=== PATIENT | male | born 1975 | race American Indian/Alaskan Native ===

== ENCOUNTER 2019-12-31 02:32 | Emergency (ER) | payer SELFPAY ==
[2019-12-31] MEDS ORDERED: FAMOTIDINE 20 MG/2 ML INJ IV ONE (03:22)
[2019-12-31] MEDS ORDERED: diphenhydrAMINE 50 MG/ML VIAL IV ONE (03:22)
[2019-12-31] MEDS ORDERED: ONDANSETRON 4 MG/2 ML INJ IV ONE (03:22)
--- NOTE | 2019-12-31 03:24 | Event Note ---
Date: 12/31/19 Medical screening examination note: 44-year-old gentleman, reports a history of wound to left lower extremity, "bumps" on his back, seen at [facility] last month, prescribed Bactrim, presenting with complaint of nausea, vomiting, diarrhea, and sensation that wounds on his back are worsening. Check labs, EKG, undressed patient in a gown, treat his symptoms, and reassess. Vital Signs 12/31/19 02:35 Temperature 98.3 F Pulse Rate 120 H Respiratory 16 Rate Blood Pressure 136/92 O2 Sat by Pulse 97 Oximetry
[2019-12-31 03:25] LABS: Basophils # (Auto) 0.1 K/mm3 (0.0-0.1); Basophils % (Auto) 0.7 % (0.0-1.8); Eosinophils # (Auto) 0.1 K/mm3 (0.0-0.4); Eosinophils % (Auto) 0.6 % (0.0-4.3); Hematocrit 47.3 % (35.5-45.6); Lymphocytes % (Auto) 18.1 % (13.4-35.0); Mean Corpuscular HGB Conc 34 % (32-34); Mean Corpuscular Volume 97 fl (84-94); Monocytes # (Auto) 0.6 K/mm3 (0.0-0.8); Monocytes % (Auto) 5.4 % (0.0-7.3); Platelet Count 256 K/mm3 (140-440); Red Blood Count 4.91 M/mm3 (3.65-5.03); Red Cell Distribution Width 13.2 % (13.2-15.2)
[2019-12-31 03:28] LABS: Alanine Aminotransferase 47 units/L (7-56); Albumin 4.6 g/dL (3.9-5); BUN/Creatinine Ratio 10; Blood Urea Nitrogen 9 mg/dL (9-20); Calcium 10.5 mg/dL (8.4-10.2); Hemolysis Index 10
[2019-12-31] MEDS: SODIUM CHLORIDE 0.9% 1000 ML 1,000 ML IV ONE ×2 (03:38→04:21)
[2019-12-31] MEDS ORDERED: SODIUM CHLORIDE 0.9% 1000 ML 1,000 ML IV ONE (03:44)
[2019-12-31] MEDS ORDERED: INSULIN REGULAR, HUMAN 100 UNITS/1 ML IV ONE (03:44)
[2019-12-31] MEDS ORDERED: KETOROLAC 30 MG/1 ML INJ IV ONE (04:03)
[2019-12-31] MEDS ORDERED: MORPHINE 4 MG/1 ML INJ IV ONE (04:13)
[2019-12-31] MEDS ORDERED: METOCLOPRAMIDE 10 MG/2 ML INJ IV ONE (04:13)
--- NOTE | 2019-12-31 04:36 | Emergency Department Report ---
ED General Adult HPI - General Chief complaint: Nausea/Vomiting/Diarrhea Stated complaint: EMESIS/BODY PAIN Time Seen by Provider: 12/31/19 03:56 Source: patient Mode of arrival: Ambulatory Limitations: No Limitations - History of Present Illness Initial comments: Patient is a 44-year-old male presents emergency room with complaints of nausea, vomiting, diarrhea that began this morning. He states he has had several episodes of each. He has associated generalized body aches. He denies any sick contacts or recent travel. He denies any fever, abdominal pain, hematochezia, hematemesis, melena, cough, shortness of breath, chest pain. He has a past medical history of DM and states he uses Humalog twice daily 30 units, CHF, gastroparesis. He states that he was seen at [facility] recently for wounds on his leg and back and was placed on Bactrim. He has not followed up with anyone since then. Severity scale (0 -10): 10 - Related Data Home Medications Medication Instructions Recorded Confirmed Last Taken Insulin NPH/Regular [NovoLIN 70/30] 7 units SQ QPM 03/01/14 08/13/14 08/12/14 19:00 Insulin NPH/Regular [NovoLIN 70/30] 9 units SQ QAM 03/01/14 08/13/14 08/12/14 09:00 Previous Rx's Medication Instructions Recorded Last Taken Type Famotidine [Pepcid] 20 mg PO DAILY #30 tablet 08/14/14 Unknown Rx HYDROcodone/APAP 10-325 [[place] 1 each PO Q8HR PRN #20 tablet 08/14/14 Unknown Rx 10/325] Hyoscyamine Subl [Levsin Sl] 0.125 mg SL Q8HR PRN #30 tablet 08/14/14 Unknown Rx Metoclopramide HCl [Reglan] 10 mg PO TID PRN #30 tablet 08/14/14 Unknown Rx Metoclopramide [Reglan] 10 mg PO TID PRN #20 tab 12/31/19 Unknown Rx Neomycin/Bacitracin/Polymyxinb 1 applicatio TP BID #1 oint...g. 12/31/19 Unknown Rx [Triple Antibiotic Ointment] traMADoL [Ultram 50 MG tab] 50 mg PO Q8HR PRN #10 tablet 12/31/19 Unknown Rx Allergies Allergy/AdvReac Type Severity Reaction Status Date / Time No Known Allergies Allergy Verified 08/13/14 15:57 ED Review of Systems ROS: Stated complaint: EMESIS/BODY PAIN Other details as noted in HPI Comment: All other systems reviewed and negative ED Past Medical Hx - Past Medical History Previous Medical History?: Yes Hx Congestive Heart Failure: Yes Hx Diabetes: Yes Additional medical history: History of DKA. Tetanus status up to date - Surgical History Past Surgical History?: No - Social History Smoking Status: Current Every Day Smoker Substance Use Type: None - Medications Home Medications: Home Medications Medication Instructions Recorded Confirmed Last Taken Type Insulin NPH/Regular [NovoLIN 70/30] 7 units SQ QPM 03/01/14 08/13/14 08/12/14 19:00 History Insulin NPH/Regular [NovoLIN 70/30] 9 units SQ QAM 03/01/14 08/13/14 08/12/14 09:00 History Famotidine [Pepcid] 20 mg PO DAILY #30 tablet 08/14/14 Unknown Rx HYDROcodone/APAP 10-325 [[place] 1 each PO Q8HR PRN #20 tablet 08/14/14 Unknown Rx 10/325] Hyoscyamine Subl [Levsin Sl] 0.125 mg SL Q8HR PRN #30 tablet 08/14/14 Unknown Rx Metoclopramide HCl [Reglan] 10 mg PO TID PRN #30 tablet 08/14/14 Unknown Rx Metoclopramide [Reglan] 10 mg PO TID PRN #20 tab 12/31/19 Unknown Rx Neomycin/Bacitracin/Polymyxinb 1 applicatio TP BID #1 oint...g. 12/31/19 Unknown Rx [Triple Antibiotic Ointment] traMADoL [Ultram 50 MG tab] 50 mg PO Q8HR PRN #10 tablet 12/31/19 Unknown Rx ED Physical Exam - General Limitations: No Limitations General appearance: alert, in no apparent distress - Head Head exam: Present: atraumatic, normocephalic - Eye Eye exam: Present: normal appearance - ENT ENT exam: Present: mucous membranes dry - Respiratory Respiratory exam: Present: normal lung sounds bilaterally. Absent: respiratory distress, wheezes, rales, rhonchi, stridor, chest wall tenderness, accessory muscle use, decreased breath sounds, prolonged expiratory - Cardiovascular Cardiovascular Exam: Present: normal rhythm, tachycardia, normal heart sounds. Absent: systolic murmur, diastolic murmur, rubs, gallop - GI/Abdominal GI/Abdominal exam: Present: soft, normal bowel sounds. Absent: distended, tenderness, guarding, rebound, rigid - Neurological Exam Neurological exam: Present: alert, oriented X3 - Psychiatric Psychiatric exam: Present: normal affect, normal mood - Skin Skin exam: Present: warm, dry, other (healing granulation tissue present to the left anterior woods, there is no drainage, no erythema, no increased warmth, no fluctuance, there are multiple scab like lesions present on the back and scalp, no erythema, no increased warmth, no drainage, no necrosis, no blistering, no skin denuding) ED Course Vital Signs 12/31/19 12/31/19 12/31/19 02:35 03:43 04:24 Temperature 98.3 F Pulse Rate 120 H 94 H Respiratory 16 Rate Blood Pressure 136/92 168/112 168/112 O2 Sat by Pulse 97 Oximetry 12/31/19 12/31/19 12/31/19 04:27 04:31 04:45 Temperature 98.6 F Pulse Rate 95 H 97 H Respiratory 21 16 Rate Blood Pressure 164/100 164/100 O2 Sat by Pulse 100 99 Oximetry 12/31/19 12/31/19 12/31/19 05:00 05:15 05:31 Temperature Pulse Rate 97 H 97 H 94 H Respiratory 15 15 16 Rate Blood Pressure 136/83 136/83 136/83 O2 Sat by Pulse 99 100 99 Oximetry 12/31/19 12/31/19 12/31/19 05:45 06:00 06:04 Temperature 98.6 F Pulse Rate 93 H 90 Respiratory 15 14 Rate Blood Pressure 136/83 143/89 O2 Sat by Pulse 100 100 Oximetry 12/31/19 06:15 Temperature Pulse Rate 86 Respiratory 13 Rate Blood Pressure 143/89 O2 Sat by Pulse 100 Oximetry ED Medical Decision Making - Lab Data Result diagrams: 12/31/19 02:58 12/31/19 02:58 Lab Results 12/31/19 12/31/19 12/31/19 Range/Units 02:58 02:58 03:34 WBC 10.9 (4.5-11.0) K/mm3 RBC 4.91 (3.65-5.03) M/mm3 Hgb 16.0 H (11.8-15.2) gm/dl Hct 47.3 H (35.5-45.6) % MCV 97 H (84-94) fl MCH 33 H (28-32) pg MCHC 34 (32-34) % RDW 13.2 (13.2-15.2) % Plt Count 256 (140-440) K/mm3 Lymph % (Auto) 18.1 (13.4-35.0) % [place] % (Auto) 5.4 (0.0-7.3) % Eos % (Auto) 0.6 (0.0-4.3) % Baso % (Auto) 0.7 (0.0-1.8) % Lymph # 2.0 (1.2-5.4) K/mm3 [place] # 0.6 (0.0-0.8) K/mm3 Eos # 0.1 (0.0-0.4) K/mm3 Baso # 0.1 (0.0-0.1) K/mm3 Seg Neutrophils % 75.2 H (40.0-70.0) % Seg Neutrophils # 8.2 H (1.8-7.7) K/mm3 VBG pH (7.320-7.420) Sodium 133 L (137-145) mmol/L Potassium 4.3 (3.6-5.0) mmol/L Chloride 90.7 L (98-107) mmol/L Carbon Dioxide 26 (22-30) mmol/L Anion Gap 21 mmol/L BUN 9 (9-20) mg/dL Creatinine 0.9 (0.8-1.5) mg/dL Estimated GFR > 60 ml/min BUN/Creatinine Ratio 10 % Glucose 546 H* (75-100) mg/dL POC Glucose (70-105) Calcium 10.5 H (8.4-10.2) mg/dL Magnesium 2.00 (1.7-2.3) mg/dL Total Bilirubin 1.00 (0.1-1.2) mg/dL AST 35 (5-40) units/L ALT 47 (7-56) units/L Alkaline Phosphatase 112 (35-129) units/L Total Creatine Kinase 97 (55-170) units/L Troponin T (0.00-0.029) ng/mL Total Protein 8.6 H (6.3-8.2) g/dL Albumin 4.6 (3.9-5) g/dL Albumin/Globulin Ratio 1.2 % Lipase 18 (13-60) units/L 12/31/19 12/31/19 12/31/19 Range/Units 04:14 04:39 06:08 WBC (4.5-11.0) K/mm3 RBC (3.65-5.03) M/mm3 Hgb (11.8-15.2) gm/dl Hct (35.5-45.6) % MCV (84-94) fl MCH (28-32) pg MCHC (32-34) % RDW (13.2-15.2) % Plt Count (140-440) K/mm3 Lymph % (Auto) (13.4-35.0) % [place] % (Auto) (0.0-7.3) % Eos % (Auto) (0.0-4.3) % Baso % (Auto) (0.0-1.8) % Lymph # (1.2-5.4) K/mm3 [place] # (0.0-0.8) K/mm3 Eos # (0.0-0.4) K/mm3 Baso # (0.0-0.1) K/mm3 Seg Neutrophils % (40.0-70.0) % Seg Neutrophils # (1.8-7.7) K/mm3 VBG pH 7.411 (7.320-7.420) Sodium (137-145) mmol/L Potassium (3.6-5.0) mmol/L Chloride (98-107) mmol/L Carbon Dioxide (22-30) mmol/L Anion Gap mmol/L BUN (9-20) mg/dL Creatinine (0.8-1.5) mg/dL Estimated GFR ml/min BUN/Creatinine Ratio % Glucose (75-100) mg/dL POC Glucose 210 H (70-105) Calcium (8.4-10.2) mg/dL Magnesium (1.7-2.3) mg/dL Total Bilirubin (0.1-1.2) mg/dL AST (5-40) units/L ALT (7-56) units/L Alkaline Phosphatase (35-129) units/L Total Creatine Kinase (55-170) units/L Troponin T 0.015 (0.00-0.029) ng/mL Total Protein (6.3-8.2) g/dL Albumin (3.9-5) g/dL Albumin/Globulin Ratio % Lipase (13-60) units/L Vital Signs 12/31/19 12/31/19 12/31/19 02:35 03:43 04:24 Temperature 98.3 F Pulse Rate 120 H 94 H Respiratory 16 Rate Blood Pressure 136/92 168/112 168/112 O2 Sat by Pulse 97 Oximetry 12/31/19 12/31/19 12/31/19 04:27 04:31 04:45 Temperature 98.6 F Pulse Rate 95 H 97 H Respiratory 21 16 Rate Blood Pressure 164/100 164/100 O2 Sat by Pulse 100 99 Oximetry 12/31/19 12/31/19 12/31/19 05:00 05:15 05:31 Temperature Pulse Rate 97 H 97 H 94 H Respiratory 15 15 16 Rate Blood Pressure 136/83 136/83 136/83 O2 Sat by Pulse 99 100 99 Oximetry 12/31/19 12/31/19 12/31/19 05:45 06:00 06:04 Temperature 98.6 F Pulse Rate 93 H 90 Respiratory 15 14 Rate Blood Pressure 136/83 143/89 O2 Sat by Pulse 100 100 Oximetry 12/31/19 06:15 Temperature Pulse Rate 86 Respiratory 13 Rate Blood Pressure 143/89 O2 Sat by Pulse 100 Oximetry - EKG Data EKG shows normal: sinus rhythm, intervals Rate: tachycardia - EKG Data 12/31/19 04:37 LAD biatrial enlargement LAFB LVH no STEMI - Radiology Data Radiology results: report reviewed ACUTE ABDOMEN SERIES 3 VIEWS 0457 INDICATION: n/v/d, body aches, hx of CHF COMPARISON: None available. FINDINGS: Lung carrington are clear. No pneumoperitoneum is seen. Bowel gas pattern is unremarkable. Signer Name: Lyndon Valiente MD Signed: 12/31/2019 5:46 AM Workstation Name: [id number] Transcribed By: ARVIN Dictated By: Lyndon Valiente MD Electronically Authenticated By: Lyndon Valiente MD Signed Date/Time: 12/31/19545 DD/ 4 TD/TT: - Medical Decision Making Patient is a 44-year-old male presents emergency room with complaints of nausea, vomiting, diarrhea that began this morning. He states he has had several episodes of each. He has associated generalized body aches. He denies any sick contacts or recent travel. He denies any fever, abdominal pain, hematochezia, hematemesis, melena, cough, shortness of breath, chest pain. He has a past medical history of DM and states he uses Humalog twice daily 30 units, CHF, ga stroparesis. He states that he was seen at [facility] recently for wounds on his leg and back and was placed on Bactrim. He has not followed up with anyone since then. Initial vitals with tachycardia which improved upon repeat. Labs significant for glucose of 546, otherwise stable, venous pH is normal. XR abdomen with chest: Lung carrington are clear. No pneumoperitoneum is seen. Bowel gas pattern is unremarkable. EKG with LAD, biatrial enlargement, LAFB LVH, no STEMI. Patient given multiple medications, fluids, insulin. Blood glucose improved to 210. Patient was feeling much better and was asymptomatic. He was p.o. challenged and had no further episodes of nausea vomiting or diarrhea. on skin exam: healing granulation tissue present to the left anterior woods, there is no drainage, no erythema, no increased warmth, no fluctuance, there are multiple scab like lesions present on the back and scalp, no erythema, no increased warmth, no drainage, no necrosis, no blistering, no skin denuding, no signs of abscess, cellulitis or infection, pt given triple antibiotic ointment and will be referred to dermatology. pt given prescription for zofran and tramadol. advised pt Please use medications as prescribed. Do not drive or operate heavy machinery while taking pain medication. Please increase your water intake over the next several days. Please initially start with a liquid diet and slowly advance your diet as tolerated. Avoid anything greasy or sugary. Please take your blood sugar 3 times a day and follow-up with your primary care doctor regarding the elevation in your blood sugar. Please follow- up with a GI doctor regarding the gastroparesis. Please follow-up with a inside sales coordinator regarding your skin. Return to the emergency room for any new or worsening symptoms. - Differential Diagnosis Gastroparesis, gastroenteritis, pancreatitis, cholecystitis, obstruction Critical care attestation.: If time is entered above; I have spent that time in minutes in the direct care of this critically ill patient, excluding procedure time. ED Disposition Clinical Impression: Nausea vomiting and diarrhea, Hyperglycemia Disposition: DC-01 TO HOME OR SELFCARE Is pt being admited?: No Does the pt Need Aspirin: No Condition: Stable Instructions: Acute Nausea and Vomiting (ED) Additional Instructions: Please use medications as prescribed. Do not drive or operate heavy machinery while taking pain medication. Please increase your water intake over the next several days. Please initially start with a liquid diet and slowly advance your diet as tolerated. Avoid anything greasy or sugary. Please take your blood sugar 3 times a day and follow-up with your primary care doctor regarding the elevation in your blood sugar. Please follow-up with a GI doctor regarding the gastroparesis. Please follow-up with a inside sales coordinator regarding your skin. Return to the emergency room for any new or worsening symptoms. Prescriptions: Metoclopramide [Reglan] 10 mg PO TID PRN #20 tab PRN Reason: Nausea And Vomiting Neomycin/Bacitracin/Polymyxinb [Triple Antibiotic Ointment] 1 applicatio TP BID #1 oint...g. traMADoL [Ultram 50 MG tab] 50 mg PO Q8HR PRN #10 tablet PRN Reason: Pain , Severe (7-10) Referrals: [facility] [Provider Group] - 3-5 Days TAHIR MÉNDEZ MD [Staff Physician] - 3-5 Days RUTH GALAVIZ MD [Staff Physician] - 3-5 Days ISRA VILLALOBOS MD [Staff Physician] - 3-5 Days [facility] [Provider Group] - 3-5 Days [facility] [Outside] - 3-5 Days Time of Disposition: 06:15 Print Language: FRENCH
--- NOTE | 2019-12-31 05:50 | XRay Report ---
ACUTE ABDOMEN SERIES 3 VIEWS 0457 INDICATION: n/v/d, body aches, hx of CHF COMPARISON: None available. FINDINGS: Lung carrington are clear. No pneumoperitoneum is seen. Bowel gas pattern is unremarkable. Signer Name: Lyndon Valiente MD Signed: 12/31/2019 5:46 AM Workstation Name: [id number]
[2019-12-31 06:48] VITALS: BP 142/92
== END 2019-12-31 06:48 | disposition home or self-care (01) ==
LOC: ED 02:32
DX: R11.2 Nausea with vomiting, unspecified (principal); R19.7 Diarrhea, unspecified; E11.65 Type 2 diabetes mellitus with hyperglycemia; I50.9 Heart failure, unspecified; F17.200 Nicotine dependence, unspecified, uncomplicated; Z79.899 Other long term (current) drug therapy
CPT/HCPCS: 36415; 74022; 80053; 82550; 82805; 82962; 83690; 83735; 84484; 85025; 93005; 96361; 96374; 96375; 99284; J1200; J1885; J2270; J2405; J2765; J7030; J1815

== ENCOUNTER 2021-08-16 20:35 | Inpatient (IN) | payer SELFPAY ==
[2021-08-16] MEDS ORDERED: SODIUM CHLORIDE 0.9% 1000 ML 1,000 ML IV ONE ×2 (22:38→23:35)
--- NOTE | 2021-08-16 22:41 | Emergency Department Report ---
HPI - General Time Seen by Provider: 08/16/21 21:59 - HPI HPI: 45-year-old -Swiss male presents to the emergency department with a complaint of generalized weakness, 3 episodes of passing out over the past 2 days, and 1 day of nausea with vomiting. The patient says "I do not know what is wrong with me I keep falling out." He says that sometimes it will occur when he is getting up from the laying or seated position, but other times he is just resting and suddenly "I wake up on the floor." With this last syncopal episode the patient says that he fell on his right shoulder and is having right shoulder pain. He has a past medical history of diabetes, hypertension, CHF. The patient was seen here about 2 months ago for transient hypotension, LAN, hyperkalemia. The patient had one of his testicles removed a few months ago due to infectious etiology. He is a tobacco smoker but denies any illicit drug use. ED Past Medical Hx - Past Medical History Hx Congestive Heart Failure: Yes Hx Diabetes: Yes Hx Asthma: Yes Hx COPD: No Additional medical history: History of DKA. Tetanus status up to date - Surgical History Additional Surgical History: removal of testicles - Social History Smoking Status: Current Every Day Smoker - Medications Home Medications: Home Medications Medication Instructions Recorded Confirmed Last Taken Type Insulin NPH/Regular [NovoLIN 70/30] 7 units SQ QPM 03/01/14 08/13/14 08/12/14 19:00 History Insulin NPH/Regular [NovoLIN 70/30] 9 units SQ QAM 03/01/14 08/13/14 08/12/14 09:00 History Famotidine [Pepcid] 20 mg PO DAILY #30 tablet 08/14/14 Unknown Rx Hyoscyamine Subl [Levsin Sl 0.125 0.125 mg SL Q8HR PRN #30 tablet 08/14/14 Unknown Rx TAB] Metoclopramide [Reglan TAB] 10 mg PO TID PRN #20 tab 12/31/19 Unknown Rx Neomycin/Bacitracin/Polymyxinb 1 applicatio TP BID #1 oint...g. 12/31/19 Unknown Rx [Triple Antibiotic Ointment] traMADoL [Ultram 50 MG tab] 50 mg PO Q8HR PRN #10 tablet 12/31/19 Unknown Rx Amoxicillin/Potassium Clav 1 each PO DAILY 2 Days #2 tablet 06/25/21 Unknown Rx [Augmentin 875-125 Tablet] Ondansetron [Zofran Odt] 4 mg PO Q8HR PRN 8 Days #24 06/25/21 Unknown Rx tab.che ED Review of Systems ROS: Stated complaint: SYNCOPE Other details as noted in HPI Comment: All other systems reviewed and negative Constitutional: weakness. denies: chills, fever Eyes: denies: eye pain, vision change ENT: denies: ear pain, throat pain Respiratory: denies: cough, shortness of breath Cardiovascular: syncope. denies: chest pain, palpitations Gastrointestinal: nausea, vomiting. denies: abdominal pain Genitourinary: denies: dysuria, discharge Musculoskeletal: arthralgia. denies: joint swelling Skin: denies: rash, lesions Neurological: denies: headache, numbness Physical Exam - Physical Exam Physical Exam: GENERAL: The patient is well-developed well-nourished. HENT: Normocephalic. Atraumatic. Patient has moist mucous membranes. EYES: Extraocular motions are intact. No nystagmus. NECK: Supple. Trachea is midline. CHEST/LUNGS: Clear to auscultation. There is no respiratory distress noted. HEART/CARDIOVASCULAR: Regular. There is no tachycardia. There is no murmur. ABDOMEN: Abdomen is soft, nontender. Patient has normal bowel sounds. There is no abdominal distention. SKIN: Skin is warm and dry. NEURO: The patient is awake, alert, and cooperative. Normal speech. Cranial nerves II through XII grossly intact. MUSCULOSKELETAL: There is no tenderness or deformity. There is no limitation range of motion. ED Medical Decision Making - Lab Data Result diagrams: 08/17/21 02:40 08/17/21 02:40 Lab Results 08/16/21 08/16/21 08/16/21 Range/Units 22:43 22:43 22:43 WBC 11.1 H (4.5-11.0) K/mm3 RBC 3.80 (3.65-5.03) M/mm3 Hgb 12.0 (11.8-15.2) gm/dl Hct 36.9 (35.5-45.6) % MCV 97 H (84-94) fl MCH 32 (28-32) pg MCHC 33 (32-34) % RDW 14.8 (13.2-15.2) % Plt Count 311 (140-440) K/mm3 Lymph % (Auto) 14.3 (13.4-35.0) % [place] % (Auto) 6.6 (0.0-7.3) % Eos % (Auto) 1.3 (0.0-4.3) % Baso % (Auto) 0.3 (0.0-1.8) % Lymph # (Auto) 1.6 (1.2-5.4) K/mm3 [place] # (Auto) 0.7 (0.0-0.8) K/mm3 Eos # (Auto) 0.1 (0.0-0.4) K/mm3 Baso # (Auto) 0.0 (0.0-0.1) K/mm3 Seg Neutrophils % 77.5 H (40.0-70.0) % Seg Neutrophils # 8.6 H (1.8-7.7) K/mm3 PT 15.3 H (12.2-14.9) Sec. INR 1.09 (0.87-1.13) Sodium 135 L (137-145) mmol/L Potassium 4.1 (3.6-5.0) mmol/L Chloride 97.9 L (98-107) mmol/L Carbon Dioxide 22 (22-30) mmol/L Anion Gap 19 mmol/L BUN 46 H (9-20) mg/dL Creatinine 2.3 H (0.8-1.3) mg/dL Estimated GFR 37 ml/min BUN/Creatinine Ratio 20 % Glucose 241 H (75-100) mg/dL Calcium 9.2 (8.4-10.2) mg/dL Magnesium 1.90 (1.7-2.3) mg/dL Total Bilirubin 0.60 (0.1-1.2) mg/dL AST 32 (5-40) units/L ALT 50 (7-56) units/L Alkaline Phosphatase 164 H (35-129) units/L Troponin T 0.069 H (0.00-0.029) ng/mL Total Protein 8.7 H (6.3-8.2) g/dL Albumin 3.8 L (3.9-5) g/dL Albumin/Globulin Ratio 0.8 % Triglycerides 110 (2-149) mg/dL Cholesterol 94 (50-199) mg/dL LDL Cholesterol Direct 33 L (50-130) mg/dL HDL Cholesterol 44 (40-59) mg/dL Cholesterol/HDL Ratio 2.13 % TSH (0.270-4.200) mlU/mL Plasma/Serum Alcohol (0-0.07) % 08/16/21 08/16/21 Range/Units 22:43 22:43 WBC (4.5-11.0) K/mm3 RBC (3.65-5.03) M/mm3 Hgb (11.8-15.2) gm/dl Hct (35.5-45.6) % MCV (84-94) fl MCH (28-32) pg MCHC (32-34) % RDW (13.2-15.2) % Plt Count (140-440) K/mm3 Lymph % (Auto) (13.4-35.0) % [place] % (Auto) (0.0-7.3) % Eos % (Auto) (0.0-4.3) % Baso % (Auto) (0.0-1.8) % Lymph # (Auto) (1.2-5.4) K/mm3 [place] # (Auto) (0.0-0.8) K/mm3 Eos # (Auto) (0.0-0.4) K/mm3 Baso # (Auto) (0.0-0.1) K/mm3 Seg Neutrophils % (40.0-70.0) % Seg Neutrophils # (1.8-7.7) K/mm3 PT (12.2-14.9) Sec. INR (0.87-1.13) Sodium (137-145) mmol/L Potassium (3.6-5.0) mmol/L Chloride (98-107) mmol/L Carbon Dioxide (22-30) mmol/L Anion Gap mmol/L BUN (9-20) mg/dL Creatinine (0.8-1.3) mg/dL Estimated GFR ml/min BUN/Creatinine Ratio % Glucose (75-100) mg/dL Calcium (8.4-10.2) mg/dL Magnesium (1.7-2.3) mg/dL Total Bilirubin (0.1-1.2) mg/dL AST (5-40) units/L ALT (7-56) units/L Alkaline Phosphatase (35-129) units/L Troponin T (0.00-0.029) ng/mL Total Protein (6.3-8.2) g/dL Albumin (3.9-5) g/dL Albumin/Globulin Ratio % Triglycerides (2-149) mg/dL Cholesterol (50-199) mg/dL LDL Cholesterol Direct (50-130) mg/dL HDL Cholesterol (40-59) mg/dL Cholesterol/HDL Ratio % TSH 2.010 (0.270-4.200) mlU/mL Plasma/Serum Alcohol < 0.01 (0-0.07) % - EKG Data -: EKG Interpreted by Me EKG shows normal: sinus rhythm, axis (Left axis deviation), intervals, QRS complexes (Left anterior fascicular block, LVH), ST-T waves (Anterior tall peaked T waves) Rate: normal - EKG Data When compared to previous EKG there are: no significant change Interpretation: unchanged when compared t (06/23/21) - Radiology Data Radiology results: image reviewed interpreted by me: Chest x-ray does not show any acute process. There are no pleural effusions, obvious pneumonia and there is no pneumothorax. No widened mediastinum. X-ray of the right shoulder does not show any fracture, dislocation, or any acute process. CT HEAD WITHOUT CONTRAST INDICATION / CLINICAL INFORMATION: Syncope. TECHNIQUE: All CT scans at this location are performed using CT dose reduction for ALARA by means of automated exposure control. COMPARISON: None available. FINDINGS: BRAIN PARENCHYMA: No acute intracranial hemorrhage. No evidence of recent infarct. No mass effect or midline shift. VENTRICULAR SYSTEM/EXTRA-AXIAL SPACES: Ventricles are normal for age. No extra-axial fluid collection. ORBITS: Normal as visualized. SKELETAL SYSTEM/SOFT TISSUES: Normal bones and soft tissues. PARANASAL SINUSES/MASTOID AIR CELLS: No significant abnormality. ADDITIONAL FINDINGS: None. IMPRESSION: 1. No acute intracranial abnormality. - Medical Decision Making This patient presents to the emergency department with a complaint of multiple syncopal episodes over the past 2 days, and a 1 day history of some nausea with vomiting. On examination the patient is seen moving all extremities spontaneously. No focal, motor or sensory deficits and his cranial nerves are intact. CT scan of the head without contrast does not show any hemorrhage, large vessel occlusion, or any acute process. EKG does not have any morphology consistent with ST elevation myocardial infarction and is unchanged from previous. Patient's labs shows acute kidney injury with a GFR of about 35, elevated troponin of about 0.069, and some hyperglycemia without evidence of diabetic ketoacidosis. Patient also complained of having right shoulder pain after one of his syncopal episodes and falls. X-ray of the right shoulder does not show any fracture, dislocation, or any acute process. Patient was given some IV fluid resuscitation as he has had some transient hypotension. We attempted to do orthostatics but the patient says that he was too weak to attempt to stand. Patient will be admitted to the hospital for further evaluation and treatment was accepted for admission by the hospitalist, Dr. Hatfield. Critical Care Time: No Critical care attestation.: If time is entered above; I have spent that time in minutes in the direct care of this critically ill patient, excluding procedure time. ED Disposition Clinical Impression: Recurrent syncope, Transient hypotension, LAN (acute kidney injury), Elevated troponin, Dehydration Disposition: ADMITTED INPATIENT Is pt being admited?: Yes Condition: Serious Time of Disposition: 01:20
[2021-08-16] MEDS ORDERED: ONDANSETRON 4 MG/2 ML INJ IV ONE (23:09)
[2021-08-16 23:21] LABS: Albumin 3.8 g/dL (3.9-5); Calcium 9.2 mg/dL (8.4-10.2)
[2021-08-16 23:22] LABS: INR 1.09 (0.87-1.13)
[2021-08-16 23:29] LABS: Basophils % (Auto) 0.3 % (0.0-1.8); Eosinophils # (Auto) 0.1 K/mm3 (0.0-0.4); Eosinophils % (Auto) 1.3 % (0.0-4.3); Hematocrit 36.9 % (35.5-45.6); Lymphocytes # (Auto) 1.6 K/mm3 (1.2-5.4); Lymphocytes % (Auto) 14.3 % (13.4-35.0); Mean Corpuscular HGB Conc 33 % (32-34); Mean Corpuscular Volume 97 fl (84-94); Monocytes # (Auto) 0.7 K/mm3 (0.0-0.8); Monocytes % (Auto) 6.6 % (0.0-7.3); Platelet Count 311 K/mm3 (140-440); Red Cell Distribution Width 14.8 % (13.2-15.2)
--- NOTE | 2021-08-16 23:41 | XRay Report ---
XR chest routine 2V INDICATION / CLINICAL INFORMATION: Syncope. COMPARISON: 05/01/2020. FINDINGS: SUPPORT DEVICES: None. HEART /PULMONARY VASCULATURE: No significant abnormality. LUNGS / PLEURA: No significant pulmonary or pleural abnormality. No pneumothorax. ADDITIONAL FINDINGS: No significant additional findings. IMPRESSION: 1. No acute findings. Signer Name: Hiro Cannon MD Signed: 08/16/2021 11:36 PM Workstation Name: [id number]
--- NOTE | 2021-08-16 23:43 | XRay Report ---
Right shoulder, 5 views HISTORY: Pain after fall COMPARISON: None FINDINGS: No acute fracture or malalignment. Mild right AC and glenohumeral osteoarthritis. Subacromi al space is preserved. No focal soft tissue abnormality. IMPRESSION: No acute process. Signer Name: Hiro Cannon MD Signed: 08/16/2021 11:39 PM Workstation Name: [id number]
[2021-08-17 01:08] LABS: Chol/HDL Ratio 2.13 %
--- NOTE | 2021-08-17 01:17 | Cat Scan Report ---
CT HEAD WITHOUT CONTRAST INDICATION / CLINICAL INFORMATION: Syncope. TECHNIQUE: All CT scans at this location are performed using CT dose reduction for ALARA by means of automated exposure control. COMPARISON: None available. FINDINGS: BRAIN PARENCHYMA: No acute intracranial hemorrhage. No evidence of recent infarct. No mass effect or midline shift. VENTRICULAR SYSTEM/EXTRA-AXIAL SPACES: Ventricles are normal for age. No extra-axial fluid collection . ORBITS: Normal as visualized. SKELETAL SYSTEM/SOFT TISSUES: Normal bones and soft tissues. PARANASAL SINUSES/MASTOID AIR CELLS: No significant abnormality. ADDITIONAL FINDINGS: None. IMPRESSION: 1. No acute intracranial abnormality. Signer Name: Hiro Cannon MD Signed: 08/17/2021 1:13 AM Workstation Name: [id number]
[2021-08-17] MEDS ORDERED: ACETAMINOPHEN 325 MG TAB PO PRN ×2 (01:47)
[2021-08-17] MEDS ORDERED: MORPHINE 2 MG/1 ML INJ IV PRN (01:47)
[2021-08-17] MEDS ORDERED: MAGNESIUM HYDROXIDE (MOM) ORAL LIQD UDC PO PRN (01:47)
[2021-08-17] MEDS ORDERED: DEXTROSE 50% IN WATER (25GM) 50 ML SYRINGE IV PRN (01:47)
--- NOTE | 2021-08-17 02:19 | History and Physical Report ---
History of Present Illness Date of examination: 08/17/21 Date of admission: 08/17/21 01:20 Chief complaint: Generalized weakness Syncope History of present illness: 45-year-old -Israeli male with known history of diabetes mellitus, CHF and asthma presenting to the emergency room today complaining of generalized weakness and syncope. Patient indicates that he has had multiple syncopal episodes prior to reporting to the emergency room. Patient indicates that he passes out when he tries to get up from a sitting position. He also complains of right shoulder pain status post the syncopal episodes today. Review of patient records indicates that he was here a few months ago with a similar complaint during which he had transient hypotension, LAN and hyp erkalemia. He denies any illicit drug use pulse smokes tobacco. Patient denies any sick contacts and no recent travel. Denies any contact with anyone with COVID-19. He also indicates that he had one of his testicles removed secondary to an infection few months ago. Upon arrival in the emergency room, patient was hypotensive with a blood pressure of 88/45 mmHg. Blood pressure improved with administration of IV fluid. Work-up in the emergency room today, significant findings were that of elevated BUN of 46 and creatinine of 2.3., Troponin of 0.069 Chest x-ray and CT scan of the head showed no acute abnormality. X-ray of the right shoulder showed no acute process. Attempts were made to get orthostatic vital signs in the emergency room but patient indicates that he is unable stand on his legs due to weakness.. Patient is being admitted for recurrent syncope, LAN, elevated troponin. Past History Past Medical History: diabetes, other (Asthma, history of DKA) Past Surgical History: Other (History of orchiectomy) Social history: smoking (Current daily smoker) Family history: no significant family history Medications and Allergies Allergies Allergy/AdvReac Type Severity Reaction Status Date / Time No Known Allergies Allergy Verified 08/17/21 00:30 Home Medications Medication Instructions Recorded Confirmed Last Taken Type Insulin NPH/Regular [NovoLIN 70/30] 7 units SQ QPM 03/01/14 08/13/14 08/12/14 19:00 History Insulin NPH/Regular [NovoLIN 70/30] 9 units SQ QAM 03/01/14 08/13/14 08/12/14 09:00 History Famotidine [Pepcid] 20 mg PO DAILY #30 tablet 12/10/14 Unknown Rx Hyoscyamine Subl [Levsin Sl 0.125 0.125 mg SL Q8HR PRN #30 tablet 08/14/14 Unknown Rx TAB] Metoclopramide [Reglan TAB] 10 mg PO TID PRN #20 tab 12/31/19 Unknown Rx Neomycin/Bacitracin/Polymyxinb 1 applicatio TP BID #1 oint...g. 12/31/19 Unknown Rx [Triple Antibiotic Ointment] traMADoL [Ultram 50 MG tab] 50 mg PO Q8HR PRN #10 tablet 12/31/19 Unknown Rx Amoxicillin/Potassium Clav 1 each PO DAILY 2 Days #2 tablet 06/25/21 Unknown Rx [Augmentin 875-125 Tablet] Ondansetron [Zofran Odt] 4 mg PO Q8HR PRN 8 Days #24 06/25/21 Unknown Rx tab.rapdis Active Meds: Active Medications Acetaminophen (Acetaminophen 325 Mg Tab) 650 mg PO Q4H PRN PRN Reason: Pain MILD(1-3)/Fever >100.5/SHARPE Aspirin (Aspirin Ec 325 Mg Tab) 325 mg PO QDAY CHAYA Dextrose (Dextrose 50% In Water (25gm) 50 Ml Syringe) 50 ml IV Q30MIN PRN; Protocol PRN Reason: Hypoglycemia Heparin Sodium (Porcine) (Heparin 5,000 Unit/1 Ml Vial) 5,000 unit SUB-Q Q8HR [facility]A Sodium Chloride (Nacl 0.9% 1000 Ml) 1,000 mls @ 250 mls/hr IV ONCE ONE Stop: 08/17/21 02:37 Sodium Chloride (Nacl 0.9% 1000 Ml) 1,000 mls @ 125 mls/hr IV DIRECT CHAYA Insulin Human Lispro (Insulin Lispro 100 Unit/Ml) 0 unit SUB-Q ACHS CHAYA; Protocol Magnesium Hydroxide (Magnesium Hydroxide (Mom) Oral Liqd Udc) 30 ml PO Q4H PRN PRN Reason: Constipation Morphine Sulfate (Morphine 2 Mg/1 Ml Inj) 2 mg IV Q4H PRN PRN Reason: Pain, Moderate (4-6) Morphine Sulfate (Morphine 4 Mg/1 Ml Inj) 4 mg IV Q4H PRN PRN Reason: Pain , Severe (7-10) Ondansetron HCl (Ondansetron 4 Mg/2 Ml Inj) 4 mg IV Q8H PRN PRN Reason: Nausea And Vomiting Sodium Chloride (Sodium Chloride 0.9% 10 Ml Flush Syringe) 10 ml IV BID CHAYA Sodium Chloride (Sodium Chloride 0.9% 10 Ml Flush Syringe) 10 ml IV PRN PRN PRN Reason: LINE FLUSH Tramadol HCl (Tramadol 50 Mg Tab) 50 mg PO Q6H PRN PRN Reason: Pain, Moderate (4-6) Review of Systems Constitutional: weakness, no fever, no chills Ears, nose, mouth and throat: no nasal congestion, no sore throat Cardiovascular: no chest pain, no palpitations Respiratory: no cough, no shortness of breath Gastrointestinal: nausea, vomiting, no abdominal pain, no diarrhea, no BRBPR, no melena Genitourinary Male: no dysuria, no hematuria, no flank pain Musculoskeletal: no neck pain, no low back pain Integumentary: no rash, no pruritis Neurological: no headaches, no confusion Psychiatric: no anxiety, no depression Endocrine: no polyphagia, no polydipsia, no polyuria, no nocturia Exam - Constitutional Vitals: Temp Pulse Resp BP Pulse Ox 98.0 F 66 15 84/51 100 08/16/21 23:28 08/16/21 23:35 08/16/21 23:31 08/16/21 23:35 08/16/21 23:31 General appearance: Present: no acute distress, well-nourished - EENT Eyes: Present: PERRL, EOM intact. Absent: scleral icterus ENT: hearing intact, clear oral mucosa, dentition normal - Neck Neck: Present: supple, normal ROM - Respiratory Respiratory effort: normal Respiratory: bilateral: CTA - Cardiovascular Rhythm: regular Heart Sounds: Present: S1 & S2. Absent: gallop, systolic murmur, diastolic murmur, rub, click - Extremities Extremities: no ischemia, pulses intact, pulses symmetrical, No edema, normal temperature, normal color, Full ROM Peripheral Pulses: within normal limits - Abdominal General gastrointestinal: Present: soft, non-tender, non-distended, normal bowel sounds. Absent: mass - Integumentary Integumentary: Present: clear, warm, dry, normal turgor. Absent: rash - Musculoskeletal Musculoskeletal: strength equal bilaterally - Psychiatric Psychiatric: appropriate mood/affect, intact judgment & insight, memory intact, cooperative - Neurologic Neurologic: CNII-XII intact, no focal deficits, moves all extremities HEART Score - HEART Score Troponin: Troponin T 0.069 ng/mL (0.00-0.029) H 08/16/21 22:43 Results - Labs CBC & Chem 7: 08/17/21 02:40 08/17/21 02:40 Labs: Abnormal lab results 08/16/21 08/16/21 08/16/21 Range/Units 22:43 22:43 22:43 WBC 11.1 H (4.5-11.0) K/mm3 MCV 97 H (84-94) fl Seg Neutrophils % 77.5 H (40.0-70.0) % Seg Neutrophils # 8.6 H (1.8-7.7) K/mm3 PT 15.3 H (12.2-14.9) Sec. Sodium 135 L (137-145) mmol/L Chloride 97.9 L (98-107) mmol/L BUN 46 H (9-20) mg/dL Creatinine 2.3 H (0.8-1.3) mg/dL Glucose 241 H (75-100) mg/dL Alkaline Phosphatase 164 H (35-129) units/L Troponin T 0.069 H (0.00-0.029) ng/mL Total Protein 8.7 H (6.3-8.2) g/dL Albumin 3.8 L (3.9-5) g/dL LDL Cholesterol Direct 33 L (50-130) mg/dL Assessment and Plan - Patient Problems (1) Recurrent syncope Current Visit: Yes Status: Acute Plan to address problem: Possibly secondary to hypotension. We will schedule patient for echocardiogram and carotid Doppler. We will also monitor orthostatic vital signs. (2) LAN (acute kidney injury) Current Visit: Yes Status: Acute Plan to address problem: Possibly prerenal Patient placed on IV fluid. Will monitor BUN and creatinine. (3) Dehydration Current Visit: Yes Status: Acute Plan to address problem: Possibly secondary to the nausea and vomiting. We will continue on IV fluid hydration and monitor chemistry. (4) Elevated troponin Current Visit: Yes Status: Acute Plan to address problem: Patient had denied any chest pain. We will trend cardiac enzymes in the setting of acute renal failure. (5) Diabetes mellitus Current Visit: Yes Status: Acute Plan to address problem: We will place patient on sliding scale insulin. We will monitor Accu-Cheks closely. (6) DVT prophylaxis Current Visit: No Status: Acute Plan to address problem: Patient placed on subcutaneous heparin. (7) Full code status Current Visit: Yes Status: Acute Plan to address problem: Patient is full code.
[2021-08-17] MEDS: MORPHINE 4 MG/1 ML INJ IV PRN ×4 (02:52→22:51)
[2021-08-17 03:02] LABS: Basophils # (Auto) 0.1 K/mm3 (0.0-0.1); Basophils % (Auto) 0.5 % (0.0-1.8); Eosinophils # (Auto) 0.1 K/mm3 (0.0-0.4); Eosinophils % (Auto) 1.2 % (0.0-4.3); Hematocrit 34.4 % (35.5-45.6); Hemoglobin 11.1 gm/dl (11.8-15.2); Lymphocytes # (Auto) 1.5 K/mm3 (1.2-5.4); Lymphocytes % (Auto) 14.2 % (13.4-35.0); Mean Corpuscular HGB Conc 32 % (32-34); Mean Corpuscular Volume 96 fl (84-94); Monocytes # (Auto) 0.8 K/mm3 (0.0-0.8); Monocytes % (Auto) 7.1 % (0.0-7.3); Platelet Count 284 K/mm3 (140-440); Red Cell Distribution Width 14.9 % (13.2-15.2)
[2021-08-17 03:22] LABS: Calcium 8.4 mg/dL (8.4-10.2)
[2021-08-17] MEDS: HEPARIN 5,000 UNIT/1 ML VIAL SUB-Q SCH ×3 (05:48→22:00)
[2021-08-17] MEDS: traMADol 50 MG TAB PO PRN (05:54)
[2021-08-17] MEDS: INSULIN LISPRO 100 UNIT/ML SUB-Q SCH ×2 (07:39→13:44)
--- NOTE | 2021-08-17 08:51 | Vascular Lab Report ---
DUPLEX DOPPLER ULTRASOUND CAROTID, BILATERAL INDICATION / CLINICAL INFORMATION: SYNCOPE. COMPARISON: None available. FINDINGS: RIGHT CAROTID: Minimal noncalcified plaques are noted in the ICA - PLAQUE ESTIMATE (%): < 50% - CCA velocity: 89 cm/sec. - ICA peak systolic velocity: 78 cm/sec. - ICA/CCA PSV Ratio: Less than 2 Right Vertebral Artery: Antegrade flow. LEFT CAROTID: Minimal partially calcified smooth plaque is identified in the carotid bulb - PLAQUE ESTIMATE (%): < 50% - CCA velocity: 85 cm/sec. - ICA peak systolic velocity: 81 cm/sec. - ICA/CCA PSV Ratio: Less than 2 Left Vertebral Artery: Antegrade flow. IMPRESSION: 1. Right Internal Carotid Artery: Less than 50% diameter stenosis. 2. Left Internal Carotid Artery: Less than 50% diameter stenosis. Velocity criteria are extrapolated from diameter data as defined by the Society of Radiologists in Ul trasound Consensus Conference, Radiology 2003; 229;340-346. NO STENOSIS (NORMAL) - Plaque = none; ICA PSV < 125 cm/sec; ICA/CCA PSV Ratio < 2.0 <50% STENOSIS - Plaque < 50%; ICA PSV < 125 cm/sec; ICA/CCA PSV Ratio < 2.0 50-69% STENOSIS - Plaque > 50%; ICA PSV = 125-230 cm/sec; ICA/CCA PSV Ratio = 2.0-4.0 >70% BUT <100% STENOSIS - Plaque > 50%; ICA PSV > 230 cm/sec; ICA/CCA PSV Ratio > 4.0 NEAR OCCLUSION - Plaque = visible lumen; ICA PSV = high/low/none; ICA/CCA PSV Ratio = variable TOTAL OCCLUSION - Plaque = no lumen; ICA PSV = none; ICA/CCA PSV Ratio = N/A Signer Name: Dion Osborne Jr, MD Signed: 08/17/2021 8:46 AM Workstation Name: [id number]
--- NOTE | 2021-08-17 09:55 | Event Note ---
Date: 08/17/21 This is a follow-up from an admission earlier this morning. Patient seen and examined. We will continue to plan as outlined in the H&P. Follow-up echocardiogram and carotid Dopplers. Monitor BUN and creatinine. Continue telemetry monitoring and await cardiology and nephrology recommendations. Total visit time equals 35 minutes with greater than 50% spent on coordination of care and counseling.
--- NOTE | 2021-08-17 10:06 | Consultation ---
History of Present Illness - History of Present Illness Thank you for the consultation Patient was evaluated today My assessment and plan are as follows Acute kidney injury in a patient who does have history of chronic kidney disease baseline creatinine appears to be around 1.5 there is an improvement in the kidney function since yesterday with the hydration which should be continued generously, Patient clinically appears to be volume depleted Etiology of renal failure is complex patient needs to make a follow-up appointment office will order for renal workup including ultrasonogram urinalysis etc. There is no acute emergent indication for renal placement therapy #Volume depletion: Mostly resulting from chronic diarrhea nearly of 1 month duration. Patient needs aggressive hydration, monitoring of blood pressure closely, if needed will need a cardiac workup Needs aggressive hydration and close follow-up on electrolytes, he will also needs to be seen by medicare coordinator given the history of Crohn's disease diagnosed a month ago per patient #Hyponatremia: Mild to follow #Mild metabolic acidosis can be treated with sodium bicarbonate tablet but continue to hydrate for now #Mild anemia etiology unclear, #Elevated troponin needs cardiac workup #Malnutrition present upon admission albumin was 3.8, check protein creatinine ratio #Renal prognosis remains guarded avoiding nephrotoxic medication or any exposure to radiocontrast studies for now and continue to follow For now continue to hydrate monitor renal function all renal studies renal ultrasonogram and then follow-up in the office upon discharge Renal prognosis has been guarded patient has been explained to make an appointment office Author: Osvaldo Diallo M.D. [facility], [address] [place] [address] Tel; [phone] Source of information: From patient as well as the current chart History of present illness 45-year-old -Chinese male with been admitted here with generalized weakness, syncopal spell on 3 different occasions over the past 48-72 hours, has also been complaining of nausea and vomiting. patient has been diagnosis with Crohn's disease approximately a month ago according to him he has been having issues with ongoing diarrhea. He does not recall the name of his gastroe nterologist and he has not been given any treatment so far. he came into the hospital after he has hadfrequent syncopal spells and fell and hurt on the right side. For which workup is in progress patient states that he has been diagnosed with Crohn's disease approximately a month ago and ever since then he has been having issues with ongoing diarrhea and volume depletion. He does not even know the name of his medicare coordinator Review of the old record shows that patient's creatinine was 0.13 December 2019 and then it was 2.8 in June 2021 and then subsequently came down to 1.5 which appears to be his baseline Past medical history: Congestive heart failure Diabetes Diabetic ketoacidosis Tobacco abuse Current allergies: Reviewed from the current chart Social history: Reviewed from the current chart Family history: Reviewed from the current chart Review of system: Positive for All other review of systems negative Physical examination Vitals: Reviewed General: No acute distress HEENT: Oral mucosa moist no pallor or icterus Neck: Supple without any JVD thyromegaly or nodular mass Chest: Clear to auscultation Heart: Regular rate and rhythm S1-S2 heard no S3-S4 Abdomen: Soft nontender, bowel sounds present no renal bruit no suprapubic masses no CVA tenderness noted Extremity: Minimal edema dry skin no peripheral cyanosis Endocrine: Thyroid not enlarged Psychiatric: No agitation and aggression noted Musculoskeletal: No joint effusion noted Labs and x-rays: Reviewed from this admission Past History Past Medical History: diabetes, other (Asthma, history of DKA) Past Surgical History: Other (History of orchiectomy) Social history: smoking (Current daily smoker) Family history: no significant family history Medications and Allergies Allergies Allergy/AdvReac Type Severity Reaction Status Date / Time No Known Allergies Allergy Verified 08/17/21 00:30 Home Medications Medication Instructions Recorded Confirmed Last Taken Type AtorvaSTATin [Lipitor] 40 mg PO QHS 08/17/21 08/17/21 1 Day Ago History ~08/16/21 Folic Acid [Folvite] 1 mg PO QDAY 08/17/21 08/17/21 1 Day Ago History ~08/16/21 Gabapentin [Neurontin] 600 mg PO QPM 08/17/21 08/17/21 1 Day Ago History ~08/16/21 Insulin Glargine,Hum.rec.anlog 5 unit SQ QHS 08/17/21 08/17/21 1 Day Ago History [Lantus Solostar] ~08/16/21 amLODIPine [Norvasc] 5 mg PO DAILY 08/17/21 08/17/21 1 Day Ago History ~08/16/21 carvediloL [Coreg] 25 mg PO Q12H 08/17/21 08/17/21 1 Day Ago History ~08/16/21 hydroCHLOROthiazide [HCTZ] 25 mg PO QDAY 08/17/21 08/17/21 1 Day Ago History ~08/16/21 lisinopriL [Zestril TAB] 40 mg PO QDAY 08/17/21 08/17/21 1 Day Ago History ~08/16/21 Active Meds: Active Medications Acetaminophen (Acetaminophen 325 Mg Tab) 650 mg PO Q4H PRN PRN Reason: Pain MILD(1-3)/Fever >100.5/SHARPE Aspirin (Aspirin Ec 325 Mg Tab) 325 mg PO QDAY [facility] Dextrose (Dextrose 50% In Water (25gm) 50 Ml Syringe) 50 ml IV Q30MIN PRN; Protocol PRN Reason: Hypoglycemia Heparin Sodium (Porcine) (Heparin 5,000 Unit/1 Ml Vial) 5,000 unit SUB-Q Q8HR [facility] Last Admin: 08/17/21 05:48 Dose: 5,000 unit Documented by: Sodium Chloride (Nacl 0.9% 1000 Ml) 1,000 mls @ 125 mls/hr IV DIRECT CHAYA Insulin Human Lispro (Insulin Lispro 100 Unit/Ml) 0 unit SUB-Q ACHS [facility]; Protocol Last Admin: 08/17/21 07:39 Dose: Not Given Documented by: Magnesium Hydroxide (Magnesium Hydroxide (Mom) Oral Liqd Udc) 30 ml PO Q4H PRN PRN Reason: Constipation Morphine Sulfate (Morphine 2 Mg/1 Ml Inj) 2 mg IV Q4H PRN PRN Reason: Pain, Moderate (4-6) Morphine Sulfate (Morphine 4 Mg/1 Ml Inj) 4 mg IV Q4H PRN PRN Reason: Pain , Severe (7-10) Last Admin: 08/17/21 08:43 Dose: 4 mg Documented by: Ondansetron HCl (Ondansetron 4 Mg/2 Ml Inj) 4 mg IV Q8H PRN PRN Reason: Nausea And Vomiting Sodium Chloride (Sodium Chloride 0.9% 10 Ml Flush Syringe) 10 ml IV BID CHAYA Sodium Chloride (Sodium Chloride 0.9% 10 Ml Flush Syringe) 10 ml IV PRN PRN PRN Reason: LINE FLUSH Tramadol HCl (Tramadol 50 Mg Tab) 50 mg PO Q6H PRN PRN Reason: Pain, Moderate (4-6) Last Admin: 08/17/21 05:54 Dose: 50 mg Documented by: Exam - Vital Signs Vital signs: Vital Signs Pulse Resp 70 14 08/16/21 23:22 08/16/21 23:22 Results - Lab Results 08/17/21 19:08 08/17/21 02:40 Most recent lab results Calcium 8.4 mg/dL (8.4-10.2) 08/17/21 02:40 Magnesium 1.90 mg/dL (1.7-2.3) 08/16/21 22:43
--- NOTE | 2021-08-17 12:48 | Ultrasound Report ---
ULTRASOUND RENAL INDICATION / CLINICAL INFORMATION: renal failure. COMPARISON: CT abdomen/pelvis 08/13/2014. FINDINGS: RIGHT KIDNEY: Length = 11.7 cm. - Echogenicity: Normal. - Cortical Thickness: Normal. - Hydronephrosis: None. - Cyst / Mass: None. - Stones: None seen. LEFT KIDNEY: Length = 11.3 cm. - Echogenicity: Normal. - Cortical Thickness: Normal. - Hydronephrosis: None. - Cyst / Mass: None. - Stones: None seen. URINARY BLADDER: Layering debris versus sessile mass or wall thickening measuring 7.6 cm in length is noted within the dependent portion of the bladder. FREE FLUID: None. ADDITIONAL FINDINGS: None. IMPRESSION: 1. No sonographic abnormality of the kidneys. 2. A small amount of layering debris versus a sessile mass/wall thickening is noted within the depend ent portion of the bladder. Scribed by: Syl Bennett RDMS, RVT Scribed: 08/17/2021 11:06 AM I have reviewed the images, agree with this report, and edited this report as needed. Signer Name: Shemar Soriano MD Signed: 08/17/2021 12:43 PM Workstation Name: [id number]
[2021-08-17 12:51] LABS: Uric Acid 6.4 mg/dL (3.5-7.6)
--- NOTE | 2021-08-17 14:28 | Consultation ---
History of Present Illness Consult date: 08/17/21 Consult reason: syncope History of present illness: Patient is a 45-year-old man who presents to the hospital with syncope. He stat es that over the last 2 days, they have been at least 5 syncopal episodes. Episodes have occurred after he gets up, and tries to walk a few feet he feels lightheadedness and falls to the floor. He describes no chest pain, no shortness of breath, no palpitations. His other predominant symptom is p ersistent nausea and vomiting. There has been no diarrhea. On his presentation to the emergency room, his creatinine was elevated at 1.8-2.0. He reports that he gets his usual care at [facility], and states that he has been told by his doctors at [facility] that he has congestive heart failure. He is however unable to relate any significant cardiac work-up either with a stress test or a cardiac catheterization. He is also unable to relate details of any left ventricular function assessment. He states that he is on multiple medications from [facility] for his "congestive heart failure". ECG in the emergency room is normal sinus rhythm, left axis deviation, otherwise normal ECG. There is a borderline troponin measurement, in the setting of elevated creatinine levels. Past History Past Medical History: diabetes, heart failure, other (Asthma, history of DKA) Past Surgical History: Other (History of orchiectomy) Social history: smoking (Current daily smoker) Family history: no significant family history Medications and Allergies Allergies Allergy/AdvReac Type Severity Reaction Status Date / Time No Known Allergies Allergy Verified 08/17/21 00:30 Home Medications Medication Instructions Recorded Confirmed Last Taken Type AtorvaSTATin [Lipitor] 40 mg PO QHS 08/17/21 08/17/21 1 Day Ago History ~08/16/21 Folic Acid [Folvite] 1 mg PO QDAY 08/17/21 08/17/21 1 Day Ago History ~08/16/21 Gabapentin [Neurontin] 600 mg PO QPM 08/17/21 08/17/21 1 Day Ago History ~08/16/21 Insulin Glargine,Hum.rec.anlog 5 unit SQ QHS 08/17/21 08/17/21 1 Day Ago History [Lantus Solostar] ~08/16/21 amLODIPine [Norvasc] 5 mg PO DAILY 08/17/21 08/17/21 1 Day Ago History ~08/16/21 carvediloL [Coreg] 25 mg PO Q12H 08/17/21 08/17/21 1 Day Ago History ~08/16/21 hydroCHLOROthiazide [HCTZ] 25 mg PO QDAY 08/17/21 08/17/21 1 Day Ago History ~08/16/21 lisinopriL [Zestril TAB] 40 mg PO QDAY 08/17/21 08/17/21 1 Day Ago History ~08/16/21 Active Meds: Active Medications Acetaminophen (Acetaminophen 325 Mg Tab) 650 mg PO Q4H PRN PRN Reason: Pain MILD(1-3)/Fever >100.5/SHARPE Aspirin (Aspirin Ec 325 Mg Tab) 325 mg PO QDAY [facility] Dextrose (Dextrose 50% In Water (25gm) 50 Ml Syringe) 50 ml IV Q30MIN PRN; Protocol PRN Reason: Hypoglycemia Heparin Sodium (Porcine) (Heparin 5,000 Unit/1 Ml Vial) 5,000 unit SUB-Q Q8HR [facility] Last Admin: 08/17/21 05:48 Dose: 5,000 unit Documented by: Sodium Chloride (Nacl 0.9% 1000 Ml) 1,000 mls @ 125 mls/hr IV DIRECT [facility] Insulin Human Lispro (Insulin Lispro 100 Unit/Ml) 0 unit SUB-Q ACHS [facility]; Protocol Last Admin: 08/17/21 13:44 Dose: 0.01 unit Documented by: Magnesium Hydroxide (Magnesium Hydroxide (Mom) Oral Liqd Udc) 30 ml PO Q4H PRN PRN Reason: Constipation Morphine Sulfate (Morphine 2 Mg/1 Ml Inj) 2 mg IV Q4H PRN PRN Reason: Pain, Moderate (4-6) Morphine Sulfate (Morphine 4 Mg/1 Ml Inj) 4 mg IV Q4H PRN PRN Reason: Pain , Severe (7-10) Last Admin: 08/17/21 08:43 Dose: 4 mg Documented by: Ondansetron HCl (Ondansetron 4 Mg/2 Ml Inj) 4 mg IV Q8H PRN PRN Reason: Nausea And Vomiting Sodium Chloride (Sodium Chloride 0.9% 10 Ml Flush Syringe) 10 ml IV BID [facility] Last Admin: 08/17/21 10:30 Dose: 10 ml Documented by: Sodium Chloride (Sodium Chloride 0.9% 10 Ml Flush Syringe) 10 ml IV PRN PRN PRN Reason: LINE FLUSH Tramadol HCl (Tramadol 50 Mg Tab) 50 mg PO Q6H PRN PRN Reason: Pain, Moderate (4-6) Last Admin: 08/17/21 05:54 Dose: 50 mg Documented by: Review of Systems Cardiovascular: syncope, no chest pain, no orthopnea, no palpitations, no rapid/irregular heart beat, no edema, no lightheadedness, no shortness of breath Physical Examination Vital Signs Pulse Resp 70 14 08/16/21 23:22 08/16/21 23:22 General appearance: no acute distress HEENT: Positive: PERRL Neck: Positive: neck supple Cardiac: Positive: Reg Rate and Rhythm Lungs: Positive: Decreased Breath Sounds Neuro: Positive: Grossly Intact Abdomen: Positive: Soft Male genitourinary: Positive: deferred Skin: Positive: Clear Extremities: Absent: edema Results 08/17/21 02:40 08/17/21 02:40 Cardiac Enzymes 08/16/21 Range/Units 22:43 AST 32 (5-40) units/L Coagulation 08/16/21 Range/Units 22:43 PT 15.3 H (12.2-14.9) Sec. INR 1.09 (0.87-1.13) Lipids 08/16/21 Range/Units 22:43 Triglycerides 110 (2-149) mg/dL Cholesterol 94 (50-199) mg/dL HDL Cholesterol 44 (40-59) mg/dL Cholesterol/HDL Ratio 2.13 % CBC 08/16/21 08/17/21 Range/Units 22:43 02:40 WBC 11.1 H 10.8 (4.5-11.0) K/mm3 RBC 3.80 3.60 L (3.65-5.03) M/mm3 Hgb 12.0 11.1 L (11.8-15.2) gm/dl Hct 36.9 34.4 L (35.5-45.6) % Plt Count 311 284 (140-440) K/mm3 Lymph # (Auto) 1.6 1.5 (1.2-5.4) K/mm3 [place] # (Auto) 0.7 0.8 (0.0-0.8) K/mm3 Eos # (Auto) 0.1 0.1 (0.0-0.4) K/mm3 Baso # (Auto) 0.0 0.1 (0.0-0.1) K/mm3 Comprehensive Metabolic Panel 08/16/21 08/17/21 Range/Units 22:43 02:40 Sodium 135 L 134 L (137-145) mmol/L Potassium 4.1 3.9 (3.6-5.0) mmol/L Chloride 97.9 L 102.1 (98-107) mmol/L Carbon Dioxide 22 21 L (22-30) mmol/L BUN 46 H 47 H (9-20) mg/dL Creatinine 2.3 H 1.8 H (0.8-1.3) mg/dL Glucose 241 H 192 H (75-100) mg/dL Calcium 9.2 8.4 (8.4-10.2) mg/dL AST 32 (5-40) units/L ALT 50 (7-56) units/L Alkaline Phosphatase 164 H (35-129) units/L Total Protein 8.7 H (6.3-8.2) g/dL Albumin 3.8 L (3.9-5) g/dL EKG interpretations - Telemetry EKG Rhythm: Sinus Rhythm Assessment and Plan - Patient Problems (1) Recurrent syncope Current Visit: Yes Status: Acute Plan to address problem: Patient who presents with recurrent syncopal spells associated with nausea and vomiting, questionable vasovagal syncope versus orthostasis due to dehydration. I would recommend orthostatic blood pressure measurements for further assessment. Patient should also be optimally hydrated, and electrolyte abnormalities corrected. We will obtain an echocardiogram for left ventricular function assessment, and request [facility] records for further review of the professed history of congestive heart failure. Further cardiac evaluation and management will depend on clinical course.
--- NOTE | 2021-08-17 18:40 | Event Note ---
Date: 08/17/21 ED nurse Ms. Joyce asked me to evaluate the patient for scrotal bleeding and diarrhea. Patient is admitted for recurrent syncope. On exam Patient has a bare right testicle hanging without scrotum with active bleeding. Bleeding controlled Patient also has diarrhea Impression Syncope secondary to volume depletion Monitor hemoglobin and hematocrit Urology consult IV fluids Imodium every 4 hours as needed Informed Dr. Valiente who is the primary physician Time spent 20 minutes in the care and coordination
[2021-08-17] MEDS: HYDROmorphone 1 MG/1 ML INJ IV PRN (18:48)
[2021-08-17] MEDS: LOPERAMIDE 2 MG CAP PO PRN (18:49)
[2021-08-17] MEDS: ONDANSETRON 4 MG/2 ML INJ IV PRN (18:50)
[2021-08-17 19:35] LABS: Hematocrit 33.5 % (35.5-45.6); Hemoglobin 10.8 gm/dl (11.8-15.2)
[2021-08-17] MEDS ORDERED: SODIUM CHLORIDE 0.9% 1000 ML 1,000 ML IV ONE (21:40)
[2021-08-17] MEDS ORDERED: ONDANSETRON 4 MG/2 ML INJ IV ONE (21:40)
[2021-08-18 04:43] LABS: Basophils % (Auto) 0.5 % (0.0-1.8); Eosinophils # (Auto) 0.2 K/mm3 (0.0-0.4); Eosinophils % (Auto) 1.9 % (0.0-4.3); Hematocrit 30.9 % (35.5-45.6); Lymphocytes # (Auto) 1.6 K/mm3 (1.2-5.4); Lymphocytes % (Auto) 18.8 % (13.4-35.0); Mean Corpuscular HGB Conc 32 % (32-34); Mean Corpuscular Volume 95 fl (84-94); Monocytes # (Auto) 0.7 K/mm3 (0.0-0.8); Monocytes % (Auto) 8.4 % (0.0-7.3); Platelet Count 258 K/mm3 (140-440); Red Blood Count 3.27 M/mm3 (3.65-5.03); Red Cell Distribution Width 15.1 % (13.2-15.2)
[2021-08-18 05:06] LABS: BUN/Creatinine Ratio 35; Blood Urea Nitrogen 45 mg/dL (9-20); Calcium 8.4 mg/dL (8.4-10.2); Hemolysis Index 6
[2021-08-18] MEDS: HEPARIN 5,000 UNIT/1 ML VIAL SUB-Q SCH ×3 (06:41→22:20)
[2021-08-18] MEDS: MORPHINE 4 MG/1 ML INJ IV PRN ×4 (06:46→22:20)
[2021-08-18] MEDS: INSULIN LISPRO 100 UNIT/ML SUB-Q SCH ×5 (09:37→21:19)
[2021-08-18] MEDS: SODIUM CHLORIDE 0.9% 1000 ML 1,000 ML IV SCH ×2 (09:37→18:35)
[2021-08-18] MEDS: traMADol 50 MG TAB PO PRN (09:38)
[2021-08-18] MEDS: LOPERAMIDE 2 MG CAP PO PRN (09:38)
[2021-08-18] MEDS: ASPIRIN EC 325 MG TAB PO SCH (09:38)
--- NOTE | 2021-08-18 10:14 | Electrocardiograph Report ---
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
[2021-08-18] MEDS: ONDANSETRON 4 MG/2 ML INJ IV PRN ×2 (10:55→20:35)
--- NOTE | 2021-08-18 10:55 | Progress Note ---
Subjective Interval history: Patient was seen today for follow-up of multiple renal related issues No complaints of any chest pain pressure or shortness of breath Interdisciplinary notes that also reviewed Events of 24 hours vitals labs intake output medications were reviewed Past medical history: Reviewed Family history: Reviewed Social history: Reviewed Allergies: Reviewed Physical examination: Vitals: Reviewed HEENT: No pallor or icterus oral mucosa moist Neck: Supple no JVD no thyromegaly Chest: Bilateral clear to auscultation anteriorly Heart: Regular rate and rhythm S1-S2 heard no S3-S4 Abdomen: Soft nontender no voluntary guarding rigidity rebound Extremity: Dry skin less than 1+ peripheral edema Psychiatric: No evidence of agitation and aggression noted Dermatology: No petechial rashes Labs and x-rays: Reviewed from today Assessment and plan As of today patient is doing much better from renal standpoint creatinine is currently 1.3 potassium normal at 4.0 maintain generous hydration also has mild anemia with history of Crohn's disease, He will need to follow-up with gastroenterology service Upon discharge will need to make follow-up of in the office Overall doing much better from renal standpoint patient mostly appeared to be prerenal Patient was adequately counseled and educated regarding all the renal related issues Laboratory studies, have been explained to the patient All questions were answered and simple Indonesian We'll continue to follow and make recommendation for renal standpoint Objective - Vital Signs Vital signs: Vital Signs - 12hr 08/17/21 08/18/21 08/18/21 23:21 05:34 05:36 Temperature 98.4 F Pulse Rate 64 Pulse Rate [ From Monitor] Respiratory 17 15 15 Rate Blood Pressure 88/57 [Left] O2 Sat by Pulse 100 100 Oximetry 08/18/21 08/18/21 08/18/21 06:46 08:41 08:42 Temperature 97.2 F L Pulse Rate 72 Pulse Rate [ 70 From Monitor] Respiratory 17 16 15 Rate Blood Pressure 165/96 [Left] O2 Sat by Pulse 98 100 Oximetry 08/18/21 09:38 Temperature Pulse Rate Pulse Rate [ From Monitor] Respiratory 21 Rate Blood Pressure [Left] O2 Sat by Pulse Oximetry - Lab 08/18/21 03:24 08/18/21 03:24 Most recent lab results Calcium 8.4 mg/dL (8.4-10.2) 08/18/21 03:24 Magnesium 1.90 mg/dL (1.7-2.3) 08/16/21 22:43 Medications & Allergies - Medications Allergies/Adverse Reactions: Allergies No Known Allergies Allergy (Verified 08/17/21 00:30) Home Medications: Home Medications Medication Instructions Recorded Confirmed Last Taken Type AtorvaSTATin [Lipitor] 40 mg PO QHS 08/17/21 08/17/21 1 Day Ago History ~08/16/21 Folic Acid [Folvite] 1 mg PO QDAY 08/17/21 08/17/21 1 Day Ago History ~08/16/21 Gabapentin [Neurontin] 600 mg PO QPM 08/17/21 08/17/21 1 Day Ago History ~08/16/21 Insulin Glargine,Hum.rec.anlog 5 unit SQ QHS 08/17/21 08/17/21 1 Day Ago History [Lantus Solostar] ~08/16/21 amLODIPine [Norvasc] 5 mg PO DAILY 08/17/21 08/17/21 1 Day Ago History ~08/16/21 carvediloL [Coreg] 25 mg PO Q12H 08/17/21 08/17/21 1 Day Ago History ~08/16/21 hydroCHLOROthiazide [HCTZ] 25 mg PO QDAY 08/17/21 08/17/21 1 Day Ago History ~08/16/21 lisinopriL [Zestril TAB] 40 mg PO QDAY 08/17/21 08/17/21 1 Day Ago History ~08/16/21 Active Medications: Generic Name Dose Route Start Last Admin Trade Name Freq PRN Reason Stop Dose Admin Acetaminophen 650 mg 08/17/21 01:47 Acetaminophen 325 Mg Tab PO Q4H PRN Pain MILD(1-3)/Fever >100.5/SHARPE Aspirin 325 mg 08/18/21 10:00 08/18/21 09:38 Aspirin Ec 325 Mg Tab PO 325 mg QDAY [facility] Administration Dextrose 50 ml 08/17/21 01:47 Dextrose 50% In Water (25gm) 50 Ml Syringe IV Q30MIN PRN Hypoglycemia Protocol Heparin Sodium (Porcine) 5,000 unit 08/17/21 06:00 08/18/21 06:41 Heparin 5,000 Unit/1 Ml Vial SUB-Q 5,000 unit Q8HR [facility] Administration Hydromorphone HCl 1 mg 08/17/21 18:35 08/17/21 18:48 Hydromorphone 1 Mg/1 Ml Inj IV 1 mg Q3H PRN Administration Pain , Severe (7-10) Sodium Chloride 1,000 mls @ 125 mls/hr 08/17/21 02:00 08/18/21 09:37 Nacl 0.9% 1000 Ml IV 125 mls/hr DIRECT [facility] Administration Insulin Human Lispro 0 unit 08/17/21 07:30 08/18/21 09:37 Insulin Lispro 100 Unit/Ml SUB-Q Not Given ACHS [facility] Protocol Loperamide HCl 2 mg 08/17/21 18:34 08/18/21 09:38 Loperamide 2 Mg Cap PO 2 mg Q4H PRN Administration Diarrhea Magnesium Hydroxide 30 ml 08/17/21 01:47 Magnesium Hydroxide (Mom) Oral Liqd Udc PO Q4H PRN Constipation Morphine Sulfate 2 mg 08/17/21 01:47 Morphine 2 Mg/1 Ml Inj IV Q4H PRN Pain, Moderate (4-6) Morphine Sulfate 4 mg 08/17/21 01:47 08/18/21 06:46 Morphine 4 Mg/1 Ml Inj IV 4 mg Q4H PRN Administration Pain , Severe (7-10) Ondansetron HCl 4 mg 08/17/21 01:47 08/17/21 18:50 Ondansetron 4 Mg/2 Ml Inj IV 4 mg Q8H PRN Administration Nausea And Vomiting Sodium Chloride 10 ml 08/17/21 10:00 08/18/21 09:37 Sodium Chloride 0.9% 10 Ml Flush Syringe IV 10 ml BID [facility] Administration Sodium Chloride 10 ml 08/17/21 01:47 Sodium Chloride 0.9% 10 Ml Flush Syringe IV PRN PRN LINE FLUSH Tramadol HCl 50 mg 08/17/21 01:47 08/18/21 09:38 Tramadol 50 Mg Tab PO 50 mg Q6H PRN Administration Pain, Moderate (4-6)
--- NOTE | 2021-08-18 12:11 | Progress Note ---
Assessment and Plan - Patient Problems (1) Recurrent syncope Current Visit: Yes Status: Acute Plan to address problem: Recurrent syncopal associated with nausea and vomiting, questionable vasovagal syncope versus orthostasis due to dehydration. echocardiogram reports a normal LV function, ejection fraction 50-55%. Obtain [facility] records for further review. Obtain orthostatic blood pressure measurements. Further cardiac evaluation and management will depend on clinical course. Subjective Date of service: 08/18/21 Interval history: Complains of weakness. Denies chest pain, shortness of breath, and palpitations. Objective Vital Signs Temp Pulse Pulse Resp BP Pulse Ox 08/18/21 10:59 18 08/18/21 09:38 21 08/18/21 08:42 70 15 100 08/18/21 08:41 97.2 F L 72 16 165/96 98 08/18/21 06:46 17 08/18/21 05:36 98.4 F 64 15 88/57 100 08/18/21 05:34 15 100 08/17/21 23:21 17 08/17/21 16:11 107/73 - Physical Examination HEENT: Positive: PERRL Neck: Positive: neck supple Neuro: Positive: Grossly Intact Abdomen: Positive: Soft Skin: Positive: Clear Extremities: Absent: edema - Labs and Meds Coagulation 08/18/21 Range/Units 03:24 PT 14.3 (12.2-14.9) Sec. INR 1.00 (0.87-1.13) CBC 08/17/21 08/18/21 Range/Units 19:08 03:24 WBC 8.5 (4.5-11.0) K/mm3 RBC 3.27 L (3.65-5.03) M/mm3 Hgb 10.8 L 10.0 L (11.8-15.2) gm/dl Hct 33.5 L 30.9 L (35.5-45.6) % Plt Count 258 (140-440) K/mm3 Lymph # (Auto) 1.6 (1.2-5.4) K/mm3 [place] # (Auto) 0.7 (0.0-0.8) K/mm3 Eos # (Auto) 0.2 (0.0-0.4) K/mm3 Baso # (Auto) 0.0 (0.0-0.1) K/mm3 Comprehensive Metabolic Panel 08/18/21 Range/Units 03:24 Sodium 137 (137-145) mmol/L Potassium 4.0 (3.6-5.0) mmol/L Chloride 103.6 (98-107) mmol/L Carbon Dioxide 25 (22-30) mmol/L BUN 45 H (9-20) mg/dL Creatinine 1.3 (0.8-1.3) mg/dL Glucose 201 H (75-100) mg/dL Calcium 8.4 (8.4-10.2) mg/dL
[2021-08-18] MEDS: HYDROmorphone 1 MG/1 ML INJ IV PRN ×2 (13:48→20:07)
--- NOTE | 2021-08-18 17:08 | Progress Note ---
Assessment and Plan Assessment and plan: History of present illness: 45-year-old -Italian male with known history of diabetes mellitus, CHF and asthma presenting to the emergency room today complaining of generalized weakness and syncope. Patient indicates that he has had multiple syncopal episodes prior to reporting to the emergency room. Patient indicates that he passes out when he tries to get up from a sitting position. He also complains of right shoulder pain status post the syncopal episodes today. Review of patient records indicates that he was here a few months ago with a similar complaint during which he had transient hypotension, LAN and hyperkalemia. He denies any illicit drug use pulse smokes tobacco. Patient denies any sick contacts and no recent travel. Denies any contact with anyone with COVID-19. He also indicates that he had one of his testicles removed secondary to an infection few months ago. Upon arrival in the emergency room, patient was hypotensive with a blood pressure of 88/45 mmHg. Blood pressure improved with administration of IV fluid. Work-up in the emergency room today, significant findings were that of elevated BUN of 46 and creatinine of 2.3., Troponin of 0.069 Chest x-ray and CT scan of the head showed no acute abnormality. X-ray of the right shoulder showed no acute process. Attempts were made to get orthostatic vital signs in the emergency room but patient indicates that he is unable stand on his legs due to weakness.. Patient is being admitted for recurrent syncope, LAN, elevated troponin. Hospital Course: 08/18: Awaiting urology evaluation. Dressing appeared clean, not saturated. Hgb stable 10.0. Hemodynamically stable at this time. Anticipate d/c soon. Assessment and Plan: (1) Recurrent syncope Current Visit: Yes Status: Acute Plan to address problem: Possibly secondary to hypotension. 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 Was scheduled to go for skin graft at [facility] Had bleeding from testicular site on encounter yesterday. Hgb: 10.0, VSS currently Was seen by Dr. Dougherty at [facility] in may 2021, was told to follow up for graft. Counseled, will need follow up as outpatient. Will get urology consultation for evaluation. (2) LAN (acute kidney injury) due to vasomotor nephropathy Current Visit: Yes Status: Acute Plan to address problem: Possibly prerenal Patient placed on IV fluid. Will monitor BUN and creatinine. nephrology following (3) Dehydration Current Visit: Yes Status: Acute Plan to address problem: Possibly secondary to the nausea and vomiting. We will continue on IV fluid hydration and monitor chemistry. (4) Elevated troponin Current Visit: Yes Status: Acute Plan to address problem: Patient had denied any chest pain. elevated in the setting of renal failure Doubt type 1 DE. Cardiology is following (5) Type 2 Diabetes mellitus with hyperglycemia Current Visit: Yes Status: Acute Plan to address problem: We will place patient on sliding scale insulin. We will monitor Accu-Cheks closely. (6) DVT prophylaxis Current Visit: No Status: Acute Plan to address problem: Patient placed on subcutaneous heparin. (7) Full code status Current Visit: Yes Status: Acute Plan to address problem: Patient is full code. History Interval history: No overnight events, no acute complaints. No bleeding noted on dressing. Hospitalist Physical - Physical exam Narrative exam: Physical Exam: VITAL SIGNS: Reviewed. GENERAL: The patient appears normally developed, Vital signs as documented. HEAD: No signs of head trauma. EYES: Pupils are equal. Extraocular motions intact. EARS: Hearing grossly intact. MOUTH: Oropharynx is normal. NECK: No adenopathy, no JVD. CHEST: Chest with clear breath sounds bilaterally. No wheezes, rales, or rhonchi. CARDIAC: Regular rate and rhythm. S1 and S2, without murmurs, gallops, or rubs. VASCULAR: No Edema. Peripheral pulses normal and equal in all extremities. ABDOMEN: Soft, non tender and non distended. No rebound or guarding, and no masses palpated. Bowel Sounds normal. MUSCULOSKELETAL: Good range of motion of all major joints. Extremities without clubbing, cyanosis or edema. NEUROLOGIC EXAM: Alert and oriented x 4. no focal sensory or strength deficits. PSYCHIATRIC: Mood normal. SKIN: exposed testicle under dressing. no signficant bleeding or discharge noted. wound site clean. detail exam as documented in skin assessment - Constitutional Vitals: Temp Pulse Resp BP Pulse Ox 96.7 F L 70 20 164/94 100 08/18/21 11:17 08/18/21 13:00 08/18/21 13:48 08/18/21 11:17 08/18/21 11:17 General appearance: Present: no acute distress HEART Score - HEART Score Troponin: Troponin T 0.044 ng/mL (0.00-0.029) H D 08/17/21 07:38 Results - Labs CBC & Chem 7: 08/18/21 03:24 08/18/21 03:24 Labs: Laboratory Last Values WBC 8.5 K/mm3 (4.5-11.0) 08/18/21 03:24 RBC 3.27 M/mm3 (3.65-5.03) L 08/18/21 03:24 Hgb 10.0 gm/dl (11.8-15.2) L 08/18/21 03:24 Hct 30.9 % (35.5-45.6) L 08/18/21 03:24 MCV 95 fl (84-94) H 08/18/21 03:24 MCH 31 pg (28-32) 08/18/21 03:24 MCHC 32 % (32-34) 08/18/21 03:24 RDW 15.1 % (13.2-15.2) 08/18/21 03:24 Plt Count 258 K/mm3 (140-440) 08/18/21 03:24 Lymph % (Auto) 18.8 % (13.4-35.0) 08/18/21 03:24 [place] % (Auto) 8.4 % (0.0-7.3) H 08/18/21 03:24 Eos % (Auto) 1.9 % (0.0-4.3) 08/18/21 03:24 Baso % (Auto) 0.5 % (0.0-1.8) 08/18/21 03:24 Lymph # (Auto) 1.6 K/mm3 (1.2-5.4) 08/18/21 03:24 [place] # (Auto) 0.7 K/mm3 (0.0-0.8) 08/18/21 03:24 Eos # (Auto) 0.2 K/mm3 (0.0-0.4) 08/18/21 03:24 Baso # (Auto) 0.0 K/mm3 (0.0-0.1) 08/18/21 03:24 Seg Neutrophils % 70.4 % (40.0-70.0) H 08/18/21 03:24 Seg Neutrophils # 6.0 K/mm3 (1.8-7.7) 08/18/21 03:24 PT 14.3 Sec. (12.2-14.9) 08/18/21 03:24 INR 1.00 (0.87-1.13) 08/18/21 03:24 Sodium 137 mmol/L (137-145) 08/18/21 03:24 Potassium 4.0 mmol/L (3.6-5.0) 08/18/21 03:24 Chloride 103.6 mmol/L (98-107) 08/18/21 03:24 Carbon Dioxide 25 mmol/L (22-30) 08/18/21 03:24 Anion Gap 12 mmol/L 08/18/21 03:24 BUN 45 mg/dL (9-20) H 08/18/21 03:24 Creatinine 1.3 mg/dL (0.8-1.3) 08/18/21 03:24 Estimated GFR > 60 ml/min 08/18/21 03:24 BUN/Creatinine Ratio 35 % 08/18/21 03:24 Glucose 201 mg/dL (75-100) H 08/18/21 03:24 POC Glucose 249 mg/dL (70-105) H 08/18/21 16:41 Osmolality 298 Mosm/kg 08/17/21 12:02 Uric Acid 6.4 mg/dL (3.5-7.6) 08/17/21 12:02 Calcium 8.4 mg/dL (8.4-10.2) 08/18/21 03:24 Magnesium 1.90 mg/dL (1.7-2.3) 08/16/21 22:43 Total Bilirubin 0.60 mg/dL (0.1-1.2) 08/16/21 22:43 AST 32 units/L (5-40) 08/16/21 22:43 ALT 50 units/L (7-56) 08/16/21 22:43 Alkaline Phosphatase 164 units/L (35-129) H 08/16/21 22:43 Total Creatine Kinase 102 units/L (55-170) 08/17/21 12:02 Troponin T 0.044 ng/mL (0.00-0.029) H D 08/17/21 07:38 Total Protein 8.7 g/dL (6.3-8.2) H 08/16/21 22:43 Albumin 3.8 g/dL (3.9-5) L 08/16/21 22:43 Albumin/Globulin Ratio 0.8 % 08/16/21 22:43 Triglycerides 110 mg/dL (2-149) 08/16/21 22:43 Cholesterol 94 mg/dL (50-199) 08/16/21 22:43 LDL Cholesterol Direct 33 mg/dL (50-130) L 08/16/21 22:43 HDL Cholesterol 44 mg/dL (40-59) 08/16/21 22:43 Cholesterol/HDL Ratio 2.13 % 08/16/21 22:43 TSH 2.010 mlU/mL (0.270-4.200) 08/16/21 22:43 Plasma/Serum Alcohol < 0.01 % (0-0.07) 08/16/21 22:43 Active Medications - Current Medications Current Medications: Generic Name Dose Route Start Last Admin Trade Name Freq PRN Reason Stop Dose Admin Acetaminophen 650 mg 08/17/21 01:47 Acetaminophen 325 Mg Tab PO Q4H PRN Pain MILD(1-3)/Fever >100.5/SHARPE Aspirin 325 mg 08/18/21 10:00 08/18/21 09:38 Aspirin Ec 325 Mg Tab PO 325 mg QDAY CHAYA Administration Dextrose 50 ml 08/17/21 01:47 Dextrose 50% In Water (25gm) 50 Ml Syringe IV Q30MIN PRN Hypoglycemia Protocol Heparin Sodium (Porcine) 5,000 unit 08/17/21 06:00 08/18/21 13:50 Heparin 5,000 Unit/1 Ml Vial SUB-Q 5,000 unit Q8HR CHAYA Administration Hydromorphone HCl 1 mg 08/17/21 18:35 08/18/21 13:48 Hydromorphone 1 Mg/1 Ml Inj IV 1 mg Q3H PRN Administration Pain , Severe (7-10) Sodium Chloride 1,000 mls @ 125 mls/hr 08/17/21 02:00 08/18/21 09:37 Nacl 0.9% 1000 Ml IV 125 mls/hr DIRECT CHAYA Administration Insulin Human Lispro 0 unit 08/17/21 07:30 08/18/21 13:29 Insulin Lispro 100 Unit/Ml SUB-Q Not Given ACHS [facility] Protocol Loperamide HCl 2 mg 08/17/21 18:34 08/18/21 09:38 Loperamide 2 Mg Cap PO 2 mg Q4H PRN Administration Diarrhea Magnesium Hydroxide 30 ml 08/17/21 01:47 Magnesium Hydroxide (Mom) Oral Liqd Udc PO Q4H PRN Constipation Morphine Sulfate 2 mg 08/17/21 01:47 Morphine 2 Mg/1 Ml Inj IV Q4H PRN Pain, Moderate (4-6) Morphine Sulfate 4 mg 08/17/21 01:47 08/18/21 10:59 Morphine 4 Mg/1 Ml Inj IV 4 mg Q4H PRN Administration Pain , Severe (7-10) Ondansetron HCl 4 mg 08/17/21 01:47 08/18/21 10:55 Ondansetron 4 Mg/2 Ml Inj IV 4 mg Q8H PRN Administration Nausea And Vomiting Sodium Chloride 10 ml 08/17/21 10:00 08/18/21 09:37 Sodium Chloride 0.9% 10 Ml Flush Syringe IV 10 ml BID CHAYA Administration Sodium Chloride 10 ml 08/17/21 01:47 Sodium Chloride 0.9% 10 Ml Flush Syringe IV PRN PRN LINE FLUSH Tramadol HCl 50 mg 08/17/21 01:47 08/18/21 09:38 Tramadol 50 Mg Tab PO 50 mg Q6H PRN Administration Pain, Moderate (4-6)
[2021-08-19] MEDS: SODIUM CHLORIDE 0.9% 1000 ML 1,000 ML IV SCH (02:40)
[2021-08-19] MEDS: MORPHINE 4 MG/1 ML INJ IV PRN (03:30)
[2021-08-19] MEDS: HEPARIN 5,000 UNIT/1 ML VIAL SUB-Q SCH ×2 (05:37→13:31)
--- NOTE | 2021-08-19 09:25 | Progress Note ---
Subjective Interval history: Patient was seen today for follow-up of multiple renal related issues he feels much better today Events of 24 hours vitals labs intake output medications were reviewed Past medical history: Reviewed Family history: Reviewed Social history: Reviewed Allergies: Reviewed Physical examination: Vitals: Reviewed HEENT: No pallor or icterus oral mucosa moist Neck: Supple no JVD no thyromegaly Chest: Bilateral clear to auscultation anteriorly Heart: Regular rate and rhythm S1-S2 heard no S3-S4 Abdomen: Soft nontender no voluntary guarding rigidity rebound Extremity: Dry skin less than 1+ peripheral edema Psychiatric: No evidence of agitation and aggression noted Dermatology: No petechial rashes Labs and x-rays: Reviewed from today Assessment and plan Patient is doing well from renal standpoint renal function has stabilized, Renal ultrasonogram: Shows possible bladder mass or debris's: Please consider urology evaluation Findings have been explained to the patient Renal echogenicity is preserved Will sign off the case please call if needed He will need to make a follow-up appointment office upon discharge in 2-3 weeks Objective - Vital Signs Vital signs: Vital Signs - 12hr 08/18/21 08/19/21 22:01 05:14 Temperature 98.7 F 97.7 F Pulse Rate 78 74 Respiratory 16 16 Rate Blood Pressure 162/99 155/94 O2 Sat by Pulse 100 100 Oximetry - Lab 08/18/21 03:24 08/18/21 03:24 Most recent lab results Calcium 8.4 mg/dL (8.4-10.2) 08/18/21 03:24 Magnesium 1.90 mg/dL (1.7-2.3) 08/16/21 22:43 Medications & Allergies - Medications Allergies/Adverse Reactions: Allergies No Known Allergies Allergy (Verified 08/17/21 00:30) Home Medications: Home Medications Medication Instructions Recorded Confirmed Last Taken Type AtorvaSTATin [Lipitor] 40 mg PO QHS 08/17/21 08/17/21 1 Day Ago History ~08/16/21 Folic Acid [Folvite] 1 mg PO QDAY 08/17/21 08/17/21 1 Day Ago History ~08/16/21 Gabapentin [Neurontin] 600 mg PO QPM 08/17/21 08/17/21 1 Day Ago History ~08/16/21 Insulin Glargine,Hum.rec.anlog 5 unit SQ QHS 08/17/21 08/17/21 1 Day Ago History [Lantus Solostar] ~08/16/21 amLODIPine [Norvasc] 5 mg PO DAILY 08/17/21 08/17/21 1 Day Ago History ~08/16/21 carvediloL [Coreg] 25 mg PO Q12H 08/17/21 08/17/21 1 Day Ago History ~08/16/21 hydroCHLOROthiazide [HCTZ] 25 mg PO QDAY 08/17/21 08/17/21 1 Day Ago History ~08/16/21 lisinopriL [Zestril TAB] 40 mg PO QDAY 08/17/21 08/17/21 1 Day Ago History ~08/16/21 Active Medications: Generic Name Dose Route Start Last Admin Trade Name Freq PRN Reason Stop Dose Admin Acetaminophen 650 mg 08/17/21 01:47 Acetaminophen 325 Mg Tab PO Q4H PRN Pain MILD(1-3)/Fever >100.5/SHARPE Aspirin 325 mg 08/18/21 10:00 08/18/21 09:38 Aspirin Ec 325 Mg Tab PO 325 mg QDAY CHAYA Administration Dextrose 50 ml 08/17/21 01:47 Dextrose 50% In Water (25gm) 50 Ml Syringe IV Q30MIN PRN Hypoglycemia Protocol Heparin Sodium (Porcine) 5,000 unit 08/17/21 06:00 08/19/21 05:37 Heparin 5,000 Unit/1 Ml Vial SUB-Q 5,000 unit Q8HR CHAYA Administration Hydromorphone HCl 1 mg 08/17/21 18:35 08/18/21 20:07 Hydromorphone 1 Mg/1 Ml Inj IV 1 mg Q3H PRN Administration Pain , Severe (7-10) Sodium Chloride 1,000 mls @ 125 mls/hr 08/17/21 02:00 08/19/21 02:40 Nacl 0.9% 1000 Ml IV 125 mls/hr DIRECT CHAYA Administration Insulin Human Lispro 0 unit 08/17/21 07:30 08/18/21 21:19 Insulin Lispro 100 Unit/Ml SUB-Q Not Given ACHS CHAYA Protocol Loperamide HCl 2 mg 08/17/21 18:34 08/18/21 09:38 Loperamide 2 Mg Cap PO 2 mg Q4H PRN Administration Diarrhea Magnesium Hydroxide 30 ml 08/17/21 01:47 Magnesium Hydroxide (Mom) Oral Liqd Udc PO Q4H PRN Constipation Morphine Sulfate 2 mg 08/17/21 01:47 Morphine 2 Mg/1 Ml Inj IV Q4H PRN Pain, Moderate (4-6) Morphine Sulfate 4 mg 08/17/21 01:47 08/19/21 03:30 Morphine 4 Mg/1 Ml Inj IV 4 mg Q4H PRN Administration Pain , Severe (7-10) Ondansetron HCl 4 mg 08/17/21 01:47 08/18/21 20:35 Ondansetron 4 Mg/2 Ml Inj IV 4 mg Q8H PRN Administration Nausea And Vomiting Sodium Chloride 10 ml 08/17/21 10:00 08/18/21 22:27 Sodium Chloride 0.9% 10 Ml Flush Syringe IV 10 ml BID CHAYA Administration Sodium Chloride 10 ml 08/17/21 01:47 Sodium Chloride 0.9% 10 Ml Flush Syringe IV PRN PRN LINE FLUSH Tramadol HCl 50 mg 08/17/21 01:47 08/18/21 09:38 Tramadol 50 Mg Tab PO 50 mg Q6H PRN Administration Pain, Moderate (4-6)
--- NOTE | 2021-08-19 09:34 | Consultation ---
History of Present Illness - Reason for Consult Consult date: 08/19/21 - History of Present Illness new to our service 45-year-old -Nepalese male with known history of diabetes mellitus, CHF and asthma presenting to the emergency room complaining of generalized weakness and syncope. Patient indicates that he has had multiple syncopal episodes prior to reporting to the emergency room. Patient indicates that he passes out when he tries to get up from a sitting position. He also complains of right shoulder pain status post the syncopal episodes today. Review of patient records ind icates that he was here a few months ago with a similar complaint during which he had transient hypotension, LAN and hyperkalemia. He denies any illicit drug use pulse smokes tobacco. Patient denies any sick contacts and no recent travel. Denies any contact with anyone with COVID-19. He also indicates that he had one of his testicles removed secondary to an infection few months ago at [facility]. Pt is scheduled for skin grafting at [facility]. Developed bleeding from scrotal wound this admission. Renal us--normal kidneys, debris in bladder exam--circ, rt testes absent, left testes healing well---pink tissue A/P Scrotal bleeding---stable, continue mummy wrap healing well ok for dc home from gu standpoint f/u with [facility] Renal us--normal kidneys, debris in bladder---not acute--can be addressed at [facility] Past History Past Medical History: diabetes, other (Asthma, history of DKA) Past Surgical History: Other (History of orchiectomy) Social history: smoking (Current daily smoker) Family history: no significant family history Medications and Allergies Allergies Allergy/AdvReac Type Severity Reaction Status Date / Time No Known Allergies Allergy Verified 08/17/21 00:30 Home Medications Medication Instructions Recorded Confirmed Last Taken Type AtorvaSTATin [Lipitor] 40 mg PO QHS 08/17/21 08/17/21 1 Day Ago History ~08/16/21 Folic Acid [Folvite] 1 mg PO QDAY 08/17/21 08/17/21 1 Day Ago History ~08/16/21 Gabapentin [Neurontin] 600 mg PO QPM 08/17/21 08/17/21 1 Day Ago History ~08/16/21 Insulin Glargine,Hum.rec.anlog 5 unit SQ QHS 08/17/21 08/17/21 1 Day Ago History [Lantus Solostar] ~08/16/21 amLODIPine [Norvasc] 5 mg PO DAILY 08/17/21 08/17/21 1 Day Ago History ~08/16/21 carvediloL [Coreg] 25 mg PO Q12H 08/17/21 08/17/21 1 Day Ago History ~08/16/21 hydroCHLOROthiazide [HCTZ] 25 mg PO QDAY 08/17/21 08/17/21 1 Day Ago History ~08/16/21 lisinopriL [Zestril TAB] 40 mg PO QDAY 08/17/21 08/17/21 1 Day Ago History ~08/16/21 Active Meds: Active Medications Acetaminophen (Acetaminophen 325 Mg Tab) 650 mg PO Q4H PRN PRN Reason: Pain MILD(1-3)/Fever >100.5/SHARPE Aspirin (Aspirin Ec 325 Mg Tab) 325 mg PO QDAY CHAYA Last Admin: 08/18/21 09:38 Dose: 325 mg Documented by: Dextrose (Dextrose 50% In Water (25gm) 50 Ml Syringe) 50 ml IV Q30MIN PRN; Protocol PRN Reason: Hypoglycemia Heparin Sodium (Porcine) (Heparin 5,000 Unit/1 Ml Vial) 5,000 unit SUB-Q Q8HR CHAYA Last Admin: 08/19/21 05:37 Dose: 5,000 unit Documented by: Hydromorphone HCl (Hydromorphone 1 Mg/1 Ml Inj) 1 mg IV Q3H PRN PRN Reason: Pain , Severe (7-10) Last Admin: 08/18/21 20:07 Dose: 1 mg Documented by: Sodium Chloride (Nacl 0.9% 1000 Ml) 1,000 mls @ 125 mls/hr IV DIRECT CHAYA Last Admin: 08/19/21 02:40 Dose: 125 mls/hr Documented by: Insulin Human Lispro (Insulin Lispro 100 Unit/Ml) 0 unit SUB-Q ACHS CHAYA; Protocol Last Admin: 08/18/21 21:19 Dose: Not Given Documented by: Loperamide HCl (Loperamide 2 Mg Cap) 2 mg PO Q4H PRN PRN Reason: Diarrhea Last Admin: 08/18/21 09:38 Dose: 2 mg Documented by: Magnesium Hydroxide (Magnesium Hydroxide (Mom) Oral Liqd Udc) 30 ml PO Q4H PRN PRN Reason: Constipation Morphine Sulfate (Morphine 2 Mg/1 Ml Inj) 2 mg IV Q4H PRN PRN Reason: Pain, Moderate (4-6) Morphine Sulfate (Morphine 4 Mg/1 Ml Inj) 4 mg IV Q4H PRN PRN Reason: Pain , Severe (7-10) Last Admin: 08/19/21 03:30 Dose: 4 mg Documented by: Ondansetron HCl (Ondansetron 4 Mg/2 Ml Inj) 4 mg IV Q8H PRN PRN Reason: Nausea And Vomiting Last Admin: 08/18/21 20:35 Dose: 4 mg Documented by: Sodium Chloride (Sodium Chloride 0.9% 10 Ml Flush Syringe) 10 ml IV BID CHAYA Last Admin: 08/18/21 22:27 Dose: 10 ml Documented by: Sodium Chloride (Sodium Chloride 0.9% 10 Ml Flush Syringe) 10 ml IV PRN PRN PRN Reason: LINE FLUSH Tramadol HCl (Tramadol 50 Mg Tab) 50 mg PO Q6H PRN PRN Reason: Pain, Moderate (4-6) Last Admin: 08/18/21 09:38 Dose: 50 mg Documented by: Exam - Constitutional Vitals: Temp Pulse Resp BP Pulse Ox 97.7 F 74 16 155/94 100 08/19/21 05:14 08/19/21 05:14 08/19/21 05:14 08/19/21 05:14 08/19/21 05:14 Results - Labs CBC & Chem 7: 08/18/21 03:24 08/18/21 03:24 Labs: Abnormal lab results 08/18/21 08/18/21 08/18/21 Range/Units 12:13 16:41 20:34 POC Glucose 155 H 249 H 141 H (70-105) mg/dL 08/19/21 Range/Units 08:43 POC Glucose 138 H (70-105) mg/dL
[2021-08-19] MEDS: INSULIN LISPRO 100 UNIT/ML SUB-Q SCH ×2 (10:04→13:00)
[2021-08-19] MEDS: traMADol 50 MG TAB PO PRN (10:17)
[2021-08-19] MEDS: ASPIRIN EC 325 MG TAB PO SCH (10:17)
--- NOTE | 2021-08-19 11:33 | Progress Note ---
Assessment and Plan - Patient Problems (1) Recurrent syncope Current Visit: Yes Status: Acute Plan to address problem: Recurrent syncopal associated with nausea and vomiting, and diarrhea related to Crohns disease and positive orthostasis due to dehydration. echocardiogram reports a normal LV function, ejection fraction 50-55%. Conservative cardiac management. Subjective Date of service: 08/19/21 Interval history: Denies chest pain, shortness of breath, and palpitations. Positive orthostatics done yesterday. Objective Vital Signs Temp Pulse Pulse Pulse Pulse Pulse Resp 08/19/21 05:14 97.7 F 74 16 08/18/21 22:01 98.7 F 78 16 08/18/21 21:00 73 08/18/21 20:07 18 08/18/21 20:01 98.7 F 76 16 08/18/21 20:00 80 18 08/18/21 19:41 67 22 08/18/21 18:00 80 73 76 08/18/21 17:54 18 08/18/21 17:24 22 08/18/21 15:46 98.0 F 79 18 08/18/21 14:18 20 08/18/21 13:48 20 08/18/21 13:00 70 BP BP BP BP Pulse Ox 08/19/21 05:14 155/94 100 08/18/21 22:01 162/99 100 08/18/21 21:00 08/18/21 20:07 08/18/21 20:01 141/75 100 08/18/21 20:00 100 08/18/21 19:41 95 08/18/21 18:00 114/69 137/85 91/54 08/18/21 17:54 08/18/21 17:24 08/18/21 15:46 124/75 98 08/18/21 14:18 08/18/21 13:48 08/18/21 13:00 - Physical Examination General: No Apparent Distress HEENT: Positive: PERRL Neck: Positive: neck supple Cardiac: Positive: Reg Rate and Rhythm Lungs: Positive: Decreased Breath Sounds Neuro: Positive: Grossly Intact, Weakness Extremities: Absent: edema
[2021-08-19] MEDS: ONDANSETRON 4 MG/2 ML INJ IV PRN (13:31)
--- NOTE | 2021-08-19 13:31 | Discharge Summary ---
Providers - Providers Date of Admission: 08/17/21 01:20 Date of discharge: 08/19/21 Attending physician: DIANNA FLEMING MD 08/17/21 Consult to Cardiac Rehabilitation [CONS] Routine Reason For Exam: Phase I 08/17/21 01:47 Consult to Physician [CONS] Routine Comment: Consulting Provider: NIXON CORRALES Physician Instructions: Reason For Exam: LAN 08/17/21 01:48 Consult to Cardiology [CONS] Routine Consulting Provider: CHATA BOWSER Reason For Exam: ELEVATED TROPONIN 08/17/21 18:35 Consult to Physician [CONS] Routine Comment: Consulting Provider: FILOMENA ESTEVES Physician Instructions: Reason For Exam: Testicular bleed 08/18/21 08:51 Consult to Wound/ET Nurse [CONS] Urgent Reason For Exam: wound eval Primary care physician: FILM BOOKER Hospitalization Reason for admission: syncope Condition: Serious Hospital course: History of present illness: 45-year-old -Citizen Of [place] male with known history of diabetes mellitus, CHF and asthma presenting to the emergency room today complaining of generalized weakness and syncope. Patient indicates that he has had multiple syncopal episodes prior to reporting to the emergency room. Patient indicates that he passes out when he tries to get up from a sitting position. He also complains of right shoulder pain status post the syncopal episodes today. Review of patient records indicates that he was here a few months ago with a similar complaint during which he had transient hypotension, LAN and hyperkalemia. He denies any illicit drug use pulse smokes tobacco. Patient denies any sick contacts and no recent travel. Denies any contact with anyone with COVID-19. He also indicates that he had one of his testicles removed secondary to an infection few months ago. Upon arrival in the emergency room, patient was hypotensive with a blood pressure of 88/45 mmHg. Blood pressure improved with administration of IV fluid. Work-up in the emergency room today, significant findings were that of elevated BUN of 46 and creatinine of 2.3., Troponin of 0.069 Chest x-ray and CT scan of the head showed no acute abnormality. X-ray of the right shoulder showed no acute process. Attempts were made to get orthostatic vital signs in the emergency room but patient indicates that he is unable stand on his legs due to weakness.. Patient is being admitted for recurrent syncope, LAN, elevated troponin. Hospital Course: 08/18: Awaiting urology evaluation. Dressing appeared clean, not saturated. Hgb stable 10.0. Hemodynamically stable at this time. Anticipate d/c soon. 08/19: Patient was evaluated by urology today. Urology recommended outpatient follow-up with [facility] for skin graft. They assessed the wound today and did not note any significant bleeding. They recommended continued mummy wrapping for scrotum. Patient will be discharged to temporary living facility that was arranged by [facility]. Facility states they will extend patient stay for by an additional 30 days. Patient will require follow-up outpatient with urology and was advised to do so. Regarding syncope, patient was advised to continue hydration. Cardiac work-up was negative. Hemoglobin was stable by time of discharge. Patient is medically clear for discharged today. Assessment and Plan: (1) Recurrent syncope Current Visit: Yes Status: Acute Plan to address problem: Possibly secondary to hypotension. echocardiogram reports a normal LV function, ejection fraction 50-55%. 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 Was scheduled to go for skin graft at [facility] Had bleeding from testicular site on encounter yesterday. Hgb: 10.0, VSS currently Was seen by Dr. Dougherty at [facility] in may 2021, was told to follow up for graft. Counseled, will need follow up as outpatient. Will get urology consultation for evaluation. (2) LAN (acute kidney injury) due to vasomotor nephropathy Current Visit: Yes Status: Acute Plan to address problem: Possibly prerenal Patient placed on IV fluid. Will monitor BUN and creatinine. nephrology following (3) Dehydration Current Visit: Yes Status: Acute Plan to address problem: Possibly secondary to the nausea and vomiting. We will continue on IV fluid hydration and monitor chemistry. (4) Elevated troponin Current Visit: Yes Status: Acute Plan to address problem: Patient had denied any chest pain. elevated in the setting of renal failure Doubt type 1 FL. Cardiology is following (5) Type 2 Diabetes mellitus with hyperglycemia Current Visit: Yes Status: Acute Plan to address problem: We will place patient on sliding scale insulin. We will monitor Accu-Cheks closely. (6) DVT prophylaxis Current Visit: No Status: Acute Plan to address problem: Patient placed on subcutaneous heparin. (7) Full code status Current Visit: Yes Status: Acute Plan to address problem: Patient is full code. Disposition: 30 STILL A PATIENT Final Discharge Diagnosis (Prints w/discharge instructions): syncope Time spent for discharge: 35 Core Measure Documentation - Palliative Care Palliative Care/ Comfort Measures: Not Applicable - Core Measures Any of the following diagnoses?: none Exam - Physical Exam Narrative exam: Physical Exam: VITAL SIGNS: Reviewed. GENERAL: The patient appears normally developed, Vital signs as documented. HEAD: No signs of head trauma. EYES: Pupils are equal. Extraocular motions intact. EARS: Hearing grossly intact. MOUTH: Oropharynx is normal. NECK: No adenopathy, no JVD. CHEST: Chest with clear breath sounds bilaterally. No wheezes, rales, or rhonchi. CARDIAC: Regular rate and rhythm. S1 and S2, without murmurs, gallops, or rubs. VASCULAR: No Edema. Peripheral pulses normal and equal in all extremities. ABDOMEN: Soft, non tender and non distended. No rebound or guarding, and no masses palpated. Bowel Sounds normal. MUSCULOSKELETAL: Good range of motion of all major joints. Extremities without clubbing, cyanosis or edema. NEUROLOGIC EXAM: Alert and oriented x 4. no focal sensory or strength deficits. PSYCHIATRIC: Mood normal. SKIN: exposed testicle under dressing. no signficant bleeding or discharge noted. wound site clean. detail exam as documented in skin assessment - Constitutional Vitals: Temp Pulse Resp BP Pulse Ox 97.7 F 68 16 155/94 100 08/19/21 05:14 08/19/21 13:00 08/19/21 08:00 08/19/21 05:14 08/19/21 08:00 Plan Plan of Treatment: [facility] [place]. You are admitted for syncope believed to be due to dehydration. You had a formal evaluation by your planer setter who completed a echocardiogram. Echocardiogram study was normal. You were also found to have an open wound from left orchiectomy. We had you evaluated by urologist due to concerns for bleeding. Urology did not find any significant source of bleeding. They recommended continued mummy wrap for scrotum. They also recommended wound care as an outpatient and follow-up with [facility] for skin graft that was supposed to be scheduled this month. Follow up with: PRIMARY CARE, [Primary Care Provider] - 7 Days
[2021-08-19 20:10] VITALS: BP 118/66
== END 2021-08-19 16:00 | disposition home or self-care (01) | DRG 312 ==
LOC: ED 20:35 → 4A 08-17 01:20
PROVIDERS: ADMIT Internal Medicine Geriatric Medicine; ATTEND Internal Medicine
DX: R55 Syncope and collapse (principal); N17.0 Acute kidney failure with tubular necrosis; I95.9 Hypotension, unspecified; R77.8 Other specified abnormalities of plasma proteins; F17.200 Nicotine dependence, unspecified, uncomplicated; E86.0 Dehydration; E11.65 Type 2 diabetes mellitus with hyperglycemia; Z20.822 Contact with and (suspected) exposure to COVID-19
CPT/HCPCS: 36415; 70450; 71046; 76770; 80048; 80053; 80061; 80320; 82550; 82962; 83735; 83930; 84443; 84484; 84550; 85014; 85018; 85025; 85610; 93005; 93306; 93880; 99285; G0378; Q0162; Q9967; G0480; J1170; J1644; J1815; J2270; J2405; J7030

== ENCOUNTER 2022-03-25 12:06 | Emergency (ER) | payer SELFPAY ==
[2022-03-25 12:37] VITALS: BP 131/85
--- NOTE | 2022-03-25 14:28 | Emergency Department Report ---
ED Male HPI - General Chief complaint: Urogenital-Male Stated complaint: LEAKING CATH Time Seen by Provider: 03/25/22 12:52 Source: patient, EMS Mode of arrival: Stretcher Limitations: Physical Limitation - History of Present Illness Initial comments: 46 yo black male who uses an indwelling catheter at home presents to ED for leaking catheter. He states that he woke up this am and his bed and clothing was wet. He states that the last time that his catheter was changed was 1.5 months ago. He denies back pain, fever, dysuria, n/v, and abdominal pain. MD Complaint: other (ocampo leaking) -: Sudden Severity scale (0 -10): 0 denies other symptoms - Related Data Home Medications Medication Instructions Recorded Confirmed Last Taken AtorvaSTATin [Lipitor] 40 mg PO QHS 08/17/21 08/17/21 1 Day Ago ~08/16/21 Folic Acid [Folvite] 1 mg PO QDAY 08/17/21 08/17/21 1 Day Ago ~08/16/21 Gabapentin [Neurontin] 600 mg PO QPM 08/17/21 08/17/21 1 Day Ago ~08/16/21 Insulin Glargine,Hum.rec.anlog 5 unit SQ QHS 08/17/21 08/17/21 1 Day Ago [Lantus Solostar] ~08/16/21 amLODIPine [Norvasc] 5 mg PO DAILY 08/17/21 08/17/21 1 Day Ago ~08/16/21 carvediloL [Coreg] 25 mg PO Q12H 08/17/21 08/17/21 1 Day Ago ~08/16/21 hydroCHLOROthiazide [HCTZ] 25 mg PO QDAY 08/17/21 08/17/21 1 Day Ago ~08/16/21 lisinopriL [Zestril TAB] 40 mg PO QDAY 08/17/21 08/17/21 1 Day Ago ~08/16/21 Allergies Allergy/AdvReac Type Severity Reaction Status Date / Time No Known Allergies Allergy Verified 03/25/22 12:39 ED Review of Systems ROS: Stated complaint: LEAKING CATH Other details as noted in HPI Comment: All other systems reviewed and negative Constitutional: denies: chills, fever, malaise, weakness Respiratory: denies: shortness of breath Cardiovascular: denies: chest pain, palpitations Gastrointestinal: denies: abdominal pain, nausea, vomiting Genitourinary: denies: dysuria, discharge, testicular pain Musculoskeletal: denies: back pain ED Past Medical Hx - Past Medical History Hx Congestive Heart Failure: Yes Hx Diabetes: Yes Hx Asthma: Yes Hx COPD: No Additional medical history: History of DKA. Tetanus status up to date - Surgical History Additional Surgical History: removal of testicles - Social History Smoking Status: Current Every Day Smoker - Medications Home Medications: Home Medications Medication Instructions Recorded Confirmed Last Taken Type AtorvaSTATin [Lipitor] 40 mg PO QHS 08/17/21 08/17/21 1 Day Ago History ~08/16/21 Folic Acid [Folvite] 1 mg PO QDAY 08/17/21 08/17/21 1 Day Ago History ~08/16/21 Gabapentin [Neurontin] 600 mg PO QPM 08/17/21 08/17/21 1 Day Ago History ~08/16/21 Insulin Glargine,Hum.rec.anlog 5 unit SQ QHS 08/17/21 08/17/21 1 Day Ago History [Lantus Solostar] ~08/16/21 amLODIPine [Norvasc] 5 mg PO DAILY 08/17/21 08/17/21 1 Day Ago History ~08/16/21 carvediloL [Coreg] 25 mg PO Q12H 08/17/21 08/17/21 1 Day Ago History ~08/16/21 hydroCHLOROthiazide [HCTZ] 25 mg PO QDAY 08/17/21 08/17/21 1 Day Ago History ~08/16/21 lisinopriL [Zestril TAB] 40 mg PO QDAY 08/17/21 08/17/21 1 Day Ago History ~08/16/21 ED Physical Exam - General Limitations: Physical Limitation General appearance: alert, in no apparent distress - Head Head exam: Present: atraumatic, normocephalic - Eye Eye exam: Present: normal appearance. Absent: conjunctival injection - Neck Neck exam: Present: normal inspection - Respiratory Respiratory exam: Present: normal lung sounds bilaterally. Absent: respiratory distress - Cardiovascular Cardiovascular Exam: Present: regular rate, normal heart sounds - GI/Abdominal GI/Abdominal exam: Present: soft, normal bowel sounds. Absent: distended, tenderness, guarding, rebound, rigid - Extremities Exam Extremities exam: Present: normal inspection, normal capillary refill - Back Exam Back exam: Present: normal inspection. Absent: CVA tenderness (R), CVA tenderness (L) - Neurological Exam Neurological exam: Present: alert, oriented X3 - Psychiatric Psychiatric exam: Present: normal affect, normal mood - Skin Skin exam: Present: warm, dry, intact, normal color ED Course Vital Signs 03/25/22 12:06 Temperature 98.7 F Pulse Rate 80 Respiratory 18 Rate Blood Pressure 131/85 [Left] O2 Sat by Pulse 100 Oximetry - Procedure Description Procedures done: Ocampo catheter removed and was replaced per nursing staff. Clear, yellow urine output noted, patient tolerated well. ED Medical Decision Making - Medical Decision Making 46 yo black male who uses an indwelling catheter at home presents to ED for leaking catheter. He states that he woke up this am and his bed and clothing was wet. He states that the last time that his catheter was changed was 1.5 months ago. He denies back pain, fever, dysuria, n/v, and abdominal pain. Physical exam unremarkable. Ocampo catheter replaced per my procedure note. Patient advised to follow up with his pcp and return to ED as needed. He verbalized understanding of and agreement with plan of care. Critical care attestation.: If time is entered above; I have spent that time in minutes in the direct care of this critically ill patient, excluding procedure time. ED Disposition Clinical Impression: Urinary catheter complication Qualifiers: Encounter type: initial encounter Qualified Code(s): T83.9XXA - Unspecified complication of genitourinary prosthetic device, implant and graft, initial encounter Disposition: HOME / SELF CARE / HOMELESS Is pt being admited?: No Does the pt Need Aspirin: No Condition: Stable Instructions: Indwelling Urinary Catheter Insertion, Care After Additional Instructions: Follow-up with your primary care doctor as planned. Return to the emergency department as needed. Referrals: ISRA VILLALOBOS MD [Staff Physician] - 3-5 Days Time of Disposition: 14:28
== END 2022-03-25 16:35 | disposition home or self-care (01) ==
LOC: ED 12:06
DX: T83.091A Other mechanical complication of indwelling urethral catheter, initial encounter (principal); Y92.89 Other specified places as the place of occurrence of the external cause; E11.9 Type 2 diabetes mellitus without complications; J45.909 Unspecified asthma, uncomplicated; F17.200 Nicotine dependence, unspecified, uncomplicated
CPT/HCPCS: 51702; 99283

== ENCOUNTER 2022-04-20 21:50 | Inpatient (IN) | payer SELFPAY ==
[2022-04-21] MEDS ORDERED: SODIUM CHLORIDE 0.9% 1000 ML 1,000 ML IV ONE ×2 (03:06→13:00)
[2022-04-21 03:33] LABS: Basophils # (Auto) 0.1 K/mm3 (0.0-0.1); Basophils % (Auto) 0.5 % (0.0-1.8); Eosinophils # (Auto) 0.2 K/mm3 (0.0-0.4); Eosinophils % (Auto) 1.5 % (0.0-4.3); Hematocrit 27.6 % (35.5-45.6); Hemoglobin 9.1 gm/dl (11.8-15.2); Lymphocytes # (Auto) 1.3 K/mm3 (1.2-5.4); Lymphocytes % (Auto) 11.6 % (13.4-35.0); Mean Corpuscular HGB Conc 33 % (32-34); Mean Corpuscular Volume 100 fl (84-94); Monocytes # (Auto) 0.7 K/mm3 (0.0-0.8); Monocytes % (Auto) 5.7 % (0.0-7.3); Platelet Count 286 K/mm3 (140-440); Red Blood Count 2.76 M/mm3 (3.65-5.03)
[2022-04-21 03:57] LABS: Mucus,Urine FEW /HPF; Triple Phosphate Crystal,Urine FEW
[2022-04-21 04:04] LABS: Color,Urine Colorless (Yellow)
[2022-04-21 04:43] LABS: Albumin 3.9 g/dL (3.9-5); Calcium 9.1 mg/dL (8.4-10.2)
[2022-04-21] MEDS ORDERED: ONDANSETRON 4 MG/2 ML INJ IV ONE (07:01)
[2022-04-21] MEDS ORDERED: MORPHINE 4 MG/1 ML INJ IV ONE (07:01)
--- NOTE | 2022-04-21 07:17 | Emergency Department Report ---
ED Back Pain/Injury HPI - General Chief Complaint: Back Pain/Injury Stated Complaint: BACK PAIN Time Seen by Provider: 04/21/22 06:19 Source: patient Limitations: No Limitations - History of Present Illness Initial Comments: 46-year-old male who presents with mid back pain with swelling in the middle of his back noticed 2 to 3 days ago. He rated the pain as 10/10 and could not go to sleep because of the discomfort. Patient however denies any fever or chills. No trauma or fall reported. No other modifying or associated factors reported. MD Complaint: back pain - Related Data Home Medications Medication Instructions Recorded Confirmed Last Taken AtorvaSTATin [Lipitor] 40 mg PO QHS 08/17/21 08/17/21 1 Day Ago ~08/16/21 Folic Acid [Folvite] 1 mg PO QDAY 08/17/21 08/17/21 1 Day Ago ~08/16/21 Gabapentin [Neurontin] 600 mg PO QPM 08/17/21 08/17/21 1 Day Ago ~08/16/21 Insulin Glargine,Hum.rec.anlog 5 unit SQ QHS 08/17/21 08/17/21 1 Day Ago [Lantus Solostar] ~08/16/21 amLODIPine [Norvasc] 5 mg PO DAILY 08/17/21 08/17/21 1 Day Ago ~08/16/21 carvediloL [Coreg] 25 mg PO Q12H 08/17/21 08/17/21 1 Day Ago ~08/16/21 hydroCHLOROthiazide [HCTZ] 25 mg PO QDAY 08/17/21 08/17/21 1 Day Ago ~08/16/21 lisinopriL [Zestril TAB] 40 mg PO QDAY 08/17/21 08/17/21 1 Day Ago ~08/16/21 Allergies Allergy/AdvReac Type Severity Reaction Status Date / Time No Known Allergies Allergy Verified 04/21/22 08:44 ED Review of Systems ROS: Stated complaint: BACK PAIN Other details as noted in HPI Comment: All other systems reviewed and negative Musculoskeletal: back pain (with painful swelling ) Skin: other (?abscess) ED Past Medical Hx - Past Medical History Hx Congestive Heart Failure: Yes Hx Diabetes: Yes Hx Asthma: Yes Hx COPD: No Additional medical history: History of DKA. Tetanus status up to date - Surgical History Additional Surgical History: removal of testicles - Social History Smoking Status: Current Every Day Smoker - Medications Home Medications: Home Medications Medication Instructions Recorded Confirmed Last Taken Type AtorvaSTATin [Lipitor] 40 mg PO QHS 08/17/21 08/17/21 1 Day Ago History ~08/16/21 Folic Acid [Folvite] 1 mg PO QDAY 08/17/21 08/17/21 1 Day Ago History ~08/16/21 Gabapentin [Neurontin] 600 mg PO QPM 08/17/21 08/17/21 1 Day Ago History ~08/16/21 Insulin Glargine,Hum.rec.anlog 5 unit SQ QHS 08/17/21 08/17/21 1 Day Ago History [Lantus Solostar] ~08/16/21 amLODIPine [Norvasc] 5 mg PO DAILY 08/17/21 08/17/21 1 Day Ago History ~08/16/21 carvediloL [Coreg] 25 mg PO Q12H 08/17/21 08/17/21 1 Day Ago History ~08/16/21 hydroCHLOROthiazide [HCTZ] 25 mg PO QDAY 08/17/21 08/17/21 1 Day Ago History ~08/16/21 lisinopriL [Zestril TAB] 40 mg PO QDAY 08/17/21 08/17/21 1 Day Ago History ~08/16/21 ED Physical Exam - General Limitations: No Limitations General appearance: alert, in no apparent distress - Head Head exam: Present: normal inspection - Neck Neck exam: Present: normal inspection, full ROM. Absent: tenderness, lymphadenopathy - Respiratory Respiratory exam: Present: normal lung sounds bilaterally, chest wall tenderness. Absent: respiratory distress, accessory muscle use - Cardiovascular Cardiovascular Exam: Present: regular rate, normal rhythm, normal heart sounds - GI/Abdominal GI/Abdominal exam: Present: soft, normal bowel sounds. Absent: distended, tenderness - Back Exam Back exam: Present: tenderness, vertebral tenderness, other (noted tenderness with erythema and some induration over the lumbar spine) - Neurological Exam Neurological exam: Present: alert, oriented X3 - Psychiatric Psychiatric exam: Present: normal affect, normal mood - Skin Skin exam: Present: warm, rash (noted tenderness with erythema and some induration over the lumbar spine), erythema ED Course Vital Signs 04/20/22 22:35 Temperature 98 F Pulse Rate 90 Respiratory 18 Rate Blood Pressure 154/90 [Right] O2 Sat by Pulse 98 Oximetry - Consultations Consultation #1: 04/21/22 13:51 Drew Consultation #2: 04/21/22 13:51 [facility] ED Medical Decision Making - Lab Data Result diagrams: 04/21/22 03:07 04/21/22 03:07 - Radiology Data FINDINGS: ACUTE FRACTURE(S) OR SUBLUXATION: None. SPINAL DEGENERATIVE CHANGES: Multiple chronic Schmorl's nodes. No acute findings. PARASPINAL SOFT TISSUES: There is some subcutaneous edema in the posterior paraspinal region without well-defined fluid collection. ADDITIONAL FINDINGS: Right intrarenal stone measuring about 5 mm. IMPRESSION: 1. Subcutaneous edema suggesting cellulitis in the posterior paraspinal recent without appreciable well-defined fluid collection. 2. Nonobstructing right intrarenal stone. - Medical Decision Making here with back pain and noted tenderness with erythema and some induration over the lumbar spine-- this raised concern for vertebral spine abscess-- so will go ahead and order routine labs and get CT lumbar-non contrast looking at the patient GFR-- with BUN/cr 57/4.1--- will consider MRI if CT is none informative--given morphine 4 mg IV x 1 and Zofran 4 mg IV x 1-- for symptomatic relief Labs reviewed and also noted pt with elevated BS at 187 mg/dl with low H&H 9.1/27.6 but looking back on previous visit it seems to be chronic and at baseline for this patient. Even though the CT lumbar does not mention abscess but because of the extent of the cellulitis and the leukocytosis with left shift -- I am concern that IV a ntibiotics might not be enough to help this patient. Dr Russell consulted who wanted surgeon involved. So Dr Dash our general surgeon catalyst concentration operator paged who came to ED and evaluate patient and agreed to take patient to OR as soon as possible. Dr Russell updated and he says he was going to put the admission order in. Critical care attestation.: If time is entered above; I have spent that time in minutes in the direct care of this critically ill patient, excluding procedure time. ED Disposition Clinical Impression: Abscess of lower back, Cellulitis of lower back Disposition: ADMITTED INPATIENT Is pt being admited?: Yes Does the pt Need Aspirin: No Condition: Stable Instructions: Cellulitis, Adult, [id number] Additional Instructions: It is very important that and complete your new antibiotics as prescribed to continue to help your symptoms You are also given pain medication to help your pain Call and follow-up with your primary doctor in the next 3 to 5 days for progress Please do not hesitate to call or return to emergency room if your symptoms worsen Referrals: ISRA VILLALOBOS MD [Primary Care Provider] - 3-5 Days Time of Disposition: 13:49
--- NOTE | 2022-04-21 08:07 | Cat Scan Report ---
CT LUMBAR SPINE WITHOUT CONTRAST INDICATION: abscess depth. TECHNIQUE: Axial CT images of the spine were obtained. Sagittal and coronal reformatted images were produced. Al l CT scans at this location are performed using CT dose reduction for ALARA by means of automated exp osure control. COMPARISON: None available. FINDINGS: ACUTE FRACTURE(S) OR SUBLUXATION: None. SPINAL DEGENERATIVE CHANGES: Multiple chronic Schmorl's nodes. No acute findings. PARASPINAL SOFT TISSUES: There is some subcutaneous edema in the posterior paraspinal region without well-defined fluid collection. ADDITIONAL FINDINGS: Right intrarenal stone measuring about 5 mm. IMPRESSION: 1. Subcutaneous edema suggesting cellulitis in the posterior paraspinal recent without appreciable we ll-defined fluid collection. 2. Nonobstructing right intrarenal stone. Signer Name: Rocky Garcia MD Signed: 04/21/2022 8:02 AM Workstation Name: [employer]
--- NOTE | 2022-04-21 13:33 | History and Physical Report ---
History of Present Illness Chief complaint: My back hurts History of present illness: 46 YO Male with DM, Mild Intermittent Asthma, Nicotine Dependence, Medication Noncompliance presents ED for evaluation. Patient reports "my back hurts". Patient states that he has experienced pain to his right back over the past 4 days with persistent and worsening symptoms over the same timeframe. 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 Patient states the pain is 5/10, constant, worsened with lying on his back, relieved with removal of pressure to back. Patient transported to [facility] via private vehicle for further care and evaluation of the aforementioned symptoms. The patient was seen and evaluated in the emergency department. All lab and imaging studies reviewed. Patient found to have a fluctuant mass to the right paraspinal region with superimposed erythema consistent with cellulitis complicated by right paraspinal abscess, sepsis, as well as urinary tract infection, and hyponatr emia. Patient admitted to medical floor due to increased risk of worsening symptoms after medical stabilization. Surgical team consulted in ED. Patient has fever, chills, chest pain, palpitation, adductive cough, skin rash, recent contact, known exposure to COVID-19. Prior admission on 08/17/2021 reviewed. All medication listed at time of admission has been reconciled. Advanced care planning conducted in ED. Patient is pending surgical intervention at this time. Past History Past Medical History: diabetes, other (See HPI) Past Surgical History: Other (Orchiectomy) Social history: single, smoking Family history: diabetes, hypertension Medications and Allergies Allergies Allergy/AdvReac Type Severity Reaction Status Date / Time No Known Allergies Allergy Verified 04/21/22 08:44 Home Medications Medication Instructions Recorded Confirmed Last Taken Type AtorvaSTATin [Lipitor] 40 mg PO QHS 08/17/21 08/17/21 1 Day Ago History ~08/16/21 Folic Acid [Folvite] 1 mg PO QDAY 08/17/21 08/17/21 1 Day Ago History ~08/16/21 Gabapentin [Neurontin] 600 mg PO QPM 08/17/21 08/17/21 1 Day Ago History ~08/16/21 Insulin Glargine,Hum.rec.anlog 5 unit SQ QHS 08/17/21 08/17/21 1 Day Ago History [Lantus Solostar] ~08/16/21 amLODIPine [Norvasc] 5 mg PO DAILY 08/17/21 08/17/21 1 Day Ago History ~08/16/21 carvediloL [Coreg] 25 mg PO Q12H 08/17/21 08/17/21 1 Day Ago History ~08/16/21 hydroCHLOROthiazide [HCTZ] 25 mg PO QDAY 08/17/21 08/17/21 1 Day Ago History ~08/16/21 lisinopriL [Zestril TAB] 40 mg PO QDAY 08/17/21 08/17/21 1 Day Ago History ~08/16/21 Active Meds: Active Medications Sodium Chloride (Nacl 0.9% 1000 Ml) 1,000 mls @ 999 mls/hr IV BOLUS ONE Stop: 04/21/22 14:00 Review of Systems Constitutional: no weight loss, no weight gain, no fever, no chills Ears, nose, mouth and throat: no ear pain, no decreased hearing, no nose pain, no nasal discharge, no sinus pressure Cardiovascular: no chest pain, no orthopnea, no rapid/irregular heart beat, no edema, no lightheadedness Respiratory: no cough, no excessive sputum, no hemoptysis, no dyspnea on exertion Gastrointestinal: no nausea, no vomiting, no diarrhea, no constipation, no hematemesis Genitourinary Male: no hematuria, no flank pain, no discharge, no urinary freq uency, no urinary hesitancy Rectal: no pain, no incontinence, no bleeding Musculoskeletal: other (Right back pain), no neck stiffness, no neck pain, no shooting arm pain Integumentary: rash, pruritis, redness Neurological: no head injury, no transient paralysis, no parathesias, no numbness, no tingling, no seizures, no syncope Psychiatric: no anxiety, no change in sleep habits, no sleep disturbances, no insomnia, no change in libido, no suicidal ideation Endocrine: no cold intolerance, no polyphagia, no polydipsia, no nocturia, no excessive sweating, no flushing Hematologic/Lymphatic: no easy bruising, no easy bleeding Allergic/Immunologic: no urticaria, no allergic rhinitis, no wheezing Exam - Constitutional Vitals: Temp Pulse Resp BP Pulse Ox 98 F 90 18 154/90 98 04/20/22 22:35 04/20/22 22:35 04/20/22 22:35 04/20/22 22:35 04/20/22 22:35 General appearance: Present: mild distress - EENT Eyes: Present: PERRL ENT: hearing intact, clear oral mucosa - Neck Neck: Present: supple, normal ROM - Respiratory Respiratory effort: normal Respiratory: bilateral: CTA - Cardiovascular Heart Sounds: Present: S1 & S2. Absent: rub, click Peripheral Pulses: abnormal (Capillary refill greater than 3.5 seconds) - Abdominal General gastrointestinal: Present: soft, non-tender, non-distended, normal bowel sounds Male genitourinary: Present: normal - Rectal Rectal Exam: normal exam-external/orifice - Integumentary Integumentary: Present: clear, warm, dry - Musculoskeletal Musculoskeletal: other (Right back fluctuance, erythema, induration, purulent discharge) - Psychiatric Psychiatric: appropriate mood/affect, cooperative - Neurologic Neurologic: CNII-XII intact Results - Labs CBC & Chem 7: 04/21/22 03:07 04/21/22 03:07 Labs: Abnormal lab results 04/21/22 04/21/22 04/21/22 Range/Units 03:07 03:07 03:14 WBC 11.5 H (4.5-11.0) K/mm3 RBC 2.76 L (3.65-5.03) M/mm3 Hgb 9.1 L (11.8-15.2) gm/dl Hct 27.6 L (35.5-45.6) % MCV 100 H (84-94) fl MCH 33 H (28-32) pg Lymph % (Auto) 11.6 L (13.4-35.0) % Seg Neutrophils % 80.7 H (40.0-70.0) % Seg Neutrophils # 9.3 H (1.8-7.7) K/mm3 Sodium 135 L (137-145) mmol/L Carbon Dioxide 17 L (22-30) mmol/L BUN 57 H (9-20) mg/dL Creatinine 4.1 H (0.8-1.3) mg/dL Glucose 142 H (75-100) mg/dL AST 56 H (5-40) units/L Specific Calvert (Man) 1.000 L (1.003-1.030) Urine WBC (Auto) 16.0 H (0.0-6.0) /HPF Assessment and Plan - Patient Problems (1) Paraspinal abscess Current Visit: Yes Status: Acute Plan to address problem: CT scan back, surgery team consulted for urgent I&D of abscess, IV antibiotic therapy, supportive care, (2) Cellulitis Current Visit: Yes Status: Acute Qualifiers: Site of cellulitis of trunk: back Plan to address problem: CBC, IV antibiotic therapy, surgical team consulted, continue medical management, (3) Sepsis Current Visit: Yes Status: Acute Plan to address problem: Sepsis protocol: CBC, urinalysis, CT scan back, IV antibiotic therapy, serial lactic acid level, maintain mean arterial pressure greater than equal 65, blood culture, monitor fluid balance, (4) UTI (urinary tract infection) Current Visit: Yes Status: Acute Qualifiers: Encounter type: initial encounter Plan to address problem: Urinalysis, IV antibiotic therapy, repeat CBC in a.m. (5) Acute kidney injury (LAN) with acute tubular necrosis (ATN) Current Visit: Yes Status: Acute Plan to address problem: IV for resuscitation therapy, urine electrolytes, monitor urine output every shift, monitor fluid balance, nephrology team consulted. (6) Hyponatremia syndrome Current Visit: Yes Status: Acute Plan to address problem: IV fluid resuscitation therapy, BMP, repeat BMP in a.m. (7) DVT prophylaxis Current Visit: Yes Status: Acute Plan to address problem: SCD to bilateral lower extremities while in bed (8) Advance care planning Current Visit: Yes Status: Acute Plan to address problem: Disease education data, care plan discussed, diagnoses discussed, prognosis dis cussed, patient is full code. Patient acknowledges understanding and agreement with care plan, +30 minutes. (9) Preventative health care Current Visit: Yes Status: Acute Plan to address problem: Patient counseled on risk factor reduction, outpatient follow-up with primary care physician for all age and risk factor appropriate screening test, +30 minutes.
[2022-04-21] MEDS ORDERED: ALBUTEROL 2.5 MG/3 ML NEBU IH PRN (13:47)
[2022-04-21] MEDS ORDERED: oxyCODONE /ACETAMINOPHEN 5-325MG TAB PO PRN (13:47)
[2022-04-21] MEDS ORDERED: SODIUM CHLORIDE 0.9% 1000 ML IV SOLN IV SCH (13:47)
[2022-04-21] MEDS ORDERED: ACETAMINOPHEN 325 MG TAB PO PRN (13:47)
[2022-04-21] MEDS ORDERED: VANCOMYCIN PHARMACY TO DOSE IV SCH (14:00)
[2022-04-21] MEDS ORDERED: CEFEPIME/NS 2 GM/100 ML 2 GM/100 ML BAG IV SCH (14:00)
[2022-04-21] MEDS: HYDROmorphone 0.5 MG/0.5 ML INJ IV PRN (14:34)
[2022-04-21] MEDS ORDERED: SODIUM BICARB 8.4% 50 MEQ/50 ML SYRINGE IV NR (15:00)
[2022-04-21] MEDS ORDERED: VANCOMYCIN 1,250 MG in SODIUM CHLORIDE 0.9% 500 ML 250 ML IV ONE (15:00)
[2022-04-21] MEDS: CEFEPIME/NS 1 GM/100 ML 1 GM/100 ML BAG IV SCH (16:44)
[2022-04-21] MEDS: ONDANSETRON 4 MG/2 ML INJ IV PRN (16:52)
[2022-04-21] MEDS ORDERED: GABAPENTIN 300 MG CAP PO SCH (18:00)
[2022-04-21] MEDS ORDERED: NON-FORMULARY EACH (Gabapentin [Neurontin] 600 MG Tablet) PO SCH (18:00)
[2022-04-21] MEDS: MORPHINE 2 MG/1 ML INJ IV PRN ×2 (18:38→22:03)
[2022-04-21 18:47] LABS: Creatinine,Urine 69.3 mg/dL (0.1-20.0)
--- NOTE | 2022-04-21 19:08 | Consultation ---
History of Present Illness - Reason for Consult Consult date: 04/21/22 acute renal failure - History of Present Illness This is a 46-year-old man with diabetes who presented to the emergency dep[facility] with back pain. Workup in the emergency department was concerning for sepsis with paraspinal abscess. He was subsequently admitted for further workup and nephrology was consulted for acute kidney injury. Patient notes recent history of urinary retention and had a Ocampo placed several weeks ago which was last exchanged 3 weeks ago at [place] [facility]. He notes good urine output and denies hematuria and decreased urine output. Past History Past Medical History: diabetes, other (See HPI) Past Surgical History: Other (Orchiectomy) Social history: single, smoking Family history: diabetes, hypertension Medications and Allergies Allergies Allergy/AdvReac Type Severity Reaction Status Date / Time No Known Allergies Allergy Verified 04/21/22 08:44 Home Medications Medication Instructions Recorded Confirmed Last Taken Type AtorvaSTATin [Lipitor] 40 mg PO QHS 08/17/21 08/17/21 1 Day Ago History ~08/16/21 Folic Acid [Folvite] 1 mg PO QDAY 08/17/21 08/17/21 1 Day Ago History ~08/16/21 Gabapentin [Neurontin] 600 mg PO QPM 08/17/21 08/17/21 1 Day Ago History ~08/16/21 Insulin Glargine,Hum.rec.anlog 5 unit SQ QHS 08/17/21 08/17/21 1 Day Ago History [Lantus Solostar] ~08/16/21 amLODIPine [Norvasc] 5 mg PO DAILY 08/17/21 08/17/21 1 Day Ago History ~08/16/21 carvediloL [Coreg] 25 mg PO Q12H 08/17/21 08/17/21 1 Day Ago History ~08/16/21 hydroCHLOROthiazide [HCTZ] 25 mg PO QDAY 08/17/21 08/17/21 1 Day Ago History ~08/16/21 lisinopriL [Zestril TAB] 40 mg PO QDAY 08/17/21 08/17/21 1 Day Ago History ~08/16/21 Active Meds: Active Medications Acetaminophen (Acetaminophen 325 Mg Tab) 650 mg PO Q4H PRN PRN Reason: Pain MILD(1-3)/Fever >100.5/SHARPE Albuterol (Albuterol 2.5 Mg/3 Ml Nebu) 2.5 mg IH Q4HRT PRN PRN Reason: Shortness Of Breath Atorvastatin Calcium (Atorvastatin 40 Mg Tab) 40 mg PO QHS [facility] Folic Acid (Folic Acid 1 Mg Tab) 1 mg PO QDAY [facility] Gabapentin (Gabapentin 300 Mg Cap) 600 mg PO QPM [facility] Last Admin: 04/21/22 18:38 Dose: Not Given Hydrochlorothiazide (Hydrochlorothiazide 25 Mg Tab) 25 mg PO QDAY [facility] Hydromorphone HCl (Hydromorphone 0.5 Mg/0.5 Ml Inj) 0.5 mg IV Q23H PRN PRN Reason: Pain , Severe (7-10) Last Admin: 04/21/22 14:34 Dose: 0.5 mg Sodium Chloride (Nacl 0.9% 1000 Ml) 1,000 mls @ 135 mls/hr IV DIRECT [facility] Cefepime HCl (Cefepime/Ns 1 Gm/100 Ml) 1 gm in 100 mls @ 200 mls/hr IV Q12H [facility]; Protocol Last Admin: 04/21/22 16:44 Dose: 200 mls/hr Lisinopril (Lisinopril 40 Mg Tab) 40 mg PO QDAY [facility] Morphine Sulfate (Morphine 2 Mg/1 Ml Inj) 2 mg IV Q4H PRN PRN Reason: Pain, Moderate (4-6) Last Admin: 04/21/22 18:38 Dose: 2 mg Ondansetron HCl (Ondansetron 4 Mg/2 Ml Inj) 4 mg IV Q8H PRN PRN Reason: Nausea And Vomiting Last Admin: 04/21/22 16:52 Dose: 4 mg Oxycodone/Acetaminophen (Oxycodone /Acetaminophen 5-325mg Tab) 1 tab PO Q16H PRN PRN Reason: Pain, Moderate (4-6) Sodium Chloride (Sodium Chloride 0.9% 10 Ml Flush Syringe) 10 ml IV BID [facility] Sodium Chloride (Sodium Chloride 0.9% 10 Ml Flush Syringe) 10 ml IV PRN PRN PRN Reason: LINE FLUSH Sodium Chloride (Sodium Chloride 0.9% 1000 Ml Iv Soln) 1,770 ml 30 ml/kg (1770 ml) IV ONCE [facility] Stop: 04/21/22 23:00 Review of Systems All systems: negative Constitutional: fever, fatigue Musculoskeletal: low back pain Exam - Vital Signs Vital signs: Vital Signs Temp Pulse Resp BP Pulse Ox 98 F 90 18 154/90 98 04/20/22 22:35 04/20/22 22:35 04/20/22 22:35 04/20/22 22:35 04/20/22 22:35 - Physical Exam Narrative exam: General: No acute distress HEENT: Oral mucosa moist Neck: Supple, no JVD Chest: Clear to auscultation bilaterally Heart: RRR, S1 and S2, no pericardial rub Abdomen: Soft, nontender, no renal bruit Extremity: No peripheral cyanosis, edema Neurological: Alert, awake, no asterixis Dermatology: No skin rash Psych: No agitation Musculoskeletal: No joint effusion Results - Lab Results 04/21/22 03:07 04/21/22 03:07 Most recent lab results Calcium 9.1 mg/dL (8.4-10.2) 04/21/22 03:07 Urine Creatinine 69.3 mg/dL (0.1-20.0) H 04/21/22 17:46 Urine Sodium 77 mmol/L 04/21/22 17:46 Assessment and Plan Acute kidney injury Acidosis Hyponatremia Paraspinal abscess Recommend ocampo change Check UPCR Check serologies Check renal ultrasound Start sodium bicarb tabs Hold lisinopril Recommend reducing gabapentin dose Renally dose medications Avoid nephrotoxins Renal diet No immediate indication for dialysis Surgery plans noted
[2022-04-21] MEDS ORDERED: MIDAZOLAM 2 MG/2 ML INJ ONE (19:46)
[2022-04-21] MEDS ORDERED: fentaNYL 100 MCG/2 ML INJ ONE (19:51)
[2022-04-21] MEDS ORDERED: propofoL 200 MG/20 ML VIAL IV ONE ×2 (19:52→19:58)
--- NOTE | 2022-04-21 20:15 | Consultation ---
History of Present Illness Consult date: 04/21/22 - History of present illness History of present illness: 46-year-old male who presents with mid back pain with swelling in the middle of his back noticed 2 to 3 days ago. He rated the pain as 10/10 and could not go to sleep because of the discomfort. Patient however denies any fever or chills. No trauma or fall reported. No other modifying or associated factors reported. swelling and pain localized to midback. CT of back confirmed an abscess of the back. Past History Past Medical History: diabetes, other (See HPI) Past Surgical History: Other (Orchiectomy) Social history: single, smoking Family history: diabetes, hypertension Medications and Allergies Allergies Allergy/AdvReac Type Severity Reaction Status Date / Time No Known Allergies Allergy Verified 04/21/22 08:44 Home Medications Medication Instructions Recorded Confirmed Last Taken Type AtorvaSTATin [Lipitor] 40 mg PO QHS 08/17/21 08/17/21 1 Day Ago History ~08/16/21 Folic Acid [Folvite] 1 mg PO QDAY 08/17/21 08/17/21 1 Day Ago History ~08/16/21 Gabapentin [Neurontin] 600 mg PO QPM 08/17/21 08/17/21 1 Day Ago History ~08/16/21 Insulin Glargine,Hum.rec.anlog 5 unit SQ QHS 08/17/21 08/17/21 1 Day Ago History [Lantus Solostar] ~08/16/21 amLODIPine [Norvasc] 5 mg PO DAILY 08/17/21 08/17/21 1 Day Ago History ~08/16/21 carvediloL [Coreg] 25 mg PO Q12H 08/17/21 08/17/21 1 Day Ago History ~08/16/21 hydroCHLOROthiazide [HCTZ] 25 mg PO QDAY 08/17/21 08/17/21 1 Day Ago History ~08/16/21 lisinopriL [Zestril TAB] 40 mg PO QDAY 08/17/21 08/17/21 1 Day Ago History ~08/16/21 Active Meds: Active Medications Acetaminophen (Acetaminophen 325 Mg Tab) 650 mg PO Q4H PRN PRN Reason: Pain MILD(1-3)/Fever >100.5/SHARPE Albuterol (Albuterol 2.5 Mg/3 Ml Nebu) 2.5 mg IH Q4HRT PRN PRN Reason: Shortness Of Breath Atorvastatin Calcium (Atorvastatin 40 Mg Tab) 40 mg PO QHS [facility] Folic Acid (Folic Acid 1 Mg Tab) 1 mg PO QDAY [facility] Gabapentin (Gabapentin 300 Mg Cap) 600 mg PO QPM [facility] Last Admin: 04/21/22 18:38 Dose: Not Given Hydrochlorothiazide (Hydrochlorothiazide 25 Mg Tab) 25 mg PO QDAY [facility] Hydromorphone HCl (Hydromorphone 0.5 Mg/0.5 Ml Inj) 0.5 mg IV Q23H PRN PRN Reason: Pain , Severe (7-10) Last Admin: 04/21/22 14:34 Dose: 0.5 mg Sodium Chloride (Nacl 0.9% 1000 Ml) 1,000 mls @ 135 mls/hr IV DIRECT [facility] Cefepime HCl (Cefepime/Ns 1 Gm/100 Ml) 1 gm in 100 mls @ 200 mls/hr IV Q12H [facility]; Protocol Last Admin: 04/21/22 16:44 Dose: 200 mls/hr Morphine Sulfate (Morphine 2 Mg/1 Ml Inj) 2 mg IV Q4H PRN PRN Reason: Pain, Moderate (4-6) Last Admin: 04/21/22 18:38 Dose: 2 mg Ondansetron HCl (Ondansetron 4 Mg/2 Ml Inj) 4 mg IV Q8H PRN PRN Reason: Nausea And Vomiting Last Admin: 04/21/22 16:52 Dose: 4 mg Oxycodone/Acetaminophen (Oxycodone /Acetaminophen 5-325mg Tab) 1 tab PO Q16H PRN PRN Reason: Pain, Moderate (4-6) Sodium Bicarbonate (Sodium Bicarbonate 650 Mg Tab) 1,300 mg PO TID [facility] Sodium Chloride (Sodium Chloride 0.9% 10 Ml Flush Syringe) 10 ml IV BID [facility] Sodium Chloride (Sodium Chloride 0.9% 10 Ml Flush Syringe) 10 ml IV PRN PRN PRN Reason: LINE FLUSH Sodium Chloride (Sodium Chloride 0.9% 1000 Ml Iv Soln) 1,770 ml 30 ml/kg (1770 ml) IV ONCE [facility] Stop: 04/21/22 23:00 Exam Vital Signs Temp Pulse Resp BP Pulse Ox 98 F 90 18 154/90 98 04/20/22 22:35 04/20/22 22:35 04/20/22 22:35 04/20/22 22:35 04/20/22 22:35 - General physical appearance Positive: moderate distress - Neck Positive: no masses, no bruits, trachea midline - Respiratory Positive: normal expansion - Cardiovascular Rhythm: regular - Extremities Extremities: no ischemia, pulses intact - Abdomen Abdomen: Present: soft, bowel sounds normal. Absent: tender - Integumentary other (5 by 10 cm area of swelling to the left of midline cw abscess.) Results - Labs 04/21/22 03:07 04/21/22 03:07 Abnormal lab results 04/21/22 04/21/22 04/21/22 Range/Units 03:07 03:07 03:14 WBC 11.5 H (4.5-11.0) K/mm3 RBC 2.76 L (3.65-5.03) M/mm3 Hgb 9.1 L (11.8-15.2) gm/dl Hct 27.6 L (35.5-45.6) % MCV 100 H (84-94) fl MCH 33 H (28-32) pg Lymph % (Auto) 11.6 L (13.4-35.0) % Seg Neutrophils % 80.7 H (40.0-70.0) % Seg Neutrophils # 9.3 H (1.8-7.7) K/mm3 Sodium 135 L (137-145) mmol/L Carbon Dioxide 17 L (22-30) mmol/L BUN 57 H (9-20) mg/dL Creatinine 4.1 H (0.8-1.3) mg/dL Glucose 142 H (75-100) mg/dL Lactic Acid (0.7-2.0) mmol/L AST 56 H (5-40) units/L Specific [place]ana (Man) 1.000 L (1.003-1.030) Urine WBC (Auto) 16.0 H (0.0-6.0) /HPF Urine Creatinine (0.1-20.0) mg/dL 04/21/22 04/21/22 Range/Units 15:50 17:46 WBC (4.5-11.0) K/mm3 RBC (3.65-5.03) M/mm3 Hgb (11.8-15.2) gm/dl Hct (35.5-45.6) % MCV (84-94) fl MCH (28-32) pg Lymph % (Auto) (13.4-35.0) % Seg Neutrophils % (40.0-70.0) % Seg Neutrophils # (1.8-7.7) K/mm3 Sodium (137-145) mmol/L Carbon Dioxide (22-30) mmol/L BUN (9-20) mg/dL Creatinine (0.8-1.3) mg/dL Glucose (75-100) mg/dL Lactic Acid 0.60 L (0.7-2.0) mmol/L AST (5-40) units/L Specific Chana (Man) (1.003-1.030) Urine WBC (Auto) (0.0-6.0) /HPF Urine Creatinine 69.3 H (0.1-20.0) mg/dL Diabetes panel 04/21/22 Range/Units 03:07 Sodium 135 L (137-145) mmol/L Potassium 4.4 (3.6-5.0) mmol/L Chloride 105.4 (98-107) mmol/L Carbon Dioxide 17 L (22-30) mmol/L BUN 57 H (9-20) mg/dL Creatinine 4.1 H (0.8-1.3) mg/dL Glucose 142 H (75-100) mg/dL Calcium 9.1 (8.4-10.2) mg/dL AST 56 H (5-40) units/L ALT 47 (7-56) units/L Alkaline Phosphatase 111 (35-129) units/L Total Protein 7.8 (6.3-8.2) g/dL Albumin 3.9 (3.9-5) g/dL Calcium panel 04/21/22 Range/Units 03:07 Calcium 9.1 (8.4-10.2) mg/dL Albumin 3.9 (3.9-5) g/dL Pituitary panel 04/21/22 Range/Units 03:07 Sodium 135 L (137-145) mmol/L Potassium 4.4 (3.6-5.0) mmol/L Chloride 105.4 (98-107) mmol/L Carbon Dioxide 17 L (22-30) mmol/L BUN 57 H (9-20) mg/dL Creatinine 4.1 H (0.8-1.3) mg/dL Glucose 142 H (75-100) mg/dL Calcium 9.1 (8.4-10.2) mg/dL Adrenal panel 04/21/22 Range/Units 03:07 Sodium 135 L (137-145) mmol/L Potassium 4.4 (3.6-5.0) mmol/L Chloride 105.4 (98-107) mmol/L Carbon Dioxide 17 L (22-30) mmol/L BUN 57 H (9-20) mg/dL Creatinine 4.1 H (0.8-1.3) mg/dL Glucose 142 H (75-100) mg/dL Calcium 9.1 (8.4-10.2) mg/dL Total Bilirubin 0.30 (0.1-1.2) mg/dL AST 56 H (5-40) units/L ALT 47 (7-56) units/L Alkaline Phosphatase 111 (35-129) units/L Total Protein 7.8 (6.3-8.2) g/dL Albumin 3.9 (3.9-5) g/dL Assessment and Plan Back abscess will go to the or for incision and drainage.
--- NOTE | 2022-04-21 20:17 | Operative Report ---
Operative Report Operative Report: Date of procedure: 04/21/2022 Preop diagnosis: Abscess of XXX Postop diagnosis: Same Procedure: Drainage of abscess Surgeon: Dr. Dash Anesthesia: MAC with IV sedation Estimated blood loss: Minimal Specimen: Gram stain and culture sensitivity Findings: This is a 46-year-old patient with an abscess of the XXX. He was taken to the OR timeouts are completed consents on the chart. He is under general anesthesia. The area of concern is prepped with Betadine draped in a sterile fashion. The area of fluctuance is noted and a 2 cm cruciate incision is made. The wound is probed and the abscess is noted to extend 5 cm away from the initial cruciate incision. A second incision is made 2 cm in length. The Jean is passed from 1 incision to the other and tied to itself. The wound is irrigated with copious amounts of saline. Sterile dressing is placed on this.
--- NOTE | 2022-04-21 20:29 | Anesthesia Day of Surgery ---
Anesthesia Day of Surgery - Day of Surgery Patient Examined: Yes Patient H&P Reviewed: Yes Patient is NPO: Yes
[2022-04-21] MEDS ORDERED: BUPIVACAINE/PF (0.5%) 5 MG/1 ML 30 ML VIAL INFILTRATI ONE (20:31)
[2022-04-21] MEDS ORDERED: LIDOCAINE (2%) 20 MG/1 ML VIAL 20 ML MDV INFILTRATI ONE (20:31)
--- NOTE | 2022-04-21 20:32 | Anesthesia Consultation ---
Anesthesia Consult and Med Hx Date of service: 04/21/22 - Airway Anesthetic Teeth Evaluation: Poor ROM Head & Neck: Adequate Mental/Hyoid Distance: Adequate Mallampati Class: Class II Intubation Access Assessment: Good - Pulmonary Exam CTA: Yes - Cardiac Exam Cardiac Exam: RRR - Pre-Operative Health Status ASA Pre-Surgery Classification: ASA3 Proposed Anesthetic Plan: MAC - Pulmonary Hx Smoking: Yes Hx Asthma: Yes COPD: No Hx Pneumonia: No - Cardiovascular System Hx Hypertension: Yes - Endocrine Hx Renal Disease: Yes Hx End Stage Renal Disease: No - Additional Comments Anesthesia Medical History Comments: CHF
[2022-04-21] MEDS: SODIUM BICARBONATE 650 MG TAB PO SCH (20:58)
[2022-04-22] MEDS: MORPHINE 2 MG/1 ML INJ IV PRN ×4 (02:31→22:05)
[2022-04-22] MEDS: CEFEPIME/NS 1 GM/100 ML 1 GM/100 ML BAG IV SCH ×2 (02:32→17:46)
[2022-04-22 06:07] LABS: Basophils # (Auto) 0.1 K/mm3 (0.0-0.1); Basophils % (Auto) 0.9 % (0.0-1.8); Eosinophils # (Auto) 0.2 K/mm3 (0.0-0.4); Eosinophils % (Auto) 1.7 % (0.0-4.3); Hematocrit 22.7 % (35.5-45.6); Hemoglobin 7.5 gm/dl (11.8-15.2); Lymphocytes # (Auto) 1.5 K/mm3 (1.2-5.4); Lymphocytes % (Auto) 12.6 % (13.4-35.0); Mean Corpuscular HGB Conc 33 % (32-34); Mean Corpuscular Volume 99 fl (84-94); Monocytes # (Auto) 0.7 K/mm3 (0.0-0.8); Platelet Count 271 K/mm3 (140-440); Red Blood Count 2.31 M/mm3 (3.65-5.03); Red Cell Distribution Width 14.8 % (13.2-15.2)
[2022-04-22 06:49] LABS: Calcium 8.3 mg/dL (8.4-10.2)
[2022-04-22] MEDS ORDERED: SODIUM BICARB 8.4% 50 MEQ/50 ML SYRINGE IV SCH (09:00)
[2022-04-22] MEDS: SODIUM BICARBONATE 650 MG TAB PO SCH ×3 (09:57→19:54)
[2022-04-22] MEDS: FOLIC ACID 1 MG TAB PO SCH (09:57)
[2022-04-22] MEDS: hydroCHLOROthiazide 25 MG TAB PO SCH (09:58)
[2022-04-22] MEDS ORDERED: LISINOPRIL 40 MG TAB PO SCH (10:00)
--- NOTE | 2022-04-22 12:05 | Progress Note ---
Assessment and Plan Patient postop day 1 status post incision and drainage of back abscess. He has no complaints related to this procedure. He seems fairly highly upset about having diarrhea which she has had continuously for the last year. There is some history of Crohn's in the background but patient feels this is not Crohn's. We will try to obtain a stool culture for C. difficile toxin assay at this time. Subjective Date of service: 04/22/22 Patient Reports: Positive: feels better Narrative: Patient postop day 1 status post incision and drainage of back abscess. He has no complaints related to this procedure. He seems fairly highly upset about having diarrhea which she has had continuously for the last year. There is some history of Crohn's in the background but patient feels this is not Crohn's. We will try to obtain a stool culture for C. difficile toxin assay at this time. Objective Vital Signs - 12hr 04/22/22 04/22/22 04/22/22 02:28 02:30 08:27 Temperature 98.2 F Pulse Rate 72 Respiratory 18 Rate Blood Pressure 127/68 O2 Sat by Pulse 100 100 Oximetry - Labs 04/22/22 05:11 04/22/22 05:11 Diabetes panel 04/22/22 Range/Units 05:11 Sodium 140 (137-145) mmol/L Potassium 4.5 (3.6-5.0) mmol/L Chloride 114.0 H (98-107) mmol/L Carbon Dioxide 14 L (22-30) mmol/L BUN 54 H (9-20) mg/dL Creatinine 3.5 H (0.8-1.3) mg/dL Glucose 191 H (75-100) mg/dL Calcium 8.3 L (8.4-10.2) mg/dL Calcium panel 04/22/22 Range/Units 05:11 Calcium 8.3 L (8.4-10.2) mg/dL Pituitary panel 04/22/22 Range/Units 05:11 Sodium 140 (137-145) mmol/L Potassium 4.5 (3.6-5.0) mmol/L Chloride 114.0 H (98-107) mmol/L Carbon Dioxide 14 L (22-30) mmol/L BUN 54 H (9-20) mg/dL Creatinine 3.5 H (0.8-1.3) mg/dL Glucose 191 H (75-100) mg/dL Calcium 8.3 L (8.4-10.2) mg/dL Adrenal panel 04/22/22 Range/Units 05:11 Sodium 140 (137-145) mmol/L Potassium 4.5 (3.6-5.0) mmol/L Chloride 114.0 H (98-107) mmol/L Carbon Dioxide 14 L (22-30) mmol/L BUN 54 H (9-20) mg/dL Creatinine 3.5 H (0.8-1.3) mg/dL Glucose 191 H (75-100) mg/dL Calcium 8.3 L (8.4-10.2) mg/dL
--- NOTE | 2022-04-22 13:07 | Progress Note ---
Assessment and Plan Acute kidney injury Acidosis Hyponatremia Back abscess Recommend ocampo change F/u serologies Continue IVF Continue sodium bicarb tabs Hold lisinopril Recommend reducing gabapentin dose Renally dose medications Avoid nephrotoxins Renal diet No immediate indication for dialysis Surgery note reviewed Subjective Date of service: 04/22/22 Principal diagnosis: Back abscess Interval history: S/p drainage of abscess POD 1. Feels better this morning. Good UOP. Objective - Exam Narrative Exam: General: No acute distress HEENT: Oral mucosa moist Neck: Supple, no JVD Chest: Clear to auscultation bilaterally Heart: RRR, S1 and S2, no pericardial rub Abdomen: Soft, nontender, no renal bruit Extremity: No peripheral cyanosis, edema Neurological: Alert, awake, no asterixis Dermatology: No skin rash Psych: No agitation Musculoskeletal: No joint effusion - Vital Signs Vital signs: Vital Signs - 12hr 04/22/22 04/22/22 04/22/22 02:28 02:30 08:27 Temperature 98.2 F Pulse Rate 72 Respiratory 18 Rate Blood Pressure 127/68 O2 Sat by Pulse 100 100 Oximetry - Lab 04/22/22 05:11 04/22/22 05:11 Most recent lab results Calcium 8.3 mg/dL (8.4-10.2) L 04/22/22 05:11 Urine Creatinine 69.3 mg/dL (0.1-20.0) H 04/21/22 17:46 Urine Sodium 77 mmol/L 04/21/22 17:46 Medications & Allergies - Medications Allergies/Adverse Reactions: Allergies No Known Allergies Allergy (Verified 04/21/22 08:44) Home Medications: Home Medications Medication Instructions Recorded Confirmed Last Taken Type AtorvaSTATin [Lipitor] 40 mg PO QHS 08/17/21 08/17/21 1 Day Ago History ~08/16/21 Folic Acid [Folvite] 1 mg PO QDAY 08/17/21 08/17/21 1 Day Ago History ~08/16/21 Gabapentin [Neurontin] 600 mg PO QPM 08/17/21 08/17/21 1 Day Ago History ~08/16/21 Insulin Glargine,Hum.rec.anlog 5 unit SQ QHS 08/17/21 08/17/21 1 Day Ago History [Lantus Solostar] ~08/16/21 amLODIPine [Norvasc] 5 mg PO DAILY 08/17/21 08/17/21 1 Day Ago History ~08/16/21 carvediloL [Coreg] 25 mg PO Q12H 08/17/21 08/17/21 1 Day Ago History ~08/16/21 hydroCHLOROthiazide [HCTZ] 25 mg PO QDAY 08/17/21 08/17/21 1 Day Ago History ~08/16/21 lisinopriL [Zestril TAB] 40 mg PO QDAY 08/17/21 08/17/21 1 Day Ago History ~08/16/21 Active Medications: Generic Name Dose Route Start Last Admin Trade Name Freq PRN Reason Stop Dose Admin Acetaminophen 650 mg 04/21/22 13:47 Acetaminophen 325 Mg Tab PO Q4H PRN Pain MILD(1-3)/Fever >100.5/SHARPE Albuterol 2.5 mg 04/21/22 13:47 Albuterol 2.5 Mg/3 Ml Nebu IH Q4HRT PRN Shortness Of Breath Atorvastatin Calcium 40 mg 04/21/22 22:00 04/21/22 22:02 Atorvastatin 40 Mg Tab PO 40 mg QHS CHAYA Administration Folic Acid 1 mg 04/22/22 10:00 04/22/22 09:57 Folic Acid 1 Mg Tab PO 1 mg QDAY CHAYA Administration Gabapentin 600 mg 04/21/22 18:00 04/21/22 18:38 Gabapentin 300 Mg Cap PO Not Given QPM CHAYA Hydrochlorothiazide 25 mg 04/22/22 10:00 04/22/22 09:58 Hydrochlorothiazide 25 Mg Tab PO 25 mg QDAY CHAYA Administration Hydromorphone HCl 0.5 mg 04/21/22 13:47 04/21/22 14:34 Hydromorphone 0.5 Mg/0.5 Ml Inj IV 0.5 mg Q23H PRN Administration Pain , Severe (7-10) Sodium Chloride 1,000 mls @ 135 mls/hr 04/21/22 14:00 Nacl 0.9% 1000 Ml IV DIRECT CHAYA Cefepime HCl 1 gm in 100 mls @ 200 mls/hr 04/21/22 15:00 04/22/22 02:32 Cefepime/Ns 1 Gm/100 Ml IV 200 mls/hr Q12H CHAYA Administration Protocol Morphine Sulfate 2 mg 04/21/22 18:00 04/22/22 09:58 Morphine 2 Mg/1 Ml Inj IV 2 mg Q4H PRN Administration Pain, Moderate (4-6) Ondansetron HCl 4 mg 04/21/22 13:47 04/21/22 16:52 Ondansetron 4 Mg/2 Ml Inj IV 4 mg Q8H PRN Administration Nausea And Vomiting Oxycodone/Acetaminophen 1 tab 04/21/22 13:47 Oxycodone /Acetaminophen 5-325mg Tab PO Q16H PRN Pain, Moderate (4-6) Sodium Bicarbonate 1,300 mg 04/21/22 20:00 04/22/22 09:57 Sodium Bicarbonate 650 Mg Tab PO 1,300 mg TID CHAYA Administration Sodium Chloride 10 ml 04/21/22 22:00 04/22/22 09:58 Sodium Chloride 0.9% 10 Ml Flush Syringe IV 10 ml BID CHAYA Administration Sodium Chloride 10 ml 04/21/22 13:47 Sodium Chloride 0.9% 10 Ml Flush Syringe IV PRN PRN LINE FLUSH
[2022-04-22] MEDS ORDERED: GABAPENTIN 300 MG CAP PO SCH (13:20)
--- NOTE | 2022-04-22 13:21 | Progress Note ---
Assessment and Plan Assessment and plan: 46 YO Male with DM, Mild Intermittent Asthma, Nicotine Dependence, Medication Noncompliance presents ED for evaluation of pain to his right back over the past 4 days [employer]. 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 Patient found to have a fluctuant mass to the right paraspinal region with superimposed erythema consistent with cellulitis complicated by right paraspinal abscess, sepsis, as well as urinary tract infection, and hyponatremia. Paraspinal abscess Cellulitis Sepsis UTI Acute kidney injury secondary to ATN from sepsis/vasomotor nephropathy Hyponatremia 04/22/2022. Patient underwent I&D of back abscess earlier today. Nephrology recommends Jackson change and follow-up serologies. Continue IV fluid hydration and hold lisinopril. No immediate indication for hemodialysis. Continue to renally dose medications and avoid nephrotoxins. Continue renal diet. Patient also reports having chronic diarrhea and previous work-up at [place] in the past. However, patient now reports approximately 50 pound weight loss in the past 2 months. We will consult GI for further evaluation History Interval history: No new issues overnight Hospitalist Physical - Constitutional Vitals: Temp Pulse Resp BP Pulse Ox 98.2 F 72 18 127/68 100 04/22/22 02:30 04/22/22 02:28 04/22/22 02:30 04/22/22 02:28 04/22/22 08:27 General appearance: Present: no acute distress - EENT Eyes: Present: PERRL, EOM intact ENT: hearing intact, clear oral mucosa, dentition normal - Neck Neck: Present: supple, normal ROM - Respiratory Respiratory effort: normal Respiratory: bilateral: CTA - Cardiovascular Rhythm: regular Heart Sounds: Present: S1 & S2. Absent: gallop, rub - Extremities Extremities: no ischemia, No edema, Full ROM - Abdominal General gastrointestinal: soft, non-tender, non-distended, normal bowel sounds - Integumentary Integumentary: Present: clear, warm, dry - Neurologic Neurologic: CNII-XII intact, moves all extremities Results - Labs CBC & Chem 7: 04/22/22 05:11 04/22/22 05:11 Labs: Laboratory Last Values WBC 11.5 K/mm3 (4.5-11.0) H 04/22/22 05:11 RBC 2.31 M/mm3 (3.65-5.03) L 04/22/22 05:11 Hgb 7.5 gm/dl (11.8-15.2) L 04/22/22 05:11 Hct 22.7 % (35.5-45.6) L 04/22/22 05:11 MCV 99 fl (84-94) H 04/22/22 05:11 MCH 33 pg (28-32) H 04/22/22 05:11 MCHC 33 % (32-34) 04/22/22 05:11 RDW 14.8 % (13.2-15.2) 04/22/22 05:11 Plt Count 271 K/mm3 (140-440) 04/22/22 05:11 Lymph % (Auto) 12.6 % (13.4-35.0) L 04/22/22 05:11 [place] % (Auto) 6.0 % (0.0-7.3) 04/22/22 05:11 Eos % (Auto) 1.7 % (0.0-4.3) 04/22/22 05:11 Baso % (Auto) 0.9 % (0.0-1.8) 04/22/22 05:11 Lymph # (Auto) 1.5 K/mm3 (1.2-5.4) 04/22/22 05:11 [place] # (Auto) 0.7 K/mm3 (0.0-0.8) 04/22/22 05:11 Eos # (Auto) 0.2 K/mm3 (0.0-0.4) 04/22/22 05:11 Baso # (Auto) 0.1 K/mm3 (0.0-0.1) 04/22/22 05:11 Seg Neutrophils % 78.8 % (40.0-70.0) H 04/22/22 05:11 Seg Neutrophils # 9.1 K/mm3 (1.8-7.7) H 04/22/22 05:11 Sodium 140 mmol/L (137-145) 04/22/22 05:11 Potassium 4.5 mmol/L (3.6-5.0) 04/22/22 05:11 Chloride 114.0 mmol/L (98-107) H 04/22/22 05:11 Carbon Dioxide 14 mmol/L (22-30) L 04/22/22 05:11 Anion Gap 17 mmol/L 04/22/22 05:11 BUN 54 mg/dL (9-20) H 04/22/22 05:11 Creatinine 3.5 mg/dL (0.8-1.3) H 04/22/22 05:11 Estimated GFR 23 ml/min 04/22/22 05:11 BUN/Creatinine Ratio 15 % 04/22/22 05:11 Glucose 191 mg/dL (75-100) H 04/22/22 05:11 POC Glucose 88 mg/dL (70-105) 04/21/22 20:27 Lactic Acid 0.50 mmol/L (0.7-2.0) L 04/21/22 21:20 Calcium 8.3 mg/dL (8.4-10.2) L 04/22/22 05:11 Total Bilirubin 0.30 mg/dL (0.1-1.2) 04/21/22 03:07 AST 56 units/L (5-40) H 04/21/22 03:07 ALT 47 units/L (7-56) 04/21/22 03:07 Alkaline Phosphatase 111 units/L (35-129) 04/21/22 03:07 Total Creatine Kinase 94 units/L (55-170) 04/21/22 21:20 Total Protein 7.8 g/dL (6.3-8.2) 04/21/22 03:07 Albumin 3.9 g/dL (3.9-5) 04/21/22 03:07 Albumin/Globulin Ratio 1.0 % 04/21/22 03:07 Lipase 39 units/L (13-60) 04/21/22 03:07 Urine Color Colorless (Yellow) 04/21/22 03:14 Urine Turbidity Slightly cloudy (Clear) 04/21/22 03:14 Specific [place] (Man) 1.000 (1.003-1.030) L 04/21/22 03:14 Ur Protein (Man) 2+ mg/dL (Negative) 04/21/22 03:14 Ur Ketones (Man) Negative (Negative) 04/21/22 03:14 Urine Bilirubin (Man) Negative (Negative) 04/21/22 03:14 Urine WBC (Auto) 16.0 /HPF (0.0-6.0) H 04/21/22 03:14 Urine RBC (Auto) 4.0 /HPF (0.0-6.0) 04/21/22 03:14 Urine RBC (Manual) 5+ (Negative) 04/21/22 03:14 Triple Phos Crystals Few 04/21/22 03:14 Urine Mucus Few /HPF 04/21/22 03:14 Urine Creatinine 69.3 mg/dL (0.1-20.0) H 04/21/22 17:46 Urine Sodium 77 mmol/L 04/21/22 17:46 Hep Bs Antigen Non-reactive (Negative) 04/21/22 21:20 Hepatitis C Antibody Non-reactive (NonReactive) 04/21/22 21:20 Blood Type A POSITIVE 04/21/22 15:30 Antibody Screen Negative 04/21/22 15:30 Microbiology: Microbiology 04/21/22 03:14 Urine,Clean Catch Urine Culture - Preliminary 04/21/22 15:27 Peripheral/Venous Blood Culture - Preliminary Culture in Progress 04/21/22 15:27 Peripheral/Venous Blood Culture - Preliminary Culture in Progress Jackson/IV: Voiding Method Indwelling Catheter Active Medications - Current Medications Current Medications: Generic Name Dose Route Start Last Admin Trade Name Freq PRN Reason Stop Dose Admin Acetaminophen 650 mg 04/21/22 13:47 Acetaminophen 325 Mg Tab PO Q4H PRN Pain MILD(1-3)/Fever >100.5/SHARPE Albuterol 2.5 mg 04/21/22 13:47 Albuterol 2.5 Mg/3 Ml Nebu IH Q4HRT PRN Shortness Of Breath Atorvastatin Calcium 40 mg 04/21/22 22:00 04/21/22 22:02 Atorvastatin 40 Mg Tab PO 40 mg QHS CHAYA Administration Folic Acid 1 mg 04/22/22 10:00 04/22/22 09:57 Folic Acid 1 Mg Tab PO 1 mg QDAY CHAYA Administration Gabapentin 600 mg 04/21/22 18:00 04/21/22 18:38 Gabapentin 300 Mg Cap PO Not Given QPM CHAYA Hydrochlorothiazide 25 mg 04/22/22 10:00 04/22/22 09:58 Hydrochlorothiazide 25 Mg Tab PO 25 mg QDAY CHAYA Administration Hydromorphone HCl 0.5 mg 04/21/22 13:47 04/21/22 14:34 Hydromorphone 0.5 Mg/0.5 Ml Inj IV 0.5 mg Q23H PRN Administration Pain , Severe (7-10) Sodium Chloride 1,000 mls @ 135 mls/hr 04/21/22 14:00 Nacl 0.9% 1000 Ml IV DIRECT CHAYA Cefepime HCl 1 gm in 100 mls @ 200 mls/hr 04/21/22 15:00 04/22/22 02:32 Cefepime/Ns 1 Gm/100 Ml IV 200 mls/hr Q12H CHAYA Administration Protocol Morphine Sulfate 2 mg 04/21/22 18:00 04/22/22 09:58 Morphine 2 Mg/1 Ml Inj IV 2 mg Q4H PRN Administration Pain, Moderate (4-6) Ondansetron HCl 4 mg 04/21/22 13:47 04/21/22 16:52 Ondansetron 4 Mg/2 Ml Inj IV 4 mg Q8H PRN Administration Nausea And Vomiting Oxycodone/Acetaminophen 1 tab 04/21/22 13:47 Oxycodone /Acetaminophen 5-325mg Tab PO Q16H PRN Pain, Moderate (4-6) Sodium Bicarbonate 1,300 mg 04/21/22 20:00 04/22/22 09:57 Sodium Bicarbonate 650 Mg Tab PO 1,300 mg TID CHAYA Administration Sodium Chloride 10 ml 04/21/22 22:00 04/22/22 09:58 Sodium Chloride 0.9% 10 Ml Flush Syringe IV 10 ml BID CHAYA Administration Sodium Chloride 10 ml 04/21/22 13:47 Sodium Chloride 0.9% 10 Ml Flush Syringe IV PRN PRN LINE FLUSH
--- NOTE | 2022-04-22 15:57 | Ultrasound Report ---
ULTRASOUND RENAL INDICATION / CLINICAL INFORMATION: LAN. COMPARISON: Renal ultrasound 08/17/2021. FINDINGS: RIGHT KIDNEY: Length = 11.8 cm. - Echogenicity: Mildly echogenic. - Parenchymal Thickness: Normal. - Hydronephrosis: Minimal pelvocaliectasis. - Cyst / Mass: None. - Stones: None seen. LEFT KIDNEY: Length = 11.2 cm. - Echogenicity: Mildly echogenic. - Parenchymal Thickness: Normal. - Hydronephrosis: Minimal pelvocaliectasis. - Cyst / Mass: None. - Stones: None seen. URINARY BLADDER: Collapsed with Jackson catheter in place. FREE FLUID: None. ADDITIONAL FINDINGS: None. IMPRESSION: 1. There is minimal dilatation of the renal collecting systems bilaterally without evidence of lucas hydronephrosis. 2. 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 Scribed by: Syl Bennett RDMS, CHARLES, VARUN Scribed: 04/22/2022 2:12 PM I have reviewed the images, agree with this report, and edited this report as needed. Signer Name: Bruce Monroe MD Signed: 04/22/2022 3:53 PM Workstation Name: [id number]
[2022-04-22 16:22] LABS: ABG Base Excess -9.2 mmol/L (-2.0-3.0); ABG HCO3 16.4 mmol/L (20.0-26.0); ABG Methemoglobin 0.3 % (0.0-1.5); ABG Oxygen Saturation 96.6 % (95.0-99.0); ABG PCO2 34.1 mm Hg; ABG PH 7.301 pH Units (7.350-7.450); ABG PO2 119.7 mm Hg (80.0-90.0)
[2022-04-22] MEDS: GABAPENTIN 400 MG CAP PO SCH (17:47)
[2022-04-23] MEDS: CEFEPIME/NS 1 GM/100 ML 1 GM/100 ML BAG IV SCH (02:22)
[2022-04-23] MEDS: ONDANSETRON 4 MG/2 ML INJ IV PRN ×3 (03:01→19:15)
[2022-04-23] MEDS: HYDROmorphone 0.5 MG/0.5 ML INJ IV PRN (04:28)
[2022-04-23] MEDS: SODIUM CHLORIDE 0.9% 1000 ML 1,000 ML IV SCH (04:29)
[2022-04-23 06:36] LABS: Basophils % (Auto) 0.5 % (0.0-1.8); Eosinophils # (Auto) 0.2 K/mm3 (0.0-0.4); Eosinophils % (Auto) 2.2 % (0.0-4.3); Hematocrit 20.4 % (35.5-45.6); Hemoglobin 6.7 gm/dl (11.8-15.2); Lymphocytes # (Auto) 1.4 K/mm3 (1.2-5.4); Lymphocytes % (Auto) 16.1 % (13.4-35.0); Mean Corpuscular HGB Conc 33 % (32-34); Mean Corpuscular Volume 100 fl (84-94); Monocytes # (Auto) 0.5 K/mm3 (0.0-0.8); Monocytes % (Auto) 5.7 % (0.0-7.3); Platelet Count 241 K/mm3 (140-440); Red Blood Count 2.03 M/mm3 (3.65-5.03); Red Cell Distribution Width 15.1 % (13.2-15.2)
[2022-04-23 07:21] LABS: Calcium 7.8 mg/dL (8.4-10.2)
[2022-04-23] MEDS ORDERED: SODIUM CHLORIDE 0.9% 500 ML 500 ML IV NR (08:29)
[2022-04-23] MEDS: FOLIC ACID 1 MG TAB PO SCH (09:34)
[2022-04-23] MEDS: SODIUM BICARBONATE 650 MG TAB PO SCH ×3 (09:35→22:06)
[2022-04-23] MEDS: hydroCHLOROthiazide 25 MG TAB PO SCH (09:44)
[2022-04-23] MEDS ORDERED: VANCOMYCIN/NS 1 GM/250 ML 1 GM/250 ML BAG IV ONE (10:00)
--- NOTE | 2022-04-23 10:10 | Progress Note ---
Assessment and Plan Assessment and plan: 46 YO Male with DM, Mild Intermittent Asthma, Nicotine Dependence, Medication Noncompliance presents ED for evaluation of pain to his right back over the past 4 days [employer]PA[employer]. 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 Patient found to have a fluctuant mass to the right paraspinal region with superimposed erythema consistent with cellulitis complicated by right paraspinal abscess, sepsis, as well as urinary tract infection, and hyponatremia. Paraspinal abscess Cellulitis Sepsis UTI Acute kidney injury secondary to ATN from sepsis/vasomotor nephropathy Hyponatremia Anemia 04/22/2022. Patient underwent I&D of back abscess earlier today. Nephrology recommends Jackson change and follow-up serologies. Continue IV fluid hydration and hold lisinopril. No immediate indication for hemodialysis. Continue to renally dose medications and avoid nephrotoxins. Continue renal diet. Patient also reports having chronic diarrhea and previous work-up at [place] in the past. However, patient now reports approximately 50 pound weight loss in the past 2 months. We will consult GI for further evaluation 04/23/2022. Continue wound care of back abscess/I&D. Hemoglobin 6.7 today. We will transfuse 1 unit PRBCs. Patient does report BRBPR approximately 1 week ago. However, no active bleeding or recent history of hematochezia/melena. We will start Protonix daily. Given the history of anemia, weight loss and BRBPR, patient may need colonoscopy. Await GI evaluation. We will follow-up iron studies, B12, folate reticulocyte count and LDH. Check occult stool. Nephrology following for acute kidney injury. History Interval history: No new issues overnight Hospitalist Physical - Constitutional Vitals: Temp Pulse Resp BP Pulse Ox 97.8 F 78 16 194/101 100 04/23/22 09:43 04/23/22 09:43 04/23/22 09:43 04/23/22 09:43 04/23/22 09:43 General appearance: Present: no acute distress - EENT Eyes: Present: PERRL, EOM intact ENT: hearing intact, clear oral mucosa, dentition normal - Neck Neck: Present: supple, normal ROM - Respiratory Respiratory effort: normal Respiratory: bilateral: CTA - Cardiovascular Rhythm: regular Heart Sounds: Present: S1 & S2. Absent: gallop, rub - Extremities Extremities: no ischemia, No edema, Full ROM - Abdominal General gastrointestinal: soft, non-tender, non-distended, normal bowel sounds - Integumentary Integumentary: Present: clear, warm, dry - Neurologic Neurologic: CNII-XII intact, moves all extremities Results - Labs CBC & Chem 7: 04/23/22 06:06 04/23/22 06:06 Labs: Laboratory Last Values WBC 8.5 K/mm3 (4.5-11.0) 04/23/22 06:06 RBC 2.03 M/mm3 (3.65-5.03) L 04/23/22 06:06 Hgb 6.7 gm/dl (11.8-15.2) L 04/23/22 06:06 Hct 20.4 % (35.5-45.6) L 04/23/22 06:06 MCV 100 fl (84-94) H 04/23/22 06:06 MCH 33 pg (28-32) H 04/23/22 06:06 MCHC 33 % (32-34) 04/23/22 06:06 RDW 15.1 % (13.2-15.2) 04/23/22 06:06 Plt Count 241 K/mm3 (140-440) 04/23/22 06:06 Lymph % (Auto) 16.1 % (13.4-35.0) 04/23/22 06:06 [place] % (Auto) 5.7 % (0.0-7.3) 04/23/22 06:06 Eos % (Auto) 2.2 % (0.0-4.3) 04/23/22 06:06 Baso % (Auto) 0.5 % (0.0-1.8) 04/23/22 06:06 Lymph # (Auto) 1.4 K/mm3 (1.2-5.4) 04/23/22 06:06 [place] # (Auto) 0.5 K/mm3 (0.0-0.8) 04/23/22 06:06 Eos # (Auto) 0.2 K/mm3 (0.0-0.4) 04/23/22 06:06 Baso # (Auto) 0.0 K/mm3 (0.0-0.1) 04/23/22 06:06 Seg Neutrophils % 75.5 % (40.0-70.0) H 04/23/22 06:06 Seg Neutrophils # 6.4 K/mm3 (1.8-7.7) 04/23/22 06:06 ABG pH 7.301 pH Units (7.350-7.450) L 04/22/22 16:02 ABG pCO2 34.1 mm Hg 04/22/22 16:02 ABG pO2 119.7 mm Hg (80.0-90.0) H 04/22/22 16:02 ABG HCO3 16.4 mmol/L (20.0-26.0) L 04/22/22 16:02 ABG O2 Saturation 96.6 % (95.0-99.0) 04/22/22 16:02 ABG O2 Content 8.2 (0.0-44) 04/22/22 16:02 ABG Base Excess -9.2 mmol/L (-2.0-3.0) L 04/22/22 16:02 ABG Hemoglobin 5.9 gm/dl (14.0-18.0) L 04/22/22 16:02 ABG Carboxyhemoglobin 0.2 % (0.0-5.0) 04/22/22 16:02 ABG Methemoglobin 0.3 % (0.0-1.5) 04/22/22 16:02 Oxyhemoglobin 96.1 % (95.0-99.0) 04/22/22 16:02 FiO2 21 % 04/22/22 16:02 Sodium 140 mmol/L (137-145) 04/23/22 06:06 Potassium 4.2 mmol/L (3.6-5.0) 04/23/22 06:06 Chloride 111.5 mmol/L (98-107) H 04/23/22 06:06 Carbon Dioxide 17 mmol/L (22-30) L 04/23/22 06:06 Anion Gap 16 mmol/L 04/23/22 06:06 BUN 45 mg/dL (9-20) H 04/23/22 06:06 Creatinine 3.5 mg/dL (0.8-1.3) H 04/23/22 06:06 Estimated GFR 23 ml/min 04/23/22 06:06 BUN/Creatinine Ratio 13 % 04/23/22 06:06 Glucose 112 mg/dL (75-100) H 04/23/22 06:06 POC Glucose 88 mg/dL (70-105) 04/21/22 20:27 Lactic Acid 0.50 mmol/L (0.7-2.0) L 04/21/22 21:20 Calcium 7.8 mg/dL (8.4-10.2) L 04/23/22 06:06 Total Bilirubin 0.30 mg/dL (0.1-1.2) 04/21/22 03:07 AST 56 units/L (5-40) H 04/21/22 03:07 ALT 47 units/L (7-56) 04/21/22 03:07 Alkaline Phosphatase 111 units/L (35-129) 04/21/22 03:07 Total Creatine Kinase 94 units/L (55-170) 04/21/22 21:20 Total Protein 7.8 g/dL (6.3-8.2) 04/21/22 03:07 Albumin 3.9 g/dL (3.9-5) 04/21/22 03:07 Albumin/Globulin Ratio 1.0 % 04/21/22 03:07 Lipase 39 units/L (13-60) 04/21/22 03:07 Urine Color Colorless (Yellow) 04/21/22 03:14 Urine Turbidity Slightly cloudy (Clear) 04/21/22 03:14 Specific [place] (Man) 1.000 (1.003-1.030) L 04/21/22 03:14 Ur Protein (Man) 2+ mg/dL (Negative) 04/21/22 03:14 Ur Ketones (Man) Negative (Negative) 04/21/22 03:14 Urine Bilirubin (Man) Negative (Negative) 04/21/22 03:14 Urine WBC (Auto) 16.0 /HPF (0.0-6.0) H 04/21/22 03:14 Urine RBC (Auto) 4.0 /HPF (0.0-6.0) 04/21/22 03:14 Urine RBC (Manual) 5+ (Negative) 04/21/22 03:14 Triple Phos Crystals Few 04/21/22 03:14 Urine Mucus Few /HPF 04/21/22 03:14 Urine Creatinine 69.3 mg/dL (0.1-20.0) H 04/21/22 17:46 Urine Sodium 77 mmol/L 04/21/22 17:46 Random Vancomycin 11.4 ug/mL (0-40.0) 04/23/22 06:06 Hep Bs Antigen Non-reactive (Negative) 04/21/22 21:20 Hepatitis C Antibody Non-reactive (NonReactive) 04/21/22 21:20 Blood Type A POSITIVE 04/21/22 15:30 Antibody Screen Negative 04/21/22 15:30 Crossmatch See Detail 04/21/22 15:30 Microbiology: Microbiology 04/21/22 03:14 Urine,Clean Catch Urine Culture - Final 04/21/22 Unknown Back Surgical Culture - Preliminary Staphylococcus Aureus 04/21/22 15:27 Peripheral/Venous Blood Culture - Preliminary NO GROWTH AFTER 24 HOURS 04/21/22 15:27 Peripheral/Venous Blood Culture - Preliminary NO GROWTH AFTER 24 HOURS Jackson/IV: Voiding Method Indwelling Catheter Active Medications - Current Medications Current Medications: Generic Name Dose Route Start Last Admin Trade Name Freq PRN Reason Stop Dose Admin Acetaminophen 650 mg 04/21/22 13:47 Acetaminophen 325 Mg Tab PO Q4H PRN Pain MILD(1-3)/Fever >100.5/SHARPE Albuterol 2.5 mg 04/21/22 13:47 Albuterol 2.5 Mg/3 Ml Nebu IH Q4HRT PRN Shortness Of Breath Atorvastatin Calcium 40 mg 04/21/22 22:00 04/22/22 21:58 Atorvastatin 40 Mg Tab PO 40 mg QHS CHAYA Administration Folic Acid 1 mg 04/22/22 10:00 04/23/22 09:34 Folic Acid 1 Mg Tab PO 1 mg QDAY CHAYA Administration Gabapentin 400 mg 04/22/22 18:00 04/22/22 17:47 Gabapentin 400 Mg Cap PO 400 mg QPM CHAYA Administration Hydrochlorothiazide 25 mg 04/22/22 10:00 04/23/22 09:44 Hydrochlorothiazide 25 Mg Tab PO 25 mg QDAY CHAYA Administration Hydromorphone HCl 0.5 mg 04/21/22 13:47 04/23/22 04:28 Hydromorphone 0.5 Mg/0.5 Ml Inj IV 0.5 mg Q23H PRN Administration Pain , Severe (7-10) Sodium Chloride 1,000 mls @ 135 mls/hr 04/21/22 14:00 04/23/22 04:29 Nacl 0.9% 1000 Ml IV 135 mls/hr DIRECT CHAYA Administration Vancomycin HCl 1 gm in 250 mls @ 167.007 mls/hr 04/23/22 10:00 04/23/22 09:35 Vancomycin/Ns 1 Gm/250 Ml IV 04/23/22 11:29 167.007 mls/hr ONCE ONE Administration Cefepime HCl 2 gm in 100 mls @ 200 mls/hr 04/23/22 16:00 Cefepime/Ns 2 Gm/100 Ml IV Q24H CHAYA Sodium Chloride 500 mls @ 0 mls/hr 04/23/22 08:29 Nacl 0.9% 500 Ml IV 04/24/22 08:28 ONCE NR As Directed Morphine Sulfate 2 mg 04/21/22 18:00 04/22/22 22:05 Morphine 2 Mg/1 Ml Inj IV 2 mg Q4H PRN Administration Pain, Moderate (4-6) Ondansetron HCl 4 mg 04/23/22 10:00 04/23/22 09:46 Ondansetron 4 Mg/2 Ml Inj IV 4 mg Q4H PRN Administration Nausea And Vomiting Oxycodone/Acetaminophen 1 tab 04/21/22 13:47 Oxycodone /Acetaminophen 5-325mg Tab PO Q16H PRN Pain, Moderate (4-6) Sodium Bicarbonate 1,300 mg 04/21/22 20:00 04/23/22 09:35 Sodium Bicarbonate 650 Mg Tab PO 1,300 mg TID CHAYA Administration Sodium Chloride 10 ml 04/21/22 22:00 04/23/22 09:35 Sodium Chloride 0.9% 10 Ml Flush Syringe IV 10 ml BID CHAYA Administration Sodium Chloride 10 ml 04/21/22 13:47 Sodium Chloride 0.9% 10 Ml Flush Syringe IV PRN PRN LINE FLUSH
--- NOTE | 2022-04-23 10:46 | Consultation ---
History of Present Illness - Reason for Consult Consult date: 04/23/22 back abscess Requesting physician: KHAI SONG - History of Present Illness The patient is a 46-year-old male with diabetes, asthma, nicotine dependence, chronic diarrhea, Tad's gangrene s/p orchiectomy, indwelling Jackson was admitted to the hospital with back pain. He also reports chronic diarrhea for more than a year, has been evaluated several times at [facility], also at [facility]. He reports testing negative for HIV. Upon evaluation here, CT scan revealed findings concerning for subcutaneous abscess in the lower back, was seen by general surgery, on 04/21/2022, underwent I&D. Cultures so far is growing Staph aureus. No fever. Leukocytosis has resolved. ID consulted for antibiotic management. Review of Systems: Per HPI Past History Past Medical History: diabetes, other (See HPI) Past Surgical History: Other (Orchiectomy) Social history: single, smoking Family history: diabetes, hypertension Medications and Allergies Allergies Allergy/AdvReac Type Severity Reaction Status Date / Time No Known Allergies Allergy Verified 04/21/22 08:44 Home Medications Medication Instructions Recorded Confirmed Last Taken Type Folic Acid [Folvite] 1 mg PO QDAY 08/17/21 04/22/22 04/21/22 History amLODIPine [Norvasc] 5 mg PO DAILY 08/17/21 04/22/22 04/21/22 History carvediloL [Coreg] 25 mg PO Q12H 08/17/21 04/22/22 04/21/22 History hydroCHLOROthiazide [HCTZ] 25 mg PO QDAY 08/17/21 04/22/22 04/21/22 History Loperamide [Imodium] 2 mg PO BID 04/22/22 04/22/22 04/21/22 History Active Meds: Active Medications Acetaminophen (Acetaminophen 325 Mg Tab) 650 mg PO Q4H PRN PRN Reason: Pain MILD(1-3)/Fever >100.5/SHARPE Albuterol (Albuterol 2.5 Mg/3 Ml Nebu) 2.5 mg IH Q4HRT PRN PRN Reason: Shortness Of Breath Atorvastatin Calcium (Atorvastatin 40 Mg Tab) 40 mg PO QHS CHAYA Last Admin: 04/22/22 21:58 Dose: 40 mg Folic Acid (Folic Acid 1 Mg Tab) 1 mg PO QDAY [facility] Last Admin: 04/23/22 09:34 Dose: 1 mg Gabapentin (Gabapentin 400 Mg Cap) 400 mg PO QPM [facility] Last Admin: 04/22/22 17:47 Dose: 400 mg Hydrochlorothiazide (Hydrochlorothiazide 25 Mg Tab) 25 mg PO QDAY [facility] Last Admin: 04/23/22 09:44 Dose: 25 mg Hydromorphone HCl (Hydromorphone 0.5 Mg/0.5 Ml Inj) 0.5 mg IV Q23H PRN PRN Reason: Pain , Severe (7-10) Last Admin: 04/23/22 04:28 Dose: 0.5 mg Sodium Chloride (Nacl 0.9% 1000 Ml) 1,000 mls @ 135 mls/hr IV DIRECT [facility] Last Admin: 04/23/22 04:29 Dose: 135 mls/hr Vancomycin HCl (Vancomycin/Ns 1 Gm/250 Ml) 1 gm in 250 mls @ 167.007 mls/hr IV ONCE ONE Stop: 04/23/22 11:29 Last Admin: 04/23/22 09:35 Dose: 167.007 mls/hr Sodium Chloride (Nacl 0.9% 500 Ml) 500 mls @ 0 mls/hr IV ONCE NR Stop: 04/24/22 08:28 Morphine Sulfate (Morphine 2 Mg/1 Ml Inj) 2 mg IV Q4H PRN PRN Reason: Pain, Moderate (4-6) Last Admin: 04/22/22 22:05 Dose: 2 mg Ondansetron HCl (Ondansetron 4 Mg/2 Ml Inj) 4 mg IV Q4H PRN PRN Reason: Nausea And Vomiting Last Admin: 04/23/22 09:46 Dose: 4 mg Oxycodone/Acetaminophen (Oxycodone /Acetaminophen 5-325mg Tab) 1 tab PO Q16H PRN PRN Reason: Pain, Moderate (4-6) Sodium Bicarbonate (Sodium Bicarbonate 650 Mg Tab) 1,300 mg PO TID [facility] Last Admin: 04/23/22 09:35 Dose: 1,300 mg Sodium Chloride (Sodium Chloride 0.9% 10 Ml Flush Syringe) 10 ml IV BID [facility] Last Admin: 04/23/22 09:35 Dose: 10 ml Sodium Chloride (Sodium Chloride 0.9% 10 Ml Flush Syringe) 10 ml IV PRN PRN PRN Reason: LINE FLUSH Physical Examination - Physical Exam Narrative exam: Physical Exam: Constitutional: Alert, cooperative. No acute distress Head, Ears, Nose: Normocephalic, atraumatic. External ears, nose normal Eyes: Conjunctivae/corneas clear. No icterus. No ptosis. Neck: Supple, no meningeal signs Cardiovascular: S1, S2 + Respiratory: Good air entry, clear to auscultation bilaterally GI: Soft, non-tender; bowel sounds normal. No peritoneal signs Musculoskeletal: Back wound with dressing present Skin: No rash or abscess Hem/Lymphatic: No palpable cervical or supraclavicular nodes. No lymphangitis Psych: Mood ok. Affect normal Neurological: Awake, alert, oriented. No gross abnormality - Constitutional Vitals: Vital Signs Temp Pulse Resp BP Pulse Ox 97.8 F 78 16 194/101 100 04/23/22 09:43 04/23/22 09:43 04/23/22 09:43 04/23/22 09:43 04/23/22 09:43 Temperature -Last 24 Hours Temperature 97.8 F Temperature 97.8 F Temperature 98.9 F Temperature 99.1 F Temperature 97.2 F Results - Labs CBC & Chem 7: 04/23/22 06:06 04/23/22 06:06 Labs: Abnormal lab results 04/21/22 04/22/22 04/23/22 Range/Units 15:30 16:02 06:06 RBC 2.03 L (3.65-5.03) M/mm3 Hgb 6.7 L (11.8-15.2) gm/dl Hct 20.4 L (35.5-45.6) % MCV 100 H (84-94) fl MCH 33 H (28-32) pg Seg Neutrophils % 75.5 H (40.0-70.0) % ABG pH 7.301 L (7.350-7.450) pH Units ABG pO2 119.7 H (80.0-90.0) mm Hg ABG HCO3 16.4 L (20.0-26.0) mmol/L ABG Base Excess -9.2 L (-2.0-3.0) mmol/L ABG Hemoglobin 5.9 L (14.0-18.0) gm/dl Chloride (98-107) mmol/L Carbon Dioxide (22-30) mmol/L BUN (9-20) mg/dL Creatinine (0.8-1.3) mg/dL Glucose (75-100) mg/dL Calcium (8.4-10.2) mg/dL Crossmatch See Detail 04/23/22 Range/Units 06:06 RBC (3.65-5.03) M/mm3 Hgb (11.8-15.2) gm/dl Hct (35.5-45.6) % MCV (84-94) fl MCH (28-32) pg Seg Neutrophils % (40.0-70.0) % ABG pH (7.350-7.450) pH Units ABG pO2 (80.0-90.0) mm Hg ABG HCO3 (20.0-26.0) mmol/L ABG Base Excess (-2.0-3.0) mmol/L ABG Hemoglobin (14.0-18.0) gm/dl Chloride 111.5 H (98-107) mmol/L Carbon Dioxide 17 L (22-30) mmol/L BUN 45 H (9-20) mg/dL Creatinine 3.5 H (0.8-1.3) mg/dL Glucose 112 H (75-100) mg/dL Calcium 7.8 L (8.4-10.2) mg/dL Crossmatch Assessment and Plan Cultures: 04/21/2022 urine culture: Mixed shailesh 04/21/2022 blood culture: No growth 04/21/2022 surgical culture from back: Staph aureus A/P: 46-year-old male with diabetes, asthma, nicotine dependence, chronic diarrhea, Tad's gangrene s/p orchiectomy, indwelling Jackson was admitted to the hospit al with back pain: #Sepsis secondary to subcutaneous abscess of the lower back: S/p I&D on 2. Cultures growing Staph aureus #LAN: Renally adjust antibiotics. Nephrology following. #DM #Chronic diarrhea: Evaluated several times at [facility], he said at one point he was told he has Crohn's disease and was given a dose of Humira, later he was told it is not Crohn's. HIV test negative as per patient. #Patient reported history of Tad's gangrene and has an indwelling Jackson catheter since then Recs: -Cefepime discontinued -Continue IV vancomycin for now, target trough between 10 to 15 mcg/mL, renally adjusted -Follow-up Staph aureus LETICIA, if oxacillin susceptible, switch to IV Ancef. Upon discharge would recommend PO Keflex -Exchange Jackson catheter, as per patient, it was last exchanged about 2 months ago -wound care and glycemic control Benedicto Bolivar MD, FACP, [facility] O: [phone] F: [phone] C: [phone]
[2022-04-23 11:08] LABS: Iron 43 ug/dL (49-181); Total Iron Binding Capacity 164 mcg/dL (250-450)
--- NOTE | 2022-04-23 12:13 | Progress Note ---
Assessment and Plan Patient was complaining of continuous diarrhea yesterday. Stool culture requested. Patient has not been able to have a stool since the order was made for culture of the stool. Nursing continues to irrigate the wound 3 times daily with saline. Subjective Date of service: 04/23/22 Patient Reports: Positive: no new complaints, feels better Narrative: Patient was complaining of continuous diarrhea yesterday. Stool culture requested. Patient has not been able to have a stool since the order was made for culture of the stool. Nursing continues to irrigate the wound 3 times daily with saline. Objective Vital Signs - 12hr 04/23/22 04/23/22 04/23/22 04:47 05:00 08:51 Temperature 97.8 F Pulse Rate 76 Respiratory 18 Rate Blood Pressure 175/87 O2 Sat by Pulse 100 98 100 Oximetry 04/23/22 09:43 Temperature 97.8 F Pulse Rate 78 Respiratory 16 Rate Blood Pressure 194/101 O2 Sat by Pulse 100 Oximetry - Labs 04/23/22 06:06 04/23/22 06:06 Diabetes panel 04/23/22 Range/Units 06:06 Sodium 140 (137-145) mmol/L Potassium 4.2 (3.6-5.0) mmol/L Chloride 111.5 H (98-107) mmol/L Carbon Dioxide 17 L (22-30) mmol/L BUN 45 H (9-20) mg/dL Creatinine 3.5 H (0.8-1.3) mg/dL Glucose 112 H (75-100) mg/dL Calcium 7.8 L (8.4-10.2) mg/dL Calcium panel 04/23/22 Range/Units 06:06 Calcium 7.8 L (8.4-10.2) mg/dL Pituitary panel 04/23/22 Range/Units 06:06 Sodium 140 (137-145) mmol/L Potassium 4.2 (3.6-5.0) mmol/L Chloride 111.5 H (98-107) mmol/L Carbon Dioxide 17 L (22-30) mmol/L BUN 45 H (9-20) mg/dL Creatinine 3.5 H (0.8-1.3) mg/dL Glucose 112 H (75-100) mg/dL Calcium 7.8 L (8.4-10.2) mg/dL Adrenal panel 04/23/22 Range/Units 06:06 Sodium 140 (137-145) mmol/L Potassium 4.2 (3.6-5.0) mmol/L Chloride 111.5 H (98-107) mmol/L Carbon Dioxide 17 L (22-30) mmol/L BUN 45 H (9-20) mg/dL Creatinine 3.5 H (0.8-1.3) mg/dL Glucose 112 H (75-100) mg/dL Calcium 7.8 L (8.4-10.2) mg/dL
[2022-04-23] MEDS: MORPHINE 2 MG/1 ML INJ IV PRN ×2 (15:35→19:46)
[2022-04-23] MEDS ORDERED: CEFEPIME/NS 2 GM/100 ML 2 GM/100 ML BAG IV SCH (16:00)
--- NOTE | 2022-04-23 17:32 | Gastroenterology Consultation ---
History of Present Illness - Reason for Consult Consult date: 04/23/22 Diarrhea/Crohns Requesting physician: KHAI SONG - History of Present Illness The patient is a 46 yo male admitted for cellulitis with an abscess. He has a history of Crohns dx at [facility], but now the [facility] MDs have recanted that dx. He was dx based on perianal fistulas, but 2 colonoscopies have apparently shown normal mucosa. He has had diarrhea since after his recent debridement, but has been unable to produce a stool to send to the labs. He denies blood in the stool. Labs show severe anemia, but HIV testing (-) at [facility] earlier this year. He is homeless, and admits to poor PO intake. Past History Past Medical History: diabetes, other (Possible Crohns dx 2020; treated for TB (postive quantiferon gold) at [facility] 2021) Past Surgical History: Other (Orchiectomy) Social history: single, smoking, alcohol abuse, other (Homeless) Family history: diabetes, hypertension Medications and Allergies Allergies Allergy/AdvReac Type Severity Reaction Status Date / Time No Known Allergies Allergy Verified 04/21/22 08:44 Home Medications Medication Instructions Recorded Confirmed Last Taken Type Folic Acid [Folvite] 1 mg PO QDAY 08/17/21 04/22/22 04/21/22 History amLODIPine [Norvasc] 5 mg PO DAILY 08/17/21 04/22/22 04/21/22 History carvediloL [Coreg] 25 mg PO Q12H 08/17/21 04/22/22 04/21/22 History hydroCHLOROthiazide [HCTZ] 25 mg PO QDAY 08/17/21 04/22/22 04/21/22 History Loperamide [Imodium] 2 mg PO BID 04/22/22 04/22/22 04/21/22 History Active Meds: Active Medications Acetaminophen (Acetaminophen 325 Mg Tab) 650 mg PO Q4H PRN PRN Reason: Pain MILD(1-3)/Fever >100.5/SHARPE Albuterol (Albuterol 2.5 Mg/3 Ml Nebu) 2.5 mg IH Q4HRT PRN PRN Reason: Shortness Of Breath Atorvastatin Calcium (Atorvastatin 40 Mg Tab) 40 mg PO QHS CHAYA Last Admin: 04/22/22 21:58 Dose: 40 mg Gabapentin (Gabapentin 400 Mg Cap) 400 mg PO QPM [facility] Last Admin: 04/22/22 17:47 Dose: 400 mg Hydrochlorothiazide (Hydrochlorothiazide 25 Mg Tab) 25 mg PO QDAY [facility] Last Admin: 04/23/22 09:44 Dose: 25 mg Hydromorphone HCl (Hydromorphone 0.5 Mg/0.5 Ml Inj) 0.5 mg IV Q23H PRN PRN Reason: Pain , Severe (7-10) Last Admin: 04/23/22 04:28 Dose: 0.5 mg Sodium Chloride (Nacl 0.9% 1000 Ml) 1,000 mls @ 135 mls/hr IV DIRECT [facility] Last Admin: 04/23/22 04:29 Dose: 135 mls/hr Sodium Chloride (Nacl 0.9% 500 Ml) 500 mls @ 0 mls/hr IV ONCE NR Stop: 04/24/22 08:28 Morphine Sulfate (Morphine 2 Mg/1 Ml Inj) 2 mg IV Q4H PRN PRN Reason: Pain, Moderate (4-6) Last Admin: 04/23/22 15:35 Dose: 2 mg Multivitamins (Multivitamins ,Therapeutic Tab) 1 each PO QDAY [facility] Ondansetron HCl (Ondansetron 4 Mg/2 Ml Inj) 4 mg IV Q4H PRN PRN Reason: Nausea And Vomiting Last Admin: 04/23/22 09:46 Dose: 4 mg Oxycodone/Acetaminophen (Oxycodone /Acetaminophen 5-325mg Tab) 1 tab PO Q16H PRN PRN Reason: Pain, Moderate (4-6) Sodium Bicarbonate (Sodium Bicarbonate 650 Mg Tab) 1,300 mg PO TID [facility] Last Admin: 04/23/22 14:07 Dose: 1,300 mg Sodium Chloride (Sodium Chloride 0.9% 10 Ml Flush Syringe) 10 ml IV BID [facility] Last Admin: 04/23/22 09:35 Dose: 10 ml Sodium Chloride (Sodium Chloride 0.9% 10 Ml Flush Syringe) 10 ml IV PRN PRN PRN Reason: LINE FLUSH I HAVE REVIEWED AND RECONCILED MEDICATIONS Review of Systems - Review of Systems All systems: negative (as noted in the HPI) Exam - Constitutional Vital Signs: Temp Pulse Resp BP Pulse Ox 97.8 F 78 16 194/101 100 04/23/22 09:43 08/19/22 09:43 04/23/22 09:43 04/23/22 09:43 04/23/22 09:43 General appearance: no acute distress - EENT Eyes: PERRL, EOM intact ENT: hearing intact, poor dentition - Neck Neck: supple, normal ROM - Respiratory Respiratory effort: normal Respiratory: bilateral: CTA - Cardiovascular Rhythm: regular Heart Sounds: Present: S1 & S2 Extremities: no ischemia, No edema Extremity abnormal: other (Back wound dressed) - Gastrointestinal General gastrointestinal: Present: soft, non-tender, non-distended - Integumentary Integumentary: Present: clear, warm, dry - Neurologic Neurological: alert and oriented x3 - Psychiatric Psychiatric: appropriate mood/affect - Labs CBC & Chem 7: 04/23/22 06:06 04/23/22 06:06 Lab Results: Laboratory Results - last 24 hr 04/21/22 04/22/22 04/23/22 15:30 Unknown 06:06 WBC RBC Hgb Hct MCV MCH MCHC RDW Plt Count Lymph % (Auto) [place] % (Auto) Eos % (Auto) Baso % (Auto) Lymph # (Auto) [place] # (Auto) Eos # (Auto) Baso # (Auto) Seg Neutrophils % Seg Neutrophils # Percent Retic Sodium Potassium Chloride Carbon Dioxide Anion Gap BUN Creatinine Estimated GFR BUN/Creatinine Ratio Glucose Calcium Iron TIBC Ferritin Lactate Dehydrogenase Vitamin B12 Folate Nasal Screen MRSA (PCR) Positive Random Vancomycin 11.4 Blood Type A POSITIVE Antibody Screen Negative Crossmatch See Detail 04/23/22 04/23/22 04/23/22 06:06 06:06 10:31 WBC 8.5 RBC 2.03 L Hgb 6.7 L Hct 20.4 L MCV 100 H MCH 33 H MCHC 33 RDW 15.1 Plt Count 241 Lymph % (Auto) 16.1 [place] % (Auto) 5.7 Eos % (Auto) 2.2 Baso % (Auto) 0.5 Lymph # (Auto) 1.4 [place] # (Auto) 0.5 Eos # (Auto) 0.2 Baso # (Auto) 0.0 Seg Neutrophils % 75.5 H Seg Neutrophils # 6.4 Percent Retic 0.97 Sodium 140 Potassium 4.2 Chloride 111.5 H Carbon Dioxide 17 L Anion Gap 16 BUN 45 H Creatinine 3.5 H Estimated GFR 23 BUN/Creatinine Ratio 13 Glucose 112 H Calcium 7.8 L Iron TIBC Ferritin Lactate Dehydrogenase Vitamin B12 Folate Nasal Screen MRSA (PCR) Random Vancomycin Blood Type Antibody Screen Crossmatch 04/23/22 04/23/22 04/23/22 10:31 10:31 10:31 WBC RBC Hgb Hct MCV MCH MCHC RDW Plt Count Lymph % (Auto) [place] % (Auto) Eos % (Auto) Baso % (Auto) Lymph # (Auto) [place] # (Auto) Eos # (Auto) Baso # (Auto) Seg Neutrophils % Seg Neutrophils # Percent Retic Sodium Potassium Chloride Carbon Dioxide Anion Gap BUN Creatinine Estimated GFR BUN/Creatinine Ratio Glucose Calcium Iron 43 L TIBC 164 L Ferritin 190.4 Lactate Dehydrogenase 166 Vitamin B12 1307 H Folate Nasal Screen MRSA (PCR) Random Vancomycin Blood Type Antibody Screen Crossmatch 04/23/22 10:31 WBC RBC Hgb Hct MCV MCH MCHC RDW Plt Count Lymph % (Auto) [place] % (Auto) Eos % (Auto) Baso % (Auto) Lymph # (Auto) [place] # (Auto) Eos # (Auto) Baso # (Auto) Seg Neutrophils % Seg Neutrophils # Percent Retic Sodium Potassium Chloride Carbon Dioxide Anion Gap BUN Creatinine Estimated GFR BUN/Creatinine Ratio Glucose Calcium Iron TIBC Ferritin Lactate Dehydrogenase Vitamin B12 Folate 9.90 Nasal Screen MRSA (PCR) Random Vancomycin Blood Type Antibody Screen Crossmatch Assessment and Plan - Patient Problems (1) Chronic diarrhea Current Visit: Yes Status: Acute Plan to address problem: - This has been noted on multiple previous admits to [facility] and I do not think he has active Crohns disease. - He is malnourished from psychosocial causes, and nutritional support will be continued. - Recent treatment with broad-spectrum abx for positive Quantiferon GOLD at [facility]; would minimize antibiotics here. - Collect stool for C diff if patient able to produce. - Multivitamin daily therapy. - We will sign off; please call if needed.
--- NOTE | 2022-04-23 18:49 | Progress Note ---
Assessment and Plan Acute kidney injury, cr. 4.1-->3.5-->3.5 Acidosis Hyponatremia Back abscess F/u serologies Continue IVF Continue sodium bicarb tabs Hold lisinopril Monitor vanc level Gabapentin dose reduced Renally dose medications Avoid nephrotoxins Renal diet No immediate indication for dialysis Surgery note reviewed Subjective Date of service: 04/23/22 Principal diagnosis: Back abscess Interval history: S/p drainage of abscess POD 2. Good UOP. Nursing, interdisciplinary and consult notes were reviewed Vitals, input and output, medications and labs were reviewed Objective - Exam Narrative Exam: General: No acute distress HEENT: Oral mucosa moist Neck: Supple, no JVD Chest: Clear to auscultation bilaterally Heart: RRR, S1 and S2, no pericardial rub Abdomen: Soft, nontender, no renal bruit Extremity: No peripheral cyanosis, edema Neurological: Alert, awake, no asterixis Dermatology: No skin rash Psych: No agitation Musculoskeletal: No joint effusion - Vital Signs Vital signs: Vital Signs - 12hr 04/23/22 04/23/22 08:51 09:43 Temperature 97.8 F Pulse Rate 78 Respiratory 16 Rate Blood Pressure 194/101 O2 Sat by Pulse 100 100 Oximetry - Lab 04/23/22 06:06 04/23/22 06:06 Most recent lab results ABG pH 7.301 pH Units (7.350-7.450) L 04/22/22 16:02 ABG pCO2 34.1 mm Hg 04/22/22 16:02 ABG pO2 119.7 mm Hg (80.0-90.0) H 04/22/22 16:02 ABG HCO3 16.4 mmol/L (20.0-26.0) L 04/22/22 16:02 ABG O2 Saturation 96.6 % (95.0-99.0) 04/22/22 16:02 Calcium 7.8 mg/dL (8.4-10.2) L 04/23/22 06:06 Urine Creatinine 69.3 mg/dL (0.1-20.0) H 04/21/22 17:46 Urine Sodium 77 mmol/L 04/21/22 17:46 Medications & Allergies - Medications Allergies/Adverse Reactions: Allergies No Known Allergies Allergy (Verified 04/21/22 08:44) Home Medications: Home Medications Medication Instructions Recorded Confirmed Last Taken Type Folic Acid [Folvite] 1 mg PO QDAY 08/17/21 04/22/22 04/21/22 History amLODIPine [Norvasc] 5 mg PO DAILY 08/17/21 04/22/22 04/21/22 History carvediloL [Coreg] 25 mg PO Q12H 08/17/21 04/22/22 04/21/22 History hydroCHLOROthiazide [HCTZ] 25 mg PO QDAY 08/17/21 04/22/22 04/21/22 History Loperamide [Imodium] 2 mg PO BID 04/22/22 04/22/22 04/21/22 History Active Medications: Generic Name Dose Route Start Last Admin Trade Name Freq PRN Reason Stop Dose Admin Acetaminophen 650 mg 04/21/22 13:47 Acetaminophen 325 Mg Tab PO Q4H PRN Pain MILD(1-3)/Fever >100.5/SHARPE Albuterol 2.5 mg 04/21/22 13:47 Albuterol 2.5 Mg/3 Ml Nebu IH Q4HRT PRN Shortness Of Breath Atorvastatin Calcium 40 mg 04/21/22 22:00 04/22/22 21:58 Atorvastatin 40 Mg Tab PO 40 mg QHS CHAYA Administration Gabapentin 400 mg 04/22/22 18:00 04/22/22 17:47 Gabapentin 400 Mg Cap PO 400 mg QPM CHAYA Administration Hydrochlorothiazide 25 mg 04/22/22 10:00 04/23/22 09:44 Hydrochlorothiazide 25 Mg Tab PO 25 mg QDAY CHAYA Administration Hydromorphone HCl 0.5 mg 04/21/22 13:47 04/23/22 04:28 Hydromorphone 0.5 Mg/0.5 Ml Inj IV 0.5 mg Q23H PRN Administration Pain , Severe (7-10) Sodium Chloride 1,000 mls @ 135 mls/hr 04/21/22 14:00 04/23/22 04:29 Nacl 0.9% 1000 Ml IV 135 mls/hr DIRECT CHAYA Administration Sodium Chloride 500 mls @ 0 mls/hr 04/23/22 08:29 Nacl 0.9% 500 Ml IV 04/24/22 08:28 ONCE NR As Directed Morphine Sulfate 2 mg 04/21/22 18:00 04/23/22 15:35 Morphine 2 Mg/1 Ml Inj IV 2 mg Q4H PRN Administration Pain, Moderate (4-6) Multivitamins 1 each 04/24/22 10:00 Multivitamins ,Therapeutic Tab PO QDAY CHAYA Ondansetron HCl 4 mg 04/23/22 10:00 04/23/22 09:46 Ondansetron 4 Mg/2 Ml Inj IV 4 mg Q4H PRN Administration Nausea And Vomiting Oxycodone/Acetaminophen 1 tab 04/21/22 13:47 Oxycodone /Acetaminophen 5-325mg Tab PO Q16H PRN Pain, Moderate (4-6) Sodium Bicarbonate 1,300 mg 04/21/22 20:00 04/23/22 14:07 Sodium Bicarbonate 650 Mg Tab PO 1,300 mg TID CHAYA Administration Sodium Chloride 10 ml 04/21/22 22:00 04/23/22 09:35 Sodium Chloride 0.9% 10 Ml Flush Syringe IV 10 ml BID CHAYA Administration Sodium Chloride 10 ml 04/21/22 13:47 Sodium Chloride 0.9% 10 Ml Flush Syringe IV PRN PRN LINE FLUSH
[2022-04-23] MEDS: GABAPENTIN 400 MG CAP PO SCH (19:15)
[2022-04-24] MEDS: MORPHINE 2 MG/1 ML INJ IV PRN ×5 (00:12→21:32)
[2022-04-24] MEDS: SODIUM CHLORIDE 0.9% 1000 ML 1,000 ML IV SCH ×3 (05:22→21:33)
[2022-04-24 06:00] LABS: Basophils # (Auto) 0.1 K/mm3 (0.0-0.1); Basophils % (Auto) 0.7 % (0.0-1.8); Eosinophils # (Auto) 0.2 K/mm3 (0.0-0.4); Eosinophils % (Auto) 2.1 % (0.0-4.3); Hemoglobin 8.1 gm/dl (11.8-15.2); Lymphocytes # (Auto) 1.5 K/mm3 (1.2-5.4); Lymphocytes % (Auto) 20.4 % (13.4-35.0); Mean Corpuscular HGB Conc 33 % (32-34); Mean Corpuscular Volume 99 fl (84-94); Monocytes # (Auto) 0.4 K/mm3 (0.0-0.8); Monocytes % (Auto) 4.7 % (0.0-7.3); Platelet Count 272 K/mm3 (140-440); Red Blood Count 2.53 M/mm3 (3.65-5.03)
[2022-04-24 06:09] LABS: Calcium 8.1 mg/dL (8.4-10.2)
[2022-04-24] MEDS: SODIUM BICARBONATE 650 MG TAB PO SCH ×3 (08:30→21:31)
--- NOTE | 2022-04-24 09:57 | Progress Note ---
Assessment and Plan Assessment and plan: 46 YO Male with DM, Mild Intermittent Asthma, Nicotine Dependence, Medication Noncompliance presents ED for evaluation of pain to his right back over the past 4 days [employer]. 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 Patient found to have a fluctuant mass to the right paraspinal region with superimposed erythema consistent with cellulitis complicated by right paraspinal abscess, sepsis, as well as urinary tract infection, and hyponatremia. Paraspinal abscess Cellulitis Sepsis UTI Acute kidney injury secondary to ATN from sepsis/vasomotor nephropathy Hyponatremia Anemia Severe protein calorie malnutrition 04/22/2022. Patient underwent I&D of back abscess earlier today. Nephrology recommends Jackson change and follow-up serologies. Continue IV fluid hydration and hold lisinopril. No immediate indication for hemodialysis. Continue to renally dose medications and avoid nephrotoxins. Continue renal diet. Patient also reports having chronic diarrhea and previous work-up at [place] in the past. However, patient now reports approximately 50 pound weight loss in the past 2 months. We will consult GI for further evaluation 04/23/2022. Continue wound care of back abscess/I&D. Hemoglobin 6.7 today. We will transfuse 1 unit PRBCs. Patient does report BRBPR approximately 1 week ago. However, no active bleeding or recent history of hematochezia/melena. We will start Protonix daily. Given the history of anemia, weight loss and BRBPR, patient may need colonoscopy. Await GI evaluation. We will follow-up iron studies, B12, folate reticulocyte count and LDH. Check occult stool. Nephrology following for acute kidney injury. 04/24/2022. Continue IV fluid hydration for acute kidney injury likely secondary to vasomotor nephropathy. Creatinine slightly improved to 3.0 today. Hemoglobin improved to 8.1 s/p PRBCs. Cefepime discontinued and ID recommends IV vancomycin for now. Follow-up culture results for de-escalation of antibiotics. Upon discharge, we will treat with Keflex continue wound care per nursing 3 times a day with saline. Surgery following. Patient continues to complain of intermittent diarrhea. GI evaluated the patient and reports patient has had multiple previous admits to [facility] and likely does not have ac tive Crohn's disease. GI believes that the 50 pound weight loss is secondary to severe protein calorie malnutrition from psychosocial issues. Follow-up stool for C. difficile. History Interval history: No new issues overnight Hospitalist Physical - Constitutional Vitals: Temp Pulse Resp BP Pulse Ox 97.8 F 70 16 156/86 100 04/24/22 00:00 04/24/22 00:00 04/24/22 00:00 04/24/22 00:00 04/24/22 00:00 General appearance: Present: no acute distress - EENT Eyes: Present: PERRL, EOM intact ENT: hearing intact, clear oral mucosa, dentition normal - Neck Neck: Present: supple, normal ROM - Respiratory Respiratory effort: normal Respiratory: bilateral: CTA - Cardiovascular Rhythm: regular Heart Sounds: Present: S1 & S2. Absent: gallop, rub - Extremities Extremities: no ischemia, No edema, Full ROM - Abdominal General gastrointestinal: soft, non-tender, non-distended, normal bowel sounds - Integumentary Integumentary: Present: clear, warm, dry - Neurologic Neurologic: CNII-XII intact, moves all extremities Results - Labs CBC & Chem 7: 04/24/22 05:24 04/24/22 05:24 Labs: Laboratory Last Values WBC 7.5 K/mm3 (4.5-11.0) 04/24/22 05:24 RBC 2.53 M/mm3 (3.65-5.03) L 04/24/22 05:24 Hgb 8.1 gm/dl (11.8-15.2) L 04/24/22 05:24 Hct 25.0 % (35.5-45.6) L 04/24/22 05:24 MCV 99 fl (84-94) H 04/24/22 05:24 MCH 32 pg (28-32) 04/24/22 05:24 MCHC 33 % (32-34) 04/24/22 05:24 RDW 16.0 % (13.2-15.2) H 04/24/22 05:24 Plt Count 272 K/mm3 (140-440) 04/24/22 05:24 Lymph % (Auto) 20.4 % (13.4-35.0) 04/24/22 05:24 Will % (Auto) 4.7 % (0.0-7.3) 04/24/22 05:24 Eos % (Auto) 2.1 % (0.0-4.3) 04/24/22 05:24 Baso % (Auto) 0.7 % (0.0-1.8) 04/24/22 05:24 Lymph # (Auto) 1.5 K/mm3 (1.2-5.4) 04/24/22 05:24 Will # (Auto) 0.4 K/mm3 (0.0-0.8) 04/24/22 05:24 Eos # (Auto) 0.2 K/mm3 (0.0-0.4) 04/24/22 05:24 Baso # (Auto) 0.1 K/mm3 (0.0-0.1) 04/24/22 05:24 Seg Neutrophils % 72.1 % (40.0-70.0) H 04/24/22 05:24 Seg Neutrophils # 5.4 K/mm3 (1.8-7.7) 04/24/22 05:24 Percent Retic 0.97 % (0.78-2.58) 04/23/22 10:31 ABG pH 7.301 pH Units (7.350-7.450) L 04/22/22 16:02 ABG pCO2 34.1 mm Hg 04/22/22 16:02 ABG pO2 119.7 mm Hg (80.0-90.0) H 04/22/22 16:02 ABG HCO3 16.4 mmol/L (20.0-26.0) L 04/22/22 16:02 ABG O2 Saturation 96.6 % (95.0-99.0) 04/22/22 16:02 ABG O2 Content 8.2 (0.0-44) 04/22/22 16:02 ABG Base Excess -9.2 mmol/L (-2.0-3.0) L 04/22/22 16:02 ABG Hemoglobin 5.9 gm/dl (14.0-18.0) L 04/22/22 16:02 ABG Carboxyhemoglobin 0.2 % (0.0-5.0) 04/22/22 16:02 ABG Methemoglobin 0.3 % (0.0-1.5) 04/22/22 16:02 Oxyhemoglobin 96.1 % (95.0-99.0) 04/22/22 16:02 FiO2 21 % 04/22/22 16:02 Sodium 139 mmol/L (137-145) 04/24/22 05:24 Potassium 3.9 mmol/L (3.6-5.0) 04/24/22 05:24 Chloride 109.4 mmol/L (98-107) H 04/24/22 05:24 Carbon Dioxide 20 mmol/L (22-30) L 04/24/22 05:24 Anion Gap 14 mmol/L 04/24/22 05:24 BUN 39 mg/dL (9-20) H 04/24/22 05:24 Creatinine 3.0 mg/dL (0.8-1.3) H 04/24/22 05:24 Estimated GFR 27 ml/min 04/24/22 05:24 BUN/Creatinine Ratio 13 % 04/24/22 05:24 Glucose 139 mg/dL (75-100) H 04/24/22 05:24 POC Glucose 88 mg/dL (70-105) 04/21/22 20:27 Lactic Acid 0.50 mmol/L (0.7-2.0) L 04/21/22 21:20 Calcium 8.1 mg/dL (8.4-10.2) L 04/24/22 05:24 Iron 43 ug/dL (49-181) L 04/23/22 10:31 TIBC 164 mcg/dL (250-450) L 04/23/22 10:31 Ferritin 190.4 ng/mL (30.0-300.0) 04/23/22 10:31 Total Bilirubin 0.30 mg/dL (0.1-1.2) 04/21/22 03:07 AST 56 units/L (5-40) H 04/21/22 03:07 ALT 47 units/L (7-56) 04/21/22 03:07 Alkaline Phosphatase 111 units/L (35-129) 04/21/22 03:07 Lactate Dehydrogenase 166 units/L (91-180) 04/23/22 10:31 Total Creatine Kinase 94 units/L (55-170) 04/21/22 21:20 Total Protein 7.8 g/dL (6.3-8.2) 04/21/22 03:07 Albumin 3.9 g/dL (3.9-5) 04/21/22 03:07 Albumin/Globulin Ratio 1.0 % 04/21/22 03:07 Lipase 39 units/L (13-60) 04/21/22 03:07 Vitamin B12 1307 pg/mL (211-911) H 04/23/22 10:31 Folate 9.90 ng/mL (7.3-26.0) 04/23/22 10:31 Urine Color Colorless (Yellow) 04/21/22 03:14 Urine Turbidity Slightly cloudy (Clear) 04/21/22 03:14 Specific Ragland (Man) 1.000 (1.003-1.030) L 04/21/22 03:14 Ur Protein (Man) 2+ mg/dL (Negative) 04/21/22 03:14 Ur Ketones (Man) Negative (Negative) 04/21/22 03:14 Urine Bilirubin (Man) Negative (Negative) 04/21/22 03:14 Urine WBC (Auto) 16.0 /HPF (0.0-6.0) H 04/21/22 03:14 Urine RBC (Auto) 4.0 /HPF (0.0-6.0) 04/21/22 03:14 Urine RBC (Manual) 5+ (Negative) 04/21/22 03:14 Triple Phos Crystals Few 04/21/22 03:14 Urine Mucus Few /HPF 04/21/22 03:14 Urine Creatinine 69.3 mg/dL (0.1-20.0) H 04/21/22 17:46 Urine Sodium 77 mmol/L 04/21/22 17:46 Nasal Screen MRSA (PCR) Positive (Negative) 04/22/22 Unknown Random Vancomycin 11.4 ug/mL (0-40.0) 04/23/22 06:06 Hep Bs Antigen Non-reactive (Negative) 04/21/22 21:20 Hepatitis C Antibody Non-reactive (NonReactive) 04/21/22 21:20 Blood Type A POSITIVE 04/21/22 15:30 Antibody Screen Negative 04/21/22 15:30 Crossmatch See Detail 04/21/22 15:30 Microbiology: Microbiology 04/21/22 15:27 Peripheral/Venous Blood Culture - Preliminary NO GROWTH AFTER 48 HOURS 04/21/22 15:27 Peripheral/Venous Blood Culture - Preliminary NO GROWTH AFTER 48 HOURS 04/21/22 03:14 Urine,Clean Catch Urine Culture - Final Jackson/IV: Voiding Method Indwelling Catheter Active Medications - Current Medications Current Medications: Generic Name Dose Route Start Last Admin Trade Name Freq PRN Reason Stop Dose Admin Acetaminophen 650 mg 04/21/22 13:47 04/23/22 22:06 Acetaminophen 325 Mg Tab PO 650 mg Q4H PRN Administration Pain MILD(1-3)/Fever >100.5/SHARPE Albuterol 2.5 mg 04/21/22 13:47 Albuterol 2.5 Mg/3 Ml Nebu IH Q4HRT PRN Shortness Of Breath Atorvastatin Calcium 40 mg 04/21/22 22:00 04/23/22 22:06 Atorvastatin 40 Mg Tab PO 40 mg QHS CHAYA Administration Gabapentin 400 mg 04/22/22 18:00 04/23/22 19:15 Gabapentin 400 Mg Cap PO 400 mg QPM CHAYA Administration Hydrochlorothiazide 25 mg 04/22/22 10:00 04/23/22 09:44 Hydrochlorothiazide 25 Mg Tab PO 25 mg QDAY CHAYA Administration Hydromorphone HCl 0.5 mg 04/21/22 13:47 04/23/22 04:28 Hydromorphone 0.5 Mg/0.5 Ml Inj IV 0.5 mg Q23H PRN Administration Pain , Severe (7-10) Sodium Chloride 1,000 mls @ 135 mls/hr 04/21/22 14:00 04/24/22 05:22 Nacl 0.9% 1000 Ml IV 135 mls/hr DIRECT CHAYA Administration Morphine Sulfate 2 mg 04/21/22 18:00 04/24/22 05:22 Morphine 2 Mg/1 Ml Inj IV 2 mg Q4H PRN Administration Pain, Moderate (4-6) Multivitamins 1 each 04/24/22 10:00 Multivitamins ,Therapeutic Tab PO QDAY CHAYA Ondansetron HCl 4 mg 04/23/22 10:00 04/23/22 19:15 Ondansetron 4 Mg/2 Ml Inj IV 4 mg Q4H PRN Administration Nausea And Vomiting Oxycodone/Acetaminophen 1 tab 04/21/22 13:47 Oxycodone /Acetaminophen 5-325mg Tab PO Q16H PRN Pain, Moderate (4-6) Sodium Bicarbonate 1,300 mg 04/21/22 20:00 04/24/22 08:30 Sodium Bicarbonate 650 Mg Tab PO 1,300 mg TID CHAYA Administration Sodium Chloride 10 ml 04/21/22 22:00 04/23/22 22:07 Sodium Chloride 0.9% 10 Ml Flush Syringe IV 10 ml BID CHAYA Administration Sodium Chloride 10 ml 04/21/22 13:47 Sodium Chloride 0.9% 10 Ml Flush Syringe IV PRN PRN LINE FLUSH
[2022-04-24] MEDS: MULTIVITAMINS ,THERAPEUTIC TAB PO SCH (10:28)
[2022-04-24] MEDS: hydroCHLOROthiazide 25 MG TAB PO SCH (10:29)
[2022-04-24] MEDS: ONDANSETRON 4 MG/2 ML INJ IV PRN ×2 (10:48→16:51)
--- NOTE | 2022-04-24 13:18 | Progress Note ---
Assessment and Plan Patient was complaining of continuous diarrhea. Stool culture requested. Patient has not been able to have a stool since the order was made for culture of the stool. Nursing continues to irrigate the wound 3 times daily with saline. Plan to remove drain tomorrow. Patient may be discharged shortly after that. Subjective Date of service: 04/24/22 Patient Reports: Positive: no new complaints, feels better Objective Vital Signs - 12hr 04/24/22 12:22 O2 Sat by Pulse 97 Oximetry - Labs 04/24/22 05:24 04/24/22 05:24 Diabetes panel 04/24/22 Range/Units 05:24 Sodium 139 (137-145) mmol/L Potassium 3.9 (3.6-5.0) mmol/L Chloride 109.4 H (98-107) mmol/L Carbon Dioxide 20 L (22-30) mmol/L BUN 39 H (9-20) mg/dL Creatinine 3.0 H (0.8-1.3) mg/dL Glucose 139 H (75-100) mg/dL Calcium 8.1 L (8.4-10.2) mg/dL Calcium panel 04/24/22 Range/Units 05:24 Calcium 8.1 L (8.4-10.2) mg/dL Pituitary panel 04/24/22 Range/Units 05:24 Sodium 139 (137-145) mmol/L Potassium 3.9 (3.6-5.0) mmol/L Chloride 109.4 H (98-107) mmol/L Carbon Dioxide 20 L (22-30) mmol/L BUN 39 H (9-20) mg/dL Creatinine 3.0 H (0.8-1.3) mg/dL Glucose 139 H (75-100) mg/dL Calcium 8.1 L (8.4-10.2) mg/dL Adrenal panel 04/24/22 Range/Units 05:24 Sodium 139 (137-145) mmol/L Potassium 3.9 (3.6-5.0) mmol/L Chloride 109.4 H (98-107) mmol/L Carbon Dioxide 20 L (22-30) mmol/L BUN 39 H (9-20) mg/dL Creatinine 3.0 H (0.8-1.3) mg/dL Glucose 139 H (75-100) mg/dL Calcium 8.1 L (8.4-10.2) mg/dL
[2022-04-24] MEDS: GABAPENTIN 400 MG CAP PO SCH (17:01)
--- NOTE | 2022-04-24 22:11 | Progress Note ---
Assessment and Plan Acute kidney injury, cr. 4.1-->3.5-->3.5-->3.0 Acidosis Hyponatremia Back abscess Continue IVF Continue sodium bicarb tabs Hold lisinopril Monitor vanc level Gabapentin dose reduced Renally dose medications Avoid nephrotoxins Renal diet No immediate indication for dialysis Surgery note reviewed Subjective Date of service: 04/24/22 Principal diagnosis: Back abscess Interval history: S/p drainage of abscess POD 3. Good UOP. Nursing, interdisciplinary and consult notes were reviewed Vitals, input and output, medications and labs were reviewed Objective - Exam Narrative Exam: General: No acute distress HEENT: Oral mucosa moist Neck: Supple, no JVD Chest: Clear to auscultation bilaterally Heart: RRR, S1 and S2, no pericardial rub Abdomen: Soft, nontender, no renal bruit Extremity: No peripheral cyanosis, edema Neurological: Alert, awake, no asterixis Dermatology: No skin rash Psych: No agitation Musculoskeletal: No joint effusion - Vital Signs Vital signs: Vital Signs - 12hr 04/24/22 04/24/22 04/24/22 10:29 10:30 11:23 Temperature 97.7 F Pulse Rate 72 72 68 Respiratory 20 18 Rate Blood Pressure 162/90 174/83 O2 Sat by Pulse 100 100 100 Oximetry 04/24/22 04/24/22 12:22 16:31 Temperature 97.8 F Pulse Rate 77 Respiratory 18 Rate Blood Pressure 185/108 O2 Sat by Pulse 97 100 Oximetry - Lab 04/24/22 05:24 04/24/22 05:24 Most recent lab results ABG pH 7.301 pH Units (7.350-7.450) L 04/22/22 16:02 ABG pCO2 34.1 mm Hg 04/22/22 16:02 ABG pO2 119.7 mm Hg (80.0-90.0) H 04/22/22 16:02 ABG HCO3 16.4 mmol/L (20.0-26.0) L 04/22/22 16:02 ABG O2 Saturation 96.6 % (95.0-99.0) 04/22/22 16:02 Calcium 8.1 mg/dL (8.4-10.2) L 04/24/22 05:24 Urine Creatinine 69.3 mg/dL (0.1-20.0) H 04/21/22 17:46 Urine Sodium 77 mmol/L 04/21/22 17:46 Medications & Allergies - Medications Allergies/Adverse Reactions: Allergies No Known Allergies Allergy (Verified 04/21/22 08:44) Home Medications: Home Medications Medication Instructions Recorded Confirmed Last Taken Type Folic Acid [Folvite] 1 mg PO QDAY 08/17/21 04/22/22 04/21/22 History amLODIPine [Norvasc] 5 mg PO DAILY 08/17/21 04/22/22 04/21/22 History carvediloL [Coreg] 25 mg PO Q12H 08/17/21 04/22/22 04/21/22 History hydroCHLOROthiazide [HCTZ] 25 mg PO QDAY 08/17/21 04/22/22 04/21/22 History Loperamide [Imodium] 2 mg PO BID 04/22/22 04/22/22 04/21/22 History Active Medications: Generic Name Dose Route Start Last Admin Trade Name Freq PRN Reason Stop Dose Admin Acetaminophen 650 mg 04/21/22 13:47 04/23/22 22:06 Acetaminophen 325 Mg Tab PO 650 mg Q4H PRN Administration Pain MILD(1-3)/Fever >100.5/SHARPE Albuterol 2.5 mg 04/21/22 13:47 Albuterol 2.5 Mg/3 Ml Nebu IH Q4HRT PRN Shortness Of Breath Atorvastatin Calcium 40 mg 04/21/22 22:00 04/24/22 21:37 Atorvastatin 40 Mg Tab PO 40 mg QHS CHAYA Administration Gabapentin 400 mg 04/22/22 18:00 04/24/22 17:01 Gabapentin 400 Mg Cap PO 400 mg QPM CHAYA Administration Hydrochlorothiazide 25 mg 04/22/22 10:00 04/24/22 10:29 Hydrochlorothiazide 25 Mg Tab PO 25 mg QDAY CHAYA Administration Hydromorphone HCl 0.5 mg 04/21/22 13:47 04/23/22 04:28 Hydromorphone 0.5 Mg/0.5 Ml Inj IV 0.5 mg Q23H PRN Administration Pain , Severe (7-10) Sodium Chloride 1,000 mls @ 135 mls/hr 04/21/22 14:00 04/24/22 21:33 Nacl 0.9% 1000 Ml IV 135 mls/hr DIRECT CHAYA Administration Morphine Sulfate 2 mg 04/21/22 18:00 04/24/22 21:32 Morphine 2 Mg/1 Ml Inj IV 2 mg Q4H PRN Administration Pain, Moderate (4-6) Multivitamins 1 each 04/24/22 10:00 04/24/22 10:28 Multivitamins ,Therapeutic Tab PO 1 each QDAY CHAYA Administration Ondansetron HCl 4 mg 04/23/22 10:00 04/24/22 16:51 Ondansetron 4 Mg/2 Ml Inj IV 4 mg Q4H PRN Administration Nausea And Vomiting Oxycodone/Acetaminophen 1 tab 04/21/22 13:47 Oxycodone /Acetaminophen 5-325mg Tab PO Q16H PRN Pain, Moderate (4-6) Sodium Bicarbonate 1,300 mg 04/21/22 20:00 04/24/22 21:31 Sodium Bicarbonate 650 Mg Tab PO 1,300 mg TID CHAYA Administration Sodium Chloride 10 ml 04/21/22 22:00 04/24/22 21:32 Sodium Chloride 0.9% 10 Ml Flush Syringe IV 10 ml BID CHAYA Administration Sodium Chloride 10 ml 04/21/22 13:47 Sodium Chloride 0.9% 10 Ml Flush Syringe IV PRN PRN LINE FLUSH
[2022-04-25] MEDS: MORPHINE 2 MG/1 ML INJ IV PRN ×5 (03:30→21:43)
[2022-04-25] MEDS: SODIUM CHLORIDE 0.9% 1000 ML 1,000 ML IV SCH ×3 (05:39→21:45)
[2022-04-25 06:47] LABS: Basophils % (Auto) 0.5 % (0.0-1.8); Eosinophils # (Auto) 0.1 K/mm3 (0.0-0.4); Eosinophils % (Auto) 1.9 % (0.0-4.3); Hematocrit 24.4 % (35.5-45.6); Lymphocytes # (Auto) 1.2 K/mm3 (1.2-5.4); Lymphocytes % (Auto) 17.6 % (13.4-35.0); Mean Corpuscular HGB Conc 33 % (32-34); Mean Corpuscular Volume 98 fl (84-94); Monocytes # (Auto) 0.3 K/mm3 (0.0-0.8); Monocytes % (Auto) 4.9 % (0.0-7.3); Platelet Count 254 K/mm3 (140-440); Red Blood Count 2.49 M/mm3 (3.65-5.03); Red Cell Distribution Width 16.3 % (13.2-15.2)
[2022-04-25 07:40] LABS: Calcium 7.9 mg/dL (8.4-10.2)
--- NOTE | 2022-04-25 08:20 | Progress Note ---
Assessment and Plan Assessment and plan: 46 YO Male with DM, Mild Intermittent Asthma, Nicotine Dependence, Medication Noncompliance presents ED for evaluation of pain to his right back over the past 4 days [employer]. 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 Patient found to have a fluctuant mass to the right paraspinal region with superimposed erythema consistent with cellulitis complicated by right paraspinal abscess, sepsis, as well as urinary tract infection, and hyponatremia. Paraspinal abscess Cellulitis Sepsis UTI Acute kidney injury secondary to ATN from sepsis/vasomotor nephropathy Hyponatremia Anemia Severe protein calorie malnutrition 04/22/2022. Patient underwent I&D of back abscess earlier today. Nephrology recommends Jackson change and follow-up serologies. Continue IV fluid hydration and hold lisinopril. No immediate indication for hemodialysis. Continue to renally dose medications and avoid nephrotoxins. Continue renal diet. Patient also reports having chronic diarrhea and previous work-up at [facility] in the past. However, patient now reports approximately 50 pound weight loss in the past 2 months. We will consult GI for further evaluation 04/23/2022. Continue wound care of back abscess/I&D. Hemoglobin 6.7 today. We will transfuse 1 unit PRBCs. Patient does report BRBPR approximately 1 week ago. However, no active bleeding or recent history of hematochezia/melena. We will start Protonix daily. Given the history of anemia, weight loss and BRBPR, patient may need colonoscopy. Await GI evaluation. We will follow-up iron studies, B12, folate reticulocyte count and LDH. Check occult stool. Nephrology following for acute kidney injury. 04/24/2022. Continue IV fluid hydration for acute kidney injury likely secondary to vasomotor nephropathy. Creatinine slightly improved to 3.0 today. Hemoglobin improved to 8.1 s/p PRBCs. Cefepime discontinued and ID recommends IV vancomycin for now. Follow-up culture results for de-escalation of antibiotics. Upon discharge, we will treat with Keflex continue wound care per nursing 3 times a day with saline. Surgery following. Patient continues to complain of intermittent diarrhea. GI evaluated the patient and reports patient has had multiple previous admits to [facility] and likely does not have ac tive Crohn's disease. GI believes that the 50 pound weight loss is secondary to severe protein calorie malnutrition from psychosocial issues. Follow-up stool for C. difficile. 04/25/2022. Creatinine only slightly improved to 2.9. Continue IV fluid hydration for acute kidney injury likely secondary to vasomotor nephropathy/dehydration. Continue sodium bicarbonate. Hold lisinopril given the acute kidney injury. Continue to monitor vancomycin level. Gabapentin dose reduced. Avoid nephrotoxins. No indication for hemodialysis per nephrology. Follow-up culture results for de-escalation of antibiotics. Upon discharge, we will treat with Keflex. ID following. History Interval history: No new issues overnight Hospitalist Physical - Constitutional Vitals: Temp Pulse Resp BP Pulse Ox 98.5 F 76 18 180/91 97 04/24/22 21:36 04/24/22 21:36 04/24/22 21:36 04/24/22 21:36 04/24/22 23:43 General appearance: Present: no acute distress - EENT Eyes: Present: PERRL, EOM intact ENT: hearing intact, clear oral mucosa, dentition normal - Neck Neck: Present: supple, normal ROM - Respiratory Respiratory effort: normal Respiratory: bilateral: CTA - Cardiovascular Rhythm: regular Heart Sounds: Present: S1 & S2. Absent: gallop, rub - Extremities Extremities: no ischemia, No edema, Full ROM - Abdominal General gastrointestinal: soft, non-tender, non-distended, normal bowel sounds - Integumentary Integumentary: Present: clear, warm, dry - Neurologic Neurologic: CNII-XII intact, moves all extremities Results - Labs CBC & Chem 7: 04/25/22 05:25 04/25/22 05:25 Labs: Laboratory Last Values WBC 7.1 K/mm3 (4.5-11.0) 04/25/22 05:25 RBC 2.49 M/mm3 (3.65-5.03) L 04/25/22 05:25 Hgb 8.0 gm/dl (11.8-15.2) L 04/25/22 05:25 Hct 24.4 % (35.5-45.6) L 04/25/22 05:25 MCV 98 fl (84-94) H 04/25/22 05:25 MCH 32 pg (28-32) 04/25/22 05:25 MCHC 33 % (32-34) 04/25/22 05:25 RDW 16.3 % (13.2-15.2) H 04/25/22 05:25 Plt Count 254 K/mm3 (140-440) 04/25/22 05:25 Lymph % (Auto) 17.6 % (13.4-35.0) 04/25/22 05:25 [place] % (Auto) 4.9 % (0.0-7.3) 04/25/22 05:25 Eos % (Auto) 1.9 % (0.0-4.3) 04/25/22 05:25 Baso % (Auto) 0.5 % (0.0-1.8) 04/25/22 05:25 Lymph # (Auto) 1.2 K/mm3 (1.2-5.4) 04/25/22 05:25 [place] # (Auto) 0.3 K/mm3 (0.0-0.8) 04/25/22 05:25 Eos # (Auto) 0.1 K/mm3 (0.0-0.4) 04/25/22 05:25 Baso # (Auto) 0.0 K/mm3 (0.0-0.1) 04/25/22 05:25 Seg Neutrophils % 75.1 % (40.0-70.0) H 04/25/22 05:25 Seg Neutrophils # 5.3 K/mm3 (1.8-7.7) 04/25/22 05:25 Percent Retic 0.97 % (0.78-2.58) 04/23/22 10:31 ABG pH 7.301 pH Units (7.350-7.450) L 04/22/22 16:02 ABG pCO2 34.1 mm Hg 04/22/22 16:02 ABG pO2 119.7 mm Hg (80.0-90.0) H 04/22/22 16:02 ABG HCO3 16.4 mmol/L (20.0-26.0) L 04/22/22 16:02 ABG O2 Saturation 96.6 % (95.0-99.0) 04/22/22 16:02 ABG O2 Content 8.2 (0.0-44) 04/22/22 16:02 ABG Base Excess -9.2 mmol/L (-2.0-3.0) L 04/22/22 16:02 ABG Hemoglobin 5.9 gm/dl (14.0-18.0) L 04/22/22 16:02 ABG Carboxyhemoglobin 0.2 % (0.0-5.0) 04/22/22 16:02 ABG Methemoglobin 0.3 % (0.0-1.5) 04/22/22 16:02 Oxyhemoglobin 96.1 % (95.0-99.0) 04/22/22 16:02 FiO2 21 % 04/22/22 16:02 Sodium 137 mmol/L (137-145) 04/25/22 05:25 Potassium 4.0 mmol/L (3.6-5.0) 04/25/22 05:25 Chloride 107.1 mmol/L (98-107) H 04/25/22 05:25 Carbon Dioxide 22 mmol/L (22-30) 04/25/22 05:25 Anion Gap 12 mmol/L 04/25/22 05:25 BUN 35 mg/dL (9-20) H 04/25/22 05:25 Creatinine 2.9 mg/dL (0.8-1.3) H 04/25/22 05:25 Estimated GFR 28 ml/min 04/25/22 05:25 BUN/Creatinine Ratio 12 % 04/25/22 05:25 Glucose 142 mg/dL (75-100) H 04/25/22 05:25 POC Glucose 88 mg/dL (70-105) 04/21/22 20:27 Lactic Acid 0.50 mmol/L (0.7-2.0) L 04/21/22 21:20 Calcium 7.9 mg/dL (8.4-10.2) L 04/25/22 05:25 Iron 43 ug/dL (49-181) L 04/23/22 10:31 TIBC 164 mcg/dL (250-450) L 04/23/22 10:31 Ferritin 190.4 ng/mL (30.0-300.0) 04/23/22 10:31 Total Bilirubin 0.30 mg/dL (0.1-1.2) 04/21/22 03:07 AST 56 units/L (5-40) H 04/21/22 03:07 ALT 47 units/L (7-56) 04/21/22 03:07 Alkaline Phosphatase 111 units/L (35-129) 04/21/22 03:07 Lactate Dehydrogenase 166 units/L (91-180) 04/23/22 10:31 Total Creatine Kinase 94 units/L (55-170) 04/21/22 21:20 Total Protein 7.8 g/dL (6.3-8.2) 04/21/22 03:07 Albumin 3.9 g/dL (3.9-5) 04/21/22 03:07 Albumin/Globulin Ratio 1.0 % 04/21/22 03:07 Lipase 39 units/L (13-60) 04/21/22 03:07 Vitamin B12 1307 pg/mL (211-911) H 04/23/22 10:31 Folate 9.90 ng/mL (7.3-26.0) 04/23/22 10:31 Urine Color Colorless (Yellow) 04/21/22 03:14 Urine Turbidity Slightly cloudy (Clear) 04/21/22 03:14 Specific [place] (Man) 1.000 (1.003-1.030) L 04/21/22 03:14 Ur Protein (Man) 2+ mg/dL (Negative) 04/21/22 03:14 Ur Ketones (Man) Negative (Negative) 04/21/22 03:14 Urine Bilirubin (Man) Negative (Negative) 04/21/22 03:14 Urine WBC (Auto) 16.0 /HPF (0.0-6.0) H 04/21/22 03:14 Urine RBC (Auto) 4.0 /HPF (0.0-6.0) 04/21/22 03:14 Urine RBC (Manual) 5+ (Negative) 04/21/22 03:14 Triple Phos Crystals Few 04/21/22 03:14 Urine Mucus Few /HPF 04/21/22 03:14 Urine Creatinine 69.3 mg/dL (0.1-20.0) H 04/21/22 17:46 Urine Sodium 77 mmol/L 04/21/22 17:46 Nasal Screen MRSA (PCR) Positive (Negative) 04/22/22 Unknown Random Vancomycin 12.4 ug/mL (0-40.0) 04/25/22 05:25 Hep Bs Antigen Non-reactive (Negative) 04/21/22 21:20 Hepatitis C Antibody Non-reactive (NonReactive) 04/21/22 21:20 Blood Type A POSITIVE 04/21/22 15:30 Antibody Screen Negative 04/21/22 15:30 Crossmatch See Detail 04/21/22 15:30 Microbiology: Microbiology 04/21/22 15:27 Peripheral/Venous Blood Culture - Preliminary NO GROWTH AFTER 72 HOURS 04/21/22 15:27 Peripheral/Venous Blood Culture - Preliminary NO GROWTH AFTER 72 HOURS Jackson/IV: Voiding Method Indwelling Catheter Active Medications - Current Medications Current Medications: Generic Name Dose Route Start Last Admin Trade Name Freq PRN Reason Stop Dose Admin Acetaminophen 650 mg 04/21/22 13:47 04/23/22 22:06 Acetaminophen 325 Mg Tab PO 650 mg Q4H PRN Administration Pain MILD(1-3)/Fever >100.5/SHARPE Albuterol 2.5 mg 04/21/22 13:47 Albuterol 2.5 Mg/3 Ml Nebu IH Q4HRT PRN Shortness Of Breath Atorvastatin Calcium 40 mg 04/21/22 22:00 04/24/22 21:37 Atorvastatin 40 Mg Tab PO 40 mg QHS CHAYA Administration Gabapentin 400 mg 04/22/22 18:00 04/24/22 17:01 Gabapentin 400 Mg Cap PO 400 mg QPM CHAYA Administration Hydrochlorothiazide 25 mg 04/22/22 10:00 04/24/22 10:29 Hydrochlorothiazide 25 Mg Tab PO 25 mg QDAY CHAYA Administration Hydromorphone HCl 0.5 mg 04/21/22 13:47 04/23/22 04:28 Hydromorphone 0.5 Mg/0.5 Ml Inj IV 0.5 mg Q23H PRN Administration Pain , Severe (7-10) Sodium Chloride 1,000 mls @ 135 mls/hr 04/21/22 14:00 04/25/22 05:39 Nacl 0.9% 1000 Ml IV 135 mls/hr DIRECT CHAYA Administration Vancomycin HCl 1 gm in 250 mls @ 167.007 mls/hr 04/25/22 16:00 Vancomycin/Ns 1 Gm/250 Ml IV 04/25/22 17:29 ONCE ONE Morphine Sulfate 2 mg 04/21/22 18:00 04/25/22 03:30 Morphine 2 Mg/1 Ml Inj IV 2 mg Q4H PRN Administration Pain, Moderate (4-6) Multivitamins 1 each 04/24/22 10:00 04/24/22 10:28 Multivitamins ,Therapeutic Tab PO 1 each QDAY CHAYA Administration Ondansetron HCl 4 mg 04/23/22 10:00 04/24/22 16:51 Ondansetron 4 Mg/2 Ml Inj IV 4 mg Q4H PRN Administration Nausea And Vomiting Oxycodone/Acetaminophen 1 tab 04/21/22 13:47 Oxycodone /Acetaminophen 5-325mg Tab PO Q16H PRN Pain, Moderate (4-6) Sodium Bicarbonate 1,300 mg 04/21/22 20:00 04/24/22 21:31 Sodium Bicarbonate 650 Mg Tab PO 1,300 mg TID CHAYA Administration Sodium Chloride 10 ml 04/21/22 22:00 04/24/22 21:32 Sodium Chloride 0.9% 10 Ml Flush Syringe IV 10 ml BID CHAYA Administration Sodium Chloride 10 ml 04/21/22 13:47 Sodium Chloride 0.9% 10 Ml Flush Syringe IV PRN PRN LINE FLUSH
[2022-04-25] MEDS: MULTIVITAMINS ,THERAPEUTIC TAB PO SCH (09:22)
[2022-04-25] MEDS: hydroCHLOROthiazide 25 MG TAB PO SCH (09:22)
[2022-04-25] MEDS: SODIUM BICARBONATE 650 MG TAB PO SCH ×3 (09:22→21:43)
--- NOTE | 2022-04-25 13:08 | Progress Note ---
Assessment and Plan Patient was complaining of continuous diarrhea. Stool culture requested. Patient has not been able to have a stool since the order was made for culture of the stool. Nursing continues to irrigate the wound 3 times daily with saline. Pt with back abscess. Cultures positive for MRSA. Cont iv ab and wound irrigations BID. Subjective Date of service: 04/25/22 Patient Reports: Positive: no new complaints Narrative: Pt with back abscess. Cultures positive for MRSA. Cont iv ab and wound irrigations BID. Objective Vital Signs - 12hr 04/25/22 04/25/22 09:23 11:17 O2 Sat by Pulse 99 97 Oximetry - Labs 04/25/22 05:25 04/25/22 05:25 Diabetes panel 04/25/22 Range/Units 05:25 Sodium 137 (137-145) mmol/L Potassium 4.0 (3.6-5.0) mmol/L Chloride 107.1 H (98-107) mmol/L Carbon Dioxide 22 (22-30) mmol/L BUN 35 H (9-20) mg/dL Creatinine 2.9 H (0.8-1.3) mg/dL Glucose 142 H (75-100) mg/dL Calcium 7.9 L (8.4-10.2) mg/dL Calcium panel 04/25/22 Range/Units 05:25 Calcium 7.9 L (8.4-10.2) mg/dL Pituitary panel 04/25/22 Range/Units 05:25 Sodium 137 (137-145) mmol/L Potassium 4.0 (3.6-5.0) mmol/L Chloride 107.1 H (98-107) mmol/L Carbon Dioxide 22 (22-30) mmol/L BUN 35 H (9-20) mg/dL Creatinine 2.9 H (0.8-1.3) mg/dL Glucose 142 H (75-100) mg/dL Calcium 7.9 L (8.4-10.2) mg/dL Adrenal panel 04/25/22 Range/Units 05:25 Sodium 137 (137-145) mmol/L Potassium 4.0 (3.6-5.0) mmol/L Chloride 107.1 H (98-107) mmol/L Carbon Dioxide 22 (22-30) mmol/L BUN 35 H (9-20) mg/dL Creatinine 2.9 H (0.8-1.3) mg/dL Glucose 142 H (75-100) mg/dL Calcium 7.9 L (8.4-10.2) mg/dL
[2022-04-25] MEDS ORDERED: VANCOMYCIN/NS 1 GM/250 ML 1 GM/250 ML BAG IV ONE (16:00)
[2022-04-25] MEDS: GABAPENTIN 400 MG CAP PO SCH (17:26)
--- NOTE | 2022-04-25 18:51 | Progress Note ---
Assessment and Plan Acute kidney injury, cr. 4.1-->3.5-->3.5-->3.0-->2.9 Acidosis Hyponatremia Back abscess Continue IVF Continue sodium bicarb tabs Hold lisinopril Monitor vanc level Gabapentin dose reduced Renally dose medications Avoid nephrotoxins Renal diet Surgery note reviewed Subjective Date of service: 04/25/22 Principal diagnosis: Back abscess Interval history: S/p drainage of abscess POD 4. Jackson bag with clear urine. Nursing, interdisciplinary and consult notes were reviewed Vitals, input and output, medications and labs were reviewed Objective - Exam Narrative Exam: General: No acute distress HEENT: Oral mucosa moist Neck: Supple, no JVD Chest: Clear to auscultation bilaterally Heart: RRR, S1 and S2, no pericardial rub Abdomen: Soft, nontender, no renal bruit Extremity: No peripheral cyanosis, edema Neurological: Alert, awake, no asterixis Dermatology: No skin rash Psych: No agitation Musculoskeletal: No joint effusion - Vital Signs Vital signs: Vital Signs - 12hr 04/25/22 04/25/22 09:23 11:17 O2 Sat by Pulse 99 97 Oximetry - Lab 04/25/22 05:25 04/25/22 05:25 Most recent lab results ABG pH 7.301 pH Units (7.350-7.450) L 04/22/22 16:02 ABG pCO2 34.1 mm Hg 04/22/22 16:02 ABG pO2 119.7 mm Hg (80.0-90.0) H 04/22/22 16:02 ABG HCO3 16.4 mmol/L (20.0-26.0) L 04/22/22 16:02 ABG O2 Saturation 96.6 % (95.0-99.0) 04/22/22 16:02 Calcium 7.9 mg/dL (8.4-10.2) L 04/25/22 05:25 Urine Creatinine 69.3 mg/dL (0.1-20.0) H 04/21/22 17:46 Urine Sodium 77 mmol/L 04/21/22 17:46 Medications & Allergies - Medications Allergies/Adverse Reactions: Allergies No Known Allergies Allergy (Verified 04/21/22 08:44) Home Medications: Home Medications Medication Instructions Recorded Confirmed Last Taken Type Folic Acid [Folvite] 1 mg PO QDAY 08/17/21 04/22/22 04/21/22 History amLODIPine [Norvasc] 5 mg PO DAILY 08/17/21 04/22/22 04/21/22 History carvediloL [Coreg] 25 mg PO Q12H 08/17/21 04/22/22 04/21/22 History hydroCHLOROthiazide [HCTZ] 25 mg PO QDAY 08/17/21 04/22/22 04/21/22 History Loperamide [Imodium] 2 mg PO BID 04/22/22 04/22/22 04/21/22 History Active Medications: Generic Name Dose Route Start Last Admin Trade Name Freq PRN Reason Stop Dose Admin Acetaminophen 650 mg 04/21/22 13:47 04/23/22 22:06 Acetaminophen 325 Mg Tab PO 650 mg Q4H PRN Administration Pain MILD(1-3)/Fever >100.5/SHARPE Albuterol 2.5 mg 04/21/22 13:47 Albuterol 2.5 Mg/3 Ml Nebu IH Q4HRT PRN Shortness Of Breath Atorvastatin Calcium 40 mg 04/21/22 22:00 04/24/22 21:37 Atorvastatin 40 Mg Tab PO 40 mg QHS CHAYA Administration Gabapentin 400 mg 04/22/22 18:00 04/25/22 17:26 Gabapentin 400 Mg Cap PO 400 mg QPM CHAYA Administration Hydrochlorothiazide 25 mg 04/22/22 10:00 04/25/22 09:22 Hydrochlorothiazide 25 Mg Tab PO 25 mg QDAY CHAYA Administration Hydromorphone HCl 0.5 mg 04/21/22 13:47 04/23/22 04:28 Hydromorphone 0.5 Mg/0.5 Ml Inj IV 0.5 mg Q23H PRN Administration Pain , Severe (7-10) Sodium Chloride 1,000 mls @ 135 mls/hr 04/21/22 14:00 04/25/22 13:56 Nacl 0.9% 1000 Ml IV 135 mls/hr DIRECT CHAYA Administration Morphine Sulfate 2 mg 04/21/22 18:00 04/25/22 17:29 Morphine 2 Mg/1 Ml Inj IV 2 mg Q4H PRN Administration Pain, Moderate (4-6) Multivitamins 1 each 04/24/22 10:00 08/21/22 09:22 Multivitamins ,Therapeutic Tab PO 1 each QDAY CHAYA Administration Ondansetron HCl 4 mg 04/23/22 10:00 04/24/22 16:51 Ondansetron 4 Mg/2 Ml Inj IV 4 mg Q4H PRN Administration Nausea And Vomiting Oxycodone/Acetaminophen 1 tab 04/21/22 13:47 Oxycodone /Acetaminophen 5-325mg Tab PO Q16H PRN Pain, Moderate (4-6) Sodium Bicarbonate 1,300 mg 04/21/22 20:00 04/25/22 13:53 Sodium Bicarbonate 650 Mg Tab PO 1,300 mg TID CHAYA Administration Sodium Chloride 10 ml 04/21/22 22:00 04/25/22 09:22 Sodium Chloride 0.9% 10 Ml Flush Syringe IV 10 ml BID CHAYA Administration Sodium Chloride 10 ml 04/21/22 13:47 Sodium Chloride 0.9% 10 Ml Flush Syringe IV PRN PRN LINE FLUSH
[2022-04-25] MEDS: hydrALAZINE 20 MG/1 ML INJ IV PRN (21:43)
[2022-04-25] MEDS: ONDANSETRON 4 MG/2 ML INJ IV PRN (22:22)
[2022-04-26] MEDS: MORPHINE 2 MG/1 ML INJ IV PRN ×5 (01:36→21:31)
[2022-04-26 06:04] LABS: Basophils % (Auto) 0.2 % (0.0-1.8); Eosinophils # (Auto) 0.1 K/mm3 (0.0-0.4); Eosinophils % (Auto) 1.8 % (0.0-4.3); Hematocrit 22.7 % (35.5-45.6); Hemoglobin 7.5 gm/dl (11.8-15.2); Lymphocytes # (Auto) 1.3 K/mm3 (1.2-5.4); Lymphocytes % (Auto) 16.1 % (13.4-35.0); Mean Corpuscular HGB Conc 33 % (32-34); Mean Corpuscular Volume 99 fl (84-94); Monocytes # (Auto) 0.4 K/mm3 (0.0-0.8); Monocytes % (Auto) 4.7 % (0.0-7.3); Platelet Count 239 K/mm3 (140-440)
[2022-04-26 06:13] LABS: Calcium 7.8 mg/dL (8.4-10.2)
[2022-04-26] MEDS: SODIUM CHLORIDE 0.9% 1000 ML 1,000 ML IV SCH ×2 (06:23→17:46)
--- NOTE | 2022-04-26 09:47 | Progress Note ---
Assessment and Plan Assessment and plan: 46 YO Male with DM, Mild Intermittent Asthma, Nicotine Dependence, Medication Noncompliance presents ED for evaluation of pain to his right back over the past 4 days [employer]. 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 Patient found to have a fluctuant mass to the right paraspinal region with superimposed erythema consistent with cellulitis complicated by right paraspinal abscess, sepsis, as well as urinary tract infection, and hyponatremia. Paraspinal abscess Cellulitis Sepsis UTI Acute kidney injury secondary to ATN from sepsis/vasomotor nephropathy Hyponatremia Anemia Severe protein calorie malnutrition 04/22/2022. Patient underwent I&D of back abscess earlier today. Nephrology recommends Jackson change and follow-up serologies. Continue IV fluid hydration and hold lisinopril. No immediate indication for hemodialysis. Continue to renally dose medications and avoid nephrotoxins. Continue renal diet. Patient also reports having chronic diarrhea and previous work-up at [facility] in the past. However, patient now reports approximately 50 pound weight loss in the past 2 months. We will consult GI for further evaluation 04/23/2022. Continue wound care of back abscess/I&D. Hemoglobin 6.7 today. We will transfuse 1 unit PRBCs. Patient does report BRBPR approximately 1 week ago. However, no active bleeding or recent history of hematochezia/melena. We will start Protonix daily. Given the history of anemia, weight loss and BRBPR, patient may need colonoscopy. Await GI evaluation. We will follow-up iron studies, B12, folate reticulocyte count and LDH. Check occult stool. Nephrology following for acute kidney injury. 04/24/2022. Continue IV fluid hydration for acute kidney injury likely secondary to vasomotor nephropathy. Creatinine slightly improved to 3.0 today. Hemoglobin improved to 8.1 s/p PRBCs. Cefepime discontinued and ID recommends IV vancomycin for now. Follow-up culture results for de-escalation of antibiotics. Upon discharge, we will treat with Keflex continue wound care per nursing 3 times a day with saline. Surgery following. Patient continues to complain of intermittent diarrhea. GI evaluated the patient and reports patient has had multiple previous admits to [facility] and likely does not have ac tive Crohn's disease. GI believes that the 50 pound weight loss is secondary to severe protein calorie malnutrition from psychosocial issues. Follow-up stool for C. difficile. 04/25/2022. Creatinine only slightly improved to 2.9. Continue IV fluid hydration for acute kidney injury likely secondary to vasomotor nephropathy/dehydration. Continue sodium bicarbonate. Hold lisinopril given the acute kidney injury. Continue to monitor vancomycin level. Gabapentin dose reduced. Avoid nephrotoxins. No indication for hemodialysis per nephrology. Follow-up culture results for de-escalation of antibiotics. Upon discharge, we will treat with Keflex. ID following 04/26/2022. Patient reports several episodes of diarrhea yesterday. No hematochezia or melena. S/p drainage of abscess POD 5. Creatinine slowly improving. cr. 4.1-->3.5-->3.5-->3.0-->2.9-->2.7. Continue IV fluid hydration for acute kidney injury likely secondary to vasomotor nephropathy/dehydration. Continue sodium bicarbonate. Hold lisinopril given the acute kidney injury. Continue to monitor vancomycin level. Avoid nephrotoxins. No indication for hemodialysis per nephrology. Follow-up culture results for de-escalation of antibiotics. Upon discharge, we will treat with Keflex. ID following History Interval history: No new issues overnight Hospitalist Physical - Constitutional Vitals: Temp Pulse Resp BP Pulse Ox 98.2 F 83 20 179/84 100 04/25/22 23:03 04/25/22 23:03 04/26/22 02:06 04/25/22 23:03 04/25/22 23:03 General appearance: Present: no acute distress - EENT Eyes: Present: PERRL, EOM intact ENT: hearing intact, clear oral mucosa, dentition normal - Neck Neck: Present: supple, normal ROM - Respiratory Respiratory effort: normal Respiratory: bilateral: CTA - Cardiovascular Rhythm: regular Heart Sounds: Present: S1 & S2. Absent: gallop, rub - Extremities Extremities: no ischemia, No edema, Full ROM - Abdominal General gastrointestinal: soft, non-tender, non-distended, normal bowel sounds - Integumentary Integumentary: Present: clear, warm, dry - Neurologic Neurologic: CNII-XII intact, moves all extremities Results - Labs CBC & Chem 7: 04/26/22 05:04 04/26/22 05:04 Labs: Laboratory Last Values WBC 8.2 K/mm3 (4.5-11.0) 04/26/22 05:04 RBC 2.30 M/mm3 (3.65-5.03) L 04/26/22 05:04 Hgb 7.5 gm/dl (11.8-15.2) L 04/26/22 05:04 Hct 22.7 % (35.5-45.6) L 04/26/22 05:04 MCV 99 fl (84-94) H 04/26/22 05:04 MCH 33 pg (28-32) H 04/26/22 05:04 MCHC 33 % (32-34) 04/26/22 05:04 RDW 16.0 % (13.2-15.2) H 04/26/22 05:04 Plt Count 239 K/mm3 (140-440) 04/26/22 05:04 Lymph % (Auto) 16.1 % (13.4-35.0) 04/26/22 05:04 [place] % (Auto) 4.7 % (0.0-7.3) 04/26/22 05:04 Eos % (Auto) 1.8 % (0.0-4.3) 04/26/22 05:04 Baso % (Auto) 0.2 % (0.0-1.8) 04/26/22 05:04 Lymph # (Auto) 1.3 K/mm3 (1.2-5.4) 04/26/22 05:04 [place] # (Auto) 0.4 K/mm3 (0.0-0.8) 04/26/22 05:04 Eos # (Auto) 0.1 K/mm3 (0.0-0.4) 04/26/22 05:04 Baso # (Auto) 0.0 K/mm3 (0.0-0.1) 04/26/22 05:04 Seg Neutrophils % 77.2 % (40.0-70.0) H 04/26/22 05:04 Seg Neutrophils # 6.3 K/mm3 (1.8-7.7) 04/26/22 05:04 Percent Retic 0.97 % (0.78-2.58) 04/23/22 10:31 ABG pH 7.301 pH Units (7.350-7.450) L 04/22/22 16:02 ABG pCO2 34.1 mm Hg 04/22/22 16:02 ABG pO2 119.7 mm Hg (80.0-90.0) H 04/22/22 16:02 ABG HCO3 16.4 mmol/L (20.0-26.0) L 04/22/22 16:02 ABG O2 Saturation 96.6 % (95.0-99.0) 04/22/22 16:02 ABG O2 Content 8.2 (0.0-44) 04/22/22 16:02 ABG Base Excess -9.2 mmol/L (-2.0-3.0) L 04/22/22 16:02 ABG Hemoglobin 5.9 gm/dl (14.0-18.0) L 04/22/22 16:02 ABG Carboxyhemoglobin 0.2 % (0.0-5.0) 04/22/22 16:02 ABG Methemoglobin 0.3 % (0.0-1.5) 04/22/22 16:02 Oxyhemoglobin 96.1 % (95.0-99.0) 04/22/22 16:02 FiO2 21 % 04/22/22 16:02 Sodium 141 mmol/L (137-145) 04/26/22 05:04 Potassium 4.3 mmol/L (3.6-5.0) 04/26/22 05:04 Chloride 113.9 mmol/L (98-107) H 04/26/22 05:04 Carbon Dioxide 20 mmol/L (22-30) L 04/26/22 05:04 Anion Gap 11 mmol/L 04/26/22 05:04 BUN 35 mg/dL (9-20) H 04/26/22 05:04 Creatinine 2.7 mg/dL (0.8-1.3) H 04/26/22 05:04 Estimated GFR 31 ml/min 04/26/22 05:04 BUN/Creatinine Ratio 13 % 04/26/22 05:04 Glucose 123 mg/dL (75-100) H 04/26/22 05:04 POC Glucose 88 mg/dL (70-105) 04/21/22 20:27 Lactic Acid 0.50 mmol/L (0.7-2.0) L 04/21/22 21:20 Calcium 7.8 mg/dL (8.4-10.2) L 04/26/22 05:04 Iron 43 ug/dL (49-181) L 04/23/22 10:31 TIBC 164 mcg/dL (250-450) L 04/23/22 10:31 Ferritin 190.4 ng/mL (30.0-300.0) 04/23/22 10:31 Total Bilirubin 0.30 mg/dL (0.1-1.2) 04/21/22 03:07 AST 56 units/L (5-40) H 04/21/22 03:07 ALT 47 units/L (7-56) 04/21/22 03:07 Alkaline Phosphatase 111 units/L (35-129) 04/21/22 03:07 Lactate Dehydrogenase 166 units/L (91-180) 04/23/22 10:31 Total Creatine Kinase 94 units/L (55-170) 04/21/22 21:20 Total Protein 7.8 g/dL (6.3-8.2) 04/21/22 03:07 Albumin 3.9 g/dL (3.9-5) 04/21/22 03:07 Albumin/Globulin Ratio 1.0 % 04/21/22 03:07 Lipase 39 units/L (13-60) 04/21/22 03:07 Vitamin B12 1307 pg/mL (211-911) H 04/23/22 10:31 Folate 9.90 ng/mL (7.3-26.0) 04/23/22 10:31 Urine Color Colorless (Yellow) 04/21/22 03:14 Urine Turbidity Slightly cloudy (Clear) 04/21/22 03:14 Specific [place] (Man) 1.000 (1.003-1.030) L 04/21/22 03:14 Ur Protein (Man) 2+ mg/dL (Negative) 04/21/22 03:14 Ur Ketones (Man) Negative (Negative) 04/21/22 03:14 Urine Bilirubin (Man) Negative (Negative) 04/21/22 03:14 Urine WBC (Auto) 16.0 /HPF (0.0-6.0) H 04/21/22 03:14 Urine RBC (Auto) 4.0 /HPF (0.0-6.0) 04/21/22 03:14 Urine RBC (Manual) 5+ (Negative) 04/21/22 03:14 Triple Phos Crystals Few 04/21/22 03:14 Urine Mucus Few /HPF 04/21/22 03:14 Urine Creatinine 69.3 mg/dL (0.1-20.0) H 04/21/22 17:46 Urine Sodium 77 mmol/L 04/21/22 17:46 Nasal Screen MRSA (PCR) Positive (Negative) 04/22/22 Unknown Random Vancomycin 12.4 ug/mL (0-40.0) 04/25/22 05:25 Complement C3 129 mg/dL (82-185) 04/21/22 21:20 Complement C4 40 mg/dL (15-53) 04/21/22 21:20 Hep Bs Antigen Non-reactive (Negative) 04/21/22 21:20 Hepatitis C Antibody Non-reactive (NonReactive) 04/21/22 21:20 Blood Type A POSITIVE 04/21/22 15:30 Antibody Screen Negative 04/21/22 15:30 Crossmatch See Detail 04/21/22 15:30 Microbiology: Microbiology 04/21/22 15:27 Peripheral/Venous Blood Culture - Preliminary NO GROWTH AFTER 4 DAYS 04/21/22 15:27 Peripheral/Venous Blood Culture - Preliminary NO GROWTH AFTER 4 DAYS 04/25/22 Unknown Stool Stool Occult Blood (LETICIA) - Final 04/21/22 Unknown Back Surgical Culture - Final Methicillin Resist S. Aureus Jackson/IV: Voiding Method Indwelling Catheter Active Medications - Current Medications Current Medications: Generic Name Dose Route Start Last Admin Trade Name Freq PRN Reason Stop Dose Admin Acetaminophen 650 mg 04/21/22 13:47 04/23/22 22:06 Acetaminophen 325 Mg Tab PO 650 mg Q4H PRN Administration Pain MILD(1-3)/Fever >100.5/SHARPE Albuterol 2.5 mg 04/21/22 13:47 Albuterol 2.5 Mg/3 Ml Nebu IH Q4HRT PRN Shortness Of Breath Atorvastatin Calcium 40 mg 04/21/22 22:00 04/25/22 21:43 Atorvastatin 40 Mg Tab PO 40 mg QHS CHAYA Administration Gabapentin 400 mg 04/22/22 18:00 04/25/22 17:26 Gabapentin 400 Mg Cap PO 400 mg QPM CHAYA Administration Hydralazine HCl 10 mg 04/25/22 19:00 04/25/22 21:43 Hydralazine 20 Mg/1 Ml Inj IV 10 mg Q4HR PRN Administration BP > 150/95 Hydrochlorothiazide 25 mg 04/22/22 10:00 04/25/22 09:22 Hydrochlorothiazide 25 Mg Tab PO 25 mg QDAY CHAYA Administration Hydromorphone HCl 0.5 mg 04/21/22 13:47 04/23/22 04:28 Hydromorphone 0.5 Mg/0.5 Ml Inj IV 0.5 mg Q23H PRN Administration Pain , Severe (7-10) Sodium Chloride 1,000 mls @ 135 mls/hr 04/21/22 14:00 04/26/22 06:23 Nacl 0.9% 1000 Ml IV 135 mls/hr DIRECT CHAYA Administration Morphine Sulfate 2 mg 04/21/22 18:00 04/26/22 06:22 Morphine 2 Mg/1 Ml Inj IV 2 mg Q4H PRN Administration Pain, Moderate (4-6) Multivitamins 1 each 04/24/22 10:00 04/25/22 09:22 Multivitamins ,Therapeutic Tab PO 1 each QDAY CHAYA Administration Ondansetron HCl 4 mg 04/23/22 10:00 04/25/22 22:22 Ondansetron 4 Mg/2 Ml Inj IV 4 mg Q4H PRN Administration Nausea And Vomiting Oxycodone/Acetaminophen 1 tab 04/21/22 13:47 Oxycodone /Acetaminophen 5-325mg Tab PO Q16H PRN Pain, Moderate (4-6) Sodium Bicarbonate 1,300 mg 04/21/22 20:00 04/25/22 21:43 Sodium Bicarbonate 650 Mg Tab PO 1,300 mg TID CHAYA Administration Sodium Chloride 10 ml 04/21/22 22:00 04/25/22 21:44 Sodium Chloride 0.9% 10 Ml Flush Syringe IV 10 ml BID CHAYA Administration Sodium Chloride 10 ml 04/21/22 13:47 Sodium Chloride 0.9% 10 Ml Flush Syringe IV PRN PRN LINE FLUSH
--- NOTE | 2022-04-26 10:19 | Progress Note ---
Assessment and Plan Impression: * Acute kidney injury --SCr 1.3mg/dL in Aug 2021 * Skin abscess --Wound culture: MRSA * Acidosis * Hyponatremia * Hypertension Plan: * Renal function improving - continue to monitor renal function * Continue IVF * Continue sodium bicarb tabs * Start Amlodipine 10mg daily as BP is uncontrolled * Hold ACEi * Transfuse pRBC prn - Hb 7.0 * Monitor Vanco level to avoid nephrotoxicity * Dose medicatons for renal function * Avoid nephrotoxins Subjective Date of service: 04/26/22 Principal diagnosis: Back abscess Interval history: Patient complains of diarrhea. Reports diarrhea is chronic. Objective - Vital Signs Vital signs: Vital Signs - 12hr 04/25/22 04/26/22 23:03 02:06 Temperature 98.2 F Pulse Rate 83 Respiratory 20 20 Rate Blood Pressure 179/84 [Right] O2 Sat by Pulse 100 Oximetry - General Appearance General appearance: well-developed, well-nourished EENT: ATNC Respiratory: Present: Clear to Ascultation Cardiology: regular, S1S2 Gastrointestinal: normal, no tenderness, no distended Neurologic: no focal deficit Psychiatric: cooperative - Lab 04/26/22 05:04 04/26/22 05:04 Most recent lab results ABG pH 7.301 pH Units (7.350-7.450) L 04/22/22 16:02 ABG pCO2 34.1 mm Hg 04/22/22 16:02 ABG pO2 119.7 mm Hg (80.0-90.0) H 04/22/22 16:02 ABG HCO3 16.4 mmol/L (20.0-26.0) L 04/22/22 16:02 ABG O2 Saturation 96.6 % (95.0-99.0) 04/22/22 16:02 Calcium 7.8 mg/dL (8.4-10.2) L 04/26/22 05:04 Urine Creatinine 69.3 mg/dL (0.1-20.0) H 04/21/22 17:46 Urine Sodium 77 mmol/L 04/21/22 17:46 Medications & Allergies - Medications Allergies/Adverse Reactions: Allergies No Known Allergies Allergy (Verified 04/21/22 08:44) Home Medications: Home Medications Medication Instructions Recorded Confirmed Last Taken Type Folic Acid [Folvite] 1 mg PO QDAY 08/17/21 04/22/22 04/21/22 History amLODIPine [Norvasc] 5 mg PO DAILY 08/17/21 04/22/22 04/21/22 History carvediloL [Coreg] 25 mg PO Q12H 08/17/21 04/22/22 04/21/22 History hydroCHLOROthiazide [HCTZ] 25 mg PO QDAY 08/17/21 04/22/22 04/21/22 History Loperamide [Imodium] 2 mg PO BID 04/22/22 04/22/22 04/21/22 History Active Medications: Generic Name Dose Route Start Last Admin Trade Name Freq PRN Reason Stop Dose Admin Acetaminophen 650 mg 04/21/22 13:47 04/23/22 22:06 Acetaminophen 325 Mg Tab PO 650 mg Q4H PRN Administration Pain MILD(1-3)/Fever >100.5/SHARPE Albuterol 2.5 mg 04/21/22 13:47 Albuterol 2.5 Mg/3 Ml Nebu IH Q4HRT PRN Shortness Of Breath Atorvastatin Calcium 40 mg 04/21/22 22:00 04/25/22 21:43 Atorvastatin 40 Mg Tab PO 40 mg QHS CHAYA Administration Gabapentin 400 mg 04/22/22 18:00 04/25/22 17:26 Gabapentin 400 Mg Cap PO 400 mg QPM CHAYA Administration Hydralazine HCl 10 mg 04/25/22 19:00 04/25/22 21:43 Hydralazine 20 Mg/1 Ml Inj IV 10 mg Q4HR PRN Administration BP > 150/95 Hydrochlorothiazide 25 mg 04/22/22 10:00 04/25/22 09:22 Hydrochlorothiazide 25 Mg Tab PO 25 mg QDAY CHAYA Administration Hydromorphone HCl 0.5 mg 04/21/22 13:47 04/23/22 04:28 Hydromorphone 0.5 Mg/0.5 Ml Inj IV 0.5 mg Q23H PRN Administration Pain , Severe (7-10) Sodium Chloride 1,000 mls @ 135 mls/hr 04/21/22 14:00 04/26/22 06:23 Nacl 0.9% 1000 Ml IV 135 mls/hr DIRECT CHAYA Administration Morphine Sulfate 2 mg 04/21/22 18:00 04/26/22 06:22 Morphine 2 Mg/1 Ml Inj IV 2 mg Q4H PRN Administration Pain, Moderate (4-6) Multivitamins 1 each 04/24/22 10:00 04/25/22 09:22 Multivitamins ,Therapeutic Tab PO 1 each QDAY CHAYA Administration Ondansetron HCl 4 mg 04/23/22 10:00 04/25/22 22:22 Ondansetron 4 Mg/2 Ml Inj IV 4 mg Q4H PRN Administration Nausea And Vomiting Oxycodone/Acetaminophen 1 tab 04/21/22 13:47 Oxycodone /Acetaminophen 5-325mg Tab PO Q16H PRN Pain, Moderate (4-6) Sodium Bicarbonate 1,300 mg 04/21/22 20:00 04/25/22 21:43 Sodium Bicarbonate 650 Mg Tab PO 1,300 mg TID CHAYA Administration Sodium Chloride 10 ml 04/21/22 22:00 04/25/22 21:44 Sodium Chloride 0.9% 10 Ml Flush Syringe IV 10 ml BID CHAYA Administration Sodium Chloride 10 ml 04/21/22 13:47 Sodium Chloride 0.9% 10 Ml Flush Syringe IV PRN PRN LINE FLUSH
[2022-04-26] MEDS: hydroCHLOROthiazide 25 MG TAB PO SCH (10:27)
[2022-04-26] MEDS: SODIUM BICARBONATE 650 MG TAB PO SCH ×3 (10:27→20:27)
[2022-04-26] MEDS: MULTIVITAMINS ,THERAPEUTIC TAB PO SCH (10:27)
[2022-04-26] MEDS: ONDANSETRON 4 MG/2 ML INJ IV PRN ×3 (12:07→21:34)
[2022-04-26] MEDS: amLODIPine 10 MG TAB PO SCH (12:46)
[2022-04-26] MEDS: hydrALAZINE 20 MG/1 ML INJ IV PRN (12:48)
[2022-04-26 13:34] LABS: Myeloperoxidase Antibody <1.0 AI (<1.0)
[2022-04-26] MEDS: GABAPENTIN 400 MG CAP PO SCH (17:39)
--- NOTE | 2022-04-26 18:29 | Progress Note ---
Assessment and Plan Patient was complaining of continuous diarrhea. Stool culture requested. Patient has not been able to have a stool since the order was made for culture of the stool. Nursing continues to irrigate the wound 3 times daily with saline. Pt with back abscess. Cultures positive for MRSA. Cont iv ab and wound irrigations BID. Drain removed. Subjective Date of service: 04/26/22 Patient Reports: Positive: diarrhea Narrative: Diarrhea returned. Stool specimen sent to lab. Wound with serous discharge drain removed. Objective Vital Signs - 12hr 04/26/22 04/26/22 04/26/22 11:33 12:41 12:42 Temperature 97.9 F Pulse Rate 82 85 Respiratory 18 Rate Blood Pressure 150/85 177/105 177/105 O2 Sat by Pulse 100 99 Oximetry 04/26/22 04/26/22 04/26/22 12:46 12:48 15:59 Temperature 97.9 F Pulse Rate 85 85 80 Respiratory 16 Rate Blood Pressure 177/105 177/105 121/72 O2 Sat by Pulse 97 Oximetry - Labs 04/26/22 05:04 04/26/22 05:04 Diabetes panel 04/26/22 Range/Units 05:04 Sodium 141 (137-145) mmol/L Potassium 4.3 (3.6-5.0) mmol/L Chloride 113.9 H (98-107) mmol/L Carbon Dioxide 20 L (22-30) mmol/L BUN 35 H (9-20) mg/dL Creatinine 2.7 H (0.8-1.3) mg/dL Glucose 123 H (75-100) mg/dL Calcium 7.8 L (8.4-10.2) mg/dL Calcium panel 04/26/22 Range/Units 05:04 Calcium 7.8 L (8.4-10.2) mg/dL Pituitary panel 04/26/22 Range/Units 05:04 Sodium 141 (137-145) mmol/L Potassium 4.3 (3.6-5.0) mmol/L Chloride 113.9 H (98-107) mmol/L Carbon Dioxide 20 L (22-30) mmol/L BUN 35 H (9-20) mg/dL Creatinine 2.7 H (0.8-1.3) mg/dL Glucose 123 H (75-100) mg/dL Calcium 7.8 L (8.4-10.2) mg/dL Adrenal panel 04/26/22 Range/Units 05:04 Sodium 141 (137-145) mmol/L Potassium 4.3 (3.6-5.0) mmol/L Chloride 113.9 H (98-107) mmol/L Carbon Dioxide 20 L (22-30) mmol/L BUN 35 H (9-20) mg/dL Creatinine 2.7 H (0.8-1.3) mg/dL Glucose 123 H (75-100) mg/dL Calcium 7.8 L (8.4-10.2) mg/dL
[2022-04-27] MEDS: ONDANSETRON 4 MG/2 ML INJ IV PRN ×6 (01:24→21:55)
[2022-04-27] MEDS: MORPHINE 2 MG/1 ML INJ IV PRN ×6 (01:25→21:55)
[2022-04-27] MEDS: SODIUM CHLORIDE 0.9% 1000 ML 1,000 ML IV SCH ×2 (01:38→22:00)
[2022-04-27 05:58] LABS: Calcium 7.6 mg/dL (8.4-10.2)
[2022-04-27 06:03] LABS: Basophils % (Auto) 0.5 % (0.0-1.8); Eosinophils # (Auto) 0.2 K/mm3 (0.0-0.4); Eosinophils % (Auto) 1.9 % (0.0-4.3); Hematocrit 22.4 % (35.5-45.6); Hemoglobin 7.3 gm/dl (11.8-15.2); Lymphocytes # (Auto) 1.1 K/mm3 (1.2-5.4); Lymphocytes % (Auto) 11.9 % (13.4-35.0); Mean Corpuscular HGB Conc 33 % (32-34); Mean Corpuscular Volume 99 fl (84-94); Monocytes # (Auto) 0.4 K/mm3 (0.0-0.8); Monocytes % (Auto) 4.5 % (0.0-7.3); Platelet Count 236 K/mm3 (140-440); Red Blood Count 2.26 M/mm3 (3.65-5.03); Red Cell Distribution Width 16.5 % (13.2-15.2)
--- NOTE | 2022-04-27 08:53 | Progress Note ---
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 Patient found to have a fluctuant mass to the right paraspinal region with superimposed erythema consistent with cellulitis complicated by right paraspinal abscess, sepsis, as well as urinary tract infection, and hyponatremia. --Paraspinal abscess; surgeon evaluated the patient Status post incision drainage, continue wound care, continue IV antibiotics Surgery and ID following --Cellulitis; continue IV antibiotics, follow cultures --Sepsis; due to paraspinal abscess/cellulitis[present on admission] Continue sepsis protocol, IV fluids, IV antibiotics, follow cultures --UTI; urinary tract infection present on admission Continue empiric antibiotics, follow cultures, IV fluids --Acute kidney injury secondary to ATN from sepsis/vasomotor nephropathy; Closely monitor renal function, avoid nephrotoxins, renal dosing of medications Nephrology following --Hyponatremia; present on admission Sodium level significantly improved, closely monitor electrolytes --Anemia; Hb 6.7, received 1 unit PRBC improved to 7.3 Closely monitor H&H, transfuse additional PRBC as needed --Severe protein calorie malnutrition; Nutrition supplements, nutrition consult, supportive care --Ongoing tobacco use/nicotine dependence Smoking cessation counseling done, strongly advised to quit tobacco use Risks and sequelae of chronic tobacco use discussed with the patient He verbalized understanding I also discussed role of nicotine patch and smoking cessation Answered all his questions, total time spent 17 minutes --DVT prophylaxis; Patient is postop state SCDs, no pharmacologic anticoagulation --Advance care planning; I discussed in detail with the patient his condition I discussed his tests and reports, I discussed his treatment plan I discussed the consultants evaluation recommendations, I discussed discharge planning I also discussed smoking cessation, also discussed usage of nicotine patch. Patient has few questions, answered all of them, he verbalized understanding Ordered nicotine patch to his treatment regimen total time 35 minutes 04/22/2022. Patient underwent I&D of back abscess earlier today. Nephrology recommends Jackson change and follow-up serologies. Continue IV fluid hydration and hold lisinopril. No immediate indication for hemodialysis. Continue to josh ally dose medications and avoid nephrotoxins. Continue renal diet. Patient also reports having chronic diarrhea and previous work-up at [facility] in the past. However, patient now reports approximately 50 pound weight loss in the past 2 months. We will consult GI for further evaluation 04/23/2022. Continue wound care of back abscess/I&D. Hemoglobin 6.7 today. We will transfuse 1 unit PRBCs. Patient does report BRBPR approximately 1 week ago. However, no active bleeding or recent history of hematochezia/melena. We will start Protonix daily. Given the history of anemia, weight loss and BRBPR, patient may need colonoscopy. Await GI evaluation. We will follow-up iron studies, B12, folate reticulocyte count and LDH. Check occult stool. Nephrology following for acute kidney injury. 04/24/2022. Continue IV fluid hydration for acute kidney injury likely secondary to vasomotor nephropathy. Creatinine slightly improved to 3.0 today. Hemoglobin improved to 8.1 s/p PRBCs. Cefepime discontinued and ID recommends IV vancomycin for now. Follow-up culture results for de-escalation of antibiotics. Upon discharge, we will treat with Keflex continue wound care per nursing 3 times a day with saline. Surgery following. Patient continues to complain of intermittent diarrhea. GI evaluated the patient and reports patient has had multiple previous admits to [facility] and likely does not have active Crohn's disease. GI believes that the 50 pound weight loss is secondary to severe protein calorie malnutrition from psychosocial issues. Follow-up stool for C. difficile. 04/25/2022. Creatinine only slightly improved to 2.9. Continue IV fluid hydration for acute kidney injury likely secondary to vasomotor nephropathy/dehydration. Continue sodium bicarbonate. Hold lisinopril given the acute kidney injury. Continue to monitor vancomycin level. Gabapentin dose reduced. Avoid nephrotoxins. No indication for hemodialysis per nephrology. Follow-up culture results for de-escalation of antibiotics. Upon discharge, we will treat with Keflex. ID following 04/26/2022. Patient reports several episodes of diarrhea yesterday. No hematochezia or melena. S/p drainage of abscess POD 5. Creatinine slowly improving. cr. 4.1-->3.5-->3.5-->3.0-->2.9-->2.7. Continue IV fluid hydration for acute kidney injury likely secondary to vasomotor nephropathy/dehydration. Continue sodium bicarbonate. Hold lisinopril given the acute kidney injury. Continue to monitor vancomycin level. Avoid nephrotoxins. No indication for hemodialysis per nephrology. Follow-up culture results for de-escalation of antibiotics. Upon discharge, we will treat with Keflex. ID following 04/27/2022; MRSA sepsis, ID managing with IV vancomycin, contact isolation Smoking cessation counseling, status post paraspinal abscess incision drainage, continue wound care Continue supportive, smoking cessation, DC planning, surgeon cleared for discharge DC planning per case management History Interval history: Have seen and examined the patient at the bedside Patient's chart and medications reviewed Patient had paraspinal cellulitis/abscess status post incision drainage MRSA sepsis on IV Vanco, ID following Patient complains of some pain in the back the surgical support Afebrile vital signs noted Hospitalist Physical - Constitutional Vitals: Temp Pulse Resp BP Pulse Ox 98.2 F 84 18 126/70 100 04/26/22 21:28 04/26/22 21:28 04/26/22 23:00 04/26/22 21:28 04/26/22 23:00 General appearance: Present: mild distress, well-nourished - EENT Eyes: Present: PERRL, EOM intact - Neck Neck: Present: supple, normal ROM - Respiratory Respiratory effort: normal Respiratory: bilateral: diminished, negative: rales, rhonchi, wheezing - Cardiovascular Rhythm: regular Heart Sounds: Present: S1 & S2 - Extremities Extremities: no ischemia, No edema - Abdominal General gastrointestinal: soft, non-tender, non-distended, normal bowel sounds - Integumentary Integumentary: Present: clear, warm - Psychiatric Psychiatric: appropriate mood/affect, cooperative - Neurologic Neurologic: CNII-XII intact, moves all extremities Results - Labs CBC & Chem 7: 04/27/22 04:53 04/27/22 04:53 Labs: Laboratory Last Values WBC 9.2 K/mm3 (4.5-11.0) 04/27/22 04:53 RBC 2.26 M/mm3 (3.65-5.03) L 04/27/22 04:53 Hgb 7.3 gm/dl (11.8-15.2) L 04/27/22 04:53 Hct 22.4 % (35.5-45.6) L 04/27/22 04:53 MCV 99 fl (84-94) H 04/27/22 04:53 MCH 32 pg (28-32) 04/27/22 04:53 MCHC 33 % (32-34) 04/27/22 04:53 RDW 16.5 % (13.2-15.2) H 04/27/22 04:53 Plt Count 236 K/mm3 (140-440) 04/27/22 04:53 Lymph % (Auto) 11.9 % (13.4-35.0) L 04/27/22 04:53 [place] % (Auto) 4.5 % (0.0-7.3) 04/27/22 04:53 Eos % (Auto) 1.9 % (0.0-4.3) 04/27/22 04:53 Baso % (Auto) 0.5 % (0.0-1.8) 04/27/22 04:53 Lymph # (Auto) 1.1 K/mm3 (1.2-5.4) L 04/27/22 04:53 [place] # (Auto) 0.4 K/mm3 (0.0-0.8) 04/27/22 04:53 Eos # (Auto) 0.2 K/mm3 (0.0-0.4) 04/27/22 04:53 Baso # (Auto) 0.0 K/mm3 (0.0-0.1) 04/27/22 04:53 Seg Neutrophils % 81.2 % (40.0-70.0) H 04/27/22 04:53 Seg Neutrophils # 7.4 K/mm3 (1.8-7.7) 04/27/22 04:53 Percent Retic 0.97 % (0.78-2.58) 04/23/22 10:31 ABG pH 7.301 pH Units (7.350-7.450) L 04/22/22 16:02 ABG pCO2 34.1 mm Hg 04/22/22 16:02 ABG pO2 119.7 mm Hg (80.0-90.0) H 04/22/22 16:02 ABG HCO3 16.4 mmol/L (20.0-26.0) L 04/22/22 16:02 ABG O2 Saturation 96.6 % (95.0-99.0) 04/22/22 16:02 ABG O2 Content 8.2 (0.0-44) 04/22/22 16:02 ABG Base Excess -9.2 mmol/L (-2.0-3.0) L 04/22/22 16:02 ABG Hemoglobin 5.9 gm/dl (14.0-18.0) L 04/22/22 16:02 ABG Carboxyhemoglobin 0.2 % (0.0-5.0) 04/22/22 16:02 ABG Methemoglobin 0.3 % (0.0-1.5) 04/22/22 16:02 Oxyhemoglobin 96.1 % (95.0-99.0) 04/22/22 16:02 FiO2 21 % 04/22/22 16:02 Sodium 140 mmol/L (137-145) 04/27/22 04:53 Potassium 4.3 mmol/L (3.6-5.0) 04/27/22 04:53 Chloride 113.1 mmol/L (98-107) H 04/27/22 04:53 Carbon Dioxide 18 mmol/L (22-30) L 04/27/22 04:53 Anion Gap 13 mmol/L 04/27/22 04:53 BUN 33 mg/dL (9-20) H 04/27/22 04:53 Creatinine 2.6 mg/dL (0.8-1.3) H 04/27/22 04:53 Estimated GFR 32 ml/min 04/27/22 04:53 BUN/Creatinine Ratio 13 % 04/27/22 04:53 Glucose 80 mg/dL (75-100) 04/27/22 04:53 POC Glucose 88 mg/dL (70-105) 04/21/22 20:27 Lactic Acid 0.50 mmol/L (0.7-2.0) L 04/21/22 21:20 Calcium 7.6 mg/dL (8.4-10.2) L 04/27/22 04:53 Iron 43 ug/dL (49-181) L 04/23/22 10:31 TIBC 164 mcg/dL (250-450) L 04/23/22 10:31 Ferritin 190.4 ng/mL (30.0-300.0) 04/23/22 10:31 Total Bilirubin 0.30 mg/dL (0.1-1.2) 04/21/22 03:07 AST 56 units/L (5-40) H 04/21/22 03:07 ALT 47 units/L (7-56) 04/21/22 03:07 Alkaline Phosphatase 111 units/L (35-129) 04/21/22 03:07 Lactate Dehydrogenase 166 units/L (91-180) 04/23/22 10:31 Total Creatine Kinase 94 units/L (55-170) 04/21/22 21:20 Total Protein 7.8 g/dL (6.3-8.2) 04/21/22 03:07 Albumin 3.9 g/dL (3.9-5) 04/21/22 03:07 Albumin/Globulin Ratio 1.0 % 04/21/22 03:07 Lipase 39 units/L (13-60) 04/21/22 03:07 Vitamin B12 1307 pg/mL (211-911) H 04/23/22 10:31 Folate 9.90 ng/mL (7.3-26.0) 04/23/22 10:31 Urine Color Colorless (Yellow) 04/21/22 03:14 Urine Turbidity Slightly cloudy (Clear) 04/21/22 03:14 Specific [place] (Man) 1.000 (1.003-1.030) L 04/21/22 03:14 Ur Protein (Man) 2+ mg/dL (Negative) 04/21/22 03:14 Ur Ketones (Man) Negative (Negative) 04/21/22 03:14 Urine Bilirubin (Man) Negative (Negative) 04/21/22 03:14 Urine WBC (Auto) 16.0 /HPF (0.0-6.0) H 04/21/22 03:14 Urine RBC (Auto) 4.0 /HPF (0.0-6.0) 04/21/22 03:14 Urine RBC (Manual) 5+ (Negative) 04/21/22 03:14 Triple Phos Crystals Few 04/21/22 03:14 Urine Mucus Few /HPF 04/21/22 03:14 Urine Creatinine 69.3 mg/dL (0.1-20.0) H 04/21/22 17:46 Urine Sodium 77 mmol/L 04/21/22 17:46 Nasal Screen MRSA (PCR) Positive (Negative) 04/22/22 Unknown Random Vancomycin 15.2 ug/mL (0-40.0) 04/27/22 04:53 Proteinase 3 (PR3) Ab <1.0 AI (<1.0) 04/21/22 21:20 Myeloperoxidase Ab <1.0 AI (<1.0) 04/21/22 21:20 Complement C3 129 mg/dL (82-185) 04/21/22 21:20 Complement C4 40 mg/dL (15-53) 04/21/22 21:20 Hep Bs Antigen Non-reactive (Negative) 04/21/22 21:20 Hepatitis C Antibody Non-reactive (NonReactive) 04/21/22 21:20 Blood Type A POSITIVE 04/21/22 15:30 Antibody Screen Negative 04/21/22 15:30 Crossmatch See Detail 04/21/22 15:30 Microbiology: Microbiology 04/21/22 15:27 Peripheral/Venous Blood Culture - Final NO GROWTH AFTER 5 DAYS 04/21/22 15:27 Peripheral/Venous Blood Culture - Final NO GROWTH AFTER 5 DAYS 04/21/22 Unknown Back Anaerobic Culture - Preliminary Jackson/IV: Voiding Method Indwelling Catheter Active Medications - Current Medications Current Medications: Generic Name Dose Route Start Last Admin Trade Name Freq PRN Reason Stop Dose Admin Acetaminophen 650 mg 04/21/22 13:47 04/23/22 22:06 Acetaminophen 325 Mg Tab PO 650 mg Q4H PRN Administration Pain MILD(1-3)/Fever >100.5/SHARPE Albuterol 2.5 mg 04/21/22 13:47 Albuterol 2.5 Mg/3 Ml Nebu IH Q4HRT PRN Shortness Of Breath Amlodipine Besylate 10 mg 04/26/22 11:00 04/26/22 12:46 Amlodipine 10 Mg Tab PO 10 mg QDAY CHAYA Administration Atorvastatin Calcium 40 mg 04/21/22 22:00 04/26/22 21:31 Atorvastatin 40 Mg Tab PO 40 mg QHS CHAYA Administration Gabapentin 400 mg 04/22/22 18:00 04/26/22 17:39 Gabapentin 400 Mg Cap PO 400 mg QPM CHAYA Administration Hydralazine HCl 10 mg 04/25/22 19:00 04/26/22 12:48 Hydralazine 20 Mg/1 Ml Inj IV 10 mg Q4HR PRN Administration BP > 150/95 Hydrochlorothiazide 25 mg 04/22/22 10:00 04/26/22 10:27 Hydrochlorothiazide 25 Mg Tab PO 25 mg QDAY CHAYA Administration Hydromorphone HCl 0.5 mg 04/21/22 13:47 04/23/22 04:28 Hydromorphone 0.5 Mg/0.5 Ml Inj IV 0.5 mg Q23H PRN Administration Pain , Severe (7-10) Sodium Chloride 1,000 mls @ 135 mls/hr 04/21/22 14:00 04/27/22 01:38 Nacl 0.9% 1000 Ml IV 135 mls/hr DIRECT CHAAY Administration Morphine Sulfate 2 mg 04/21/22 18:00 04/27/22 05:38 Morphine 2 Mg/1 Ml Inj IV 2 mg Q4H PRN Administration Pain, Moderate (4-6) Multivitamins 1 each 04/24/22 10:00 04/26/22 10:27 Multivitamins ,Therapeutic Tab PO 1 each QDAY CHAYA Administration Ondansetron HCl 4 mg 04/23/22 10:00 04/27/22 05:38 Ondansetron 4 Mg/2 Ml Inj IV 4 mg Q4H PRN Administration Nausea And Vomiting Oxycodone/Acetaminophen 1 tab 04/21/22 13:47 Oxycodone /Acetaminophen 5-325mg Tab PO Q16H PRN Pain, Moderate (4-6) Sodium Bicarbonate 1,300 mg 04/21/22 20:00 04/26/22 20:27 Sodium Bicarbonate 650 Mg Tab PO 1,300 mg TID CHAYA Administration Sodium Chloride 10 ml 04/21/22 22:00 04/26/22 21:34 Sodium Chloride 0.9% 10 Ml Flush Syringe IV 10 ml BID CHAYA Administration Sodium Chloride 10 ml 04/21/22 13:47 Sodium Chloride 0.9% 10 Ml Flush Syringe IV PRN PRN LINE FLUSH
--- NOTE | 2022-04-27 09:28 | Progress Note ---
Assessment and Plan Impression: * Acute kidney injury --SCr 1.3mg/dL in Aug 2021 * Skin abscess --Wound culture: MRSA * Acidosis * Hyponatremia * Hypertension * Diarrhea Plan: * Renal function gradually improving - continue to monitor renal function * Continue gentle IVF; encourage po hydration * Continue sodium bicarb tabs * Continue Amlodipine 10mg daily * Hold ACEi * Transfuse pRBC prn * Monitor Vanco level to avoid nephrotoxicity * Dose medicatons for renal function * Avoid nephrotoxins Subjective Date of service: 04/27/22 Principal diagnosis: Back abscess Interval history: Reports diarrhea Objective - Vital Signs Vital signs: Vital Signs - 12hr 04/26/22 04/26/22 21:28 23:00 Temperature 98.2 F Pulse Rate 84 Respiratory 12 18 Rate Blood Pressure 126/70 O2 Sat by Pulse 99 100 Oximetry - General Appearance General appearance: well-developed, well-nourished EENT: ATNC Respiratory: Present: Clear to Ascultation Cardiology: regular, S1S2 Gastrointestinal: normal Integumentary: no rash, warm and dry Neurologic: alert and oriented x3 - Lab 04/27/22 04:53 04/27/22 04:53 Most recent lab results ABG pH 7.301 pH Units (7.350-7.450) L 04/22/22 16:02 ABG pCO2 34.1 mm Hg 04/22/22 16:02 ABG pO2 119.7 mm Hg (80.0-90.0) H 04/22/22 16:02 ABG HCO3 16.4 mmol/L (20.0-26.0) L 04/22/22 16:02 ABG O2 Saturation 96.6 % (95.0-99.0) 04/22/22 16:02 Calcium 7.6 mg/dL (8.4-10.2) L 04/27/22 04:53 Urine Creatinine 69.3 mg/dL (0.1-20.0) H 04/21/22 17:46 Urine Sodium 77 mmol/L 04/21/22 17:46 Medications & Allergies - Medications Allergies/Adverse Reactions: Allergies No Known Allergies Allergy (Verified 04/21/22 08:44) Home Medications: Home Medications Medication Instructions Recorded Confirmed Last Taken Type Folic Acid [Folvite] 1 mg PO QDAY 08/17/21 04/22/22 04/21/22 History amLODIPine [Norvasc] 5 mg PO DAILY 08/17/21 04/22/22 04/21/22 History carvediloL [Coreg] 25 mg PO Q12H 08/17/21 04/22/22 04/21/22 History hydroCHLOROthiazide [HCTZ] 25 mg PO QDAY 08/17/21 04/22/22 04/21/22 History Loperamide [Imodium] 2 mg PO BID 04/22/22 04/22/22 04/21/22 History Active Medications: Generic Name Dose Route Start Last Admin Trade Name Freq PRN Reason Stop Dose Admin Acetaminophen 650 mg 04/21/22 13:47 04/23/22 22:06 Acetaminophen 325 Mg Tab PO 650 mg Q4H PRN Administration Pain MILD(1-3)/Fever >100.5/SHARPE Albuterol 2.5 mg 04/21/22 13:47 Albuterol 2.5 Mg/3 Ml Nebu IH Q4HRT PRN Shortness Of Breath Amlodipine Besylate 10 mg 04/26/22 11:00 04/26/22 12:46 Amlodipine 10 Mg Tab PO 10 mg QDAY CHAYA Administration Atorvastatin Calcium 40 mg 04/21/22 22:00 04/26/22 21:31 Atorvastatin 40 Mg Tab PO 40 mg QHS CHAYA Administration Gabapentin 400 mg 04/22/22 18:00 04/26/22 17:39 Gabapentin 400 Mg Cap PO 400 mg QPM CHAYA Administration Hydralazine HCl 10 mg 04/25/22 19:00 04/26/22 12:48 Hydralazine 20 Mg/1 Ml Inj IV 10 mg Q4HR PRN Administration BP > 150/95 Hydrochlorothiazide 25 mg 04/22/22 10:00 04/26/22 10:27 Hydrochlorothiazide 25 Mg Tab PO 25 mg QDAY CHAYA Administration Hydromorphone HCl 0.5 mg 04/21/22 13:47 04/23/22 04:28 Hydromorphone 0.5 Mg/0.5 Ml Inj IV 0.5 mg Q23H PRN Administration Pain , Severe (7-10) Sodium Chloride 1,000 mls @ 135 mls/hr 04/21/22 14:00 04/27/22 01:38 Nacl 0.9% 1000 Ml IV 135 mls/hr DIRECT CHAYA Administration Morphine Sulfate 2 mg 04/21/22 18:00 04/27/22 05:38 Morphine 2 Mg/1 Ml Inj IV 2 mg Q4H PRN Administration Pain, Moderate (4-6) Multivitamins 1 each 04/24/22 10:00 04/26/22 10:27 Multivitamins ,Therapeutic Tab PO 1 each QDAY CHAYA Administration Ondansetron HCl 4 mg 04/23/22 10:00 04/27/22 05:38 Ondansetron 4 Mg/2 Ml Inj IV 4 mg Q4H PRN Administration Nausea And Vomiting Oxycodone/Acetaminophen 1 tab 04/21/22 13:47 Oxycodone /Acetaminophen 5-325mg Tab PO Q16H PRN Pain, Moderate (4-6) Sodium Bicarbonate 1,300 mg 04/21/22 20:00 04/26/22 20:27 Sodium Bicarbonate 650 Mg Tab PO 1,300 mg TID CHAYA Administration Sodium Chloride 10 ml 04/21/22 22:00 04/26/22 21:34 Sodium Chloride 0.9% 10 Ml Flush Syringe IV 10 ml BID CHAYA Administration Sodium Chloride 10 ml 04/21/22 13:47 Sodium Chloride 0.9% 10 Ml Flush Syringe IV PRN PRN LINE FLUSH
[2022-04-27] MEDS: hydroCHLOROthiazide 25 MG TAB PO SCH (09:52)
[2022-04-27] MEDS: SODIUM BICARBONATE 650 MG TAB PO SCH ×3 (09:52→20:55)
[2022-04-27] MEDS: amLODIPine 10 MG TAB PO SCH (09:52)
[2022-04-27] MEDS: MULTIVITAMINS ,THERAPEUTIC TAB PO SCH (09:52)
--- NOTE | 2022-04-27 13:42 | Progress Note ---
Assessment and Plan Cultures: 04/21/2022 urine culture: Mixed shailesh 04/21/2022 blood culture: No growth 04/21/2022 surgical culture from back: MRSA A/P: 46-year-old male with diabetes, asthma, nicotine dependence, chronic diarrhea, Tad's gangrene s/p orchiectomy, indwelling Jackson was admitted to the hospital with back pain: #Sepsis secondary to subcutaneous abscess of the lower back: S/p I&D on 04/21/2022. Cultures growing Staph aureus #LAN: Renally adjust antibiotics. Nephrology following. #DM #Chronic diarrhea: Evaluated several times at [place], he said at one point he was told he has Crohn's disease and was given a dose of Humira, later he was told it is not Crohn's. HIV test negative as per patient. #Patient reported history of Tad's gangrene and has an indwelling Jackson catheter since then Recs: -Continue IV vancomycin for now, target trough between 10 to 15 mcg/mL, renally adjusted -Okay to discharge on doxycycline 100 mg every 12 hours for 7 days -Exchange Jackson catheter, as per patient, it was last exchanged about 2 months ago -wound care and glycemic control ID will sign off. Please call questions. Evonne Nichole MD [facility] ([facility] O: [phone] F: [phone] Subjective Date of service: 04/27/22 Principal diagnosis: Back abscess Interval history: Afebrile, normal white count. No acute change. Objective - Exam Narrative Exam: Physical Exam: Constitutional: Alert, cooperative. No acute distress Head, Ears, Nose: Normocephalic, atraumatic. Eyes: Conjunctivae/corneas clear. No icterus. No ptosis. Neck: Supple, no meningeal signs Cardiovascular: S1, S2 + Respiratory: Good air entry, clear to auscultation bilaterally GI: Soft, non-tender; bowel sounds normal. No peritoneal signs Musculoskeletal: Back wound with dressing present Skin: No rash or abscess Hem/Lymphatic: No palpable cervical or supraclavicular nodes. No lymphangitis Psych: Mood ok. Affect normal Neurological: Awake, alert, oriented. No gross abnormality - Constitutional Vitals: Vital Signs Temp Pulse Resp BP Pulse Ox 97.5 F L 78 16 141/78 97 04/27/22 11:45 04/27/22 11:45 04/27/22 11:45 04/27/22 11:45 04/27/22 11:45 Temperature -Last 24 Hours Temperature 97.5 F Temperature 97.8 F Temperature 98.2 F Temperature 97.9 F - Labs CBC & Chem 7: 04/27/22 04:53 04/27/22 04:53 Labs: Abnormal lab results 04/27/22 04/27/22 Range/Units 04:53 04:53 RBC 2.26 L (3.65-5.03) M/mm3 Hgb 7.3 L (11.8-15.2) gm/dl Hct 22.4 L (35.5-45.6) % MCV 99 H (84-94) fl RDW 16.5 H (13.2-15.2) % Lymph % (Auto) 11.9 L (13.4-35.0) % Lymph # (Auto) 1.1 L (1.2-5.4) K/mm3 Seg Neutrophils % 81.2 H (40.0-70.0) % Chloride 113.1 H (98-107) mmol/L Carbon Dioxide 18 L (22-30) mmol/L BUN 33 H (9-20) mg/dL Creatinine 2.6 H (0.8-1.3) mg/dL Calcium 7.6 L (8.4-10.2) mg/dL
[2022-04-27] MEDS: GABAPENTIN 400 MG CAP PO SCH (18:12)
[2022-04-27 22:23] LABS: Albumin 3.4 g/dL (3.8-4.8); Gamma Globulin 1.4 g/dL (0.8-1.7)
[2022-04-27] MEDS ORDERED: VANCOMYCIN/NS 1 GM/250 ML 1 GM/250 ML BAG IV ONE (23:00)
[2022-04-28] MEDS: SODIUM BICARBONATE 650 MG TAB PO SCH ×3 (08:58→21:41)
[2022-04-28] MEDS: amLODIPine 10 MG TAB PO SCH (09:16)
[2022-04-28] MEDS: DOXYCYCLINE 100 MG CAP PO SCH ×2 (09:16→21:41)
[2022-04-28] MEDS: hydroCHLOROthiazide 25 MG TAB PO SCH (09:16)
[2022-04-28] MEDS: MULTIVITAMINS ,THERAPEUTIC TAB PO SCH (09:16)
--- NOTE | 2022-04-28 09:48 | Progress Note ---
Assessment and Plan Impression: * Acute kidney injury --SCr 1.3mg/dL in Aug 2021 * Skin abscess --Wound culture: MRSA * Acidosis * Hyponatremia * Hypertension * Diarrhea Plan: * AM labs not available at time of visit * Continue gentle IVF; encourage po hydration * Continue sodium bicarb tabs * Continue Amlodipine 10mg daily * Hold ACEi * GI work up per primary team * Transfuse pRBC prn * Monitor Vanco level to avoid nephrotoxicity * Dose medicatons for renal function * Avoid nephrotoxins Subjective Date of service: 04/28/22 Principal diagnosis: Back abscess Interval history: Patient reports diarrhea Objective - Vital Signs Vital signs: Vital Signs - 12hr 04/27/22 04/28/22 23:00 04:14 Temperature 97.9 F Pulse Rate 90 Respiratory 18 16 Rate Blood Pressure 141/75 O2 Sat by Pulse 98 97 Oximetry - General Appearance General appearance: well-developed, well-nourished EENT: ATNC Respiratory: Present: Clear to Ascultation Cardiology: regular, S1S2 Integumentary: warm and dry Neurologic: alert and oriented x3 Psychiatric: cooperative - Lab 04/27/22 04:53 04/29/22 05:42 Most recent lab results ABG pH 7.301 pH Units (7.350-7.450) L 04/22/22 16:02 ABG pCO2 34.1 mm Hg 04/22/22 16:02 ABG pO2 119.7 mm Hg (80.0-90.0) H 04/22/22 16:02 ABG HCO3 16.4 mmol/L (20.0-26.0) L 04/22/22 16:02 ABG O2 Saturation 96.6 % (95.0-99.0) 04/22/22 16:02 Calcium 7.6 mg/dL (8.4-10.2) L 04/27/22 04:53 Urine Creatinine 69.3 mg/dL (0.1-20.0) H 04/21/22 17:46 Urine Sodium 77 mmol/L 04/21/22 17:46 Medications & Allergies - Medications Allergies/Adverse Reactions: Allergies No Known Allergies Allergy (Verified 04/21/22 08:44) Home Medications: Home Medications Medication Instructions Recorded Confirmed Last Taken Type Folic Acid [Folvite] 1 mg PO QDAY 08/17/21 04/22/2222 History amLODIPine [Norvasc] 5 mg PO DAILY 08/17/21 04/22/22 04/21/22 History carvediloL [Coreg] 25 mg PO Q12H 08/17/21 04/22/22 04/21/22 History hydroCHLOROthiazide [HCTZ] 25 mg PO QDAY 08/17/21 04/22/22 04/21/22 History Loperamide [Imodium] 2 mg PO BID 04/22/22 04/22/22 04/21/22 History Active Medications: Generic Name Dose Route Start Last Admin Trade Name Freq PRN Reason Stop Dose Admin Acetaminophen 650 mg 04/21/22 13:47 04/23/22 22:06 Acetaminophen 325 Mg Tab PO 650 mg Q4H PRN Administration Pain MILD(1-3)/Fever >100.5/SHARPE Albuterol 2.5 mg 04/21/22 13:47 Albuterol 2.5 Mg/3 Ml Nebu IH Q4HRT PRN Shortness Of Breath Amlodipine Besylate 10 mg 04/26/22 11:00 04/28/22 09:16 Amlodipine 10 Mg Tab PO 10 mg QDAY CHAYA Administration Atorvastatin Calcium 40 mg 04/21/22 22:00 04/27/22 21:55 Atorvastatin 40 Mg Tab PO 40 mg QHS CHAYA Administration Doxycycline Hyclate 100 mg 04/28/22 10:00 04/28/22 09:16 Doxycycline 100 Mg Cap PO 05/04/22 22:01 100 mg Q12HR CHAYA Administration Gabapentin 400 mg 04/22/22 18:00 04/27/22 18:12 Gabapentin 400 Mg Cap PO 400 mg QPM CHAYA Administration Hydralazine HCl 10 mg 04/25/22 19:00 04/26/22 12:48 Hydralazine 20 Mg/1 Ml Inj IV 10 mg Q4HR PRN Administration BP > 150/95 Hydrochlorothiazide 25 mg 04/22/22 10:00 04/28/22 09:16 Hydrochlorothiazide 25 Mg Tab PO 25 mg QDAY CHAYA Administration Hydromorphone HCl 0.5 mg 04/21/22 13:47 04/23/22 04:28 Hydromorphone 0.5 Mg/0.5 Ml Inj IV 0.5 mg Q23H PRN Administration Pain , Severe (7-10) Sodium Chloride 1,000 mls @ 135 mls/hr 04/21/22 14:00 04/27/22 22:00 Nacl 0.9% 1000 Ml IV 135 mls/hr DIRECT CHAYA Administration Morphine Sulfate 2 mg 04/21/22 18:00 04/27/22 21:55 Morphine 2 Mg/1 Ml Inj IV 2 mg Q4H PRN Administration Pain, Moderate (4-6) Multivitamins 1 each 04/24/22 10:00 04/28/22 09:16 Multivitamins ,Therapeutic Tab PO 1 each QDAY CHAYA Administration Ondansetron HCl 4 mg 04/23/22 10:00 04/27/22 21:55 Ondansetron 4 Mg/2 Ml Inj IV 4 mg Q4H PRN Administration Nausea And Vomiting Oxycodone/Acetaminophen 1 tab 04/21/22 13:47 Oxycodone /Acetaminophen 5-325mg Tab PO Q16H PRN Pain, Moderate (4-6) Sodium Bicarbonate 1,300 mg 04/21/22 20:00 04/28/22 08:58 Sodium Bicarbonate 650 Mg Tab PO 1,300 mg TID CHAYA Administration Sodium Chloride 10 ml 04/21/22 22:00 04/28/22 09:16 Sodium Chloride 0.9% 10 Ml Flush Syringe IV 10 ml BID CHAYA Administration Sodium Chloride 10 ml 04/21/22 13:47 Sodium Chloride 0.9% 10 Ml Flush Syringe IV PRN PRN LINE FLUSH
[2022-04-28] MEDS: MORPHINE 2 MG/1 ML INJ IV PRN ×3 (11:25→21:41)
[2022-04-28 12:25] LABS: ANA Screen, IFA Negative (Negative)
[2022-04-28] MEDS: SODIUM CHLORIDE 0.9% 1000 ML 1,000 ML IV SCH ×2 (15:54→21:43)
[2022-04-28] MEDS: GABAPENTIN 400 MG CAP PO SCH (17:08)
--- NOTE | 2022-04-28 19:25 | Progress Note ---
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 Patient found to have a fluctuant mass to the right paraspinal region with superimposed erythema consistent with cellulitis complicated by right paraspinal abscess, sepsis, as well as urinary tract infection, and hyponatremia. --Paraspinal abscess; surgeon evaluated the patient Status post incision drainage, continue wound care, continue IV antibiotics Surgery and ID following --Cellulitis; continue IV antibiotics, follow cultures --Sepsis; due to paraspinal abscess/cellulitis[present on admission] Continue sepsis protocol, IV fluids, IV antibiotics, follow cultures --UTI; urinary tract infection present on admission Continue empiric antibiotics, follow cultures, IV fluids --Acute kidney injury secondary to ATN from sepsis/vasomotor nephropathy; Closely monitor renal function, avoid nephrotoxins, renal dosing of medications Nephrology following --Hyponatremia; present on admission Sodium level significantly improved, closely monitor electrolytes --Anemia; Hb 6.7, received 1 unit PRBC improved to 7.3 Closely monitor H&H, transfuse additional PRBC as needed --Severe protein calorie malnutrition; Nutrition supplements, nutrition consult, supportive care --Ongoing tobacco use/nicotine dependence Smoking cessation counseling done, strongly advised to quit tobacco use Risks and sequelae of chronic tobacco use discussed with the patient He verbalized understanding I also discussed role of nicotine patch and smoking cessation Answered all his questions, total time spent 17 minutes --DVT prophylaxis; Patient is postop state SCDs, no pharmacologic anticoagulation --Advance care planning; I discussed in detail with the patient his condition I discussed his tests and reports, I discussed his treatment plan I discussed the consultants evaluation recommendations, I discussed discharge planning I also discussed smoking cessation, also discussed usage of nicotine patch. Patient has few questions, answered all of them, he verbalized understanding Ordered nicotine patch to his treatment regimen total time 35 minutes 04/22/2022. Patient underwent I&D of back abscess earlier today. Nephrology recommends Jackson change and follow-up serologies. Continue IV fluid hydration and hold lisinopril. No immediate indication for hemodialysis. Continue to josh ally dose medications and avoid nephrotoxins. Continue renal diet. Patient also reports having chronic diarrhea and previous work-up at [place] in the past. However, patient now reports approximately 50 pound weight loss in the past 2 months. We will consult GI for further evaluation 04/23/2022. Continue wound care of back abscess/I&D. Hemoglobin 6.7 today. We will transfuse 1 unit PRBCs. Patient does report BRBPR approximately 1 week ago. However, no active bleeding or recent history of hematochezia/melena. We will start Protonix daily. Given the history of anemia, weight loss and BRBPR, patient may need colonoscopy. Await GI evaluation. We will follow-up iron studies, B12, folate reticulocyte count and LDH. Check occult stool. Nephrology following for acute kidney injury. 04/24/2022. Continue IV fluid hydration for acute kidney injury likely secondary to vasomotor nephropathy. Creatinine slightly improved to 3.0 today. Hemoglobin improved to 8.1 s/p PRBCs. Cefepime discontinued and ID recommends IV vancomycin for now. Follow-up culture results for de-escalation of antibiotics. Upon discharge, we will treat with Keflex continue wound care per nursing 3 times a day with saline. Surgery following. Patient continues to complain of intermittent diarrhea. GI evaluated the patient and reports patient has had multiple previous admits to [facility] and likely does not have active Crohn's disease. GI believes that the 50 pound weight loss is secondary to severe protein calorie malnutrition from psychosocial issues. Follow-up stool for C. difficile. 04/25/2022. Creatinine only slightly improved to 2.9. Continue IV fluid hydration for acute kidney injury likely secondary to vasomotor nephropathy/dehydration. Continue sodium bicarbonate. Hold lisinopril given the acute kidney injury. Continue to monitor vancomycin level. Gabapentin dose reduced. Avoid nephrotoxins. No indication for hemodialysis per nephrology. Follow-up culture results for de-escalation of antibiotics. Upon discharge, we will treat with Keflex. ID following 04/26/2022. Patient reports several episodes of diarrhea yesterday. No hematochezia or melena. S/p drainage of abscess POD 5. Creatinine slowly improving. cr. 4.1-->3.5-->3.5-->3.0-->2.9-->2.7. Continue IV fluid hydration for acute kidney injury likely secondary to vasomotor nephropathy/dehydration. Continue sodium bicarbonate. Hold lisinopril given the acute kidney injury. Continue to monitor vancomycin level. Avoid nephrotoxins. No indication for hemodialysis per nephrology. Follow-up culture results for de-escalation of antibiotics. Upon discharge, we will treat with Keflex. ID following 04/27/2022; MRSA sepsis, ID managing with IV vancomycin, contact isolation Smoking cessation counseling, status post paraspinal abscess incision drainage, continue wound care Continue supportive, smoking cessation, DC planning, surgeon cleared for discharge DC planning per case management 04/28; continue current management; continue vancomycin per ID May discharge on doxycycline for 7 days [when medically stable] PT/OT evaluate and treat, DC needs Possible discharge in 1 to 2 days if stable DC planning per case management History Interval history: I have seen and examined the patient at the bedside Patient's chart and medications reviewed Patient feels slightly better Complains of mild pain in the back Vital signs noted Hospitalist Physical - Constitutional Vitals: Temp Pulse Resp BP Pulse Ox 98.6 F 87 14 137/79 96 04/28/22 16:19 04/28/22 16:19 04/28/22 16:19 04/28/22 16:19 04/28/22 16:19 General appearance: Present: no acute distress, well-nourished - EENT Eyes: Present: PERRL, EOM intact - Neck Neck: Present: supple, normal ROM - Respiratory Respiratory effort: normal Respiratory: bilateral: diminished, negative: rales, rhonchi, wheezing - Cardiovascular Rhythm: regular Heart Sounds: Present: S1 & S2 - Extremities Extremities: no ischemia, No edema - Abdominal General gastrointestinal: soft, non-tender, non-distended, normal bowel sounds - Integumentary Integumentary: Present: clear, warm - Psychiatric Psychiatric: appropriate mood/affect, cooperative - Neurologic Neurologic: moves all extremities Results - Labs CBC & Chem 7: 04/27/22 04:53 04/27/22 04:53 Labs: Laboratory Last Values WBC 9.2 K/mm3 (4.5-11.0) 04/27/22 04:53 RBC 2.26 M/mm3 (3.65-5.03) L 04/27/22 04:53 Hgb 7.3 gm/dl (11.8-15.2) L 04/27/22 04:53 Hct 22.4 % (35.5-45.6) L 04/27/22 04:53 MCV 99 fl (84-94) H 04/27/22 04:53 MCH 32 pg (28-32) 04/27/22 04:53 MCHC 33 % (32-34) 04/27/22 04:53 RDW 16.5 % (13.2-15.2) H 04/27/22 04:53 Plt Count 236 K/mm3 (140-440) 04/27/22 04:53 Lymph % (Auto) 11.9 % (13.4-35.0) L 04/27/22 04:53 [place] % (Auto) 4.5 % (0.0-7.3) 04/27/22 04:53 Eos % (Auto) 1.9 % (0.0-4.3) 04/27/22 04:53 Baso % (Auto) 0.5 % (0.0-1.8) 04/27/22 04:53 Lymph # (Auto) 1.1 K/mm3 (1.2-5.4) L 04/27/22 04:53 [place] # (Auto) 0.4 K/mm3 (0.0-0.8) 04/27/22 04:53 Eos # (Auto) 0.2 K/mm3 (0.0-0.4) 04/27/22 04:53 Baso # (Auto) 0.0 K/mm3 (0.0-0.1) 04/27/22 04:53 Seg Neutrophils % 81.2 % (40.0-70.0) H 04/27/22 04:53 Seg Neutrophils # 7.4 K/mm3 (1.8-7.7) 04/27/22 04:53 Percent Retic 0.97 % (0.78-2.58) 04/23/22 10:31 ABG pH 7.301 pH Units (7.350-7.450) L 04/22/22 16:02 ABG pCO2 34.1 mm Hg 04/22/22 16:02 ABG pO2 119.7 mm Hg (80.0-90.0) H 04/22/22 16:02 ABG HCO3 16.4 mmol/L (20.0-26.0) L 04/22/22 16:02 ABG O2 Saturation 96.6 % (95.0-99.0) 04/22/22 16:02 ABG O2 Content 8.2 (0.0-44) 04/22/22 16:02 ABG Base Excess -9.2 mmol/L (-2.0-3.0) L 04/22/22 16:02 ABG Hemoglobin 5.9 gm/dl (14.0-18.0) L 04/22/22 16:02 ABG Carboxyhemoglobin 0.2 % (0.0-5.0) 04/22/22 16:02 ABG Methemoglobin 0.3 % (0.0-1.5) 04/22/22 16:02 Oxyhemoglobin 96.1 % (95.0-99.0) 04/22/22 16:02 FiO2 21 % 04/22/22 16:02 Sodium 140 mmol/L (137-145) 04/27/22 04:53 Potassium 4.3 mmol/L (3.6-5.0) 04/27/22 04:53 Chloride 113.1 mmol/L (98-107) H 04/27/22 04:53 Carbon Dioxide 18 mmol/L (22-30) L 04/27/22 04:53 Anion Gap 13 mmol/L 04/27/22 04:53 BUN 33 mg/dL (9-20) H 04/27/22 04:53 Creatinine 2.6 mg/dL (0.8-1.3) H 04/27/22 04:53 Estimated GFR 32 ml/min 04/27/22 04:53 BUN/Creatinine Ratio 13 % 04/27/22 04:53 Glucose 80 mg/dL (75-100) 04/27/22 04:53 POC Glucose 88 mg/dL (70-105) 04/21/22 20:27 Lactic Acid 0.50 mmol/L (0.7-2.0) L 04/21/22 21:20 Calcium 7.6 mg/dL (8.4-10.2) L 04/27/22 04:53 Iron 43 ug/dL (49-181) L 04/23/22 10:31 TIBC 164 mcg/dL (250-450) L 04/23/22 10:31 Ferritin 190.4 ng/mL (30.0-300.0) 04/23/22 10:31 Total Bilirubin 0.30 mg/dL (0.1-1.2) 04/21/22 03:07 AST 56 units/L (5-40) H 04/21/22 03:07 ALT 47 units/L (7-56) 04/21/22 03:07 Alkaline Phosphatase 111 units/L (35-129) 04/21/22 03:07 Lactate Dehydrogenase 166 units/L (91-180) 04/23/22 10:31 Total Creatine Kinase 94 units/L (55-170) 04/21/22 21:20 Serum Total Protein 7.0 g/dL (6.1-8.1) 04/21/22 21:20 Total Protein 7.8 g/dL (6.3-8.2) 04/21/22 03:07 Albumin 3.4 g/dL (3.8-4.8) L 04/21/22 21:20 Albumin/Globulin Ratio 1.0 % 04/21/22 03:07 Mnkxd-7-Hbcexawur 0.4 g/dL (0.2-0.3) H 04/21/22 21:20 Fseft-1-Kuwkoizuh 0.8 g/dL (0.5-0.9) 04/21/22 21:20 Beta Globulins 0.5 g/dL (0.2-0.5) 04/21/22 21:20 Gamma Globulins 1.4 g/dL (0.8-1.7) 04/21/22 21:20 Abnorm Protein Band 1 see below 04/21/22 21:20 PEP Interpretation see below H 04/21/22 21:20 Lipase 39 units/L (13-60) 04/21/22 03:07 Vitamin B12 1307 pg/mL (211-911) H 04/23/22 10:31 Folate 9.90 ng/mL (7.3-26.0) 04/23/22 10:31 Urine Color Colorless (Yellow) 04/21/22 03:14 Urine Turbidity Slightly cloudy (Clear) 04/21/22 03:14 Specific Pierre (Man) 1.000 (1.003-1.030) L 04/21/22 03:14 Ur Protein (Man) 2+ mg/dL (Negative) 04/21/22 03:14 Ur Ketones (Man) Negative (Negative) 04/21/22 03:14 Urine Bilirubin (Man) Negative (Negative) 04/21/22 03:14 Urine WBC (Auto) 16.0 /HPF (0.0-6.0) H 04/21/22 03:14 Urine RBC (Auto) 4.0 /HPF (0.0-6.0) 04/21/22 03:14 Urine RBC (Manual) 5+ (Negative) 04/21/22 03:14 Triple Phos Crystals Few 04/21/22 03:14 Urine Mucus Few /HPF 04/21/22 03:14 Urine Creatinine 69.3 mg/dL (0.1-20.0) H 04/21/22 17:46 Urine Sodium 77 mmol/L 04/21/22 17:46 Nasal Screen MRSA (PCR) Positive (Negative) 04/22/22 Unknown Random Vancomycin 15.2 ug/mL (0-40.0) 04/27/22 04:53 Immunofix Electrophor see below 04/21/22 21:20 KIM Screen Negative (Negative) 04/21/22 21:20 Proteinase 3 (PR3) Ab <1.0 AI (<1.0) 04/21/22 21:20 Myeloperoxidase Ab <1.0 AI (<1.0) 04/21/22 21:20 Complement C3 129 mg/dL (82-185) 04/21/22 21:20 Complement C4 40 mg/dL (15-53) 04/21/22 21:20 Hep Bs Antigen Non-reactive (Negative) 04/21/22 21:20 Hepatitis C Antibody Non-reactive (NonReactive) 04/21/22 21:20 Blood Type A POSITIVE 04/21/22 15:30 Antibody Screen Negative 04/21/22 15:30 Crossmatch See Detail 04/21/22 15:30 Jackson/IV: Voiding Method Indwelling Catheter Active Medications - Current Medications Current Medications: Generic Name Dose Route Start Last Admin Trade Name Freq PRN Reason Stop Dose Admin Acetaminophen 650 mg 04/21/22 13:47 04/23/22 22:06 Acetaminophen 325 Mg Tab PO 650 mg Q4H PRN Administration Pain MILD(1-3)/Fever >100.5/SHARPE Albuterol 2.5 mg 04/21/22 13:47 Albuterol 2.5 Mg/3 Ml Nebu IH Q4HRT PRN Shortness Of Breath Amlodipine Besylate 10 mg 04/26/22 11:00 04/28/22 09:16 Amlodipine 10 Mg Tab PO 10 mg QDAY CHAYA Administration Atorvastatin Calcium 40 mg 04/21/22 22:00 04/27/22 21:55 Atorvastatin 40 Mg Tab PO 40 mg QHS CHAYA Administration Doxycycline Hyclate 100 mg 04/28/22 10:00 04/28/22 09:16 Doxycycline 100 Mg Cap PO 05/04/22 22:01 100 mg Q12HR CHAYA Administration Gabapentin 400 mg 04/22/22 18:00 04/28/22 17:08 Gabapentin 400 Mg Cap PO 400 mg QPM CHAYA Administration Hydralazine HCl 10 mg 04/25/22 19:00 04/26/22 12:48 Hydralazine 20 Mg/1 Ml Inj IV 10 mg Q4HR PRN Administration BP > 150/95 Hydrochlorothiazide 25 mg 04/22/22 10:00 04/28/22 09:16 Hydrochlorothiazide 25 Mg Tab PO 25 mg QDAY CHAYA Administration Hydromorphone HCl 0.5 mg 04/21/22 13:47 04/23/22 04:28 Hydromorphone 0.5 Mg/0.5 Ml Inj IV 0.5 mg Q23H PRN Administration Pain , Severe (7-10) Sodium Chloride 1,000 mls @ 135 mls/hr 04/21/22 14:00 04/28/22 15:54 Nacl 0.9% 1000 Ml IV 135 mls/hr DIRECT CHAYA Administration Morphine Sulfate 2 mg 04/21/22 18:00 04/28/22 15:55 Morphine 2 Mg/1 Ml Inj IV 2 mg Q4H PRN Administration Pain, Moderate (4-6) Multivitamins 1 each 04/24/22 10:00 04/28/22 09:16 Multivitamins ,Therapeutic Tab PO 1 each QDAY CHAYA Administration Ondansetron HCl 4 mg 04/23/22 10:00 04/27/22 21:55 Ondansetron 4 Mg/2 Ml Inj IV 4 mg Q4H PRN Administration Nausea And Vomiting Oxycodone/Acetaminophen 1 tab 04/21/22 13:47 Oxycodone /Acetaminophen 5-325mg Tab PO Q16H PRN Pain, Moderate (4-6) Sodium Bicarbonate 1,300 mg 04/21/22 20:00 04/28/22 13:02 Sodium Bicarbonate 650 Mg Tab PO 1,300 mg TID CHAYA Administration Sodium Chloride 10 ml 04/21/22 22:00 04/28/22 09:16 Sodium Chloride 0.9% 10 Ml Flush Syringe IV 10 ml BID CHAYA Administration Sodium Chloride 10 ml 04/21/22 13:47 Sodium Chloride 0.9% 10 Ml Flush Syringe IV PRN PRN LINE FLUSH Nutrition/Malnutrition Assess - Dietary Evaluation Nutrition/Malnutrition Findings: Nutrition Notes Start: 04/28/22 14:53 Freq: Status: Active Protocol: Document 04/28/22 14:53 JAMES (Rec: 04/28/22 15:06 JAMES [email or web address]) Nutrition Notes Need for Assessment generated from: LOS Initial or Follow up Assessment Current Diagnosis Acute Kidney Injury,Diabetes, Sepsis,Hypertension Other Pertinent Diagnosis R-Paraspinal Abscess/ Cellulitis, Tad's Gangrene, UTI, Asthma. Current Diet Regular -No Dairy- Diet (since B 04/21). Labs/Tests 04/28: Cl 113.1, CO2 18, BUN 33, Crea 2.6, Ca 7.6. Pertinent Medications 04/28: Multivitamins, others nutritionally unremarkable. 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 Weight Status Appropriate Subjective/Other Information RD consult for LOS assessment. Pt's PO intake of meals has been Good (75-100%) and well tolerated, according to ADL notes. Pt is on Room Air, O2 saturation @ 100%, according to Physical Assessment History notes. Pt has missing teeth, according to Physical Assessment History notes. Pt presents Tad's Gangrene & Back Abscess as signs of concern for skin risk at the time, according to Physical Assessment History notes. Pt has chronic diarrhea, according to Progress notes. Percent of energy/protein needs met: Prescribed Regular -No Dairy- Diet provides for energy/ protein needs (2,289 Kcal/89 g ) during LOS. Burn Absent Trauma Absent GI Symptoms None Food Allergy No Skin Integrity/Comment Tad's Gangrene & Back Abscess. Current % PO Good (75-100%) Minimum of two criteria No Fluid Accumulation N/A Reduced Infant Caregiver Strength N/A (non-severe) Protein-Calorie Malnutrition N\A #1 Nutrition Diagnosis No nutrition diagnosis at this time Is patient on ventilator? No Is Patient Ambulatory and/or Out of Bed Yes REE-([facility]-ambulatory/OOB) [ 1820.975 [id number]] Kcal/Kg value to use for calculation 28 Approximate Energy Requirements Using 1632 kcal/Kg Calculation Used for Recommendations Kcal/kg Additional Notes Protein: 0.8-1 g/Kg ABW; 46-58 g/day. Fluids: 1 ml/Kcal, or as per MD. Nutrition Intervention Change Diet Order: Continue Regular -No Dairy- Diet as tolerated. Follow-Up By: 05/05/22 Additional Comments Continue monitoring food tolerance, %PO intake of meals , and BM.
[2022-04-29] MEDS: MORPHINE 2 MG/1 ML INJ IV PRN ×5 (02:06→22:10)
[2022-04-29 06:24] LABS: Calcium 7.5 mg/dL (8.4-10.2)
[2022-04-29] MEDS: SODIUM BICARBONATE 650 MG TAB PO SCH ×3 (08:14→22:15)
[2022-04-29] MEDS: amLODIPine 10 MG TAB PO SCH (09:17)
[2022-04-29] MEDS: MULTIVITAMINS ,THERAPEUTIC TAB PO SCH (09:18)
[2022-04-29] MEDS: DOXYCYCLINE 100 MG CAP PO SCH ×2 (09:18→22:10)
[2022-04-29] MEDS: hydroCHLOROthiazide 25 MG TAB PO SCH (09:18)
[2022-04-29] MEDS: SODIUM CHLORIDE 0.9% 1000 ML 1,000 ML IV SCH (09:32)
--- NOTE | 2022-04-29 09:46 | Progress Note ---
Assessment and Plan Impression: * Acute kidney injury --SCr 1.3mg/dL in Aug 2021 * Skin abscess --Wound culture: MRSA * Acidosis * Hyponatremia * Hypertension * Diarrhea Plan: * Note increase in SCr * Maintain IVF - NS 100ml/hour * Hold HCTZ. Continue to hold ACEi * Continue sodium bicarb tabs * Continue Amlodipine 10mg daily * Monitor Vanco level to avoid nephrotoxicity - now off * GI work up per primary team * Transfuse pRBC prn * Dose medicatons for renal function * Avoid nephrotoxins Subjective Principal diagnosis: Back abscess Interval history: Patient reports continued diarrhea Objective - Vital Signs Vital signs: Vital Signs - 12hr 04/28/22 04/28/22 04/29/22 22:28 23:00 04:54 Temperature 98.2 F 98.5 F Pulse Rate 89 90 Respiratory 20 20 20 Rate Blood Pressure 141/83 138/73 O2 Sat by Pulse 89 100 93 Oximetry 04/29/22 04/29/22 04/29/22 09:07 09:17 09:23 Temperature Pulse Rate 94 H Respiratory 20 20 Rate Blood Pressure 146/86 O2 Sat by Pulse 100 96 Oximetry - General Appearance General appearance: well-developed, well-nourished EENT: ATNC Respiratory: Present: Clear to Ascultation Cardiology: regular, S1S2 Gastrointestinal: no tenderness, no distended - Lab 04/27/22 04:53 04/30/22 04:00 Most recent lab results ABG pH 7.301 pH Units (7.350-7.450) L 04/22/22 16:02 ABG pCO2 34.1 mm Hg 04/22/22 16:02 ABG pO2 119.7 mm Hg (80.0-90.0) H 04/22/22 16:02 ABG HCO3 16.4 mmol/L (20.0-26.0) L 04/22/22 16:02 ABG O2 Saturation 96.6 % (95.0-99.0) 04/22/22 16:02 Calcium 7.5 mg/dL (8.4-10.2) L 04/29/22 05:42 Urine Creatinine 69.3 mg/dL (0.1-20.0) H 04/21/22 17:46 Urine Sodium 77 mmol/L 04/21/22 17:46 Medications & Allergies - Medications Allergies/Adverse Reactions: Allergies No Known Allergies Allergy (Verified 04/21/22 08:44) Home Medications: Home Medications Medication Instructions Recorded Confirmed Last Taken Type Folic Acid [Folvite] 1 mg PO QDAY 08/17/21 04/22/22 04/21/22 History amLODIPine [Norvasc] 5 mg PO DAILY 08/17/21 04/22/22 04/21/22 History carvediloL [Coreg] 25 mg PO Q12H 08/17/21 04/22/22 04/21/22 History hydroCHLOROthiazide [HCTZ] 25 mg PO QDAY 08/17/21 04/22/22 04/21/22 History Loperamide [Imodium] 2 mg PO BID 04/22/22 04/22/22 04/21/22 History Active Medications: Generic Name Dose Route Start Last Admin Trade Name Freq PRN Reason Stop Dose Admin Acetaminophen 650 mg 04/21/22 13:47 04/23/22 22:06 Acetaminophen 325 Mg Tab PO 650 mg Q4H PRN Administration Pain MILD(1-3)/Fever >100.5/SHARPE Albuterol 2.5 mg 04/21/22 13:47 Albuterol 2.5 Mg/3 Ml Nebu IH Q4HRT PRN Shortness Of Breath Amlodipine Besylate 10 mg 04/26/22 11:00 04/29/22 09:17 Amlodipine 10 Mg Tab PO 10 mg QDAY CHAYA Administration Atorvastatin Calcium 40 mg 04/21/22 22:00 04/28/22 21:41 Atorvastatin 40 Mg Tab PO 40 mg QHS CHAYA Administration Doxycycline Hyclate 100 mg 04/28/22 10:00 04/29/22 09:18 Doxycycline 100 Mg Cap PO 05/04/22 22:01 100 mg Q12HR CHAYA Administration Gabapentin 400 mg 04/22/22 18:00 04/28/22 17:08 Gabapentin 400 Mg Cap PO 400 mg QPM CHAYA Administration Hydralazine HCl 10 mg 04/25/22 19:00 04/26/22 12:48 Hydralazine 20 Mg/1 Ml Inj IV 10 mg Q4HR PRN Administration BP > 150/95 Hydrochlorothiazide 25 mg 04/22/22 10:00 04/29/22 09:18 Hydrochlorothiazide 25 Mg Tab PO 25 mg QDAY CHAYA Administration Hydromorphone HCl 0.5 mg 04/21/22 13:47 04/23/22 04:28 Hydromorphone 0.5 Mg/0.5 Ml Inj IV 0.5 mg Q23H PRN Administration Pain , Severe (7-10) Sodium Chloride 1,000 mls @ 135 mls/hr 04/21/22 14:00 04/29/22 09:32 Nacl 0.9% 1000 Ml IV 135 mls/hr DIRECT CHAYA Administration Morphine Sulfate 2 mg 04/21/22 18:00 04/29/22 09:17 Morphine 2 Mg/1 Ml Inj IV 2 mg Q4H PRN Administration Pain, Moderate (4-6) Multivitamins 1 each 04/24/22 10:00 04/29/22 09:18 Multivitamins ,Therapeutic Tab PO 1 each QDAY CHAYA Administration Ondansetron HCl 4 mg 04/23/22 10:00 04/27/22 21:55 Ondansetron 4 Mg/2 Ml Inj IV 4 mg Q4H PRN Administration Nausea And Vomiting Oxycodone/Acetaminophen 1 tab 04/21/22 13:47 Oxycodone /Acetaminophen 5-325mg Tab PO Q16H PRN Pain, Moderate (4-6) Sodium Bicarbonate 1,300 mg 04/21/22 20:00 04/29/22 08:14 Sodium Bicarbonate 650 Mg Tab PO 1,300 mg TID CHAYA Administration Sodium Chloride 10 ml 04/21/22 22:00 04/29/22 09:19 Sodium Chloride 0.9% 10 Ml Flush Syringe IV 10 ml BID CHAYA Administration Sodium Chloride 10 ml 04/21/22 13:47 Sodium Chloride 0.9% 10 Ml Flush Syringe IV PRN PRN LINE FLUSH
--- NOTE | 2022-04-29 15:05 | Progress Note ---
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 Patient found to have a fluctuant mass to the right paraspinal region with superimposed erythema consistent with cellulitis complicated by right paraspinal abscess, sepsis, as well as urinary tract infection, and hyponatremia. --Paraspinal abscess; surgeon evaluated the patient Status post incision drainage, continue wound care, continue IV antibiotics Surgery and ID following --Cellulitis; continue IV antibiotics, follow cultures --Sepsis; due to paraspinal abscess/cellulitis[present on admission] Continue sepsis protocol, IV fluids, IV antibiotics, follow cultures --UTI; urinary tract infection present on admission Continue empiric antibiotics, follow cultures, IV fluids --Acute kidney injury secondary to ATN from sepsis/vasomotor nephropathy; Closely monitor renal function, avoid nephrotoxins, renal dosing of medications Nephrology following --Hyponatremia; present on admission Sodium level significantly improved, closely monitor electrolytes --Anemia; Hb 6.7, received 1 unit PRBC improved to 7.3 Closely monitor H&H, transfuse additional PRBC as needed --Severe protein calorie malnutrition; Nutrition supplements, nutrition consult, supportive care --Ongoing tobacco use/nicotine dependence/cessation counseling 15 to 20 minutes Smoking cessation counseling done, strongly advised to quit tobacco use Risks and sequelae of chronic tobacco use discussed with the patient He verbalized understanding I also discussed role of nicotine patch and smoking cessation Answered all his questions, total time spent 17 minutes --DVT prophylaxis; Patient is postop state SCDs, no pharmacologic anticoagulation --Advance care planning; I discussed in detail with the patient his condition I discussed his tests and reports, I discussed his treatment plan I discussed the consultants evaluation recommendations, I discussed discharge planning I also discussed smoking cessation, also discussed usage of nicotine patch. Patient has few questions, answered all of them, he verbalized understanding Ordered nicotine patch to his treatment regimen total time 35 minutes 04/22/2022. Patient underwent I&D of back abscess earlier today. Nephrology recommends Jackson change and follow-up serologies. Continue IV fluid hydration and hold lisinopril. No immediate indication for hemodialysis. Continue to renally dose medications and avoid nephrotoxins. Continue renal diet. Patient also reports having chronic diarrhea and previous work-up at [facility] in the past. However, patient now reports approximately 50 pound weight loss in the past 2 months. We will consult GI for further evaluation 04/23/2022. Continue wound care of back abscess/I&D. Hemoglobin 6.7 today. We will transfuse 1 unit PRBCs. Patient does report BRBPR approximately 1 week ago. However, no active bleeding or recent history of hematochezia/melena. We will start Protonix daily. Given the history of anemia, weight loss and BRBPR, patient may need colonoscopy. Await GI evaluation. We will follow-up iron studies, B12, folate reticulocyte count and LDH. Check occult stool. Nephrology following for acute kidney injury. 04/24/2022. Continue IV fluid hydration for acute kidney injury likely secondary to vasomotor nephropathy. Creatinine slightly improved to 3.0 today. Hemoglobin improved to 8.1 s/p PRBCs. Cefepime discontinued and ID recommends IV vancomycin for now. Follow-up culture results for de-escalation of antibiotics. Upon discharge, we will treat with Keflex continue wound care per nursing 3 times a day with saline. Surgery following. Patient continues to complain of intermittent diarrhea. GI evaluated the patient and reports patient has had multiple previous admits to [facility] and likely does not have active Crohn's disease. GI believes that the 50 pound weight loss is secondary to severe protein calorie malnutrition from psychosocial issues. Follow-up stool for C. difficile. 04/25/2022. Creatinine only slightly improved to 2.9. Continue IV fluid hydration for acute kidney injury likely secondary to vasomotor nephropathy/dehydration. Continue sodium bicarbonate. Hold lisinopril given the acute kidney injury. Continue to monitor vancomycin level. Gabapentin dose reduced. Avoid nephrotoxins. No indication for hemodialysis per nephrology. Follow-up culture results for de-escalation of antibiotics. Upon discharge, we will treat with Keflex. ID following 04/26/2022. Patient reports several episodes of diarrhea yesterday. No hematochezia or melena. S/p drainage of abscess POD 5. Creatinine slowly improving. cr. 4.1-->3.5-->3.5-->3.0-->2.9-->2.7. Continue IV fluid hydration for acute kidney injury likely secondary to vasomotor nephropathy/dehydration. Continue sodium bicarbonate. Hold lisinopril given the acute kidney injury. Continue to monitor vancomycin level. Avoid nephrotoxins. No indication for hemodialysis per nephrology. Follow-up culture results for de-escalation of antibiotics. Upon discharge, we will treat with Keflex. ID following 04/27/2022; MRSA sepsis, ID managing with IV vancomycin, contact isolation Smoking cessation counseling, status post paraspinal abscess incision drainage, continue wound care Continue supportive, smoking cessation, DC planning, surgeon cleared for discharge DC planning per case management 04/28; continue current management; continue vancomycin per ID May discharge on doxycycline for 7 days [when medically stable] PT/OT evaluate and treat, DC needs Possible discharge in 1 to 2 days if stable DC planning per case management History Interval history: I have seen and examined the patient at the bedside Patient continues to have diarrhea No rectal bleeding or melena Hospitalist Physical - Constitutional Vitals: Temp Pulse Resp BP Pulse Ox 98.5 F 94 H 20 146/86 96 04/29/22 04:54 04/29/22 09:23 04/29/22 13:28 04/29/22 09:23 04/29/22 09:23 General appearance: Present: no acute distress, well-nourished - EENT Eyes: Present: PERRL, EOM intact - Neck Neck: Present: supple, normal ROM - Respiratory Respiratory effort: normal Respiratory: bilateral: diminished, negative: rales, rhonchi, wheezing - Cardiovascular Rhythm: regular Heart Sounds: Present: S1 & S2 - Extremities Extremities: no ischemia, No edema - Abdominal General gastrointestinal: soft, non-tender, non-distended, normal bowel sounds - Integumentary Integumentary: Present: clear, warm - Psychiatric Psychiatric: appropriate mood/affect, cooperative - Neurologic Neurologic: moves all extremities Results - Labs CBC & Chem 7: 04/27/22 04:53 04/29/22 05:42 Labs: Laboratory Last Values WBC 9.2 K/mm3 (4.5-11.0) 04/27/22 04:53 RBC 2.26 M/mm3 (3.65-5.03) L 04/27/22 04:53 Hgb 7.3 gm/dl (11.8-15.2) L 04/27/22 04:53 Hct 22.4 % (35.5-45.6) L 04/27/22 04:53 MCV 99 fl (84-94) H 04/27/22 04:53 MCH 32 pg (28-32) 04/27/22 04:53 MCHC 33 % (32-34) 04/27/22 04:53 RDW 16.5 % (13.2-15.2) H 04/27/22 04:53 Plt Count 236 K/mm3 (140-440) 04/27/22 04:53 Lymph % (Auto) 11.9 % (13.4-35.0) L 04/27/22 04:53 Evans % (Auto) 4.5 % (0.0-7.3) 04/27/22 04:53 Eos % (Auto) 1.9 % (0.0-4.3) 04/27/22 04:53 Baso % (Auto) 0.5 % (0.0-1.8) 04/27/22 04:53 Lymph # (Auto) 1.1 K/mm3 (1.2-5.4) L 04/27/22 04:53 Evans # (Auto) 0.4 K/mm3 (0.0-0.8) 04/27/22 04:53 Eos # (Auto) 0.2 K/mm3 (0.0-0.4) 04/27/22 04:53 Baso # (Auto) 0.0 K/mm3 (0.0-0.1) 04/27/22 04:53 Seg Neutrophils % 81.2 % (40.0-70.0) H 04/27/22 04:53 Seg Neutrophils # 7.4 K/mm3 (1.8-7.7) 04/27/22 04:53 Percent Retic 0.97 % (0.78-2.58) 04/23/22 10:31 ABG pH 7.301 pH Units (7.350-7.450) L 04/22/22 16:02 ABG pCO2 34.1 mm Hg 04/22/22 16:02 ABG pO2 119.7 mm Hg (80.0-90.0) H 04/22/22 16:02 ABG HCO3 16.4 mmol/L (20.0-26.0) L 04/22/22 16:02 ABG O2 Saturation 96.6 % (95.0-99.0) 04/22/22 16:02 ABG O2 Content 8.2 (0.0-44) 04/22/22 16:02 ABG Base Excess -9.2 mmol/L (-2.0-3.0) L 04/22/22 16:02 ABG Hemoglobin 5.9 gm/dl (14.0-18.0) L 04/22/22 16:02 ABG Carboxyhemoglobin 0.2 % (0.0-5.0) 04/22/22 16:02 ABG Methemoglobin 0.3 % (0.0-1.5) 04/22/22 16:02 Oxyhemoglobin 96.1 % (95.0-99.0) 04/22/22 16:02 FiO2 21 % 04/22/22 16:02 Sodium 140 mmol/L (137-145) 04/29/22 05:42 Potassium 4.2 mmol/L (3.6-5.0) 04/29/22 05:42 Chloride 111.6 mmol/L (98-107) H 04/29/22 05:42 Carbon Dioxide 20 mmol/L (22-30) L 04/29/22 05:42 Anion Gap 13 mmol/L 04/29/22 05:42 BUN 35 mg/dL (9-20) H 04/29/22 05:42 Creatinine 2.9 mg/dL (0.8-1.3) H 04/29/22 05:42 Estimated GFR 28 ml/min 04/29/22 05:42 BUN/Creatinine Ratio 12 % 04/29/22 05:42 Glucose 134 mg/dL (75-100) H 04/29/22 05:42 POC Glucose 88 mg/dL (70-105) 04/21/22 20:27 Lactic Acid 0.50 mmol/L (0.7-2.0) L 04/21/22 21:20 Calcium 7.5 mg/dL (8.4-10.2) L 04/29/22 05:42 Iron 43 ug/dL (49-181) L 04/23/22 10:31 TIBC 164 mcg/dL (250-450) L 04/23/22 10:31 Ferritin 190.4 ng/mL (30.0-300.0) 04/23/22 10:31 Total Bilirubin 0.30 mg/dL (0.1-1.2) 04/21/22 03:07 AST 56 units/L (5-40) H 04/21/22 03:07 ALT 47 units/L (7-56) 04/21/22 03:07 Alkaline Phosphatase 111 units/L (35-129) 04/21/22 03:07 Lactate Dehydrogenase 166 units/L (91-180) 04/23/22 10:31 Total Creatine Kinase 94 units/L (55-170) 04/21/22 21:20 Serum Total Protein 7.0 g/dL (6.1-8.1) 04/21/22 21:20 Total Protein 7.8 g/dL (6.3-8.2) 04/21/22 03:07 Albumin 3.4 g/dL (3.8-4.8) L 04/21/22 21:20 Albumin/Globulin Ratio 1.0 % 04/21/22 03:07 Zyqdb-3-Nhdukhoyq 0.4 g/dL (0.2-0.3) H 04/21/22 21:20 Wypch-2-Wsayzkmmw 0.8 g/dL (0.5-0.9) 04/21/22 21:20 Beta Globulins 0.5 g/dL (0.2-0.5) 04/21/22 21:20 Gamma Globulins 1.4 g/dL (0.8-1.7) 04/21/22 21:20 Abnorm Protein Band 1 see below 04/21/22 21:20 PEP Interpretation see below H 04/21/22 21:20 Lipase 39 units/L (13-60) 04/21/22 03:07 Vitamin B12 1307 pg/mL (211-911) H 04/23/22 10:31 Folate 9.90 ng/mL (7.3-26.0) 04/23/22 10:31 Urine Color Colorless (Yellow) 04/21/22 03:14 Urine Turbidity Slightly cloudy (Clear) 04/21/22 03:14 Specific [place] (Man) 1.000 (1.003-1.030) L 04/21/22 03:14 Ur Protein (Man) 2+ mg/dL (Negative) 04/21/22 03:14 Ur Ketones (Man) Negative (Negative) 04/21/22 03:14 Urine Bilirubin (Man) Negative (Negative) 04/21/22 03:14 Urine WBC (Auto) 16.0 /HPF (0.0-6.0) H 04/21/22 03:14 Urine RBC (Auto) 4.0 /HPF (0.0-6.0) 04/21/22 03:14 Urine RBC (Manual) 5+ (Negative) 04/21/22 03:14 Triple Phos Crystals Few 04/21/22 03:14 Urine Mucus Few /HPF 04/21/22 03:14 Urine Creatinine 69.3 mg/dL (0.1-20.0) H 04/21/22 17:46 Urine Sodium 77 mmol/L 04/21/22 17:46 Nasal Screen MRSA (PCR) Positive (Negative) 04/22/22 Unknown Random Vancomycin 15.2 ug/mL (0-40.0) 04/27/22 04:53 Immunofix Electrophor see below 04/21/22 21:20 KIM Screen Negative (Negative) 04/21/22 21:20 Proteinase 3 (PR3) Ab <1.0 AI (<1.0) 04/21/22 21:20 Myeloperoxidase Ab <1.0 AI (<1.0) 04/21/22 21:20 Complement C3 129 mg/dL (82-185) 04/21/22 21:20 Complement C4 40 mg/dL (15-53) 04/21/22 21:20 Hep Bs Antigen Non-reactive (Negative) 04/21/22 21:20 Hepatitis C Antibody Non-reactive (NonReactive) 04/21/22 21:20 Blood Type A POSITIVE 04/21/22 15:30 Antibody Screen Negative 04/21/22 15:30 Crossmatch See Detail 04/21/22 15:30 Jackson/IV: Voiding Method Indwelling Catheter Active Medications - Current Medications Current Medications: Generic Name Dose Route Start Last Admin Trade Name Freq PRN Reason Stop Dose Admin Acetaminophen 650 mg 04/21/22 13:47 04/23/22 22:06 Acetaminophen 325 Mg Tab PO 650 mg Q4H PRN Administration Pain MILD(1-3)/Fever >100.5/SHARPE Albuterol 2.5 mg 04/21/22 13:47 Albuterol 2.5 Mg/3 Ml Nebu IH Q4HRT PRN Shortness Of Breath Amlodipine Besylate 10 mg 04/26/22 11:00 04/29/22 09:17 Amlodipine 10 Mg Tab PO 10 mg QDAY CHAYA Administration Atorvastatin Calcium 40 mg 04/21/22 22:00 04/28/22 21:41 Atorvastatin 40 Mg Tab PO 40 mg QHS CHAYA Administration Doxycycline Hyclate 100 mg 04/28/22 10:00 04/29/22 09:18 Doxycycline 100 Mg Cap PO 05/04/22 22:01 100 mg Q12HR CHAYA Administration Gabapentin 400 mg 04/22/22 18:00 04/28/22 17:08 Gabapentin 400 Mg Cap PO 400 mg QPM CHAYA Administration Hydralazine HCl 10 mg 04/25/22 19:00 04/26/22 12:48 Hydralazine 20 Mg/1 Ml Inj IV 10 mg Q4HR PRN Administration BP > 150/95 Hydromorphone HCl 0.5 mg 04/21/22 13:47 04/23/22 04:28 Hydromorphone 0.5 Mg/0.5 Ml Inj IV 0.5 mg Q23H PRN Administration Pain , Severe (7-10) Sodium Chloride 1,000 mls @ 100 mls/hr 04/29/22 10:00 Nacl 0.9% 1000 Ml IV DIRECT CHAYA Morphine Sulfate 2 mg 04/21/22 18:00 04/29/22 13:28 Morphine 2 Mg/1 Ml Inj IV 2 mg Q4H PRN Administration Pain, Moderate (4-6) Multivitamins 1 each 04/24/22 10:00 04/29/22 09:18 Multivitamins ,Therapeutic Tab PO 1 each QDAY CHAYA Administration Ondansetron HCl 4 mg 04/23/22 10:00 04/27/22 21:55 Ondansetron 4 Mg/2 Ml Inj IV 4 mg Q4H PRN Administration Nausea And Vomiting Oxycodone/Acetaminophen 1 tab 04/21/22 13:47 Oxycodone /Acetaminophen 5-325mg Tab PO Q16H PRN Pain, Moderate (4-6) Sodium Bicarbonate 1,300 mg 04/21/22 20:00 04/29/22 13:29 Sodium Bicarbonate 650 Mg Tab PO 1,300 mg TID CHAYA Administration Sodium Chloride 10 ml 04/21/22 22:00 04/29/22 09:19 Sodium Chloride 0.9% 10 Ml Flush Syringe IV 10 ml BID CHAYA Administration Sodium Chloride 10 ml 04/21/22 13:47 Sodium Chloride 0.9% 10 Ml Flush Syringe IV PRN PRN LINE FLUSH Nutrition/Malnutrition Assess - Dietary Evaluation Nutrition/Malnutrition Findings: Nutrition Notes Start: 04/28/22 14:53 Freq: Status: Active Protocol: Document 04/28/22 14:53 JAMES (Rec: 04/28/22 15:06 JAMES [email or web address]) Nutrition Notes Need for Assessment generated from: LOS Initial or Follow up Assessment Current Diagnosis Acute Kidney Injury,Diabetes, Sepsis,Hypertension Other Pertinent Diagnosis R-Paraspinal Abscess/ Cellulitis, Tad's Gangrene, UTI, Asthma. Current Diet Regular -No Dairy- Diet (since B 04/21). Labs/Tests 04/28: Cl 113.1, CO2 18, BUN 33, Crea 2.6, Ca 7.6. Pertinent Medications 04/28: Multivitamins, others nutritionally unremarkable. 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 Weight Status Appropriate Subjective/Other Information RD consult for LOS assessment. Pt's PO intake of meals has been Good (75-100%) and well tolerated, according to ADL notes. Pt is on Room Air, O2 saturation @ 100%, according to Physical Assessment History notes. Pt has missing teeth, according to Physical Assessment History notes. Pt presents Tad's Gangrene & Back Abscess as signs of concern for skin risk at the time, according to Physical Assessment History notes. Pt has chronic diarrhea, according to Progress notes. Percent of energy/protein needs met: Prescribed Regular -No Dairy- Diet provides for energy/ protein needs (2,289 Kcal/89 g ) during LOS. Burn Absent Trauma Absent GI Symptoms None Food Allergy No Skin Integrity/Comment Tad's Gangrene & Back Abscess. 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 No Is Patient Ambulatory and/or Out of Bed Yes REE-([place]-St. Jeor-ambulatory/OOB) [ 1820.975 [id number]] Kcal/Kg value to use for calculation 28 Approximate Energy Requirements Using 1632 kcal/Kg Calculation Used for Recommendations Kcal/kg Additional Notes Protein: 0.8-1 g/Kg ABW; 46-58 g/day. Fluids: 1 ml/Kcal, or as per MD. Nutrition Intervention Change Diet Order: Continue Regular -No Dairy- Diet as tolerated. Follow-Up By: 05/05/22 Additional Comments Continue monitoring food tolerance, %PO intake of meals , and BM.
--- NOTE | 2022-04-29 16:58 | Gastroenterology Progress Note ---
Assessment and Plan # Chronic diarrhea - h/o Crohns disease. diagnosed at [facility] and was given Humira but last colonoscopy in 07/2021 normal. Unclear diagnosis of Crohns disease. - patient reports multiple stools but per nursing, no stools mentioned. Rec - recommend checking stool studies to rule out C diff. check fecal leukocyte. - recommend cholestyramine bid for diarrhea. - recommend further work up as outpatient. Subjective Date of service: 04/29/22 Principal diagnosis: Back abscess Interval history: GI consulted for diarrhea. Patient reports having multiple loose stools today denies any abdominal pain but has nausea and vomiting. No bleeding symptoms currently. Objective - Constitutional Vitals: Temp Pulse Resp BP Pulse Ox 98.5 F 94 H 20 146/86 96 04/29/22 04:54 04/29/22 09:23 04/29/22 13:28 04/29/22 09:23 04/29/22 09:23 General appearance: no acute distress - EENT ENT: hearing intact - Neck Neck: supple - Respiratory Respiratory effort: normal - Cardiovascular Rhythm: regular Heart Sounds: Present: S1 & S2 - Gastrointestinal General gastrointestinal: Present: soft, non-tender, non-distended - Integumentary Integumentary: Present: clear, warm - Neurologic Neurological: alert and oriented x3 - Labs CBC & Chem 7: 04/27/22 04:53 04/29/22 05:42 Labs: Laboratory Results - last 24 hr 04/29/22 05:42 Sodium 140 Potassium 4.2 Chloride 111.6 H Carbon Dioxide 20 L Anion Gap 13 BUN 35 H Creatinine 2.9 H Estimated GFR 28 BUN/Creatinine Ratio 12 Glucose 134 H Calcium 7.5 L
[2022-04-29] MEDS: GABAPENTIN 400 MG CAP PO SCH (17:29)
[2022-04-29] MEDS: ONDANSETRON 4 MG/2 ML INJ IV PRN (22:10)
[2022-04-29] MEDS: hydrALAZINE 20 MG/1 ML INJ IV PRN (22:15)
[2022-04-30] MEDS: MORPHINE 2 MG/1 ML INJ IV PRN ×5 (02:30→22:12)
[2022-04-30 05:56] LABS: Calcium 8.1 mg/dL (8.4-10.2)
--- NOTE | 2022-04-30 08:52 | Progress Note ---
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 Patient found to have a fluctuant mass to the right paraspinal region with superimposed erythema consistent with cellulitis complicated by right paraspinal abscess, sepsis, as well as urinary tract infection, and hyponatremia. --Paraspinal abscess; surgeon evaluated the patient Status post incision drainage, continue wound care, continue IV antibiotics Surgery and ID following --Cellulitis; continue IV antibiotics, follow cultures --Sepsis; due to paraspinal abscess/cellulitis[present on admission] Continue sepsis protocol, IV fluids, IV antibiotics, follow cultures --UTI; urinary tract infection present on admission Continue empiric antibiotics, follow cultures, IV fluids --Acute kidney injury secondary to ATN from sepsis/vasomotor nephropathy; Closely monitor renal function, avoid nephrotoxins, renal dosing of medications Nephrology following --Hyponatremia; present on admission Sodium level significantly improved, closely monitor electrolytes --Anemia; Hb 6.7, received 1 unit PRBC improved to 7.3 Closely monitor H&H, transfuse additional PRBC as needed --Severe protein calorie malnutrition; Nutrition supplements, nutrition consult, supportive care --Ongoing tobacco use/nicotine dependence/cessation counseling 15 to 20 minutes Smoking cessation counseling done, strongly advised to quit tobacco use Risks and sequelae of chronic tobacco use discussed with the patient He verbalized understanding I also discussed role of nicotine patch and smoking cessation Answered all his questions, total time spent 17 minutes --DVT prophylaxis; Patient is postop state SCDs, no pharmacologic anticoagulation --Advance care planning; I discussed in detail with the patient his condition I discussed his tests and reports, I discussed his treatment plan I discussed the consultants evaluation recommendations, I discussed discharge planning I also discussed smoking cessation, also discussed usage of nicotine patch. Patient has few questions, answered all of them, he verbalized understanding Ordered nicotine patch to his treatment regimen total time 35 minutes 04/22/2022. Patient underwent I&D of back abscess earlier today. Nephrology recommends Jackson change and follow-up serologies. Continue IV fluid hydration and hold lisinopril. No immediate indication for hemodialysis. Continue to renally dose medications and avoid nephrotoxins. Continue renal diet. Patient also reports having chronic diarrhea and previous work-up at [place] [facility] in the past. However, patient now reports approximately 50 pound weight loss in the past 2 months. We will consult GI for further evaluation 04/23/2022. Continue wound care of back abscess/I&D. Hemoglobin 6.7 today. We will transfuse 1 unit PRBCs. Patient does report BRBPR approximately 1 week ago. However, no active bleeding or recent history of hematochezia/melena. We will start Protonix daily. Given the history of anemia, weight loss and BRBPR, patient may need colonoscopy. Await GI evaluation. We will follow-up iron studies, B12, folate reticulocyte count and LDH. Check occult stool. Nephrology following for acute kidney injury. 04/24/2022. Continue IV fluid hydration for acute kidney injury likely secondary to vasomotor nephropathy. Creatinine slightly improved to 3.0 today. Hemoglobin improved to 8.1 s/p PRBCs. Cefepime discontinued and ID recommends IV vancomycin for now. Follow-up culture results for de-escalation of antibiotics. Upon discharge, we will treat with Keflex continue wound care per nursing 3 times a day with saline. Surgery following. Patient continues to complain of intermittent diarrhea. GI evaluated the patient and reports patient has had multiple previous admits to [facility] and likely does not have active Crohn's disease. GI believes that the 50 pound weight loss is secondary to severe protein calorie malnutrition from psychosocial issues. Follow-up stool for C. difficile. 04/25/2022. Creatinine only slightly improved to 2.9. Continue IV fluid hydration for acute kidney injury likely secondary to vasomotor nephropathy/dehydration. Continue sodium bicarbonate. Hold lisinopril given the acute kidney injury. Continue to monitor vancomycin level. Gabapentin dose reduced. Avoid nephrotoxins. No indication for hemodialysis per nephrology. Follow-up culture results for de-escalation of antibiotics. Upon discharge, we will treat with Keflex. ID following 04/26/2022. Patient reports several episodes of diarrhea yesterday. No hematochezia or melena. S/p drainage of abscess POD 5. Creatinine slowly improving. cr. 4.1-->3.5-->3.5-->3.0-->2.9-->2.7. Continue IV fluid hydration for acute kidney injury likely secondary to vasomotor nephropathy/dehydration. Continue sodium bicarbonate. Hold lisinopril given the acute kidney injury. Continue to monitor vancomycin level. Avoid nephrotoxins. No indication for hemodialysis per nephrology. Follow-up culture results for de-escalation of antibiotics. Upon discharge, we will treat with Keflex. ID following 04/27/2022; MRSA sepsis, ID managing with IV vancomycin, contact isolation Smoking cessation counseling, status post paraspinal abscess incision drainage, continue wound care Continue supportive, smoking cessation, DC planning, surgeon cleared for discharge DC planning per case management 04/28; continue current management; continue vancomycin per ID May discharge on doxycycline for 7 days [when medically stable] PT/OT evaluate and treat, DC needs 04/30; continue current management PT OT recommendations noted and appreciated recommend subacute rehab rolling walker Patient is homeless, Possible discharge in 1 to 2 days if stable DC planning per case management History Interval history: Have seen and examined the patient at the bedside Patient's chart and medications reviewed Patient complains of some back pain Vital signs noted Hospitalist Physical - Constitutional Vitals: Temp Pulse Resp BP Pulse Ox 98.3 F 93 H 20 152/86 97 04/30/22 05:18 04/30/22 05:18 04/30/22 05:18 04/30/22 05:18 04/30/22 05:18 General appearance: Present: no acute distress, well-nourished - EENT Eyes: Present: PERRL, EOM intact - Neck Neck: Present: supple, normal ROM - Respiratory Respiratory effort: normal Respiratory: bilateral: diminished, negative: rales, rhonchi, wheezing - Cardiovascular Rhythm: regular Heart Sounds: Present: S1 & S2 - Extremities Extremities: no ischemia, No edema - Abdominal General gastrointestinal: soft, non-tender, non-distended, normal bowel sounds - Integumentary Integumentary: Present: clear, warm - Psychiatric Psychiatric: appropriate mood/affect, cooperative - Neurologic Neurologic: CNII-XII intact, moves all extremities Results - Labs CBC & Chem 7: 04/27/22 04:53 04/30/22 04:00 Labs: Laboratory Last Values WBC 9.2 K/mm3 (4.5-11.0) 04/27/22 04:53 RBC 2.26 M/mm3 (3.65-5.03) L 04/27/22 04:53 Hgb 7.3 gm/dl (11.8-15.2) L 04/27/22 04:53 Hct 22.4 % (35.5-45.6) L 04/27/22 04:53 MCV 99 fl (84-94) H 04/27/22 04:53 MCH 32 pg (28-32) 04/27/22 04:53 MCHC 33 % (32-34) 04/27/22 04:53 RDW 16.5 % (13.2-15.2) H 04/27/22 04:53 Plt Count 236 K/mm3 (140-440) 04/27/22 04:53 Lymph % (Auto) 11.9 % (13.4-35.0) L 04/27/22 04:53 [place] % (Auto) 4.5 % (0.0-7.3) 04/27/22 04:53 Eos % (Auto) 1.9 % (0.0-4.3) 04/27/22 04:53 Baso % (Auto) 0.5 % (0.0-1.8) 04/27/22 04:53 Lymph # (Auto) 1.1 K/mm3 (1.2-5.4) L 04/27/22 04:53 [place] # (Auto) 0.4 K/mm3 (0.0-0.8) 04/27/22 04:53 Eos # (Auto) 0.2 K/mm3 (0.0-0.4) 04/27/22 04:53 Baso # (Auto) 0.0 K/mm3 (0.0-0.1) 04/27/22 04:53 Seg Neutrophils % 81.2 % (40.0-70.0) H 04/27/22 04:53 Seg Neutrophils # 7.4 K/mm3 (1.8-7.7) 04/27/22 04:53 Percent Retic 0.97 % (0.78-2.58) 04/23/22 10:31 ABG pH 7.301 pH Units (7.350-7.450) L 04/22/22 16:02 ABG pCO2 34.1 mm Hg 04/22/22 16:02 ABG pO2 119.7 mm Hg (80.0-90.0) H 04/22/22 16:02 ABG HCO3 16.4 mmol/L (20.0-26.0) L 04/22/22 16:02 ABG O2 Saturation 96.6 % (95.0-99.0) 04/22/22 16:02 ABG O2 Content 8.2 (0.0-44) 04/22/22 16:02 ABG Base Excess -9.2 mmol/L (-2.0-3.0) L 04/22/22 16:02 ABG Hemoglobin 5.9 gm/dl (14.0-18.0) L 04/22/22 16:02 ABG Carboxyhemoglobin 0.2 % (0.0-5.0) 04/22/22 16:02 ABG Methemoglobin 0.3 % (0.0-1.5) 04/22/22 16:02 Oxyhemoglobin 96.1 % (95.0-99.0) 04/22/22 16:02 FiO2 21 % 04/22/22 16:02 Sodium 142 mmol/L (137-145) 04/30/22 04:00 Potassium 4.4 mmol/L (3.6-5.0) 04/30/22 04:00 Chloride 111.6 mmol/L (98-107) H 04/30/22 04:00 Carbon Dioxide 22 mmol/L (22-30) 04/30/22 04:00 Anion Gap 13 mmol/L 04/30/22 04:00 BUN 34 mg/dL (9-20) H 04/30/22 04:00 Creatinine 3.0 mg/dL (0.8-1.3) H 04/30/22 04:00 Estimated GFR 27 ml/min 04/30/22 04:00 BUN/Creatinine Ratio 11 % 04/30/22 04:00 Glucose 95 mg/dL (75-100) 04/30/22 04:00 POC Glucose 88 mg/dL (70-105) 04/21/22 20:27 Lactic Acid 0.50 mmol/L (0.7-2.0) L 04/21/22 21:20 Calcium 8.1 mg/dL (8.4-10.2) L 04/30/22 04:00 Iron 43 ug/dL (49-181) L 04/23/22 10:31 TIBC 164 mcg/dL (250-450) L 04/23/22 10:31 Ferritin 190.4 ng/mL (30.0-300.0) 04/23/22 10:31 Total Bilirubin 0.30 mg/dL (0.1-1.2) 04/21/22 03:07 AST 56 units/L (5-40) H 04/21/22 03:07 ALT 47 units/L (7-56) 04/21/22 03:07 Alkaline Phosphatase 111 units/L (35-129) 04/21/22 03:07 Lactate Dehydrogenase 166 units/L (91-180) 04/23/22 10:31 Total Creatine Kinase 94 units/L (55-170) 04/21/22 21:20 Serum Total Protein 7.0 g/dL (6.1-8.1) 04/21/22 21:20 Total Protein 7.8 g/dL (6.3-8.2) 04/21/22 03:07 Albumin 3.4 g/dL (3.8-4.8) L 04/21/22 21:20 Albumin/Globulin Ratio 1.0 % 04/21/22 03:07 Mnnlw-4-[place] 0.4 g/dL (0.2-0.3) H 04/21/22 21:20 Ztwrn-6-Jihlwmfnw 0.8 g/dL (0.5-0.9) 04/21/22 21:20 Beta Globulins 0.5 g/dL (0.2-0.5) 04/21/22 21:20 Gamma Globulins 1.4 g/dL (0.8-1.7) 04/21/22 21:20 Abnorm Protein Band 1 see below 04/21/22 21:20 PEP Interpretation see below H 04/21/22 21:20 Lipase 39 units/L (13-60) 04/21/22 03:07 Vitamin B12 1307 pg/mL (211-911) H 04/23/22 10:31 Folate 9.90 ng/mL (7.3-26.0) 04/23/22 10:31 Urine Color Colorless (Yellow) 04/21/22 03:14 Urine Turbidity Slightly cloudy (Clear) 04/21/22 03:14 Specific [place] (Man) 1.000 (1.003-1.030) L 04/21/22 03:14 Ur Protein (Man) 2+ mg/dL (Negative) 04/21/22 03:14 Ur Ketones (Man) Negative (Negative) 04/21/22 03:14 Urine Bilirubin (Man) Negative (Negative) 04/21/22 03:14 Urine WBC (Auto) 16.0 /HPF (0.0-6.0) H 04/21/22 03:14 Urine RBC (Auto) 4.0 /HPF (0.0-6.0) 04/21/22 03:14 Urine RBC (Manual) 5+ (Negative) 04/21/22 03:14 Triple Phos Crystals Few 04/21/22 03:14 Urine Mucus Few /HPF 04/21/22 03:14 Urine Creatinine 69.3 mg/dL (0.1-20.0) H 04/21/22 17:46 Urine Sodium 77 mmol/L 04/21/22 17:46 Nasal Screen MRSA (PCR) Positive (Negative) 04/22/22 Unknown Random Vancomycin 15.2 ug/mL (0-40.0) 04/27/22 04:53 Immunofix Electrophor see below 04/21/22 21:20 KIM Screen Negative (Negative) 04/21/22 21:20 Proteinase 3 (PR3) Ab <1.0 AI (<1.0) 04/21/22 21:20 Myeloperoxidase Ab <1.0 AI (<1.0) 04/21/22 21:20 Complement C3 129 mg/dL (82-185) 04/21/22 21:20 Complement C4 40 mg/dL (15-53) 04/21/22 21:20 Hep Bs Antigen Non-reactive (Negative) 04/21/22 21:20 Hepatitis C Antibody Non-reactive (NonReactive) 04/21/22 21:20 Blood Type A POSITIVE 04/21/22 15:30 Antibody Screen Negative 04/21/22 15:30 Crossmatch See Detail 04/21/22 15:30 Microbiology: Microbiology 04/21/22 Unknown Back Anaerobic Culture - Final Jackson/IV: Voiding Method Indwelling Catheter Active Medications - Current Medications Current Medications: Generic Name Dose Route Start Last Admin Trade Name Freq PRN Reason Stop Dose Admin Acetaminophen 650 mg 04/21/22 13:47 04/23/22 22:06 Acetaminophen 325 Mg Tab PO 650 mg Q4H PRN Administration Pain MILD(1-3)/Fever >100.5/SHARPE Albuterol 2.5 mg 04/21/22 13:47 Albuterol 2.5 Mg/3 Ml Nebu IH Q4HRT PRN Shortness Of Breath Amlodipine Besylate 10 mg 04/26/22 11:00 04/29/22 09:17 Amlodipine 10 Mg Tab PO 10 mg QDAY CHAYA Administration Atorvastatin Calcium 40 mg 04/21/22 22:00 04/29/22 22:10 Atorvastatin 40 Mg Tab PO 40 mg QHS CHAYA Administration Doxycycline Hyclate 100 mg 04/28/22 10:00 04/29/22 22:10 Doxycycline 100 Mg Cap PO 05/04/22 22:01 100 mg Q12HR CHAYA Administration Gabapentin 400 mg 04/22/22 18:00 04/29/22 17:29 Gabapentin 400 Mg Cap PO 400 mg QPM CHAYA Administration Hydralazine HCl 10 mg 04/25/22 19:00 04/29/22 22:15 Hydralazine 20 Mg/1 Ml Inj IV 10 mg Q4HR PRN Administration BP > 150/95 Hydromorphone HCl 0.5 mg 04/21/22 13:47 04/23/22 04:28 Hydromorphone 0.5 Mg/0.5 Ml Inj IV 0.5 mg Q23H PRN Administration Pain , Severe (7-10) Sodium Chloride 1,000 mls @ 100 mls/hr 04/29/22 10:00 Nacl 0.9% 1000 Ml IV DIRECT CHAYA Morphine Sulfate 2 mg 04/21/22 18:00 04/30/22 02:30 Morphine 2 Mg/1 Ml Inj IV 2 mg Q4H PRN Administration Pain, Moderate (4-6) Multivitamins 1 each 04/24/22 10:00 04/29/22 09:18 Multivitamins ,Therapeutic Tab PO 1 each QDAY CHAYA Administration Ondansetron HCl 4 mg 04/23/22 10:00 04/29/22 22:10 Ondansetron 4 Mg/2 Ml Inj IV 4 mg Q4H PRN Administration Nausea And Vomiting Oxycodone/Acetaminophen 1 tab 04/21/22 13:47 Oxycodone /Acetaminophen 5-325mg Tab PO Q16H PRN Pain, Moderate (4-6) Sodium Bicarbonate 1,300 mg 04/21/22 20:00 04/29/22 22:15 Sodium Bicarbonate 650 Mg Tab PO 1,300 mg TID CHAYA Administration Sodium Chloride 10 ml 04/21/22 22:00 04/29/22 22:10 Sodium Chloride 0.9% 10 Ml Flush Syringe IV 10 ml BID CHAYA Administration Sodium Chloride 10 ml 04/21/22 13:47 Sodium Chloride 0.9% 10 Ml Flush Syringe IV PRN PRN LINE FLUSH Nutrition/Malnutrition Assess - Dietary Evaluation Nutrition/Malnutrition Findings: Nutrition Notes Start: 04/28/22 14:53 Freq: Status: Active Protocol: Document 04/28/22 14:53 JAMES (Rec: 04/28/22 15:06 JAMES [id number]) Nutrition Notes Need for Assessment generated from: LOS Initial or Follow up Assessment Current Diagnosis Acute Kidney Injury,Diabetes, Sepsis,Hypertension Other Pertinent Diagnosis R-Paraspinal Abscess/ Cellulitis, Tad's Gangrene, UTI, Asthma. Current Diet Regular -No Dairy- Diet (since B 04/21). Labs/Tests 04/28: Cl 113.1, CO2 18, BUN 33, Crea 2.6, Ca 7.6. Pertinent Medications 04/28: Multivitamins, others nutritionally unremarkable. 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 Weight Status Appropriate Subjective/Other Information RD consult for LOS assessment. Pt's PO intake of meals has been Good (75-100%) and well tolerated, according to ADL notes. Pt is on Room Air, O2 saturation @ 100%, according to Physical Assessment History notes. Pt has missing teeth, according to Physical Assessment History notes. Pt presents Tad's Gangrene & Back Abscess as signs of concern for skin risk at the time, according to Physical Assessment History notes. Pt has chronic diarrhea, according to Progress notes. Percent of energy/protein needs met: Prescribed Regular -No Dairy- Diet provides for energy/ protein needs (2,289 Kcal/89 g ) during LOS. Burn Absent Trauma Absent GI Symptoms None Food Allergy No Skin Integrity/Comment Tad's Gangrene & Back Abscess. 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 No Is Patient Ambulatory and/or Out of Bed Yes REE-([facility]-ambulatory/OOB) [ 1820.975 [id number]] Kcal/Kg value to use for calculation 28 Approximate Energy Requirements Using 1632 kcal/Kg Calculation Used for Recommendations Kcal/kg Additional Notes Protein: 0.8-1 g/Kg ABW; 46-58 g/day. Fluids: 1 ml/Kcal, or as per MD. Nutrition Intervention Change Diet Order: Continue Regular -No Dairy- Diet as tolerated. Follow-Up By: 05/05/22 Additional Comments Continue monitoring food tolerance, %PO intake of meals , and BM.
[2022-04-30] MEDS: DOXYCYCLINE 100 MG CAP PO SCH ×2 (09:33→22:04)
[2022-04-30] MEDS: amLODIPine 10 MG TAB PO SCH (09:33)
[2022-04-30] MEDS: MULTIVITAMINS ,THERAPEUTIC TAB PO SCH (09:33)
[2022-04-30] MEDS: SODIUM BICARBONATE 650 MG TAB PO SCH ×3 (09:33→22:04)
--- NOTE | 2022-04-30 16:46 | Gastroenterology Progress Note ---
Assessment and Plan # Chronic diarrhea - h/o Crohns disease. diagnosed at [place] and was given Humira but last colonoscopy in 07/2021 normal. Unclear diagnosis of Crohns disease. - patient reports multiple stools but per nursing, no stools mentioned. -Stool studies with C. difficile collected and results pending. Rec -If C. difficile positive, recommend treatment with p.o. vancomycin course. - recommend cholestyramine bid for diarrhea. - recommend further work up as outpatient. -We we will sign off. Please call back as needed. Subjective Date of service: 04/30/22 Principal diagnosis: Back abscess Interval history: Patient reports having 5 loose stools nonbloody this morning. No abdominal pain. Objective - Constitutional Vitals: Temp Pulse Resp BP Pulse Ox 98.3 F 93 H 20 152/86 97 04/30/22 05:18 04/30/22 05:18 04/30/22 05:18 04/30/22 05:18 04/30/22 05:18 General appearance: no acute distress - EENT Eyes: EOM intact ENT: hearing intact - Neck Neck: supple - Respiratory Respiratory effort: normal - Cardiovascular Rhythm: regular Heart Sounds: Present: S1 & S2 - Gastrointestinal General gastrointestinal: Present: soft, non-tender, non-distended - Neurologic Neurological: alert and oriented x3 - Psychiatric Psychiatric: appropriate mood/affect - Labs CBC & Chem 7: 04/27/22 04:53 04/30/22 04:00 Labs: Laboratory Results - last 24 hr 04/30/22 04:00 Sodium 142 Potassium 4.4 Chloride 111.6 H Carbon Dioxide 22 Anion Gap 13 BUN 34 H Creatinine 3.0 H Estimated GFR 27 BUN/Creatinine Ratio 11 Glucose 95 Calcium 8.1 L
[2022-04-30] MEDS: GABAPENTIN 400 MG CAP PO SCH (18:39)
[2022-04-30] MEDS: CHOLESTYRAMINE (WITH SUGAR) 4 GM PACKET PO SCH (22:04)
[2022-04-30] MEDS: ONDANSETRON 4 MG/2 ML INJ IV PRN (22:12)
[2022-04-30] MEDS: hydrALAZINE 20 MG/1 ML INJ IV PRN (23:52)
[2022-04-30] MEDS: SODIUM CHLORIDE 0.9% 1000 ML 1,000 ML IV SCH (23:59)
[2022-05-01] MEDS: ONDANSETRON 4 MG/2 ML INJ IV PRN ×2 (05:06→22:02)
[2022-05-01] MEDS: MORPHINE 2 MG/1 ML INJ IV PRN ×4 (05:06→22:01)
--- NOTE | 2022-05-01 05:27 | Progress Note ---
Assessment and Plan Impression: * Acute kidney injury --SCr 1.3mg/dL in Aug 2021 * Skin abscess --Wound culture: MRSA * Acidosis * Hyponatremia * Hypertension * Diarrhea Plan: * Note increase in SCr - IVF have been on hold per patient; discussed with RN, states IVF were off at her arrival this AM. Advised to resume * Hold HCTZ. Continue to hold ACEi * Continue sodium bicarb tabs * Continue Amlodipine 10mg daily * Abx per ID * GI work up per primary team * Transfuse pRBC prn * Dose medicatons for renal function * Avoid nephrotoxins Subjective Date of service: 04/30/22 Principal diagnosis: Back abscess Interval history: Patient reports diarrhea. Objective - Vital Signs Vital signs: Vital Signs - 12hr 04/30/22 04/30/22 20:55 22:48 Temperature 98.3 F Pulse Rate 93 H Respiratory 18 Rate Blood Pressure 164/83 O2 Sat by Pulse 100 93 Oximetry - General Appearance General appearance: well-developed, well-nourished EENT: ATNC Respiratory: Present: Clear to Ascultation Cardiology: regular, S1S2 Gastrointestinal: normal, no tenderness, no distended Integumentary: warm and dry Musculoskeletal: other (trace edema) Psychiatric: cooperative - Lab 04/27/22 04:53 04/30/22 04:00 Most recent lab results ABG pH 7.301 pH Units (7.350-7.450) L 04/22/22 16:02 ABG pCO2 34.1 mm Hg 04/22/22 16:02 ABG pO2 119.7 mm Hg (80.0-90.0) H 04/22/22 16:02 ABG HCO3 16.4 mmol/L (20.0-26.0) L 04/22/22 16:02 ABG O2 Saturation 96.6 % (95.0-99.0) 04/22/22 16:02 Calcium 8.1 mg/dL (8.4-10.2) L 04/30/22 04:00 Urine Creatinine 69.3 mg/dL (0.1-20.0) H 04/21/22 17:46 Urine Sodium 77 mmol/L 04/21/22 17:46 Medications & Allergies - Medications Allergies/Adverse Reactions: Allergies No Known Allergies Allergy (Verified 04/21/22 08:44) Home Medications: Home Medications Medication Instructions Recorded Confirmed Last Taken Type Folic Acid [Folvite] 1 mg PO QDAY 08/17/21 04/22/22 04/21/22 History amLODIPine [Norvasc] 5 mg PO DAILY 08/17/21 04/22/22 04/21/22 History carvediloL [Coreg] 25 mg PO Q12H 08/17/21 04/22/22 04/21/22 History hydroCHLOROthiazide [HCTZ] 25 mg PO QDAY 08/17/21 04/22/22 04/21/22 History Loperamide [Imodium] 2 mg PO BID 04/22/22 04/22/22 04/21/22 History Active Medications: Generic Name Dose Route Start Last Admin Trade Name Freq PRN Reason Stop Dose Admin Acetaminophen 650 mg 04/21/22 13:47 04/23/22 22:06 Acetaminophen 325 Mg Tab PO 650 mg Q4H PRN Administration Pain MILD(1-3)/Fever >100.5/SHARPE Albuterol 2.5 mg 04/21/22 13:47 Albuterol 2.5 Mg/3 Ml Nebu IH Q4HRT PRN Shortness Of Breath Amlodipine Besylate 10 mg 04/26/22 11:00 04/30/22 09:33 Amlodipine 10 Mg Tab PO 10 mg QDAY CHAYA Administration Atorvastatin Calcium 40 mg 04/21/22 22:00 04/30/22 22:05 Atorvastatin 40 Mg Tab PO 40 mg QHS CHAYA Administration Cholestyramine Resin 4 gm 04/30/22 22:00 04/30/22 22:04 Cholestyramine (With Sugar) 4 Gm Packet PO 4 gm BID CHAYA Administration Doxycycline Hyclate 100 mg 04/28/22 10:00 04/30/22 22:04 Doxycycline 100 Mg Cap PO 05/04/22 22:01 100 mg Q12HR CHAYA Administration Gabapentin 400 mg 04/22/22 18:00 04/30/22 18:39 Gabapentin 400 Mg Cap PO 400 mg QPM CHAYA Administration Hydralazine HCl 10 mg 04/25/22 19:00 04/30/22 23:52 Hydralazine 20 Mg/1 Ml Inj IV 10 mg Q4HR PRN Administration BP > 150/95 Hydromorphone HCl 0.5 mg 04/21/22 13:47 04/23/22 04:28 Hydromorphone 0.5 Mg/0.5 Ml Inj IV 0.5 mg Q23H PRN Administration Pain , Severe (7-10) Sodium Chloride 1,000 mls @ 100 mls/hr 04/29/22 10:00 04/30/22 23:59 Nacl 0.9% 1000 Ml IV 100 mls/hr DIRECT CHAYA Administration Morphine Sulfate 2 mg 04/21/22 18:00 05/01/22 05:06 Morphine 2 Mg/1 Ml Inj IV 2 mg Q4H PRN Administration Pain, Moderate (4-6) Multivitamins 1 each 04/24/22 10:00 04/30/22 09:33 Multivitamins ,Therapeutic Tab PO 1 each QDAY CHAYA Administration Ondansetron HCl 4 mg 04/23/22 10:00 05/01/22 05:06 Ondansetron 4 Mg/2 Ml Inj IV 4 mg Q4H PRN Administration Nausea And Vomiting Oxycodone/Acetaminophen 1 tab 04/21/22 13:47 Oxycodone /Acetaminophen 5-325mg Tab PO Q16H PRN Pain, Moderate (4-6) Sodium Bicarbonate 1,300 mg 04/21/22 20:00 04/30/22 22:04 Sodium Bicarbonate 650 Mg Tab PO 1,300 mg TID CHAYA Administration Sodium Chloride 10 ml 04/21/22 22:00 04/30/22 22:05 Sodium Chloride 0.9% 10 Ml Flush Syringe IV 10 ml BID CHAYA Administration Sodium Chloride 10 ml 04/21/22 13:47 Sodium Chloride 0.9% 10 Ml Flush Syringe IV PRN PRN LINE FLUSH
[2022-05-01 05:47] LABS: Calcium 7.9 mg/dL (8.4-10.2)
[2022-05-01] MEDS: CHOLESTYRAMINE (WITH SUGAR) 4 GM PACKET PO SCH ×2 (09:13→22:53)
[2022-05-01] MEDS: SODIUM BICARBONATE 650 MG TAB PO SCH ×3 (09:13→22:06)
[2022-05-01] MEDS: DOXYCYCLINE 100 MG CAP PO SCH ×2 (09:13→22:02)
[2022-05-01] MEDS: MULTIVITAMINS ,THERAPEUTIC TAB PO SCH (09:14)
[2022-05-01] MEDS: amLODIPine 10 MG TAB PO SCH (09:14)
--- NOTE | 2022-05-01 10:42 | Progress Note ---
Assessment and Plan Assessment and plan: 46 YO Male with DM, Mild Intermittent Asthma, Nicotine Dependence, Medication Noncompliance presents ED for evaluation of pain to his right back over the past 4 days [employer]. 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 Patient found to have a fluctuant mass to the right paraspinal region with superimposed erythema consistent with cellulitis complicated by right paraspinal abscess, sepsis, as well as urinary tract infection, and hyponatremia. --Paraspinal abscess; surgeon evaluated the patient Status post incision drainage, continue wound care, completed IV antibiotics ID recommended doxycycline 100 mg twice a day for total 7 days stop date 04/07 --Cellulitis; continue IV antibiotics, follow cultures --Sepsis; due to paraspinal abscess/cellulitis[present on admission] Continue sepsis protocol, IV fluids, completed IV antibiotics, on oral Doxy for 10 days stop date 05/04/2022 --UTI; urinary tract infection present on admission Continue empiric antibiotics, follow cultures, IV fluids --Acute kidney injury secondary to ATN from sepsis/vasomotor nephropathy; Closely monitor renal function, avoid nephrotoxins, renal dosing of medications Nephrology following --Hyponatremia; present on admission Sodium level significantly improved, closely monitor electrolytes --Anemia; Hb 6.7, received 1 unit PRBC improved to 7.3 Closely monitor H&H, transfuse additional PRBC as needed --Severe protein calorie malnutrition; Nutrition supplements, nutrition consult, supportive care --Ongoing tobacco use/nicotine dependence/cessation counseling 15 to 20 minutes Smoking cessation counseling done, strongly advised to quit tobacco use Risks and sequelae of chronic tobacco use discussed with the patient He verbalized understanding I also discussed role of nicotine patch and smoking cessation Answered all his questions, total time spent 17 minutes --DVT prophylaxis; Patient is postop state SCDs, no pharmacologic anticoagulation --Advance care planning; I discussed in detail with the patient his condition I discussed his tests and reports, I discussed his treatment plan I discussed the consultants evaluation recommendations, I discussed discharge planning I also discussed smoking cessation, also discussed usage of nicotine patch. Patient has few questions, answered all of them, he verbalized understanding Ordered nicotine patch to his treatment regimen total time 35 minutes 04/22/2022. Patient underwent I&D of back abscess earlier today. Nephrology recommends Jackson change and follow-up serologies. Continue IV fluid hydration and hold lisinopril. No immediate indication for hemodialysis. Continue to renally dose medications and avoid nephrotoxins. Continue renal diet. Patient also reports having chronic diarrhea and previous work-up at [place] in the past. However, patient now reports approximately 50 pound weight loss in the past 2 months. We will consult GI for further evaluation 04/23/2022. Continue wound care of back abscess/I&D. Hemoglobin 6.7 today. We will transfuse 1 unit PRBCs. Patient does report BRBPR approximately 1 week ago. However, no active bleeding or recent history of hematochezia/melena. We will start Protonix daily. Given the history of anemia, weight loss and BRBPR, patient may need colonoscopy. Await GI evaluation. We will follow-up iron studies, B12, folate reticulocyte count and LDH. Check occult stool. Nephrology following for acute kidney injury. 04/24/2022. Continue IV fluid hydration for acute kidney injury likely secondary to vasomotor nephropathy. Creatinine slightly improved to 3.0 today. Hemoglobin improved to 8.1 s/p PRBCs. Cefepime discontinued and ID recommends IV vancomycin for now. Follow-up culture results for de-escalation of antibiotics. Upon discharge, we will treat with Keflex continue wound care per nursing 3 times a day with saline. Surgery following. Patient continues to complain of intermittent diarrhea. GI evaluated the patient and reports patient has had multiple previous admits to [facility] and likely does not have active Crohn's disease. GI believes that the 50 pound weight loss is secondary to severe protein calorie malnutrition from psychosocial issues. Follow-up stool for C. difficile. 04/25/2022. Creatinine only slightly improved to 2.9. Continue IV fluid hydration for acute kidney injury likely secondary to vasomotor nephropathy/dehydration. Continue sodium bicarbonate. Hold lisinopril given the acute kidney injury. Continue to monitor vancomycin level. Gabapentin dose reduced. Avoid nephrotoxins. No indication for hemodialysis per nephrology. Follow-up culture results for de-escalation of antibiotics. Upon discharge, we will treat with Keflex. ID following 04/26/2022. Patient reports several episodes of diarrhea yesterday. No h ematochezia or melena. S/p drainage of abscess POD 5. Creatinine slowly improving. cr. 4.1-->3.5-->3.5-->3.0-->2.9-->2.7. Continue IV fluid hydration for acute kidney injury likely secondary to vasomotor nephropathy/dehydration. Continue sodium bicarbonate. Hold lisinopril given the acute kidney injury. Continue to monitor vancomycin level. Avoid nephrotoxins. No indication for hemodialysis per nephrology. Follow-up culture results for de-escalation of antibiotics. Upon discharge, we will treat with Keflex. ID following 04/27/2022; MRSA sepsis, ID managing with IV vancomycin, contact isolation Smoking cessation counseling, status post paraspinal abscess incision drainage, continue wound care Continue supportive, smoking cessation, DC planning, surgeon cleared for discharge DC planning per case management 04/28; continue current management; continue vancomycin per ID May discharge on doxycycline for 7 days [when medically stable] PT/OT evaluate and treat, DC needs 04/30; continue current management PT OT recommendations noted and appreciated recommend subacute rehab rolling walker Patient is homeless, Possible discharge in 1 to 2 days if stable DC planning per case management 05/01; PT OT recommends subacute rehab Patient has no resources, possible home with home health History Interval history: I have seen and examined the patient at the bedside Patient's chart and medications reviewed Patient feels slightly better still has some back pain Vital signs noted Hospitalist Physical - Constitutional Vitals: Temp Pulse Resp BP Pulse Ox 98.3 F 96 H 22 134/75 97 05/01/22 05:01 05/01/22 05:01 05/01/22 05:01 05/01/22 05:01 05/01/22 05:01 General appearance: Present: no acute distress, well-nourished - EENT Eyes: Present: PERRL, EOM intact - Neck Neck: Present: supple, normal ROM - Respiratory Respiratory effort: normal Respiratory: bilateral: diminished, negative: rales, rhonchi, wheezing - Cardiovascular Rhythm: regular Heart Sounds: Present: S1 & S2 - Extremities Extremities: no ischemia, No edema - Abdominal General gastrointestinal: soft, non-tender, non-distended, normal bowel sounds - Integumentary Integumentary: Present: clear, warm - Psychiatric Psychiatric: appropriate mood/affect, cooperative - Neurologic Neurologic: moves all extremities Results - Labs CBC & Chem 7: 04/27/22 04:53 05/01/22 04:50 Labs: Laboratory Last Values WBC 9.2 K/mm3 (4.5-11.0) 04/27/22 04:53 RBC 2.26 M/mm3 (3.65-5.03) L 04/27/22 04:53 Hgb 7.3 gm/dl (11.8-15.2) L 04/27/22 04:53 Hct 22.4 % (35.5-45.6) L 04/27/22 04:53 MCV 99 fl (84-94) H 04/27/22 04:53 MCH 32 pg (28-32) 04/27/22 04:53 MCHC 33 % (32-34) 04/27/22 04:53 RDW 16.5 % (13.2-15.2) H 04/27/22 04:53 Plt Count 236 K/mm3 (140-440) 04/27/22 04:53 Lymph % (Auto) 11.9 % (13.4-35.0) L 04/27/22 04:53 Blaine % (Auto) 4.5 % (0.0-7.3) 04/27/22 04:53 Eos % (Auto) 1.9 % (0.0-4.3) 04/27/22 04:53 Baso % (Auto) 0.5 % (0.0-1.8) 04/27/22 04:53 Lymph # (Auto) 1.1 K/mm3 (1.2-5.4) L 04/27/22 04:53 Blaine # (Auto) 0.4 K/mm3 (0.0-0.8) 04/27/22 04:53 Eos # (Auto) 0.2 K/mm3 (0.0-0.4) 04/27/22 04:53 Baso # (Auto) 0.0 K/mm3 (0.0-0.1) 04/27/22 04:53 Seg Neutrophils % 81.2 % (40.0-70.0) H 04/27/22 04:53 Seg Neutrophils # 7.4 K/mm3 (1.8-7.7) 04/27/22 04:53 Percent Retic 0.97 % (0.78-2.58) 04/23/22 10:31 ABG pH 7.301 pH Units (7.350-7.450) L 04/22/22 16:02 ABG pCO2 34.1 mm Hg 04/22/22 16:02 ABG pO2 119.7 mm Hg (80.0-90.0) H 04/22/22 16:02 ABG HCO3 16.4 mmol/L (20.0-26.0) L 04/22/22 16:02 ABG O2 Saturation 96.6 % (95.0-99.0) 04/22/22 16:02 ABG O2 Content 8.2 (0.0-44) 04/22/22 16:02 ABG Base Excess -9.2 mmol/L (-2.0-3.0) L 04/22/22 16:02 ABG Hemoglobin 5.9 gm/dl (14.0-18.0) L 04/22/22 16:02 ABG Carboxyhemoglobin 0.2 % (0.0-5.0) 04/22/22 16:02 ABG Methemoglobin 0.3 % (0.0-1.5) 04/22/22 16:02 Oxyhemoglobin 96.1 % (95.0-99.0) 04/22/22 16:02 FiO2 21 % 04/22/22 16:02 Sodium 141 mmol/L (137-145) 05/01/22 04:50 Potassium 4.1 mmol/L (3.6-5.0) 05/01/22 04:50 Chloride 109.9 mmol/L (98-107) H 05/01/22 04:50 Carbon Dioxide 22 mmol/L (22-30) 05/01/22 04:50 Anion Gap 13 mmol/L 05/01/22 04:50 BUN 31 mg/dL (9-20) H 05/01/22 04:50 Creatinine 3.1 mg/dL (0.8-1.3) H 05/01/22 04:50 Estimated GFR 26 ml/min 05/01/22 04:50 BUN/Creatinine Ratio 10 % 05/01/22 04:50 Glucose 157 mg/dL (75-100) H 05/01/22 04:50 POC Glucose 88 mg/dL (70-105) 04/21/22 20:27 Lactic Acid 0.50 mmol/L (0.7-2.0) L 04/21/22 21:20 Calcium 7.9 mg/dL (8.4-10.2) L 05/01/22 04:50 Iron 43 ug/dL (49-181) L 04/23/22 10:31 TIBC 164 mcg/dL (250-450) L 04/23/22 10:31 Ferritin 190.4 ng/mL (30.0-300.0) 04/23/22 10:31 Total Bilirubin 0.30 mg/dL (0.1-1.2) 04/21/22 03:07 AST 56 units/L (5-40) H 04/21/22 03:07 ALT 47 units/L (7-56) 04/21/22 03:07 Alkaline Phosphatase 111 units/L (35-129) 04/21/22 03:07 Lactate Dehydrogenase 166 units/L (91-180) 04/23/22 10:31 Total Creatine Kinase 94 units/L (55-170) 04/21/22 21:20 Serum Total Protein 7.0 g/dL (6.1-8.1) 04/21/22 21:20 Total Protein 7.8 g/dL (6.3-8.2) 04/21/22 03:07 Albumin 3.4 g/dL (3.8-4.8) L 04/21/22 21:20 Albumin/Globulin Ratio 1.0 % 04/21/22 03:07 Mystv-9-Xgomjmpde 0.4 g/dL (0.2-0.3) H 04/21/22 21:20 Gglki-9-Jpipmxlug 0.8 g/dL (0.5-0.9) 04/21/22 21:20 Beta Globulins 0.5 g/dL (0.2-0.5) 04/21/22 21:20 Gamma Globulins 1.4 g/dL (0.8-1.7) 04/21/22 21:20 Abnorm Protein Band 1 see below 04/21/22 21:20 PEP Interpretation see below H 04/21/22 21:20 Lipase 39 units/L (13-60) 04/21/22 03:07 Vitamin B12 1307 pg/mL (211-911) H 04/23/22 10:31 Folate 9.90 ng/mL (7.3-26.0) 04/23/22 10:31 Urine Color Colorless (Yellow) 04/21/22 03:14 Urine Turbidity Slightly cloudy (Clear) 04/21/22 03:14 Specific Burton (Man) 1.000 (1.003-1.030) L 04/21/22 03:14 Ur Protein (Man) 2+ mg/dL (Negative) 04/21/22 03:14 Ur Ketones (Man) Negative (Negative) 04/21/22 03:14 Urine Bilirubin (Man) Negative (Negative) 04/21/22 03:14 Urine WBC (Auto) 16.0 /HPF (0.0-6.0) H 04/21/22 03:14 Urine RBC (Auto) 4.0 /HPF (0.0-6.0) 04/21/22 03:14 Urine RBC (Manual) 5+ (Negative) 04/21/22 03:14 Triple Phos Crystals Few 04/21/22 03:14 Urine Mucus Few /HPF 04/21/22 03:14 Urine Creatinine 69.3 mg/dL (0.1-20.0) H 04/21/22 17:46 Urine Sodium 77 mmol/L 04/21/22 17:46 Nasal Screen MRSA (PCR) Positive (Negative) 04/22/22 Unknown Random Vancomycin 15.2 ug/mL (0-40.0) 04/27/22 04:53 Immunofix Electrophor see below 04/21/22 21:20 KIM Screen Negative (Negative) 04/21/22 21:20 Proteinase 3 (PR3) Ab <1.0 AI (<1.0) 04/21/22 21:20 Myeloperoxidase Ab <1.0 AI (<1.0) 04/21/22 21:20 Complement C3 129 mg/dL (82-185) 04/21/22 21:20 Complement C4 40 mg/dL (15-53) 04/21/22 21:20 Hep Bs Antigen Non-reactive (Negative) 04/21/22 21:20 Hepatitis C Antibody Non-reactive (NonReactive) 04/21/22 21:20 Blood Type A POSITIVE 04/21/22 15:30 Antibody Screen Negative 04/21/22 15:30 Crossmatch See Detail 04/21/22 15:30 Microbiology: Microbiology 04/29/22 03:35 Stool Stool for WBCs - Final NEGATIVE 04/21/22 Unknown Back Anaerobic Culture - Final Jackson/IV: Voiding Method Indwelling Catheter Active Medications - Current Medications Current Medications: Generic Name Dose Route Start Last Admin Trade Name Freq PRN Reason Stop Dose Admin Acetaminophen 650 mg 04/21/22 13:47 04/23/22 22:06 Acetaminophen 325 Mg Tab PO 650 mg Q4H PRN Administration Pain MILD(1-3)/Fever >100.5/SHARPE Albuterol 2.5 mg 04/21/22 13:47 Albuterol 2.5 Mg/3 Ml Nebu IH Q4HRT PRN Shortness Of Breath Amlodipine Besylate 10 mg 04/26/22 11:00 05/01/22 09:14 Amlodipine 10 Mg Tab PO 10 mg QDAY CHAYA Administration Atorvastatin Calcium 40 mg 04/21/22 22:00 04/30/22 22:05 Atorvastatin 40 Mg Tab PO 40 mg QHS CHAYA Administration Cholestyramine Resin 4 gm 04/30/22 22:00 05/01/22 09:13 Cholestyramine (With Sugar) 4 Gm Packet PO 4 gm BID CHAYA Administration Doxycycline Hyclate 100 mg 04/28/22 10:00 05/01/22 09:13 Doxycycline 100 Mg Cap PO 05/04/22 22:01 100 mg Q12HR CHAYA Administration Gabapentin 400 mg 04/22/22 18:00 04/30/22 18:39 Gabapentin 400 Mg Cap PO 400 mg QPM CHAYA Administration Hydralazine HCl 10 mg 04/25/22 19:00 04/30/22 23:52 Hydralazine 20 Mg/1 Ml Inj IV 10 mg Q4HR PRN Administration BP > 150/95 Hydromorphone HCl 0.5 mg 04/21/22 13:47 04/23/22 04:28 Hydromorphone 0.5 Mg/0.5 Ml Inj IV 0.5 mg Q23H PRN Administration Pain , Severe (7-10) Sodium Chloride 1,000 mls @ 100 mls/hr 04/29/22 10:00 04/30/22 23:59 Nacl 0.9% 1000 Ml IV 100 mls/hr DIRECT CHAYA Administration Morphine Sulfate 2 mg 04/21/22 18:00 05/01/22 09:14 Morphine 2 Mg/1 Ml Inj IV 2 mg Q4H PRN Administration Pain, Moderate (4-6) Multivitamins 1 each 04/24/22 10:00 05/01/22 09:14 Multivitamins ,Therapeutic Tab PO 1 each QDAY CHAYA Administration Ondansetron HCl 4 mg 04/23/22 10:00 05/01/22 05:06 Ondansetron 4 Mg/2 Ml Inj IV 4 mg Q4H PRN Administration Nausea And Vomiting Oxycodone/Acetaminophen 1 tab 04/21/22 13:47 Oxycodone /Acetaminophen 5-325mg Tab PO Q16H PRN Pain, Moderate (4-6) Sodium Bicarbonate 1,300 mg 04/21/22 20:00 05/01/22 09:13 Sodium Bicarbonate 650 Mg Tab PO 1,300 mg TID CHAYA Administration Sodium Chloride 10 ml 04/21/22 22:00 05/01/22 09:14 Sodium Chloride 0.9% 10 Ml Flush Syringe IV 10 ml BID CHAYA Administration Sodium Chloride 10 ml 04/21/22 13:47 Sodium Chloride 0.9% 10 Ml Flush Syringe IV PRN PRN LINE FLUSH Nutrition/Malnutrition Assess - Dietary Evaluation Nutrition/Malnutrition Findings: Nutrition Notes Start: 04/28/22 14:53 Freq: Status: Active Protocol: Document 04/28/22 14:53 JAMES (Rec: 04/28/22 15:06 JAMES [id number]) Nutrition Notes Need for Assessment generated from: LOS Initial or Follow up Assessment Current Diagnosis Acute Kidney Injury,Diabetes, Sepsis,Hypertension Other Pertinent Diagnosis R-Paraspinal Abscess/ Cellulitis, Tad's Gangrene, UTI, Asthma. Current Diet Regular -No Dairy- Diet (since B 04/21). Labs/Tests 04/28: Cl 113.1, CO2 18, BUN 33, Crea 2.6, Ca 7.6. Pertinent Medications 04/28: Multivitamins, others nutritionally unremarkable. Height 5 ft 6 in Weight 58.3 kg Hayes Body Weight (kg) 64.54 BMI 20.7 Intake Prior to Admission Good Weight change and time frame Pt denies having loss body weight [employer]. Weight Status Appropriate Subjective/Other Information RD consult for LOS assessment. Pt's PO intake of meals has been Good (75-100%) and well tolerated, according to ADL notes. Pt is on Room Air, O2 saturation @ 100%, according to Physical Assessment History notes. Pt has missing teeth, according to Physical Assessment History notes. Pt presents Tad's Gangrene & Back Abscess as signs of concern for skin risk at the time, according to Physical Assessment History notes. Pt has chronic diarrhea, according to Progress notes. Percent of energy/protein needs met: Prescribed Regular -No Dairy- Diet provides for energy/ protein needs (2,289 Kcal/89 g ) during LOS. Burn Absent Trauma Absent GI Symptoms None Food Allergy No Skin Integrity/Comment Tad's Gangrene & Back Abscess. 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 No Is Patient Ambulatory and/or Out of Bed Yes REE-([facility]-ambulatory/OOB) [ 1820.975 [id number]] Kcal/Kg value to use for calculation 28 Approximate Energy Requirements Using 1632 kcal/Kg Calculation Used for Recommendations Kcal/kg Additional Notes Protein: 0.8-1 g/Kg ABW; 46-58 g/day. Fluids: 1 ml/Kcal, or as per MD. Nutrition Intervention Change Diet Order: Continue Regular -No Dairy- Diet as tolerated. Follow-Up By: 05/05/22 Additional Comments Continue monitoring food tolerance, %PO intake of meals , and BM.
[2022-05-01] MEDS: GABAPENTIN 400 MG CAP PO SCH (17:29)
[2022-05-02] MEDS: SODIUM CHLORIDE 0.9% 1000 ML 1,000 ML IV SCH ×2 (03:11→22:11)
[2022-05-02] MEDS: MORPHINE 2 MG/1 ML INJ IV PRN ×5 (03:11→21:29)
[2022-05-02] MEDS: ONDANSETRON 4 MG/2 ML INJ IV PRN ×4 (03:12→22:11)
[2022-05-02 06:38] LABS: Calcium 7.9 mg/dL (8.4-10.2)
[2022-05-02] MEDS: DOXYCYCLINE 100 MG CAP PO SCH ×2 (09:21→21:29)
[2022-05-02] MEDS: SODIUM BICARBONATE 650 MG TAB PO SCH ×3 (09:21→21:29)
[2022-05-02] MEDS: CHOLESTYRAMINE (WITH SUGAR) 4 GM PACKET PO SCH ×2 (09:22→21:30)
[2022-05-02] MEDS: amLODIPine 10 MG TAB PO SCH (09:22)
[2022-05-02] MEDS: MULTIVITAMINS ,THERAPEUTIC TAB PO SCH (09:22)
--- NOTE | 2022-05-02 13:01 | Progress Note ---
Assessment and Plan Impression: * Acute kidney injury --SCr 1.3mg/dL in Aug 2021 * Skin abscess --Wound culture: MRSA * Metabolic acidosis * Hyponatremia * Hypertension * Diarrhea - Cdiff toxin PCR positive Plan: * Renal function is stable/improved - SCr trending down with IVF * Continue to hold diuretic and ACEi * Continue sodium bicarb tabs * Continue Amlodipine 10mg daily * Vanco po per primary team * GI recommendations noted * Transfuse pRBC prn * Dose medicatons for renal function * Avoid nephrotoxins * Would benefit from another day of IVF as diarrhea now slowing. * Will arrange outpatient nephrology follow-up * Discussed with Dr. Sanders Subjective Date of service: 05/02/22 Principal diagnosis: Back abscess Interval history: Patient reports only 3 episodes of diarrhea today. Objective - Vital Signs Vital signs: Vital Signs - 12hr 05/02/22 05/02/22 05/02/22 04:20 10:00 11:15 Temperature 97.9 F 97.7 F Pulse Rate 89 88 Respiratory 18 18 Rate Blood Pressure 186/97 179/93 O2 Sat by Pulse 96 98 90 Oximetry - General Appearance General appearance: well-developed, well-nourished EENT: ATNC Respiratory: Present: Clear to Ascultation Cardiology: regular, S1S2 Gastrointestinal: normal, no tenderness, no distended Musculoskeletal: other (trace edema) Psychiatric: cooperative - Lab 04/27/22 04:53 05/02/22 05:40 Most recent lab results ABG pH 7.301 pH Units (7.350-7.450) L 04/22/22 16:02 ABG pCO2 34.1 mm Hg 04/22/22 16:02 ABG pO2 119.7 mm Hg (80.0-90.0) H 04/22/22 16:02 ABG HCO3 16.4 mmol/L (20.0-26.0) L 04/22/22 16:02 ABG O2 Saturation 96.6 % (95.0-99.0) 04/22/22 16:02 Calcium 7.9 mg/dL (8.4-10.2) L 05/02/22 05:40 Urine Creatinine 69.3 mg/dL (0.1-20.0) H 04/21/22 17:46 Urine Sodium 77 mmol/L 04/21/22 17:46 Medications & Allergies - Medications Allergies/Adverse Reactions: Allergies No Known Allergies Allergy (Verified 04/21/22 08:44) Home Medications: Home Medications Medication Instructions Recorded Confirmed Last Taken Type Folic Acid [Folvite] 1 mg PO QDAY 08/17/21 04/22/22 04/21/22 History amLODIPine [Norvasc] 5 mg PO DAILY 08/17/21 04/22/22 04/21/22 History carvediloL [Coreg] 25 mg PO Q12H 08/17/21 04/22/22 04/21/22 History hydroCHLOROthiazide [HCTZ] 25 mg PO QDAY 08/17/21 04/22/22 04/21/22 History Loperamide [Imodium] 2 mg PO BID 04/22/22 04/22/22 04/21/22 History Active Medications: Generic Name Dose Route Start Last Admin Trade Name Freq PRN Reason Stop Dose Admin Acetaminophen 650 mg 04/21/22 13:47 04/23/22 22:06 Acetaminophen 325 Mg Tab PO 650 mg Q4H PRN Administration Pain MILD(1-3)/Fever >100.5/SHARPE Albuterol 2.5 mg 04/21/22 13:47 Albuterol 2.5 Mg/3 Ml Nebu IH Q4HRT PRN Shortness Of Breath Amlodipine Besylate 10 mg 04/26/22 11:00 05/02/22 09:22 Amlodipine 10 Mg Tab PO 10 mg QDAY CHAYA Administration Atorvastatin Calcium 40 mg 04/21/22 22:00 05/01/22 22:02 Atorvastatin 40 Mg Tab PO 40 mg QHS CHAYA Administration Cholestyramine Resin 4 gm 04/30/22 22:00 05/02/22 09:22 Cholestyramine (With Sugar) 4 Gm Packet PO Not Given BID CHAYA Doxycycline Hyclate 100 mg 04/28/22 10:00 05/02/22 09:21 Doxycycline 100 Mg Cap PO 05/04/22 22:01 100 mg Q12HR CHAYA Administration Gabapentin 400 mg 04/22/22 18:00 05/01/22 17:29 Gabapentin 400 Mg Cap PO 400 mg QPM CHAYA Administration Hydralazine HCl 10 mg 04/25/22 19:00 04/30/22 23:52 Hydralazine 20 Mg/1 Ml Inj IV 10 mg Q4HR PRN Administration BP > 150/95 Hydromorphone HCl 0.5 mg 04/21/22 13:47 04/23/22 04:28 Hydromorphone 0.5 Mg/0.5 Ml Inj IV 0.5 mg Q23H PRN Administration Pain , Severe (7-10) Sodium Chloride 1,000 mls @ 100 mls/hr 04/29/22 10:00 05/02/22 03:11 Nacl 0.9% 1000 Ml IV 100 mls/hr DIRECT CHAYA Administration Morphine Sulfate 2 mg 04/21/22 18:00 05/02/22 12:54 Morphine 2 Mg/1 Ml Inj IV 2 mg Q4H PRN Administration Pain, Moderate (4-6) Multivitamins 1 each 04/24/22 10:00 05/02/22 09:22 Multivitamins ,Therapeutic Tab PO 1 each QDAY CHAYA Administration Ondansetron HCl 4 mg 04/23/22 10:00 05/02/22 09:27 Ondansetron 4 Mg/2 Ml Inj IV 4 mg Q4H PRN Administration Nausea And Vomiting Oxycodone/Acetaminophen 1 tab 04/21/22 13:47 Oxycodone /Acetaminophen 5-325mg Tab PO Q16H PRN Pain, Moderate (4-6) Sodium Bicarbonate 1,300 mg 04/21/22 20:00 05/02/22 09:21 Sodium Bicarbonate 650 Mg Tab PO 1,300 mg TID CHAYA Administration Sodium Chloride 10 ml 04/21/22 22:00 05/02/22 09:22 Sodium Chloride 0.9% 10 Ml Flush Syringe IV 10 ml BID CHAYA Administration Sodium Chloride 10 ml 04/21/22 13:47 Sodium Chloride 0.9% 10 Ml Flush Syringe IV PRN PRN LINE FLUSH Vancomycin HCl 125 mg 05/02/22 18:00 Vancomycin 250 Mg/10 Ml Oral Liqd PO Q6HR [facility] Protocol
--- NOTE | 2022-05-02 13:06 | Discharge Summary ---
Providers - Providers Date of Admission: 04/21/22 13:47 Date of discharge: 05/02/22 Attending physician: BEBE BOOTH 04/21/22 13:52 Consult to Physician [CONS] Urgent Comment: Consulting Provider: JUVENAL HOLLOWAY Physician Instructions: Reason For Exam: Cellulitis/Abscess needing I&D 04/21/22 14:24 Consult to Physician [CONS] Routine Comment: Consulting Provider: CORBY CORRAL Physician Instructions: Reason For Exam: dennis 04/22/22 13:22 Consult to Physician [CONS] Routine Comment: Consulting Provider: VINICIO BLOOM Physician Instructions: Reason For Exam: diarrhea, 50lb weight loss 04/22/22 13:23 Consult to Physician [CONS] Routine Comment: Consulting Provider: JORDI HAQUE Physician Instructions: Reason For Exam: back abscess 04/28/22 19:42 Occupational Therapy Evaluate and Treat [CONS] Routine Comment: Evaluate and treat/DC needs Reason For Exam: Paraspinal abscess/I&D/General debility Physical Therapy Evaluation and Treat [CONS] Routine Comment: Evaluate and treat ,discharge needs Reason For Exam: Eval ,treat/ paraspinal abscess I&D,gen debility 04/29/22 15:02 Consult to Physician [CONS] Routine Comment: Consulting Provider: ASHLEY MERCADO Physician Instructions: Reason For Exam: History of Crohn's disease/diarrhea 05/03/22 09:00 Consult to Wound/ET Nurse [CONS] Routine Reason For Exam: wound eval Primary care physician: ISRA VILLALOBOS Hospitalization Condition: Stable Disposition: 30 STILL A PATIENT Exam - Constitutional Vitals: Temp Pulse Resp BP Pulse Ox 97.7 F 88 18 179/93 90 05/02/22 11:15 05/02/22 11:15 05/02/22 11:15 05/02/22 11:15 05/02/22 11:15 Plan Follow up with: ISRA VILLALOBOS MD [Primary Care Provider] - 3-5 Days
[2022-05-02] MEDS: VANCOMYCIN 250 MG/10 ML ORAL LIQD PO SCH (17:05)
[2022-05-02] MEDS: GABAPENTIN 400 MG CAP PO SCH (17:05)
--- NOTE | 2022-05-02 20:24 | Progress Note ---
Assessment and Plan Assessment and plan: 46 YO Male with DM, Mild Intermittent Asthma, Nicotine Dependence, Medication Noncompliance presents ED for evaluation of pain to his right back over the past 4 days [employer]. 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 Patient found to have a fluctuant mass to the right paraspinal region with superimposed erythema consistent with cellulitis complicated by right paraspinal abscess, sepsis, as well as urinary tract infection, and hyponatremia. --History of Crohn's disease; GI evaluated, advised stool studies and supportive care Advised follow-up outpatient for further evaluation and management -- C. difficile tox positive; Contact isolation, started oral vancomycin 125 mg every 6 hours for total 10 days -Paraspinal abscess; surgeon evaluated the patient Status post incision drainage, continue wound care, completed IV antibiotics ID recommended doxycycline 100 mg twice a day for total 7 days stop date 05/04/2022 --Cellulitis; continue IV antibiotics, follow cultures --Sepsis; due to paraspinal abscess/cellulitis[present on admission] Continue sepsis protocol, IV fluids, completed IV antibiotics, on oral Doxy for 10 days stop date 05/04/2022 --UTI; urinary tract infection present on admission Continue empiric antibiotics, follow cultures, IV fluids --Acute kidney injury secondary to ATN from sepsis/vasomotor nephropathy; Closely monitor renal function, avoid nephrotoxins, renal dosing of medications Nephrology following --Hyponatremia; present on admission Sodium level significantly improved, closely monitor electrolytes --Anemia; Hb 6.7, received 1 unit PRBC improved to 7.3 Closely monitor H&H, transfuse additional PRBC as needed --Severe protein calorie malnutrition; Nutrition supplements, nutrition consult, supportive care --Ongoing tobacco use/nicotine dependence/cessation counseling 15 to 20 minutes Smoking cessation counseling done, strongly advised to quit tobacco use Risks and sequelae of chronic tobacco use discussed with the patient He verbalized understanding I also discussed role of nicotine patch and smoking cessation Answered all his questions, total time spent 17 minutes --DVT prophylaxis; Patient is postop state SCDs, no pharmacologic anticoagulation --Advance care planning; I discussed in detail with the patient his condition I discussed his tests and reports, I discussed his treatment plan I discussed the consultants evaluation recommendations, I discussed discharge planning I also discussed smoking cessation, also discussed usage of nicotine patch. Patient has few questions, answered all of them, he verbalized understanding Ordered nicotine patch to his treatment regimen total time 35 minutes 04/22/2022. Patient underwent I&D of back abscess earlier today. Nephrology recommends Jackson change and follow-up serologies. Continue IV fluid hydration and hold lisinopril. No immediate indication for hemodialysis. Continue to renally dose medications and avoid nephrotoxins. Continue renal diet. Patient also reports having chronic diarrhea and previous work-up at [facility] in the past. However, patient now reports approximately 50 pound weight loss in the past 2 months. We will consult GI for further evaluation 04/23/2022. Continue wound care of back abscess/I&D. Hemoglobin 6.7 today. We will transfuse 1 unit PRBCs. Patient does report BRBPR approximately 1 week ago . However, no active bleeding or recent history of hematochezia/melena. We will start Protonix daily. Given the history of anemia, weight loss and BRBPR, patient may need colonoscopy. Await GI evaluation. We will follow-up iron studies, B12, folate reticulocyte count and LDH. Check occult stool. Nephrology following for acute kidney injury. 04/24/2022. Continue IV fluid hydration for acute kidney injury likely secondary to vasomotor nephropathy. Creatinine slightly improved to 3.0 today. Hemoglobin improved to 8.1 s/p PRBCs. Cefepime discontinued and ID recommends IV vancomycin for now. Follow-up culture results for de-escalation of antibiotics. Upon discharge, we will treat with Keflex continue wound care per nursing 3 times a day with saline. Surgery following. Patient continues to complain of intermittent diarrhea. GI evaluated the patient and reports patient has had multiple previous admits to [facility] and likely does not have active Crohn's disease. GI believes that the 50 pound weight loss is secondary to severe protein calorie malnutrition from psychosocial issues. Follow-up stool for C. difficile. 04/25/2022. Creatinine only slightly improved to 2.9. Continue IV fluid hydration for acute kidney injury likely secondary to vasomotor nephropathy/deh ydration. Continue sodium bicarbonate. Hold lisinopril given the acute kidney injury. Continue to monitor vancomycin level. Gabapentin dose reduced. Avoid nephrotoxins. No indication for hemodialysis per nephrology. Follow-up culture results for de-escalation of antibiotics. Upon discharge, we will treat with Keflex. ID following 04/26/2022. Patient reports several episodes of diarrhea yesterday. No hematochezia or melena. S/p drainage of abscess POD 5. Creatinine slowly improving. cr. 4.1-->3.5-->3.5-->3.0-->2.9-->2.7. Continue IV fluid hydration for acute kidney injury likely secondary to vasomotor nephropathy/dehydration. Continue sodium bicarbonate. Hold lisinopril given the acute kidney injury. Continue to monitor vancomycin level. Avoid nephrotoxins. No indication for hemodialysis per nephrology. Follow-up culture results for de-escalation of antibiotics. Upon discharge, we will treat with Keflex. ID following 04/27/2022; MRSA sepsis, ID managing with IV vancomycin, contact isolation Smoking cessation counseling, status post paraspinal abscess incision drainage, continue wound care Continue supportive, smoking cessation, DC planning, surgeon cleared for discharge DC planning per case management 04/28; continue current management; continue vancomycin per ID May discharge on doxycycline for 7 days [when medically stable] PT/OT evaluate and treat, DC needs 04/30; continue current management PT OT recommendations noted and appreciated recommend subacute rehab rolling walker Patient is homeless, Possible discharge in 1 to 2 days if stable DC planning per case management 05/01; PT OT recommends subacute rehab Patient has no resources, possible home with home health 05/02; patient was initially planned for discharge today However patient requested that tomorrow his brother would come and pick him up Patient's C. difficile was positive, started on oral vancomycin 125 mg every 6 hours Contact isolation History Interval history: I have seen and examined the patient at the bedside Patient's chart and medications reviewed Initially patient was being discharged home with home health However patient has nowhere to go, and reported that tomorrow his brother would come to pick him up Patient's C. difficile tox positive Vital signs noted Hospitalist Physical - Constitutional Vitals: Temp Pulse Resp BP Pulse Ox 98.0 F 94 H 20 164/91 93 05/02/22 15:42 05/02/22 15:42 05/02/22 15:42 05/02/22 15:42 05/02/22 15:42 General appearance: Present: no acute distress, well-nourished - EENT Eyes: Present: PERRL, EOM intact - Neck Neck: Present: supple, normal ROM - Respiratory Respiratory effort: normal Respiratory: bilateral: diminished, negative: rales, rhonchi, wheezing - Cardiovascular Rhythm: regular Heart Sounds: Present: S1 & S2 - Extremities Extremities: no ischemia, No edema - Abdominal General gastrointestinal: soft, non-tender, non-distended, normal bowel sounds - Integumentary Integumentary: Present: clear, warm - Psychiatric Psychiatric: appropriate mood/affect, cooperative - Neurologic Neurologic: moves all extremities Results - Labs CBC & Chem 7: 04/27/22 04:53 05/02/22 05:40 Labs: Laboratory Last Values WBC 9.2 K/mm3 (4.5-11.0) 04/27/22 04:53 RBC 2.26 M/mm3 (3.65-5.03) L 04/27/22 04:53 Hgb 7.3 gm/dl (11.8-15.2) L 04/27/22 04:53 Hct 22.4 % (35.5-45.6) L 04/27/22 04:53 MCV 99 fl (84-94) H 04/27/22 04:53 MCH 32 pg (28-32) 04/27/22 04:53 MCHC 33 % (32-34) 04/27/22 04:53 RDW 16.5 % (13.2-15.2) H 04/27/22 04:53 Plt Count 236 K/mm3 (140-440) 04/27/22 04:53 Lymph % (Auto) 11.9 % (13.4-35.0) L 04/27/22 04:53 [place] % (Auto) 4.5 % (0.0-7.3) 04/27/22 04:53 Eos % (Auto) 1.9 % (0.0-4.3) 04/27/22 04:53 Baso % (Auto) 0.5 % (0.0-1.8) 04/27/22 04:53 Lymph # (Auto) 1.1 K/mm3 (1.2-5.4) L 04/27/22 04:53 [place] # (Auto) 0.4 K/mm3 (0.0-0.8) 04/27/22 04:53 Eos # (Auto) 0.2 K/mm3 (0.0-0.4) 04/27/22 04:53 Baso # (Auto) 0.0 K/mm3 (0.0-0.1) 04/27/22 04:53 Seg Neutrophils % 81.2 % (40.0-70.0) H 04/27/22 04:53 Seg Neutrophils # 7.4 K/mm3 (1.8-7.7) 04/27/22 04:53 Percent Retic 0.97 % (0.78-2.58) 04/23/22 10:31 ABG pH 7.301 pH Units (7.350-7.450) L 04/22/22 16:02 ABG pCO2 34.1 mm Hg 04/22/22 16:02 ABG pO2 119.7 mm Hg (80.0-90.0) H 04/22/22 16:02 ABG HCO3 16.4 mmol/L (20.0-26.0) L 04/22/22 16:02 ABG O2 Saturation 96.6 % (95.0-99.0) 04/22/22 16:02 ABG O2 Content 8.2 (0.0-44) 04/22/22 16:02 ABG Base Excess -9.2 mmol/L (-2.0-3.0) L 04/22/22 16:02 ABG Hemoglobin 5.9 gm/dl (14.0-18.0) L 04/22/22 16:02 ABG Carboxyhemoglobin 0.2 % (0.0-5.0) 04/22/22 16:02 ABG Methemoglobin 0.3 % (0.0-1.5) 04/22/22 16:02 Oxyhemoglobin 96.1 % (95.0-99.0) 04/22/22 16:02 FiO2 21 % 04/22/22 16:02 Sodium 142 mmol/L (137-145) 05/02/22 05:40 Potassium 4.4 mmol/L (3.6-5.0) 05/02/22 05:40 Chloride 110.3 mmol/L (98-107) H 05/02/22 05:40 Carbon Dioxide 22 mmol/L (22-30) 05/02/22 05:40 Anion Gap 14 mmol/L 05/02/22 05:40 BUN 31 mg/dL (9-20) H 05/02/22 05:40 Creatinine 2.9 mg/dL (0.8-1.3) H 05/02/22 05:40 Estimated GFR 28 ml/min 05/02/22 05:40 BUN/Creatinine Ratio 11 % 05/02/22 05:40 Glucose 99 mg/dL (75-100) 05/02/22 05:40 POC Glucose 88 mg/dL (70-105) 04/21/22 20:27 Lactic Acid 0.50 mmol/L (0.7-2.0) L 04/21/22 21:20 Calcium 7.9 mg/dL (8.4-10.2) L 05/02/22 05:40 Iron 43 ug/dL (49-181) L 04/23/22 10:31 TIBC 164 mcg/dL (250-450) L 04/23/22 10:31 Ferritin 190.4 ng/mL (30.0-300.0) 04/23/22 10:31 Total Bilirubin 0.30 mg/dL (0.1-1.2) 04/21/22 03:07 AST 56 units/L (5-40) H 04/21/22 03:07 ALT 47 units/L (7-56) 04/21/22 03:07 Alkaline Phosphatase 111 units/L (35-129) 04/21/22 03:07 Lactate Dehydrogenase 166 units/L (91-180) 04/23/22 10:31 Total Creatine Kinase 94 units/L (55-170) 04/21/22 21:20 Serum Total Protein 7.0 g/dL (6.1-8.1) 04/21/22 21:20 Total Protein 7.8 g/dL (6.3-8.2) 04/21/22 03:07 Albumin 3.4 g/dL (3.8-4.8) L 04/21/22 21:20 Albumin/Globulin Ratio 1.0 % 04/21/22 03:07 Vdziz-3-Wnnqgudfj 0.4 g/dL (0.2-0.3) H 04/21/22 21:20 Qtaar-9-Hpkhcumef 0.8 g/dL (0.5-0.9) 04/21/22 21:20 Beta Globulins 0.5 g/dL (0.2-0.5) 04/21/22 21:20 Gamma Globulins 1.4 g/dL (0.8-1.7) 04/21/22 21:20 Abnorm Protein Band 1 see below 04/21/22 21:20 PEP Interpretation see below H 04/21/22 21:20 Lipase 39 units/L (13-60) 04/21/22 03:07 Vitamin B12 1307 pg/mL (211-911) H 04/23/22 10:31 Folate 9.90 ng/mL (7.3-26.0) 04/23/22 10:31 Urine Color Colorless (Yellow) 04/21/22 03:14 Urine Turbidity Slightly cloudy (Clear) 04/21/22 03:14 Specific [place] (Man) 1.000 (1.003-1.030) L 04/21/22 03:14 Ur Protein (Man) 2+ mg/dL (Negative) 04/21/22 03:14 Ur Ketones (Man) Negative (Negative) 04/21/22 03:14 Urine Bilirubin (Man) Negative (Negative) 04/21/22 03:14 Urine WBC (Auto) 16.0 /HPF (0.0-6.0) H 04/21/22 03:14 Urine RBC (Auto) 4.0 /HPF (0.0-6.0) 04/21/22 03:14 Urine RBC (Manual) 5+ (Negative) 04/21/22 03:14 Triple Phos Crystals Few 04/21/22 03:14 Urine Mucus Few /HPF 04/21/22 03:14 Urine Creatinine 69.3 mg/dL (0.1-20.0) H 04/21/22 17:46 Urine Sodium 77 mmol/L 04/21/22 17:46 Nasal Screen MRSA (PCR) Positive (Negative) 04/22/22 Unknown Random Vancomycin 15.2 ug/mL (0-40.0) 04/27/22 04:53 Immunofix Electrophor see below 04/21/22 21:20 KIM Screen Negative (Negative) 04/21/22 21:20 Proteinase 3 (PR3) Ab <1.0 AI (<1.0) 04/21/22 21:20 Myeloperoxidase Ab <1.0 AI (<1.0) 04/21/22 21:20 Complement C3 129 mg/dL (82-185) 04/21/22 21:20 Complement C4 40 mg/dL (15-53) 04/21/22 21:20 C. difficile Tox (PCR) Positive (Negative) 04/29/22 03:35 Hep Bs Antigen Non-reactive (Negative) 04/21/22 21:20 Hepatitis C Antibody Non-reactive (NonReactive) 04/21/22 21:20 Blood Type A POSITIVE 04/21/22 15:30 Antibody Screen Negative 04/21/22 15:30 Crossmatch See Detail 04/21/22 15:30 Microbiology: Microbiology 04/29/22 03:35 Stool Stool Culture - Final 04/29/22 03:35 Stool Stool for WBCs - Final NEGATIVE Jackson/IV: Voiding Method Indwelling Catheter Active Medications - Current Medications Current Medications: Generic Name Dose Route Start Last Admin Trade Name Freq PRN Reason Stop Dose Admin Acetaminophen 650 mg 04/21/22 13:47 04/23/22 22:06 Acetaminophen 325 Mg Tab PO 650 mg Q4H PRN Administration Pain MILD(1-3)/Fever >100.5/SHARPE Albuterol 2.5 mg 04/21/22 13:47 Albuterol 2.5 Mg/3 Ml Nebu IH Q4HRT PRN Shortness Of Breath Amlodipine Besylate 10 mg 04/26/22 11:00 05/02/22 09:22 Amlodipine 10 Mg Tab PO 10 mg QDAY CHAYA Administration Atorvastatin Calcium 40 mg 04/21/22 22:00 05/01/22 22:02 Atorvastatin 40 Mg Tab PO 40 mg QHS CHAYA Administration Cholestyramine Resin 4 gm 04/30/22 22:00 05/02/22 09:22 Cholestyramine (With Sugar) 4 Gm Packet PO Not Given BID CHAYA Doxycycline Hyclate 100 mg 04/28/22 10:00 05/02/22 09:21 Doxycycline 100 Mg Cap PO 05/04/22 22:01 100 mg Q12HR CHAYA Administration Gabapentin 400 mg 04/22/22 18:00 05/02/22 17:05 Gabapentin 400 Mg Cap PO 400 mg QPM CHAYA Administration Hydralazine HCl 10 mg 04/25/22 19:00 04/30/22 23:52 Hydralazine 20 Mg/1 Ml Inj IV 10 mg Q4HR PRN Administration BP > 150/95 Hydromorphone HCl 0.5 mg 04/21/22 13:47 04/23/22 04:28 Hydromorphone 0.5 Mg/0.5 Ml Inj IV 0.5 mg Q23H PRN Administration Pain , Severe (7-10) Sodium Chloride 1,000 mls @ 100 mls/hr 04/29/22 10:00 05/02/22 03:11 Nacl 0.9% 1000 Ml IV 100 mls/hr DIRECT CHAYA Administration Morphine Sulfate 2 mg 04/21/22 18:00 05/02/22 17:05 Morphine 2 Mg/1 Ml Inj IV 2 mg Q4H PRN Administration Pain, Moderate (4-6) Multivitamins 1 each 04/24/22 10:00 05/02/22 09:22 Multivitamins ,Therapeutic Tab PO 1 each QDAY CHAYA Administration Ondansetron HCl 4 mg 04/23/22 10:00 05/02/22 17:11 Ondansetron 4 Mg/2 Ml Inj IV 4 mg Q4H PRN Administration Nausea And Vomiting Oxycodone/Acetaminophen 1 tab 04/21/22 13:47 Oxycodone /Acetaminophen 5-325mg Tab PO Q16H PRN Pain, Moderate (4-6) Sodium Bicarbonate 1,300 mg 04/21/22 20:00 05/02/22 16:36 Sodium Bicarbonate 650 Mg Tab PO 1,300 mg TID CHAYA Administration Sodium Chloride 10 ml 04/21/22 22:00 05/02/22 09:22 Sodium Chloride 0.9% 10 Ml Flush Syringe IV 10 ml BID CHAYA Administration Sodium Chloride 10 ml 04/21/22 13:47 Sodium Chloride 0.9% 10 Ml Flush Syringe IV PRN PRN LINE FLUSH Vancomycin HCl 125 mg 05/02/22 18:00 05/02/22 17:05 Vancomycin 250 Mg/10 Ml Oral Liqd PO 125 mg Q6HR CHAYA Administration Protocol Nutrition/Malnutrition Assess - Dietary Evaluation Nutrition/Malnutrition Findings: Nutrition Notes Start: 04/28/22 14:53 Freq: Status: Active Protocol: Document 04/28/22 14:53 JAMES (Rec: 04/28/22 15:06 JAMES [email or web address]) Nutrition Notes Need for Assessment generated from: LOS Initial or Follow up Assessment Current Diagnosis Acute Kidney Injury,Diabetes, Sepsis,Hypertension Other Pertinent Diagnosis R-Paraspinal Abscess/ Cellulitis, Tad's Gangrene, UTI, Asthma. Current Diet Regular -No Dairy- Diet (since B 04/21). Labs/Tests 04/28: Cl 113.1, CO2 18, BUN 33, Crea 2.6, Ca 7.6. Pertinent Medications 04/28: Multivitamins, others nutritionally unremarkable. Height 5 ft 6 in Weight 58.3 kg [place] Body Weight (kg) 64.54 BMI 20.7 Intake Prior to Admission Good Weight change and time frame Pt denies having loss body weight [employer]. Weight Status Appropriate Subjective/Other Information RD consult for LOS assessment. Pt's PO intake of meals has been Good (75-100%) and well tolerated, according to ADL notes. Pt is on Room Air, O2 saturation @ 100%, according to Physical Assessment History notes. Pt has missing teeth, according to Physical Assessment History notes. Pt presents Tad's Gangrene & Back Abscess as signs of concern for skin risk at the time, according to Physical Assessment History notes. Pt has chronic diarrhea, according to Progress notes. Percent of energy/protein needs met: Prescribed Regular -No Dairy- Diet provides for energy/ protein needs (2,289 Kcal/89 g ) during LOS. Burn Absent Trauma Absent GI Symptoms None Food Allergy No Skin Integrity/Comment Tad's Gangrene & Back Abscess. Current % PO Good (75-100%) Minimum of two criteria No Fluid Accumulation N/A [employer] Strength N/A (non-severe) Protein-Calorie Malnutrition N\A #1 Nutrition Diagnosis No nutrition diagnosis at this time Is patient on ventilator? No Is Patient Ambulatory and/or Out of Bed Yes [facility]) [ 1820.975 [id number]] Kcal/Kg value to use for calculation 28 Approximate Energy Requirements Using 1632 kcal/Kg Calculation Used for Recommendations Kcal/kg Additional Notes Protein: 0.8-1 g/Kg ABW; 46-58 g/day. Fluids: 1 ml/Kcal, or as per MD. Nutrition Intervention Change Diet Order: Continue Regular -No Dairy- Diet as tolerated. Follow-Up By: 05/05/22 Additional Comments Continue monitoring food tolerance, %PO intake of meals , and BM.
[2022-05-03] MEDS: VANCOMYCIN 250 MG/10 ML ORAL LIQD PO SCH ×3 (00:44→12:39)
[2022-05-03] MEDS: MORPHINE 2 MG/1 ML INJ IV PRN ×2 (02:23→09:47)
[2022-05-03] MEDS: SODIUM CHLORIDE 0.9% 1000 ML 1,000 ML IV SCH (05:56)
--- NOTE | 2022-05-03 09:13 | Progress Note ---
Subjective Principal diagnosis: Back abscess Interval history: Assessment and plan #Acute kidney injury, renal function appears to be stabilizing, baseline creatinine has been around 1.3 as of August 2021 Vasculitic work-up negative lupus serology negative complements normal vancomycin level 15.2 C. difficile positive hepatitis B negative, No evidence to suggest any paraprotein Admission creatinine was around 4.1 current creatinine around 2.9 patient may have some progression of renal failure over time could be possibly in stage IV chronic kidney disease, underlying limited renal reserve Hypocalcemia: To monitor and follow #Anemia in chronic kidney disease: Give erythropoietin x1 Will need to see hematology in the outpatient setting #Hematuria pyuria, needs follow-up #Metabolic acidosis: To monitor and follow goal bicarbonate eventually should be around 24 #Hyponatremia: To monitor and follow #Diarrhea C. difficile positive currently on oral vancomycin, close intake and output monitoring, Renal ultrasonogram obtained this admission April 21 shows minimal dilatation of renal collecting system increased bilateral echogenicity, 11.8 and 11.2 cm size kidney, Must follow-up in the office upon discharge, please give him an appointment to follow Medication recommendation: Reduce gabapentin to 300 mg at bedtime, reduce sodium bicarbonate to 1300 mg twice a day, consider renal vitamin, erythropoietin today Overall stable from renal standpoint If there are any renal related issues in regards to this patient please feel free to reach out without any hesitation at [phone] We'll continue to follow and make recommendation for renal standpoint. Progress note by: Osvaldo Diallo MD [address] [place] [id number] Tele [phone] [email or web address] Patient was seen today for follow-up of multiple renal related issues Events of 24 hours vitals labs intake output medications were reviewed Past medical history: Reviewed Family history: Reviewed Social history: Reviewed Allergies: Reviewed Physical examination: Vitals: Reviewed HEENT: No pallor or icterus oral mucosa moist Neck: Supple no JVD no thyromegaly Chest: Bilateral clear to auscultation anteriorly Heart: Regular rate and rhythm S1-S2 heard no S3-S4 Abdomen: Soft nontender no voluntary guarding rigidity rebound Extremity: Dry skin less than 1+ peripheral edema Psychiatric: No evidence of agitation and aggression noted Dermatology: No petechial rashes Labs and x-rays: Reviewed from today Medication recommendation: Reduce gabapentin to 300 mg at bedtime, reduce sodium bicarbonate to 1300 mg twice a day, consider renal vitamin, erythropoietin today Objective - Vital Signs Vital signs: Vital Signs - 12hr 05/02/22 05/03/22 22:00 05:13 Temperature 97.5 F L Pulse Rate 90 Respiratory 18 Rate Blood Pressure 160/87 O2 Sat by Pulse 96 92 Oximetry - Lab 04/27/22 04:53 05/02/22 05:40 Most recent lab results ABG pH 7.301 pH Units (7.350-7.450) L 04/22/22 16:02 ABG pCO2 34.1 mm Hg 04/22/22 16:02 ABG pO2 119.7 mm Hg (80.0-90.0) H 04/22/22 16:02 ABG HCO3 16.4 mmol/L (20.0-26.0) L 04/22/22 16:02 ABG O2 Saturation 96.6 % (95.0-99.0) 04/22/22 16:02 Calcium 7.9 mg/dL (8.4-10.2) L 05/02/22 05:40 Urine Creatinine 69.3 mg/dL (0.1-20.0) H 04/21/22 17:46 Urine Sodium 77 mmol/L 04/21/22 17:46 Medications & Allergies - Medications Allergies/Adverse Reactions: Allergies No Known Allergies Allergy (Verified 04/21/22 08:44) Home Medications: Home Medications Medication Instructions Recorded Confirmed Last Taken Type Folic Acid [Folvite] 1 mg PO QDAY 08/17/21 04/22/22 04/21/22 History amLODIPine [Norvasc] 5 mg PO DAILY 08/17/21 04/22/22 04/21/22 History carvediloL [Coreg] 25 mg PO Q12H 08/17/21 04/22/22 04/21/22 History hydroCHLOROthiazide [HCTZ] 25 mg PO QDAY 08/17/21 04/22/22 04/21/22 History Loperamide [Imodium] 2 mg PO BID 04/22/22 04/22/22 04/21/22 History Active Medications: Generic Name Dose Route Start Last Admin Trade Name [place] PRN Reason Stop Dose Admin Acetaminophen 650 mg 04/21/22 13:47 04/23/22 22:06 Acetaminophen 325 Mg Tab PO 650 mg Q4H PRN Administration Pain MILD(1-3)/Fever >100.5/SHARPE Albuterol 2.5 mg 04/21/22 13:47 Albuterol 2.5 Mg/3 Ml Nebu IH Q4HRT PRN Shortness Of Breath Amlodipine Besylate 10 mg 04/26/22 11:00 05/02/22 09:22 Amlodipine 10 Mg Tab PO 10 mg QDAY CHAYA Administration Atorvastatin Calcium 40 mg 04/21/22 22:00 05/02/22 21:29 Atorvastatin 40 Mg Tab PO 40 mg QHS CHAYA Administration Cholestyramine Resin 4 gm 04/30/22 22:00 05/02/22 21:30 Cholestyramine (With Sugar) 4 Gm Packet PO Not Given BID CHAYA Doxycycline Hyclate 100 mg 04/28/22 10:00 05/02/22 21:29 Doxycycline 100 Mg Cap PO 05/04/22 22:01 100 mg Q12HR CHAYA Administration Gabapentin 400 mg 04/22/22 18:00 05/02/22 17:05 Gabapentin 400 Mg Cap PO 400 mg QPM CHAYA Administration Hydralazine HCl 10 mg 04/25/22 19:00 04/30/22 23:52 Hydralazine 20 Mg/1 Ml Inj IV 10 mg Q4HR PRN Administration BP > 150/95 Hydromorphone HCl 0.5 mg 04/21/22 13:47 04/23/22 04:28 Hydromorphone 0.5 Mg/0.5 Ml Inj IV 0.5 mg Q23H PRN Administration Pain , Severe (7-10) Sodium Chloride 1,000 mls @ 100 mls/hr 04/29/22 10:00 05/03/22 05:56 Nacl 0.9% 1000 Ml IV 100 mls/hr DIRECT CHAYA Administration Morphine Sulfate 2 mg 04/21/22 18:00 05/03/22 02:23 Morphine 2 Mg/1 Ml Inj IV 2 mg Q4H PRN Administration Pain, Moderate (4-6) Multivitamins 1 each 04/24/22 10:00 05/02/22 09:22 Multivitamins ,Therapeutic Tab PO 1 each QDAY CHAYA Administration Ondansetron HCl 4 mg 04/23/22 10:00 05/02/22 22:11 Ondansetron 4 Mg/2 Ml Inj IV 4 mg Q4H PRN Administration Nausea And Vomiting Oxycodone/Acetaminophen 1 tab 04/21/22 13:47 Oxycodone /Acetaminophen 5-325mg Tab PO Q16H PRN Pain, Moderate (4-6) Sodium Bicarbonate 1,300 mg 04/21/22 20:00 05/02/22 21:29 Sodium Bicarbonate 650 Mg Tab PO 1,300 mg TID CHAYA Administration Sodium Chloride 10 ml 04/21/22 22:00 05/02/22 21:30 Sodium Chloride 0.9% 10 Ml Flush Syringe IV 10 ml BID CHAYA Administration Sodium Chloride 10 ml 04/21/22 13:47 Sodium Chloride 0.9% 10 Ml Flush Syringe IV PRN PRN LINE FLUSH Vancomycin HCl 125 mg 05/02/22 18:00 05/03/22 05:52 Vancomycin 250 Mg/10 Ml Oral Liqd PO 125 mg Q6HR CHAYA Administration Protocol
[2022-05-03] MEDS: CHOLESTYRAMINE (WITH SUGAR) 4 GM PACKET PO SCH ×2 (09:32→12:39)
[2022-05-03] MEDS: SODIUM BICARBONATE 650 MG TAB PO SCH ×2 (09:46→13:31)
[2022-05-03] MEDS: DOXYCYCLINE 100 MG CAP PO SCH (09:46)
[2022-05-03] MEDS: amLODIPine 10 MG TAB PO SCH (09:46)
[2022-05-03] MEDS: MULTIVITAMINS ,THERAPEUTIC TAB PO SCH (09:46)
[2022-05-03] MEDS: ONDANSETRON 4 MG/2 ML INJ IV PRN (09:46)
[2022-05-03] MEDS ORDERED: FOLIC ACID/VIT B COMP W-C 1 MG (RENAL CAPS) PO SCH (10:00)
--- NOTE | 2022-05-03 11:24 | Discharge Summary ---
Providers - Providers Date of Admission: 04/21/22 13:47 Date of discharge: 05/03/22 Attending physician: BEBE BOOTH 04/21/22 13:52 Consult to Physician [CONS] Urgent Comment: Consulting Provider: JUVENAL HOLLOWAY Physician Instructions: Reason For Exam: Cellulitis/Abscess needing I&D 04/21/22 14:24 Consult to Physician [CONS] Routine Comment: Consulting Provider: CORBY CORRAL Physician Instructions: Reason For Exam: dennis 04/22/22 13:22 Consult to Physician [CONS] Routine Comment: Consulting Provider: VINICIO BLOOM Physician Instructions: Reason For Exam: diarrhea, 50lb weight loss 04/22/22 13:23 Consult to Physician [CONS] Routine Comment: Consulting Provider: JORDI HAQUE Physician Instructions: Reason For Exam: back abscess 04/28/22 19:42 Occupational Therapy Evaluate and Treat [CONS] Routine Comment: Evaluate and treat/DC needs Reason For Exam: Paraspinal abscess/I&D/General debility Physical Therapy Evaluation and Treat [CONS] Routine Comment: Evaluate and treat ,discharge needs Reason For Exam: Eval ,treat/ paraspinal abscess I&D,gen debility 04/29/22 15:02 Consult to Physician [CONS] Routine Comment: Consulting Provider: ASHLEY MERCADO Physician Instructions: Reason For Exam: History of Crohn's disease/diarrhea 05/03/22 09:00 Consult to Wound/ET Nurse [CONS] Routine Reason For Exam: wound eval Primary care physician: ISRA VILLALOBOS Hospitalization Condition: Stable Hospital course: 46 YO Male with DM, Mild Intermittent Asthma, Nicotine Dependence, Medication Noncompliance presents ED for evaluation of pain to his right back over the past 4 days [employer]IST[employer]. 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 Patient found to have a fluctuant mass to the right paraspinal region with superimposed erythema consistent with cellulitis complicated by right paraspinal abscess, sepsis, as well as urinary tract infection, and hyponatremia. --History of Crohn's disease; GI evaluated, advised stool studies and supportive care Advised follow-up outpatient for further evaluation and management -- C. difficile tox positive; Contact isolation, started oral vancomycin 125 mg every 6 hours for total 10 days -Paraspinal abscess; surgeon evaluated the patient Status post incision drainage, continue wound care, completed IV antibiotics ID recommended doxycycline 100 mg twice a day for total 7 days stop date 05/04/2022 --Cellulitis; continue IV antibiotics, follow cultures --Sepsis; due to paraspinal abscess/cellulitis[present on admission] Continue sepsis protocol, IV fluids, completed IV antibiotics, on oral Doxy for 10 days stop date 05/04/2022 --UTI; urinary tract infection present on admission Continue empiric antibiotics, follow cultures, IV fluids --Acute kidney injury secondary to ATN from sepsis/vasomotor nephropathy; Closely monitor renal function, avoid nephrotoxins, renal dosing of medications Nephrology following --Hyponatremia; present on admission Sodium level significantly improved, closely monitor electrolytes --Anemia; Hb 6.7, received 1 unit PRBC improved to 7.3 Closely monitor H&H, transfuse additional PRBC as needed --Severe protein calorie malnutrition; Nutrition supplements, nutrition consult, supportive care --Ongoing tobacco use/nicotine dependence/cessation counseling 15 to 20 minutes Smoking cessation counseling done, strongly advised to quit tobacco use Risks and sequelae of chronic tobacco use discussed with the patient He verbalized understanding I also discussed role of nicotine patch and smoking cessation Answered all his questions, total time spent 17 minutes --DVT prophylaxis; Patient is postop state SCDs, no pharmacologic anticoagulation --Advance care planning; I discussed in detail with the patient his condition I discussed his tests and reports, I discussed his treatment plan I discussed the consultants evaluation recommendations, I discussed discharge planning I also discussed smoking cessation, also discussed usage of nicotine patch. Patient has few questions, answered all of them, he verbalized understanding Ordered nicotine patch to his treatment regimen total time 35 minutes Disposition: 06 HOME HEALTH CARE SERVICE Core Measure Documentation - Palliative Care Palliative Care/ Comfort Measures: Not Applicable - Core Measures Any of the following diagnoses?: none Exam - Constitutional Vitals: Temp Pulse Resp BP Pulse Ox 97.5 F L 90 18 160/87 92 05/03/22 05:13 05/03/22 05:13 05/03/22 05:13 05/03/22 05:13 05/03/22 05:13 General appearance: Present: no acute distress, well-nourished - EENT Eyes: Present: PERRL, EOM intact - Neck Neck: Present: supple, normal ROM - Respiratory Respiratory effort: normal Respiratory: bilateral: diminished, negative: rales, rhonchi, wheezing - Cardiovascular Rhythm: regular Heart Sounds: Present: S1 & S2 - Extremities Extremities: no ischemia, No edema - Abdominal General gastrointestinal: Present: soft, non-tender, non-distended, normal bowel sounds - Integumentary Integumentary: Present: clear, warm - Musculoskeletal Musculoskeletal: strength equal bilaterally, generalized weakness - Psychiatric Psychiatric: appropriate mood/affect, cooperative - Neurologic Neurologic: moves all extremities Plan Activity: advance as tolerated, fall precautions Diet: renal Additional Instructions: If you have worsening symptoms contact MD or go to the nearest emergency room. Advised to see primary care physician in [facility]. Follow nephrology, follow surgeon per schedule Follow up with: ISRA VILLALOBOS MD [Primary Care Provider] - 3-5 Days TORIBIO CUNNINGHAM MD [Staff Physician] - 7 Days JUVENAL HOLLOWAY MD [Staff Physician] - 7 Days Prescriptions: amLODIPine 10 mg PO QDAY #30 tablet Gabapentin 400 mg PO QPM #30 capsule Loperamide [Imodium] 2 mg PO BID #30 cap AtorvaSTATin [Lipitor] 40 mg PO QHS #30 tablet Multivitamin Tab [Multiple Vitamin TAB (Theragran)] 1 each PO QDAY #30 tablet oxyCODONE /ACETAMINOPHEN [Percocet 5/325] 1 tab PO BID PRN #8 PRN Reason: Pain , Severe (7-10) Cholestyramine (with Sugar) [Questran] 4 gm PO BID #60 packet Folic Acid/Vit B Comp W-C [Renal Caps] 1 cap PO QDAY #30 capsule Sodium Bicarbonate 1,300 mg PO TID #90 tablet Vancomycin HCl 125 mg PO Q6H #37 cap DOXYCYCLINE Hyclate [Vibramycin CAP] 100 mg PO Q12HR #4 tab
[2022-05-03] MEDS ORDERED: EPOETIN ALFA-EPBX 20,000 UNIT/1 ML VIAL SUB-Q NR (12:00)
[2022-05-03 13:05] VITALS: BP 185/107
[2022-05-05 07:38] LABS: Abnormal Protein Band 1 SEE SCANNED RESULT; Abnormal Protein Band 2 SEE SCANNED RESULT; Albumin SEE SCANNED RESULT; Creatinine, Random Urine SEE SCANNED RESULT; Gamma Globulin SEE SCANNED RESULT; Interpretation SEE SCANNED RESULT; Protein/Creatinine Ratio SEE SCANNED RESULT
== END 2022-05-03 15:30 | disposition home or self-care (01) | DRG 871 ==
LOC: ED 21:50 → 3A 04-21 13:47
PROVIDERS: ADMIT Internal Medicine; ATTEND Internal Medicine
PROC: 0W9L0ZZ Drainage of Lower Back, Open Approach (ICD-10-PCS; 2022-04-21)
PROC: 30233N1 Transfusion of Nonautologous Red Blood Cells into Peripheral Vein, Percutaneous Approach (ICD-10-PCS; principal; 2022-04-23)
DX: A41.9 Sepsis, unspecified organism (principal); E43 Unspecified severe protein-calorie malnutrition; G06.1 Intraspinal abscess and granuloma; N17.0 Acute kidney failure with tubular necrosis; N39.0 Urinary tract infection, site not specified; E87.1 Hypo-osmolality and hyponatremia; L03.312 Cellulitis of back [any part except buttock and flank]; K50.90 Crohn's disease, unspecified, without complications; I13.0 Hypertensive heart and chronic kidney disease with heart failure and stage 1 through stage 4 chronic kidney disease, or unspecified chronic kidney disease; D64.9 Anemia, unspecified; I50.9 Heart failure, unspecified; J45.909 Unspecified asthma, uncomplicated; F17.200 Nicotine dependence, unspecified, uncomplicated; Z91.19 Patient's noncompliance with other medical treatment and regimen; K52.9 Noninfective gastroenteritis and colitis, unspecified; Z68.20 Body mass index [BMI] 20.0-20.9, adult; Z71.6 Tobacco abuse counseling; E83.51 Hypocalcemia; D63.1 Anemia in chronic kidney disease; N18.9 Chronic kidney disease, unspecified; Z83.3 Family history of diabetes mellitus; Z79.899 Other long term (current) drug therapy; Z79.4 Long term (current) use of insulin; Z82.49 Family history of ischemic heart disease and other diseases of the circulatory system
CPT/HCPCS: 36415; 36600; 72131; 76770; 80048; 80053; 80202; 81001; 82140; 82270; 82550; 82570; 82607; 82728; 82747; 82803; 82962; 83550; 83615; 83690; 83986; 84165; 84166; 84300; 85007; 85025; 85045; 86021; 86038; 86160; 86334; 86706; 86803; 86850; 86900; 86901; 86920; 87040; 87045; 87075; 87076; 87086; 87116; 87186; 87493; 87641; 94640; 94760; 99285; 99406; G0378; J3490; J0360; J0692; J0885; J1170; J2250; J2270; J2405; J2704; J3010; J3370; J7030; J7040; P9016